=== PATIENT | female | born 1970 | race Two or more races ===

== ENCOUNTER 2017-03-05 05:48 | Emergency (ER) | payer MEDICAID, OTHER ==
[~2017-03-05] VITALS: Ht 167.6 cm; Wt 99.8 kg
[~2017-03-05 05:48] MED LIST: CITA-36 PO; FLUO-125 PO; HAL1T GT; LAM100T OR; PHE100C PO; PHEN32.49 PO
[2017-03-05] MEDS ORDERED: SODIUM CHLORIDE 0.9% 1,000 ML IV ONE (06:54)
[2017-03-05] MEDS ORDERED: MORPHINE SULFATE 4 MG/ML SYRG IV ONE (07:00)
[2017-03-05] MEDS ORDERED: ONDANSETRON HCL 4 MG/2 ML VIAL IV ONE (07:00)
[2017-03-05 07:38] LABS: Basophils # (auto) 0.2 uL; Basophils % (auto) 1.5 % (0.0-2.0); CONDITION Y; Eosinophils # (auto) 0.1 uL; Eosinophils % (auto) 0.7 % (0.0-7.0); Hematocrit 37.9 % (36.0-46.0); Hemoglobin 12.9 g/dL (12.2-16.2); Lymphocytes # (auto) 3.2 uL; Lymphocytes % (auto) 28.2 % (10.0-50.0); Mean Corpuscular Hemoglobin 29.1 pg (28.0-32.0); Mean Corpuscular Hgb Conc. 33.9 g/dL (32.0-36.0); Mean Corpuscular Volume 85.8 fL (80.0-100.0); Mean Platelet Volume 8.3 fL (7.4-10.4); Monocytes # (auto) 0.6 uL; Monocytes % (auto) 5.7 % (0.0-12.0); Neutrophils # (auto) 7.2 uL; Neutrophils % (auto) 63.9 % (37.0-80.0); Platelet Count (auto) 351 10^3/uL (140-450); Red Cell Distribution Width 14.1 % (11.6-16.0); White Blood Cell 11.3 10^3/uL (4.4-10.8)
[2017-03-05 07:53] LABS: Albumin 3.2 g/dL (3.4-5.0); BUN/Creatinine Ratio 19.4; Calcium 8.5 mg/dL (8.5-10.1); Potassium 4.8 mmol/L (3.5-5.1)
[2017-03-05 07:56] LABS: Bilirubin, Total 0.1 mg/dL (0.2-1.0); Total Protein 7.4 g/dL (6.4-8.2)
[2017-03-05] MEDS ORDERED: LEVOFLOXACIN 500MG 100 ML IV ONE (09:30)
[2017-03-05 10:09] VITALS: BP 90/56
== END 2017-03-05 11:04 | disposition home or self-care (01) ==
LOC: EDBD 05:48 → ER 05:52
DX: R10.9 Unspecified abdominal pain (principal); D72.829 Elevated white blood cell count, unspecified; E78.5 Hyperlipidemia, unspecified; F12.10 Cannabis abuse, uncomplicated; Z88.0 Allergy status to penicillin; Z93.3 Colostomy status; Z90.49 Acquired absence of other specified parts of digestive tract; Z98.51 Tubal ligation status; Z79.899 Other long term (current) drug therapy
CPT/HCPCS: 36415; 71010; 74176; 80053; 85025; 96361; 96365; 96375; 99285; J1956; J2270; J2405

== ENCOUNTER 2017-06-09 15:29 | Emergency (ER) | payer OTHER ==
[~2017-06-09] VITALS: Ht 170.2 cm; Wt 104.3 kg
[2017-06-09 16:20] LABS: Basophils # (auto) 0 uL; Basophils % (auto) 0.3 % (0.0-2.0); Eosinophils # (auto) 0.1 uL; Eosinophils % (auto) 0.9 % (0.0-7.0); Hematocrit 38.8 % (36.0-46.0); Lymphocytes # (auto) 2.6 uL; Lymphocytes % (auto) 21.1 % (10.0-50.0); Mean Corpuscular Hgb Conc. 33.5 g/dL (32.0-36.0); Mean Corpuscular Volume 86.6 fL (80.0-100.0); Monocytes # (auto) 0.6 uL; Monocytes % (auto) 4.7 % (0.0-12.0); Neutrophils # (auto) 8.9 uL; Platelet Count (auto) 355 10^3/uL (140-450); Red Cell Distribution Width 13.5 % (11.8-14.3); White Blood Cell 12.1 10^3/uL (4.4-10.8)
[2017-06-09 16:38] LABS: Albumin 2.9 g/dL (3.4-5.0); Alkaline Phosphatase 232 U/L (45-117); Anion Gap 8 (5-15); Aspartate Aminotransferase 16 U/L (15-37); BUN/Creatinine Ratio 7.9; Bilirubin, Total 0.2 mg/dL (0.2-1.0); Blood Urea Nitrogen 5 mg/dL (7-18); Calcium 8.3 mg/dL (8.5-10.1); Carbon Dioxide 23 mmol/L (21-32); Chloride 107 mmol/L (98-107); GFR African American 129 mL/min; GFR Non-African American 107 mL/min; Glucose 83 mg/dL (74-106); Potassium 3.8 mmol/L (3.5-5.1); Sodium 138 mmol/L (136-145); Total Protein 7.6 g/dL (6.4-8.2)
[2017-06-09 22:06] VITALS: BP 136/87
[2017-06-10 01:27] LABS: Acetaminophen < 2.0 ug/mL (10-30)
[2017-06-10 01:30] LABS: Salicylate 1.7 mg/dL (2.8-20.0)
== END 2017-06-10 10:06 | disposition left against medical advice (07) ==
LOC: EDUNIT# 15:29 → EDBD 15:29 → ER 15:32
DX: T42.3X1A Poisoning by barbiturates, accidental (unintentional), initial encounter (principal); F32.9 Major depressive disorder, single episode, unspecified; E78.5 Hyperlipidemia, unspecified; F20.9 Schizophrenia, unspecified; Z98.51 Tubal ligation status; Y92.89 Other specified places as the place of occurrence of the external cause
CPT/HCPCS: 36415; 80053; 80184; 80307; 80320; 80329; 85025; 93005; 94761

== ENCOUNTER 2024-05-03 19:16 | Inpatient (IN) | payer MEDICAID, OTHER ==
[~2024-05-03] VITALS: Ht 154.9 cm; Wt 114.8 kg
[~2024-05-03 19:16] MED LIST changes: -CITA-36 PO; +CITA40TA12 PO; -PHE100C PO; +PHEN1CAP38 PO; +PHEN32.44 PO; -PHEN32.49 PO
[2024-05-03 20:05] LABS: Basophils # (auto) 0.1 10 ^3/uL (0-0.2); Eosinophils # (auto) 0 10 ^3/uL (0-0.8); Eosinophils % (auto) 0.4 % (0.0-7.0); Hemoglobin 14.1 g/dL (12.2-16.2); Lymphocytes # (auto) 2.1 10 ^3/uL (0.4-5.4); Mean Corpuscular Hemoglobin 29.6 pg (28.0-32.0); Mean Corpuscular Hgb Conc. 34.5 g/dL (32.0-36.0); Monocytes # (auto) 0.6 10 ^3/uL (0-1.3); Monocytes % (auto) 5.8 % (0.0-12.0); Neutrophils # (auto) 7.3 10 ^3/uL (1.6-8.6); Neutrophils % (auto) 71.8 % (37.0-80.0); Nucleated Red Blood Cells % 0.1 %; Platelet Count (auto) 355 10^3/uL (140-450); Red Blood Cells 4.77 10^6/uL (4.0-5.20); Red Cell Distribution Width 13.8 % (11.8-14.3); White Blood Cell 10.2 10^3/uL (4.4-10.8)
[2024-05-03 20:24] LABS: Alanine Aminotransferase 24 U/L (7-40); Alkaline Phosphatase 194 U/L (46-116); Anion Gap 6 (5-15); Aspartate Aminotransferase 19 U/L (13-40); BUN/Creatinine Ratio 14.3 (10.0-20.0); Bilirubin, Total 0.2 mg/dL (0.2-1.0); Blood Urea Nitrogen 11 mg/dL (9-23); Calcium 9.4 mg/dL (8.7-10.4); Carbon Dioxide 26 mmol/L (20-30); Chloride 106 mmol/L (98-107); Glucose 102 mg/dL (74-106); Potassium 4.3 mmol/L (3.5-5.1); Sodium 138 mmol/L (136-145); Total Protein 7.2 g/dL (5.7-8.2)
[2024-05-03 20:39] LABS: Lipase 33 U/L (12-53)
[2024-05-03] MEDS: SODIUM CHLORIDE 0.9% 500 ML IVB ONE (23:04)
[2024-05-03 23:08] VITALS: PULSE 70; RESP 18; O2SAT 95
[2024-05-04] VITALS (7 sets, daily range): BP systolic 94–133; BP diastolic 45–63; PULSE 64–85; RESP 16–20; TEMP 97.7–98.7; O2SAT 93–99
[2024-05-04] MEDS ORDERED: ACETAMINOPHEN 325 MG TAB PO PRN (02:00)
[2024-05-04] MEDS ORDERED: DOCUSATE SOD 100 MG CAP PO PRN (02:00)
[2024-05-04] MEDS: ONDANSETRON HCL 4 MG/2 ML VIAL IV PRN (02:41)
[2024-05-04] MEDS: SODIUM CHLORIDE 0.9% 1,000 ML IV SCH (02:42)
[2024-05-04] MEDS: MORPHINE SULFATE INJ 2 MG/ml SYRG IV PRN (02:42)
[2024-05-04] MEDS ORDERED: NITROGLYCERIN 0.4 MG SL TAB SL PRN (05:30)
[2024-05-04] MEDS ORDERED: MORPHINE SULFATE INJ 2 MG/ml SYRG IV PRN (05:30)
[2024-05-04] MEDS ORDERED: PHENYTOIN SODIUM 100 MG CAP PO SCH (06:00)
[2024-05-04] MEDS: PHENYTOIN SODIUM 100 MG CAP PO SCH (06:45)
[2024-05-04 06:59] LABS: Basophils # (auto) 0.1 10 ^3/uL (0-0.2); Basophils % (auto) 0.6 % (0.0-2.0); Eosinophils # (auto) 0 10 ^3/uL (0-0.8); Eosinophils % (auto) 0.4 % (0.0-7.0); Hematocrit 38.9 % (36.0-46.0); Hemoglobin 13.4 g/dL (12.2-16.2); Lymphocytes # (auto) 2.7 10 ^3/uL (0.4-5.4); Lymphocytes % (auto) 22.7 % (10.0-50.0); Mean Corpuscular Hemoglobin 29.8 pg (28.0-32.0); Mean Corpuscular Hgb Conc. 34.5 g/dL (32.0-36.0); Mean Corpuscular Volume 86.2 fL (80.0-100.0); Monocytes # (auto) 0.6 10 ^3/uL (0-1.3); Monocytes % (auto) 5.4 % (0.0-12.0); Neutrophils # (auto) 8.4 10 ^3/uL (1.6-8.6); Neutrophils % (auto) 70.9 % (37.0-80.0); Nucleated Red Blood Cells % 0.1 %; Platelet Count (auto) 319 10^3/uL (140-450); Red Blood Cells 4.51 10^6/uL (4.0-5.20); Red Cell Distribution Width 13.8 % (11.8-14.3); White Blood Cell 11.8 10^3/uL (4.4-10.8)
[2024-05-04 07:14] LABS: Alanine Aminotransferase 23 U/L (7-40); Albumin 3.9 g/dL (3.2-4.8); Alkaline Phosphatase 189 U/L (46-116); Anion Gap 6 (5-15); Aspartate Aminotransferase 22 U/L (13-40); BUN/Creatinine Ratio 13.5 (10.0-20.0); Bilirubin, Total 0.2 mg/dL (0.2-1.0); Blood Urea Nitrogen 10 mg/dL (9-23); Calcium 9.1 mg/dL (8.7-10.4); Carbon Dioxide 27 mmol/L (20-30); Chloride 106 mmol/L (98-107); Glucose 88 mg/dL (74-106); Potassium 4.2 mmol/L (3.5-5.1); Sodium 139 mmol/L (136-145); Total Protein 6.8 g/dL (5.7-8.2)
[2024-05-04] MEDS: PANTOPRAZOLE 40 MG/10 ML VIAL INJ IV SCH (07:36)
[2024-05-04] MEDS: HYDROcodone-ACET 5/325MG TAB PO PRN (07:37)
[2024-05-04] MEDS: lamoTRIgine 100 MG TAB PO SCH (07:38)
[2024-05-04] MEDS: PHENobarbital 32.4 MG TAB PO SCH (10:09)
[2024-05-05 01:00] VITALS: BP 120/57; PULSE 73; RESP 20; TEMP 98.1; O2SAT 95
[2024-05-05] MEDS ORDERED: PNEUMOCOCCAL VACC POLYS 25 MCG/0.5 ML VIAL IM ONE (02:30)
[2024-05-05 05:00] VITALS: BP 94/40; PULSE 68; RESP 20; TEMP 97.8; O2SAT 95
[2024-05-05 06:32] LABS: Basophils # (auto) 0.1 10 ^3/uL (0-0.2); Basophils % (auto) 1.2 % (0.0-2.0); Eosinophils # (auto) 0.1 10 ^3/uL (0-0.8); Eosinophils % (auto) 0.6 % (0.0-7.0); Hematocrit 37.7 % (36.0-46.0); Lymphocytes # (auto) 2.2 10 ^3/uL (0.4-5.4); Mean Corpuscular Hemoglobin 30.1 pg (28.0-32.0); Mean Corpuscular Hgb Conc. 34.4 g/dL (32.0-36.0); Mean Corpuscular Volume 87.3 fL (80.0-100.0); Monocytes # (auto) 0.5 10 ^3/uL (0-1.3); Monocytes % (auto) 6.6 % (0.0-12.0); Neutrophils # (auto) 5.1 10 ^3/uL (1.6-8.6); Neutrophils % (auto) 63.6 % (37.0-80.0); Platelet Count (auto) 299 10^3/uL (140-450); Red Blood Cells 4.32 10^6/uL (4.0-5.20); Red Cell Distribution Width 13.6 % (11.8-14.3)
[2024-05-05 06:51] LABS: Alanine Aminotransferase 43 U/L (7-40); Alkaline Phosphatase 205 U/L (46-116); Anion Gap 9 (5-15); BUN/Creatinine Ratio 8.2 (10.0-20.0); Blood Urea Nitrogen 6 mg/dL (9-23); Calcium 8.6 mg/dL (8.7-10.4); Carbon Dioxide 22 mmol/L (20-30); Chloride 109 mmol/L (98-107); Glucose 77 mg/dL (74-106); Potassium 4.3 mmol/L (3.5-5.1); Sodium 140 mmol/L (136-145)
[2024-05-05 06:52] LABS: Albumin 3.5 g/dL (3.2-4.8); Aspartate Aminotransferase 43 U/L (13-40)
[2024-05-05 06:53] LABS: Bilirubin, Total 0.2 mg/dL (0.2-1.0); Total Protein 6.4 g/dL (5.7-8.2)
[2024-05-05 07:30] VITALS: PULSE 66
[2024-05-05 17:00] VITALS: BP 121/65; PULSE 66; RESP 19; TEMP 98.4; O2SAT 97
[2024-05-05 20:00] VITALS: PULSE 78; PULSE 85; RESP 17; O2SAT 96
[2024-05-05 21:00] VITALS: BP 107/54; PULSE 82; RESP 20; TEMP 97.8; O2SAT 95
[2024-05-05] MEDS: metroNIDAZOLE 500MG/100ML 100 ML IV SCH (22:18)
[2024-05-06 01:03] VITALS: BP 100/51; PULSE 73; RESP 19; TEMP 98.2; O2SAT 93
[2024-05-06 05:03] VITALS: BP 100/51; PULSE 66; RESP 19; TEMP 98.6; O2SAT 95
[2024-05-06 08:00] VITALS: BP 94/41; PULSE 71; RESP 16; RESP 18; TEMP 97.7; O2SAT 95; O2SAT 98
[2024-05-06 13:00] VITALS: BP 112/40; PULSE 68; RESP 17; TEMP 98.4; O2SAT 96
[2024-05-06] MEDS ORDERED: LAM100T PO (14:12)
[2024-05-06 16:00] VITALS: BP 117/62; PULSE 79; RESP 18; TEMP 98; O2SAT 92
== END 2024-05-06 17:18 | disposition home or self-care (01) | DRG 253 ==
LOC: EDBD 19:16 → EDUNIT# 19:16 → ER 19:16 → TELE 05-04 05:30 → TELE-CENTR 05-04 10:53
PROVIDERS: ADMIT Nurse Practitioner Family; ATTEND Internal Medicine
DX: K92.2 Gastrointestinal hemorrhage, unspecified (principal); E78.5 Hyperlipidemia, unspecified; F32.A Depression, unspecified; F20.9 Schizophrenia, unspecified; K43.9 Ventral hernia without obstruction or gangrene; Z93.3 Colostomy status; Z85.038 Personal history of other malignant neoplasm of large intestine; Z88.0 Allergy status to penicillin; Z90.49 Acquired absence of other specified parts of digestive tract; Z82.49 Family history of ischemic heart disease and other diseases of the circulatory system; Z83.3 Family history of diabetes mellitus
CPT/HCPCS: 36415; 74176; 80053; 80185; 82378; 83690; 85025; G0378; J2405; J2470; J3490

== ENCOUNTER 2024-05-15 10:36 | Emergency (ER) | payer MEDICAID ==
[~2024-05-15] VITALS: Ht 154.9 cm; Wt 104.5 kg
[~2024-05-15 10:36] MED LIST changes: -CITA40TA12 PO; -HAL1T GT; -LAM100T OR; +LAM100T PO
[2024-05-15 11:59] LABS: Basophils # (auto) 0.1 10 ^3/uL (0-0.2); Basophils % (auto) 0.6 % (0.0-2.0); Eosinophils # (auto) 0.1 10 ^3/uL (0-0.8); Eosinophils % (auto) 0.5 % (0.0-7.0); Hematocrit 42.3 % (36.0-46.0); Hemoglobin 14.3 g/dL (12.2-16.2); Lymphocytes # (auto) 3.6 10 ^3/uL (0.4-5.4); Lymphocytes % (auto) 27.1 % (10.0-50.0); Mean Corpuscular Hemoglobin 29.6 pg (28.0-32.0); Mean Corpuscular Hgb Conc. 33.7 g/dL (32.0-36.0); Mean Corpuscular Volume 87.8 fL (80.0-100.0); Monocytes # (auto) 0.8 10 ^3/uL (0-1.3); Monocytes % (auto) 6.1 % (0.0-12.0); Neutrophils # (auto) 8.7 10 ^3/uL (1.6-8.6); Neutrophils % (auto) 65.7 % (37.0-80.0); Nucleated Red Blood Cells % 0.1 %; Platelet Count (auto) 381 10^3/uL (140-450); Red Blood Cells 4.82 10^6/uL (4.0-5.20); Red Cell Distribution Width 14.1 % (11.8-14.3); White Blood Cell 13.2 10^3/uL (4.4-10.8)
[2024-05-15 12:28] LABS: Alanine Aminotransferase 21 U/L (7-40); Albumin 4.2 g/dL (3.2-4.8); Alkaline Phosphatase 216 U/L (46-116); Anion Gap 5 (5-15); Aspartate Aminotransferase 20 U/L (13-40); BUN/Creatinine Ratio 13.7 (10.0-20.0); Bilirubin, Total 0.2 mg/dL (0.2-1.0); Blood Urea Nitrogen 10 mg/dL (9-23); Calcium 9.2 mg/dL (8.7-10.4); Carbon Dioxide 24 mmol/L (20-30); Chloride 106 mmol/L (98-107); Glucose 106 mg/dL (74-106); Lipase 32 U/L (12-53); Magnesium 2.2 mg/dL (1.6-2.6); Sodium 135 mmol/L (136-145); Total Protein 7.5 g/dL (5.7-8.2)
[2024-05-15 12:54] VITALS: BP 142/84; PULSE 86; RESP 12; O2SAT 94
[2024-05-15 19:45] LABS: Urine Bacteria None Seen /hpf (None Seen)
[2024-05-15 20:06] LABS: Urine Blood Negative /uL (Negative); Urine Clarity Clear (Clear); Urine Color Yellow (Yellow); Urine Hyaline Cast FEW /lpf (0 - 2); Urine Mucus FEW (None Seen); Urine Protein, UAD TRACE (Negative); Urine Specific Gravity 1.028 (1.001-1.035); Urine Urobilinogen Normal (Negative); Urine WBC 2 /hpf (0 - 5)
== END 2024-05-16 00:59 | disposition left against medical advice (07) ==
LOC: ER 10:36 → EDBD 10:36 → ER 05-16 00:59
DX: K46.9 Unspecified abdominal hernia without obstruction or gangrene (principal); R53.1 Weakness; E78.5 Hyperlipidemia, unspecified; Z98.51 Tubal ligation status; Z88.0 Allergy status to penicillin; Z90.49 Acquired absence of other specified parts of digestive tract; Z87.891 Personal history of nicotine dependence
CPT/HCPCS: 36415; 71045; 74176; 80053; 81001; 83605; 83690; 83735; 84484; 85025; 93005

== ENCOUNTER 2024-06-04 07:15 | Emergency (ER) | payer MEDICAID ==
[~2024-06-04] VITALS: Ht 154.9 cm; Wt 104.5 kg
[2024-06-04] MEDS: LORazepam 2MG/ML-1ML VIAL IV ONE (08:45)
[2024-06-04] MEDS: SODIUM CHLORIDE 0.9% 500 ML IV ONE (09:17)
[2024-06-04] MEDS: SODIUM CHLORIDE 0.9% 1,000 ML IV ONE (09:17)
[2024-06-04] MEDS: MECLIZINE HCL 25 MG TAB PO ONE (09:21)
[2024-06-04 10:13] LABS: Alanine Aminotransferase 26 U/L (7-40); Alkaline Phosphatase 208 U/L (46-116); Anion Gap 5 (5-15); Calcium 8.9 mg/dL (8.7-10.4); Carbon Dioxide 26 mmol/L (20-31); Chloride 109 mmol/L (98-107); Glucose 91 mg/dL (74-106); Magnesium 2.1 mg/dL (1.6-2.6); Potassium 4.4 mmol/L (3.5-5.1); Sodium 140 mmol/L (136-145)
[2024-06-04 10:14] LABS: Albumin 3.7 g/dL (3.2-4.8); Aspartate Aminotransferase 18 U/L (13-40); BUN/Creatinine Ratio 9.6 (10.0-20.0); Bilirubin, Total 0.2 mg/dL (0.2-1.0); Blood Urea Nitrogen 7 mg/dL (9-23); Total Protein 6.9 g/dL (5.7-8.2)
[2024-06-04 10:15] VITALS: PULSE 60; RESP 16; O2SAT 95
[2024-06-04 11:00] LABS: Urine Bacteria FEW /hpf (None Seen); Urine Blood Negative /uL (Negative); Urine Clarity Clear (Clear); Urine Color Light-Yellow (Yellow); Urine Protein, UAD Negative (Negative); Urine Specific Gravity 1.017 (1.001-1.035); Urine Urobilinogen Normal (Negative); Urine WBC 13 /hpf (0 - 5)
[2024-06-04 13:08] LABS: Basophils # (auto) 0 10 ^3/uL (0-0.2); Basophils % (auto) 0.4 % (0.0-2.0); Eosinophils # (auto) 0.1 10 ^3/uL (0-0.8); Eosinophils % (auto) 0.7 % (0.0-7.0); Hematocrit 39.6 % (36.0-46.0); Hemoglobin 13.8 g/dL (12.2-16.2); Lymphocytes # (auto) 2.4 10 ^3/uL (0.4-5.4); Lymphocytes % (auto) 25.1 % (10.0-50.0); Mean Corpuscular Hemoglobin 30.4 pg (28.0-32.0); Mean Corpuscular Hgb Conc. 34.8 g/dL (32.0-36.0); Mean Corpuscular Volume 87.2 fL (80.0-100.0); Monocytes # (auto) 0.5 10 ^3/uL (0-1.3); Monocytes % (auto) 5.2 % (0.0-12.0); Neutrophils # (auto) 6.7 10 ^3/uL (1.6-8.6); Neutrophils % (auto) 68.6 % (37.0-80.0); Nucleated Red Blood Cells % 0.1 %; Platelet Count (auto) 300 10^3/uL (140-450); Red Blood Cells 4.53 10^6/uL (4.0-5.20); Red Cell Distribution Width 13.9 % (11.8-14.3); White Blood Cell 9.7 10^3/uL (4.4-10.8)
[2024-06-04] MEDS ORDERED: NAP500T PO (15:47)
[2024-06-04] MEDS ORDERED: MECL25CH85 PO (15:47)
[2024-06-04 16:40] VITALS: BP 116/56; PULSE 64; RESP 18; TEMP 97.4; O2SAT 97
== END 2024-06-04 17:10 | disposition home or self-care (01) ==
LOC: EDBD 07:15 → EDSEX 07:15 → EDUNIT# 07:15 → ER 07:15
DX: G43.909 Migraine, unspecified, not intractable, without status migrainosus (principal); N39.0 Urinary tract infection, site not specified; H81.13 Benign paroxysmal vertigo, bilateral; F20.9 Schizophrenia, unspecified; F32.A Depression, unspecified; E78.5 Hyperlipidemia, unspecified; Z85.038 Personal history of other malignant neoplasm of large intestine; Z86.69 Personal history of other diseases of the nervous system and sense organs; Z90.49 Acquired absence of other specified parts of digestive tract; Z87.891 Personal history of nicotine dependence; Z98.51 Tubal ligation status; Z93.3 Colostomy status
CPT/HCPCS: 36415; 70450; 71046; 80053; 81001; 83735; 85025; 93005; 96360; 96361; 99285; J7030; J7040; J8597

== ENCOUNTER 2024-06-12 22:10 | Emergency (ER) | payer MEDICAID ==
[2024-06-12] MEDS: IOHEXOL 300 MG/ML 100ML BOTTLE IJ ONE
[~2024-06-12 22:10] MED LIST changes: +MECL25CH85 PO; +NAP500T PO
[2024-06-12 23:02] LABS: Basophils # (auto) 0.1 10 ^3/uL (0-0.2); Basophils % (auto) 0.4 % (0.0-2.0); Eosinophils # (auto) 0 10 ^3/uL (0-0.8); Eosinophils % (auto) 0.2 % (0.0-7.0); Hematocrit 44.8 % (36.0-46.0); Hemoglobin 15.4 g/dL (12.2-16.2); Lymphocytes % (auto) 7.9 % (10.0-50.0); Mean Corpuscular Hgb Conc. 34.4 g/dL (32.0-36.0); Mean Corpuscular Volume 87.1 fL (80.0-100.0); Monocytes # (auto) 0.6 10 ^3/uL (0-1.3); Monocytes % (auto) 5.1 % (0.0-12.0); Neutrophils # (auto) 10.9 10 ^3/uL (1.6-8.6); Neutrophils % (auto) 86.4 % (37.0-80.0); Platelet Count (auto) 275 10^3/uL (140-450); Red Blood Cells 5.14 10^6/uL (4.0-5.20); Red Cell Distribution Width 14.4 % (11.8-14.3); White Blood Cell 12.6 10^3/uL (4.4-10.8)
[2024-06-12 23:16] LABS: Alanine Aminotransferase 45 U/L (7-40); Albumin 4.1 g/dL (3.2-4.8); Alkaline Phosphatase 240 U/L (46-116); Anion Gap 2 (5-15); Aspartate Aminotransferase 52 U/L (13-40); BUN/Creatinine Ratio 14.3 (10.0-20.0); Blood Urea Nitrogen 13 mg/dL (9-23); Carbon Dioxide 24 mmol/L (20-31); Chloride 108 mmol/L (98-107); Glucose 117 mg/dL (74-106); INR 1.01 (0.9-1.15); Lipase 29 U/L (12-53); Partial Thromboplastin Time 32.1 SEC (24.5-34.5); Prothrombin Time 10.7 sec (9.3-11.8); Sodium 134 mmol/L (136-145)
[2024-06-12 23:17] LABS: Bilirubin, Total 0.3 mg/dL (0.2-1.0); Total Protein 7.7 g/dL (5.7-8.2)
[2024-06-12] MEDS: SODIUM CHLORIDE 0.9% 1,000 ML IV ONE (23:50)
[2024-06-13] MEDS: OMNIPAQUE 12mg/ml 500ml ORAL SOLUTION PO ONE
[2024-06-13] MEDS: ONDANSETRON HCL 4 MG/2 ML VIAL IV ONE (00:09)
[2024-06-13] MEDS: HYDROmorphone HCL 2 MG/ML VL/or syr IV ONE (00:11)
[2024-06-13 03:45] VITALS: BP 103/57; PULSE 78; RESP 17; TEMP 98; O2SAT 97
== END 2024-06-13 03:45 | disposition home or self-care (01) ==
LOC: ER 22:10 → EDBD 22:10 → ER 06-13 03:45
DX: K43.9 Ventral hernia without obstruction or gangrene (principal); R16.0 Hepatomegaly, not elsewhere classified; R79.89 Other specified abnormal findings of blood chemistry; Z90.49 Acquired absence of other specified parts of digestive tract; Z88.0 Allergy status to penicillin; Z79.899 Other long term (current) drug therapy; Z98.890 Other specified postprocedural states
CPT/HCPCS: 36415; 71045; 74177; 80053; 83690; 83880; 84484; 85025; 85610; 85730; 93005; 96361; 96374; 96375; 99285; J1171; J2405; J7030; Q9967

== ENCOUNTER 2024-07-26 17:55 | Emergency (ER) | payer MEDICAID ==
[~2024-07-26] VITALS: Ht 162.6 cm; Wt 113.6 kg
[2024-07-26 21:35] VITALS: BP 129/55; TEMP 98
[2024-07-26 21:53] LABS: Basophils # (auto) 0.2 10 ^3/uL (0-0.2); Basophils % (auto) 1.3 % (0.0-2.0); Eosinophils # (auto) 0.1 10 ^3/uL (0-0.8); Eosinophils % (auto) 0.7 % (0.0-7.0); Hematocrit 41.5 % (36.0-46.0); Hemoglobin 14.2 g/dL (12.2-16.2); Lymphocytes % (auto) 22.2 % (10.0-50.0); Mean Corpuscular Hemoglobin 29.7 pg (28.0-32.0); Mean Corpuscular Hgb Conc. 34.2 g/dL (32.0-36.0); Mean Corpuscular Volume 86.8 fL (80.0-100.0); Monocytes # (auto) 0.7 10 ^3/uL (0-1.3); Monocytes % (auto) 5.3 % (0.0-12.0); Neutrophils # (auto) 9.4 10 ^3/uL (1.6-8.6); Neutrophils % (auto) 70.5 % (37.0-80.0); Nucleated Red Blood Cells % 0.1 %; Platelet Count (auto) 386 10^3/uL (140-450); Red Blood Cells 4.79 10^6/uL (4.0-5.20); Red Cell Distribution Width 13.2 % (11.8-14.3); White Blood Cell 13.3 10^3/uL (4.4-10.8)
[2024-07-26 22:09] LABS: Alanine Aminotransferase 26 U/L (7-40); Anion Gap 7 (5-15); Aspartate Aminotransferase 17 U/L (13-40); BUN/Creatinine Ratio 16.5 (10.0-20.0); Blood Urea Nitrogen 13 mg/dL (9-23); Calcium 9.2 mg/dL (8.7-10.4); Carbon Dioxide 27 mmol/L (20-31); Chloride 105 mmol/L (98-107); Potassium 4.2 mmol/L (3.5-5.1); Sodium 139 mmol/L (136-145)
[2024-07-26 22:10] LABS: Total Protein 7.5 g/dL (5.7-8.2)
--- NOTE | 2024-07-26 22:12 | ED.PDOC ---
GI ASSESSMENT HPI Comments 54-year-old female who came to ER due to rectal pain. Patient is status post colostomy bag insertion.. Past few hours, patient has been complaining of rectal pain, whenever she uses the bathroom to urinate, she feels rectal pain or an urge that something is gonna fall off. Patient also complaining of whitish rectal discharge has been happening for months that has become progressive the past few weeks. She denies any urinary symptoms. Chief Complaint: Rectal Pain Time Seen by MD: 22:10 Primary Care Provider: MARYANN Reviewed Notes: Nurses Notes Allergies: Coded Allergies: Penicillins (Verified Allergy, Intermediate, hives, 01/12/11) Home Meds Active Scripts Naproxen (NAPROSYN TABLET) 500 Mg Tb, 1 TAB PO BID for 10 Days, #20 TAB 1 Refill Prov:KANCHAN PATTERSON MD 06/04/24 Meclizine HCl (Antivert) 25 Mg Chw, 50 MG PO TID for 10 Days, #30 TAB.CHEW Prov:KANCHAN PATTERSON MD 06/04/24 Lamotrigine (LAMICTAL) 100 Mg Tab, 100 MG PO DAILY for 30 Days, #30 TAB 0 Refills Prov:EFRA YIP DO 05/06/24 Reported Medications Phenobarbital (PHENOBARBITAL) 32.4 Mg Tb, 64.8 MG PO BID 06/06/15 Fluoxetine Hcl (Fluoxetine Hcl) 20 Mg Cap, 20 MG PO DAILY, CAP 06/06/15 Phenytoin Sodium (DILANTIN CAPSULE) 100 Mg Cp, 100 MG PO QID for DAILY, CP 06/06/15 Information Source: Patient Mode of Arrival: EMS Timing: Hours Duration: Since onset Prehospital treatment: None Stool: Normal Severity: None Recent: None Recent Hx of: Abdominal Surgery Pain Location: Other (Rectal) Modifying Factors: Nothing Associated sign and symptoms: Nausea Review of Systems: REVIEW OF SYSTEMS: No fever, no chills, or fatigue HEENT: No sore throat, no earache, no congestion, no neck pain. Cardiac: No chest pain. No palpitations. Lungs: No shortness of breath, no cough. GI: No nausea, no vomiting, no diarrhea, no constipation, no abdominal pain, (+) rectal pain : No dysuria, frequency, or urgency. No hematuria. Musculoskeletal: No joint pain , no joint swelling, no extremity edema. Skin: No rash, no itching. Neuro: No headache, no dizziness, no weakness Vital Signs Vital Signs Date Time Temp Pulse Resp B/P (MAP) Pulse Ox O2 Delivery O2 Flow Rate FiO2 07/26/24 22:22 82 15 98 Room Air* 0 21 07/26/24 21:35 98.0 129/55 (79) 98.0 Physical Exam General: Awake, alert and oriented. No acute distress. Skin: Skin in warm, dry and intact. Appropriate color for ethnicity. Nailbeds pink with no cyanosis. HEENT: The head is normocephalic and atraumatic. Conjunctivae are clear without exudates or hemorrhage. Sclera is non-icteric. EOM are intact. No signs of nystagmus. Eyelids are normal in appearance without swelling or lesions. Oral mucosa is pink and moist Neck: The neck is supple with normal range of motion. No JVD. Cardiac: Heart rate and rhythm are normal. No murmurs, gallops, or rubs are auscultated. Respiratory: No signs of respiratory distress. Lung sounds are clear in all lobes bilaterally without rales, ronchi, or wheezes. Abdominal: Abdomen is soft, generally tender without distention. Bowel sounds are present and normoactive in all four quadrants. : Deferred Extremities: Upper and lower extremities are atraumatic in appearance without deformity or edema. Neurological: The patient is awake, alert and oriented to person, place, and time with normal speech. Speech is clear. There is no facial asymmetry. Psychiatric: Appropriate mood and affect. Good judgement and insight. No visual or auditory hallucinations. Past Medical History PAST MEDICAL HISTORY: Cancer, Depression, High Lipids, Schizophrenia, Seizures Surgical History: BTL, Cholecystectomy Surgical History (Other): Colostomy bag SCHOOL GUARD History: No Pertinent SCHOOL GUARD History Family History Family History: Family hx of DM, Family hx of Cancer, Family hx of heart deb, Family hx of HTN Social History Smoker: Non-Smoker, Quit Greater Than 1 Year Alcohol: Denies ETOH Use Drugs: Denies Drug Use Lives In: Home Was a procedure done? Was a procedure done?: No GI differential Dx Differential Diagnosis: Bowel Obstruction, Diverticular disease, Gastritis/PUD, Gastroenteritis, GI hemorrhage, Inflammatory BD, Ischemic Bowel, Pancreatitis, Mass, Anemia, Other (Rectal prolapse) X-Ray, Labs, Meds, VS Vital Signs Date Time Temp Pulse Resp B/P (MAP) Pulse Ox O2 Delivery O2 Flow Rate FiO2 07/26/24 22:22 82 15 98 Room Air* 0 21 07/26/24 21:35 98.0 82 15 129/55 (79) 98 98.0 07/26/24 17:55 98.4 97 14 111/67 (82) 97 Lab Test 07/26/24 21:35 Range/Units White Blood Count 13.3 H 4.4-10.8 10^3/uL Red Blood Count 4.79 4.0-5.20 10^6/uL Hemoglobin 14.2 12.2-16.2 g/dL Hematocrit 41.5 36.0-46.0 % Mean Corpuscular Volume 86.8 80.0-100.0 fL Mean Corpuscular Hemoglobin 29.7 28.0-32.0 pg Mean Corpuscular Hemoglobin Concent 34.2 32.0-36.0 g/dL Red Cell Distribution Width 13.2 11.8-14.3 % Platelet Count 386 140-450 10^3/uL Mean Platelet Volume 7.2 6.9-10.8 fL Neutrophils (%) (Auto) 70.5 37.0-80.0 % Lymphocytes (%) (Auto) 22.2 10.0-50.0 % Monocytes (%) (Auto) 5.3 0.0-12.0 % Eosinophils (%) (Auto) 0.7 0.0-7.0 % Basophils (%) (Auto) 1.3 0.0-2.0 % Neutrophils # (Auto) 9.4 H 1.6-8.6 10 ^3/uL Lymphocytes # (Auto) 3.0 0.4-5.4 10 ^3/uL Monocytes # (Auto) 0.7 0-1.3 10 ^3/uL Eosinophils # (Auto) 0.1 0-0.8 10 ^3/uL Basophils # (Auto) 0.2 0-0.2 10 ^3/uL Nucleated Red Blood Cells 0.1 % Sodium Level 139 136-145 mmol/L Potassium Level 4.2 3.5-5.1 mmol/L Chloride Level 105 98-107 mmol/L Carbon Dioxide Level 27 20-31 mmol/L Anion Gap 7 5-15 Blood Urea Nitrogen 13 9-23 mg/dL Creatinine 0.79 0.550-1.02 mg/dL Glomerular Filtration Rate Calc 88 >90 mL/min BUN/Creatinine Ratio 16.5 10.0-20.0 Serum Glucose 112 H 74-106 mg/dL Lactic Acid Level 1.1 0.4-2.0 mmol/L Calcium Level 9.2 8.7-10.4 mg/dL Total Bilirubin < 0.2 L 0.2-1.0 mg/dL Aspartate Amino Transferase (AST) 17 13-40 U/L Alanine Aminotransferase (ALT) 26 7-40 U/L Alkaline Phosphatase 214 H 46-116 U/L Total Protein 7.5 5.7-8.2 g/dL Albumin 4.0 3.2-4.8 g/dL PROCEDURE(s): ABPLIV - CT AB PEL WITH IV CON ONLY FINDINGS: Lower Thorax: Trace pericardial fluid. Heart size is normal. Linear bibasilar scarring or atelectasis. 9 mm nodular opacity in the visualized right breast on series 2, image 5. Liver and Biliary system: Mild hepatomegaly measuring 19 cm craniocaudal. Major portal veins are patent. No discrete hepatic lesion. Prior cholecystectomy without biliary ductal dilatation. Spleen: Unremarkable. Adrenal Glands and Kidneys: Unremarkable. Pancreas and Retroperitoneum: Unremarkable pancreas. No retroperitoneal lymphadenopathy. Aorta and Major Vessels: Aortoiliac vessels are patent and normal caliber containing mild mixed atherosclerotic plaque. Bowel, Mesentery and Peritoneal space: Prior subtotal colectomy with a Matt's pouch and a right lower quadrant colostomy. The remaining small and large bowel loops are normal in caliber. Multiple small-bowel loops course into a ventral abdominal wall hernia and are nonobstructed. No extraluminal contrast is seen. There is no free air or fluid collection. Small fat containing right lower quadrant parastomal hernia. Pelvis: The uterus is present. Surgical clips within the left adnexa. There is no pelvic lymphadenopathy. Urinary bladder is mildly distended. Abdominal wall and Osseous Structures: Multilevel lower thoracic and lumbar spondylosis. Multiple chronic appearing compression fractures at T11, T12, L1, L2, and L4. . There is a midline subincisional ventral abdominal hernia with the neck of the hernia measuring 9.3 cm on series 2, image 51 with multiple nonobstructed small bowel loops in the hernia sac. IMPRESSION: 1. Prior subtotal colectomy with a right lower quadrant colostomy and a Matt's pouch. No bowel obstruction. 2. Large midline subincisional ventral abdominal wall hernia containing multiple nonobstructed small bowel loops. 3. Mild hepatomegaly. 4. There is a 9 mm nodular opacity in the right breast, not optimally evaluated by CT. Correlate with dedicated breast imaging if not already recently performed. Time of 1ST Reevaluation: 22:05 Reevaluation 1ST: Unchanged Patient Education/Counseling: Diagnosis, Treatment Family Education/Counseling: No Family Present Additional Information (Due to unavailability of open ER rooms/beds, the patient was initially seen and examined in the ER hallway in order to expedite care. The patient was offered the option to wait for a private ER room/bed to become available but opted to proceed with the hallway examination. ) Departure 1 Departure Time of Disposition: 00:50 Impression: Primary Impression: Rectal pain Additional Impressions: Abdominal pain Left against medical advice Disposition: 07 LEFT AGAINST MEDICAL ADVICE Condition: Stable Additional Instructions: ED DISCHARGE INSTRUCTIONS Instructions: Please read all instructions provided in this packet carefully. Although you have been discharged from the Emergency Department, this does not mean that you have a "clean bill of health". No definitive diagnosis for your symptoms has been made today. It is possible that you are in the process of developing a serious illness. This is why you must return to the ED without fail if any new or worsening symptoms (especially if your symptoms include chest pain, trouble breathing, abdominal pain, fever, headache, confusion, trouble seeing, or trouble walking) It is also very important that you see a primary care doctor within the next 3-5 days to follow up. If you are unable to get an appointment, return to the ED for re-evaluation. Comments Patient left the emergency department against the medical advice of nursing staff prior to receiving full examination, urinalysis testing.. I was unable to speak to patient and have discussion regarding risks, benefits of leaving, test results, benefits of performing full examination. Extensive evaluation was performed to identify or rule out: (See differential diagnosis section) The following tests were ordered, and results were reviewed by me: (See diagnostic results section) The following test were independently interpreted by me: N/A I reviewed the following notes from the pt's past medical encounters: Previous ER checkups as far as 2015 regarding colostomy bag Additional information was gathered from interviewing the following independent historians: N/A Discussion of management or test interpretation with external physician/other qualified health livestock caretaker: N/A Critical Care Note Critical Care Time?: No Stability Stability form required: No Heart Score Heart Score: Heart Score Response (Comments) Value History N/A 0 EKG N/A 0 Age N/A 0 Risk Factors N/A 0 Troponin N/A 0 Total 0 I personally scribed for JOHN SCHROEDER MD ([email or web address]) on 07/26/24 at 22:12. Electronically submitted by Kailash Thayer ([employer]). I personally scribed for JOHN SCHROEDER MD ([email or web address]) on 07/27/24 at 00:06. Electronically submitted by Kailash Thayer ([email or web address]). JOHN SCHROEDER MD Jul 26, 2024 22:12
[2024-07-26] MEDS: IOHEXOL 300 MG/ML 100ML BOTTLE IJ ONE (22:18)
[2024-07-26 22:20] LABS: Alkaline Phosphatase 214 U/L (46-116); Bilirubin, Total < 0.2 mg/dL (0.2-1.0); Glucose 112 mg/dL (74-106)
[2024-07-26 22:22] VITALS: PULSE 82; RESP 15; O2SAT 98
--- NOTE | 2024-07-26 23:29 | DVH ---
CLINICAL HISTORY: Rectal pain, rectal discharge, difficulty urinating TECHNIQUE: CT of the abdomen and pelvis was performed with intravenous contrast. 100 mL Omnipaque 300 injected T his exam was performed according to our departmental dose optimization program. Up-to-date CT equipme nt and radiation dose reduction techniques are utilized as appropriate. Oral and IV contrast administ ered, 100 cc Omnipaque 300 IV 1000 cc Omnipaque oral. CTDIVol: [CTDIvol] mGy DLP: 1514.94 mGy-cm WID: COMPARISON: CT CT ABD PELVIS W CON-ORAL IV on DOS: 06/13/24, FINDINGS: Lower Thorax: Trace pericardial fluid. Heart size is normal. Linear bibasilar scarring or atelectasis . 9 mm nodular opacity in the visualized right breast on series 2, image 5. Liver and Biliary system: Mild hepatomegaly measuring 19 cm craniocaudal. Major portal veins are rodriguez nt. No discrete hepatic lesion. Prior cholecystectomy without biliary ductal dilatation. Spleen: Unremarkable. Adrenal Glands and Kidneys: Unremarkable. Pancreas and Retroperitoneum: Unremarkable pancreas. No retroperitoneal lymphadenopathy. Aorta and Major Vessels: Aortoiliac vessels are patent and normal caliber containing mild mixed ather osclerotic plaque. Bowel, Mesentery and Peritoneal space: Prior subtotal colectomy with a Matt's pouch and a right l ower quadrant colostomy. The remaining small and large bowel loops are normal in caliber. Multiple s mall-bowel loops course into a ventral abdominal wall hernia and are nonobstructed. No extraluminal c ontrast is seen. There is no free air or fluid collection. Small fat containing right lower quadrant parastomal hernia. Pelvis: The uterus is present. Surgical clips within the left adnexa. There is no pelvic lymphadenopa thy. Urinary bladder is mildly distended. Abdominal wall and Osseous Structures: Multilevel lower thoracic and lumbar spondylosis. Multiple ch ronic appearing compression fractures at T11, T12, L1, L2, and L4. . There is a midline subincisional ventral abdominal hernia with the neck of the hernia measuring 9.3 cm on series 2, image 51 with mul tiple nonobstructed small bowel loops in the hernia sac. IMPRESSION: 1. Prior subtotal colectomy with a right lower quadrant colostomy and a Matt's pouch. No bowel ob struction. 2. Large midline subincisional ventral abdominal wall hernia containing multiple nonobstructed small bowel loops. 3. Mild hepatomegaly. 4. There is a 9 mm nodular opacity in the right breast, not optimally evaluated by CT. Correlate with dedicated breast imaging if not already recently performed.
== END 2024-07-27 04:20 | disposition left against medical advice (07) ==
LOC: EDBD 17:55 → ER 17:55
DX: K62.89 Other specified diseases of anus and rectum (principal); R10.9 Unspecified abdominal pain; F32.A Depression, unspecified; F20.9 Schizophrenia, unspecified; E78.5 Hyperlipidemia, unspecified; Z53.29 Procedure and treatment not carried out because of patient's decision for other reasons; Z90.49 Acquired absence of other specified parts of digestive tract; Z93.3 Colostomy status; Z87.891 Personal history of nicotine dependence; Z88.0 Allergy status to penicillin; Z79.899 Other long term (current) drug therapy
CPT/HCPCS: 36415; 74177; 80053; 83605; 85025; 99285; Q9967

== ENCOUNTER 2024-09-10 08:05 | Inpatient (IN) | payer MEDICAID ==
[~2024-09-10] VITALS: Ht 154.9 cm; Wt 95.0 kg
--- NOTE | 2024-09-10 08:09 | ECG ---
[facility] Test Date: 2024-09-10 Test Time: 08:04:46 Pat Name: PEDRO ROWELL Department: ED Room: 0285 Gender: F [employer] Operator: : [id number] Requested By: KANCHAN PATTERSON Order Number: [id number] Reading MD: Joseph Katz Measurements Intervals [place] Rate: 83 P: 37 WV: 124 QRS: 49 QRSD: 89 T: 34 QT: 380 QTc: 447 Interpretive Statements Sinus rhythm Low voltage, precordial leads Electronically Signed On 09-13-2024 16:30:17 PST by Joseph Katz Please click the below link to view image of tracing.
--- NOTE | 2024-09-10 10:16 | ED.PDOC ---
HPI Comments 54 y.o female with PMHx of colon cancer and seizures, presents to the ED via EMS for a chief complaint of substernal chest pain associated with nausea and SOB that started today around 0400. Patient describes pain as sharp, radiating to her left and back, rating a 9/10 on the pain scale and has no modifying factors. Patient reports no previous cardiac history or chest pain. She denies any fever, chills, nausea, vomiting, leg swelling. She denies substance, alcohol or tobacco use. Patient received 324mg ASA by EMS prior to ED arrival. Chief Complaint: Chest Pain Time Seen by MD: 10:24 Primary Care Provider: MARYANN Reviewed Notes: Nurses Notes, Medications, Allergies Allergies: Coded Allergies: Penicillins (Verified Allergy, Intermediate, hives, 01/12/11) Home Meds Active Scripts Naproxen (NAPROSYN TABLET) 500 Mg Tb, 1 TAB PO BID for 10 Days, #20 TAB 1 Refill Prov:KANCHAN PATTERSON MD 06/04/24 Meclizine HCl (Antivert) 25 Mg Chw, 50 MG PO TID for 10 Days, #30 TAB.CHEW Prov:KANCHAN PATTERSON MD 06/04/24 Lamotrigine (LAMICTAL) 100 Mg Tab, 100 MG PO DAILY for 30 Days, #30 TAB 0 Refills Prov:EFRA YIP DO 05/06/24 Reported Medications Phenobarbital (PHENOBARBITAL) 32.4 Mg Tb, 64.8 MG PO BID 06/06/15 Fluoxetine Hcl (Fluoxetine Hcl) 20 Mg Cap, 20 MG PO DAILY, CAP 06/06/15 Phenytoin Sodium (DILANTIN CAPSULE) 100 Mg Cp, 100 MG PO QID for DAILY, CP 06/06/15 Information Source: Patient Mode of Arrival: EMS Severity: Moderate Timing: Hours Duration: Since onset Location: Substernal Radiation: Back Quality: Sharp Onset: At Rest Modifying Factors: Nothing Associated Signs and Symptoms: Back Pain Past Medical History PAST MEDICAL HISTORY: Cancer, Depression, High Lipids, Schizophrenia, Seizures Surgical History: BTL, Cholecystectomy FRONT DESK LEAD History: No Pertinent FRONT DESK LEAD History Family History Family History: Family hx of DM, Family hx of Cancer, Family hx of heart deb, Family hx of HTN Social History Smoker: Non-Smoker, Quit Greater Than 1 Year Alcohol: Denies ETOH Use Drugs: Denies Drug Use Lives In: Home Constitutional: denies: chills, diaphoresis, fatigue, fever, malaise, sweats, weakness, others EENTM: denies: blurred vision, double vision, ear bleeding, ear discharge, ear drainage, ear pain, ear ringing, eye pain, eye redness, hearing loss, mouth pain, mouth swelling, nasal discharge, nose bleeding, nose congestion, nose pain, photophobia, tearing, throat pain, throat swelling, voice changes, others Respiratory: reports: SOB at rest, shortness of breath, SOB with excertion; denies: cough, hemoptysis, orthopnea, stridor, wheezing, others Cardiovascular: reports: chest pain; denies: dizzy spells, diaphoresis, Dyspnea on exertion, edema, irregular heart beat, left arm pain, lightheadedness, palpitations, PND, syncope, others Gastrointestinal: reports: nausea; denies: abdomen distended, abdominal pain, blood streaked bowels, constipated, diarrhea, dysphagia, difficulty swallowing, hematemesis, melena, poor appetite, poor fluid intake, rectal bleeding, rectal pain, vomiting, others Genitourinary: denies: abnormal vagina bleeding, burning, dyspareunia, dysuria, flank pain, frequency, hematuria, incontinence, pain, , vagina discharge, urgency, others Neurological: denies: dizziness, fainting, headache, left sided numbness, left sided weakness, numbness, paresthesia, pre-existing deficit, right sided numbness, right sided weakness, seizure, speech problems, tingling, tremors, weakness, others Musculoskeletal: reports: back pain; denies: gout, joint pain, joint swelling, muscle pain, muscle stiffness, neck pain, others Integumetry: denies: bruises, change in color, change in hair/nails, dryness, laceration, lesions, lumps, rash, wounds, others Allergic/Immunocompromised: denies: Difficulty Healing, Frequent Infections, Hives, Itching, others Hematologic/Lymphatic: denies: anemia, blood clots, easy bleeding, easy bruising, swollen glands, others Endocrine: denies: excessive hunger, excessive sweating, excessive thirst, excessive urination, flushing, intolerance to cold, intolerance to heat, unexplained weight gain, unexplained weight loss, others Psychiatric: denies: anxiety, bipolar disorder, depression, hopeless, panic disorder, schizophrenia, sleepless, suicidal, others All Other Systems: Reviewed and Negative Physical Exam General Appearance: Moderate Distress HEENT: Normal ENT Inspection, Pharynx Normal, TMs Normal Neck: Full Range of Motion, Non-Tender, Normal, Normal Inspection Respiratory: Chest Non-Tender, Lungs Clear, No Accessory Muscle Use, No Respiratory Distress, Normal Breath Sounds Cardiovascular: No Edema, No JVD, No Murmur, No Gallop, Normal Peripheral Pulses, Regular Rate/Rhythm Breast Exam: Deferred Gastrointestinal: No Organomegaly, Non Tender, No Pulsatile Mass, Normal Bowel Sounds, Soft Genitalia: Deferred Pelvic: Deferred Rectal: Deferred Extremities: No calf tenderness, Normal capillary refill, Normal inspection, Normal range of motion, Non-tender, No pedal edema Musculoskeletal : Apperance: Normal Neurologic: Alert, loss prevention supervisor II-XII nml as Tested, No Motor Deficits, Normal Affect, Normal Mood, No Sensory Deficits Cerebellar Function: Normal Reflexes: Normal Skin: Dry, Normal Color, Warm Lymphatic: No Adenopathy EKG EKG : Pulse Rate (adult): 85 Cardiac Rhythm: NSR Hypertrophy: LVH Was a procedure done? Was a procedure done?: No CP Differential Dx Differential Diagnosis: N/A Differential Diagnosis: Angina, Cholelithiasis, Costochondritis, Myocardial Infarction, Pericarditis X-Ray, Labs, Meds, VS Vital Signs Date Time Temp Pulse Resp B/P (MAP) Pulse Ox O2 Delivery O2 Flow Rate FiO2 09/10/24 12:00 75 16 168/77 (107) 96 09/10/24 11:09 75 15 99 Room Air* 0 21 09/10/24 11:00 85 09/10/24 10:00 72 14 111/57 (75) 95 09/10/24 08:26 98.1 93 18 107/55 (72) 98 09/10/24 08:05 83 Lab Test 09/10/24 11:25 09/10/24 08:20 09/10/24 04:21 Range/Units Troponin I High Sensitivity < 3 L < 3 L < 3 L </=34 ng/L White Blood Count 11.1 H 4.4-10.8 10^3/uL Red Blood Count 4.63 4.0-5.20 10^6/uL Hemoglobin 13.4 12.2-16.2 g/dL Hematocrit 40.2 36.0-46.0 % Mean Corpuscular Volume 86.7 80.0-100.0 fL Mean Corpuscular Hemoglobin 28.9 28.0-32.0 pg Mean Corpuscular Hemoglobin Concent 33.3 32.0-36.0 g/dL Red Cell Distribution Width 13.4 11.8-14.3 % Platelet Count 347 140-450 10^3/uL Mean Platelet Volume 10.0 6.9-10.8 fL Neutrophils (%) (Auto) 65.8 37.0-80.0 % Lymphocytes (%) (Auto) 27.4 10.0-50.0 % Monocytes (%) (Auto) 5.3 0.0-12.0 % Eosinophils (%) (Auto) 0.6 0.0-7.0 % Basophils (%) (Auto) 0.9 0.0-2.0 % Neutrophils # (Auto) 7.3 1.6-8.6 10 ^3/uL Lymphocytes # (Auto) 3.0 0.4-5.4 10 ^3/uL Monocytes # (Auto) 0.6 0-1.3 10 ^3/uL Eosinophils # (Auto) 0.1 0-0.8 10 ^3/uL Basophils # (Auto) 0.1 0-0.2 10 ^3/uL Nucleated Red Blood Cells 0.1 % Sodium Level 141 136-145 mmol/L Potassium Level 4.3 3.5-5.1 mmol/L Chloride Level 109 H 98-107 mmol/L Carbon Dioxide Level 22 20-31 mmol/L Anion Gap 10 5-15 Blood Urea Nitrogen 15 9-23 mg/dL Creatinine 0.77 0.550-1.02 mg/dL Glomerular Filtration Rate Calc 90 >90 mL/min BUN/Creatinine Ratio 19.5 10.0-20.0 Serum Glucose 126 H 74-106 mg/dL Calcium Level 9.3 8.7-10.4 mg/dL Current Medications Medications (Trade) Dose Ordered Sig/Catalina Route Start Time Stop Time Status Last Admin Aspirin 162 mg ONCE ONCE PO 09/10/24 10:45 09/10/24 10:47 DC 09/10/24 11:09 The patient was given aspirin 162 mg by mouth The patient's CBC shows an elevated white blood cell count 11.1 The chemistry panel is within normal limits The patient's troponin level x3 is negative The patient was still complaining of some chest pain The patient was being admitted with a diagnosis of acute myocardial ischemia A cardiology consult will be obtained Images Reviewed?: Images reviewed and evaluated by me Time of 1ST Reevaluation: 11:30 Reevaluation 1ST: Unchanged Patient Education/Counseling: Diagnosis, Treatment, Prognosis Family Education/Counseling: No Family Present Departure 1 Departure Time of Disposition: 13:33 Impression: Primary Impression: Acute myocardial ischemia Disposition: 09 ADMITTED INPATIENT Admit to: Tele Condition: Fair Critical Care Note Critical Care Time?: No Stability Stability form required: Yes Unstable for transfer: Telemetry monitoring (Telemetry monitoring required), ED Physician Assesment (Clinical assesment) Heart Score Heart Score: Heart Score Response (Comments) Value History Moderate Suspicious 1 EKG Repolarization Disturb 1 Age 45-64 1 Risk Factors 1 or 2 risk factors 1 Troponin Normal limit 0 Total 4 I personally scribed for KING EASLEY MD ([email or web address]) on 09/10/24 at 10:16. Electronically submitted by Kimberlyn Hardy ([email or web address]). I personally scribed for KING EASLEY MD ([email or web address]) on 09/10/24 at 10:46. Electronically submitted by Kimberlyn Hardy ([email or web address]). I personally scribed for KING EASLEY MD ([email or web address]) on 09/10/24 at 11:00. Electronically submitted by Kimberlyn Hardy ([email or web address]). KING EASLEY MD Sep 10, 2024 10:16
--- NOTE | 2024-09-10 11:02 | DVH ---
CHEST RADIOGRAPH Indication: cough Technique: Frontal and lateral view of the chest was obtained Comparison: XY CHEST TWO VIEWS ROUTINE on DOS: 06/04/24 FINDINGS: Lines and Tubes: None Lungs: Mild congestion Pleura: No effusion. No pneumothorax. Cardiomediastinal contours: Unremarkable Bones: Unremarkable IMPRESSION: Mild congestion
[2024-09-10 11:09] VITALS: PULSE 75; RESP 15; O2SAT 99
[2024-09-10] MEDS: ASPirin 81 mg TAB PO ONE (11:09)
[2024-09-10 12:25] LABS: Basophils # (auto) 0.1 10 ^3/uL (0-0.2); Basophils % (auto) 0.9 % (0.0-2.0); Eosinophils # (auto) 0.1 10 ^3/uL (0-0.8); Eosinophils % (auto) 0.6 % (0.0-7.0); Hematocrit 40.2 % (36.0-46.0); Hemoglobin 13.4 g/dL (12.2-16.2); Lymphocytes % (auto) 27.4 % (10.0-50.0); Mean Corpuscular Hemoglobin 28.9 pg (28.0-32.0); Mean Corpuscular Hgb Conc. 33.3 g/dL (32.0-36.0); Mean Corpuscular Volume 86.7 fL (80.0-100.0); Monocytes # (auto) 0.6 10 ^3/uL (0-1.3); Monocytes % (auto) 5.3 % (0.0-12.0); Neutrophils # (auto) 7.3 10 ^3/uL (1.6-8.6); Neutrophils % (auto) 65.8 % (37.0-80.0); Nucleated Red Blood Cells % 0.1 %; Platelet Count (auto) 347 10^3/uL (140-450); Red Blood Cells 4.63 10^6/uL (4.0-5.20); Red Cell Distribution Width 13.4 % (11.8-14.3); White Blood Cell 11.1 10^3/uL (4.4-10.8)
[2024-09-10 13:13] LABS: Potassium 4.3 mmol/L (3.5-5.1); Sodium 141 mmol/L (136-145)
[2024-09-10 13:14] LABS: Anion Gap 10 (5-15); Calcium 9.3 mg/dL (8.7-10.4); Carbon Dioxide 22 mmol/L (20-31)
[2024-09-10 13:18] LABS: Chloride 109 mmol/L (98-107)
[2024-09-10 13:19] LABS: BUN/Creatinine Ratio 19.5 (10.0-20.0); Blood Urea Nitrogen 15 mg/dL (9-23)
[2024-09-10 13:20] LABS: Glucose 126 mg/dL (74-106)
[2024-09-10] MEDS ORDERED: ONDANSETRON HCL 4 MG/2 ML VIAL IV PRN (18:45)
--- NOTE | 2024-09-10 20:45 | DVHHP2 ---
History of Present Illness Reason for Visit: Chest pain History of Present Illness 54-year-old female presents for evaluation of chest pain. Patient endorses a one day history of substernal sharp chest pain that radiates to her back. She states having shortness for breath. Currently rates the pain at 5/10 and constant. Denies nausea or vomiting. No cough or fever. No other acute complaints reported. Past Medical History Dyslipidemia, schizophrenia, seizures, depression and cancer Past Surgical History Cholecystectomy and BTL Family History Diabetes mellitus and heart disease Smoke: No ALCOHOL: none Drugs: None Lives: with Family Review of Systems Review of Systems Review of systems are currently negative otherwise addressed in HPI. Allergies: Coded Allergies: Penicillins (Verified Allergy, Intermediate, hives, 01/12/11) Medications Current Medications Medications Dose Ordered Sig/Catalina Route Start Time Stop Time Status Last Admin Dose Admin Aspirin 81 mg DAILY PO 09/11/24 10:00 Atorvastatin Calcium 10 mg HS PO 09/10/24 22:00 Lamotrigine 100 mg DAILY PO 09/11/24 10:00 Phenobarbital 64.8 mg Q12HR PO 09/10/24 22:00 Fluoxetine HCl 20 mg DAILY PO 09/11/24 10:00 Levothyroxine Sodium 25 mcg QAM@0600 PO 09/11/24 06:00 Ondansetron HCl 4 mg Q4HP PRN IV 09/10/24 18:45 Acetaminophen 650 mg Q6HP PRN PO 09/10/24 18:45 Exam Vital Signs Vital Signs Date Time Temp Pulse Resp B/P (MAP) Pulse Ox O2 Delivery O2 Flow Rate FiO2 09/10/24 17:00 82 16 130/82 (98) 95 09/10/24 11:09 Room Air* 0 21 09/10/24 08:26 98.1 Exam Gen: 54-year-old female in mild distress Skin: Warm, dry, normal color and texture, no rash. HEENT: Normocephalic atraumatic, mucous membranes moist and pink. Neck: Cervical and supraclavicular nodes normal without enlargement, trachea is midline, thyroid gland is normal without masses. Pulmonary: Clear to auscultation and percussion bilaterally. Cardiac: Regular rate and rhythm. No murmur Abdomen: Soft, nontender, nondistended, bowel sounds present all 4 quadrants, no guarding, no rigidity, no organomegaly. Extremities: No cyanosis, clubbing, no edema Neuro: Cranial nerves II through XII grossly intact, normal affect and speech, no focal motor deficits. Labs/Xrays ORDERING PHYSICIAN: KING EASLEY MD PROCEDURE(s): CXR2 - CHEST TWO VIEWS ROUTINE REASON: cough ORDER NUMBER(s): [id number], ACCESSION NUMBER(s): [id number] CHEST RADIOGRAPH Indication: cough Technique: Frontal and lateral view of the chest was obtained Comparison: XY CHEST TWO VIEWS ROUTINE on DOS: 06/04/24 FINDINGS: Lines and Tubes: None Lungs: Mild congestion Pleura: No effusion. No pneumothorax. Cardiomediastinal contours: Unremarkable Bones: Unremarkable IMPRESSION: Mild congestion Labs Test 09/10/24 11:25 09/10/24 04:21 Range/Units Troponin I High Sensitivity < 3 L </=34 ng/L White Blood Count 11.1 H 4.4-10.8 10^3/uL Red Blood Count 4.63 4.0-5.20 10^6/uL Hemoglobin 13.4 12.2-16.2 g/dL Hematocrit 40.2 36.0-46.0 % Mean Corpuscular Volume 86.7 80.0-100.0 fL Mean Corpuscular Hemoglobin 28.9 28.0-32.0 pg Mean Corpuscular Hemoglobin Concent 33.3 32.0-36.0 g/dL Red Cell Distribution Width 13.4 11.8-14.3 % Platelet Count 347 140-450 10^3/uL Mean Platelet Volume 10.0 6.9-10.8 fL Neutrophils (%) (Auto) 65.8 37.0-80.0 % Lymphocytes (%) (Auto) 27.4 10.0-50.0 % Monocytes (%) (Auto) 5.3 0.0-12.0 % Eosinophils (%) (Auto) 0.6 0.0-7.0 % Basophils (%) (Auto) 0.9 0.0-2.0 % Neutrophils # (Auto) 7.3 1.6-8.6 10 ^3/uL Lymphocytes # (Auto) 3.0 0.4-5.4 10 ^3/uL Monocytes # (Auto) 0.6 0-1.3 10 ^3/uL Eosinophils # (Auto) 0.1 0-0.8 10 ^3/uL Basophils # (Auto) 0.1 0-0.2 10 ^3/uL Nucleated Red Blood Cells 0.1 % Sodium Level 141 136-145 mmol/L Potassium Level 4.3 3.5-5.1 mmol/L Chloride Level 109 H 98-107 mmol/L Carbon Dioxide Level 22 20-31 mmol/L Anion Gap 10 5-15 Blood Urea Nitrogen 15 9-23 mg/dL Creatinine 0.77 0.550-1.02 mg/dL Glomerular Filtration Rate Calc 90 >90 mL/min BUN/Creatinine Ratio 19.5 10.0-20.0 Serum Glucose 126 H 74-106 mg/dL Calcium Level 9.3 8.7-10.4 mg/dL B-Type Natriuretic Peptide 30.65 0-100 pg/mL Assessment/Plan Assessment/Plan Assessment Chest pain rule out ACS History of seizures Schizophrenia Plan Admit the patient to [facility] to the hospitalist Resume home medications Echocardiogram pending Continue treatment per orders Plan discussed with: Patient My Orders Orders - BRIDGET TORREZ Procedure Category Date Status Time Aspirin Tablet PHA 09/11/24 In Process 10:00 Atorvastatin (Lipitor) PHA 09/10/24 In Process 22:00 Lamotrigine Tablet PHA 09/11/24 In Process (Lamictal Tablet) 10:00 Phenobarbital Tablet PHA 09/10/24 In Process 22:00 Fluoxetine Capsule PHA 09/11/24 In Process (Prozac Capsule) 10:00 Levothyroxine Tablet PHA 09/11/24 In Process (Synthroid Tablet) 06:00 Basic Metabolic Panel LAB 09/11/24 Verified 04:00 Admit ADMIT 09/10/24 Transmitted 18:37 Ondansetron Hcl PHA 09/10/24 In Process (Zofran) 18:45 Cardiac DIET 09/11/24 Transmitted Diet-2gna,Lofat,Lochol Breakfast Echo 2d Mode Cardiac US 09/10/24 Logged DOP 18:37 Condition: Stable WHIT 09/10/24 In Process 18:37 Acetaminophen Tablet PHA 09/10/24 In Process (Tylenol Tablet) 18:45 Bedrest With Bathroom WHIT 09/10/24 In Process Privileg 18:37 Date of Service: Sep 10, 2024 Billing Provider: BRIDGET TORREZ Common Visit Codes: [id number] INP/OBS CARE (HIGH) BRIDGET TORREZ Sep 10, 2024 20:45
[2024-09-10 23:37] VITALS: BP 120/46; PULSE 72; RESP 20; TEMP 98; O2SAT 100
[2024-09-10 23:48] VITALS: RESP 18
[2024-09-11] VITALS (8 sets, daily range): BP systolic 107–132; BP diastolic 45–78; PULSE 70–87; RESP 17–19; TEMP 97.5–98.2; O2SAT 93–98
[2024-09-11] MEDS: PHENobarbital 32.4 MG TAB PO SCH (01:26)
[2024-09-11] MEDS: ATORVASTATIN 20 MG TAB PO SCH (01:26)
[2024-09-11] MEDS: ACETAMINOPHEN 325 MG TAB PO PRN (01:43)
[2024-09-11] MEDS: LEVOTHYROXINE SODIUM 25 MCG TAB PO SCH (05:33)
[2024-09-11 06:11] LABS: Potassium 4.5 mmol/L (3.5-5.1); Sodium 138 mmol/L (136-145)
[2024-09-11 06:12] LABS: Calcium 9.3 mg/dL (8.7-10.4); Carbon Dioxide 24 mmol/L (20-31)
[2024-09-11 06:17] LABS: BUN/Creatinine Ratio 16.7 (10.0-20.0); Blood Urea Nitrogen 12 mg/dL (9-23); Glucose 86 mg/dL (74-106)
[2024-09-11 06:18] LABS: Anion Gap 6 (5-15); Chloride 108 mmol/L (98-107)
[2024-09-11] MEDS: ASPirin 81 mg TAB PO SCH (10:01)
[2024-09-11] MEDS: FLUoxetine HCL 20 MG CAP PO SCH (10:01)
[2024-09-11] MEDS: lamoTRIgine 100 MG TAB PO SCH (10:02)
--- NOTE | 2024-09-11 10:40 | DVHPN2 ---
Subjective Admitted for CP Changes from previous H/P or p: Changes Objective Vitals Vital Signs Date Time Temp Pulse Resp B/P (MAP) Pulse Ox O2 Delivery O2 Flow Rate FiO2 09/11/24 09:00 97.8 77 18 124/50 (74) 95 97.8 09/11/24 08:00 Room Air* 0 21 Intake/Output Intake and Output 09/11/24 07:00 Intake Total 0 ml Balance 0 ml Intake Oral 0 ml # Voids 1 General Appearance: Alert, Oriented X3, Cooperative, No acute distress Lungs: Clear to auscultation, Normal air movement Cardiovascular: Regular rate, Normal S1, Normal S2, No murmurs Abdomen: Normal bowel sounds, Soft, No tenderness Extremities: No edema Medications Current Medications Medications Dose Ordered Sig/Catalina Route Start Time Stop Time Status Last Admin Dose Admin Aspirin 81 mg DAILY PO 09/11/24 10:00 09/11/24 10:01 81 MG Atorvastatin Calcium 10 mg HS PO 09/10/24 22:00 09/11/24 01:26 10 MG Lamotrigine 100 mg DAILY PO 09/11/24 10:00 Phenobarbital 64.8 mg Q12HR PO 09/10/24 22:00 09/11/24 10:02 64.8 MG Fluoxetine HCl 20 mg DAILY PO 09/11/24 10:00 09/11/24 10:01 20 MG Levothyroxine Sodium 25 mcg QAM@0600 PO 09/11/24 06:00 09/11/24 05:33 25 MCG Ondansetron HCl 4 mg Q4HP PRN IV 09/10/24 18:45 Acetaminophen 650 mg Q6HP PRN PO 09/10/24 18:45 09/11/24 01:43 650 MG Laboratory Results Laboratory Tests 09/10/24 04:21 09/11/24 05:01 Chemistry Test 09/11/24 05:01 Calcium Level 9.3 mg/dL (8.7-10.4) Coagulation Test 09/10/24 21:23 D-Dimer, Quantitative 0.33 mg/L FEU (0.0-0.49) Assessment/Plan Assessment/Plan Chest pain most likely musculoskeletal Rule out cardiac disease Seizure disorder h/o colon CA Morbid obesity Mixed hyperlipidemia PLAN: Echo Cardiology consult Resume home meds Dilantin and phenobarbital Check Dilantin level ASA Lipitor Check TSH Check lipid panel Plan discussed with: Patient Date of Service: Sep 11, 2024 Billing Provider: KALIA ANGULO MD Common Visit Codes: [id number] INP/OBS CARE(HIGH) Secondary Visit Codes: [id number] CARE PLAN 30 MINUTES KALIA ANGULO MD Sep 11, 2024 10:40
[2024-09-11] MEDS: PHENYTOIN SODIUM 100 MG CAP PO ONE (13:16)
--- NOTE | 2024-09-11 13:22 | DVHINCON2 ---
Date Seen: Sep 11, 2024 Referring Physician MD Holly Reason for Consultation Chest pain History of Present Illness This is a 54-year-old female who presented to the emergency room via EMS with a chief complaint of chest pain since 1600 the day prior to arrival. Describes her chest pain as unprovoked, retrosternal, soreness like, and reproducible with palpation, auscultation, movement, and inspiration. She was medicated with ASA 324 mg EN route to the hospital. A 12 lead electrocardiogram revealed a normal sinus rhythm. Serial troponin levels are negative. Denies any trauma to the area. Significant medical history includes history of colon cancer status post colectomy, dyslipidemia, thyroid disease, schizophrenia, epilepsy, depression, abdominal hernia, cannabinoids, and morbid obesity. Past Medical History Past medical history reviewed. No other significant than mentioned above. Past Surgical History Colectomy with intact colostomy Cholecystectomy BTL Family History: Cancer Diabetes mellitus G8 MOTHER FH: coronary artery disease FH: diabetes mellitus FH: stroke FHx: alcohol abuse G8 FATHER Family history: Hypertension Hypertension G8 MOTHER Pancreatitis G8 MOTHER Family History Family history reviewed. Social History Denies the use of alcohol or tobacco use. Admits to cannabinoid use. Allergies: Coded Allergies: Penicillins (Verified Allergy, Intermediate, hives, 01/12/11) Home Meds Reported Medications Phenobarbital (PHENOBARBITAL) 32.4 Mg Tb, 64.8 MG PO BID 06/06/15 Fluoxetine Hcl (Fluoxetine Hcl) 20 Mg Cap, 20 MG PO DAILY, CAP 06/06/15 Phenytoin Sodium (DILANTIN CAPSULE) 100 Mg Cp, 2 CAP PO BID for DAILY, CP 06/06/15 Home Meds Home medications reviewed. Current Medications Current Medications Medications (Trade) Dose Ordered Sig/Catalina Route PRN Reason Start Time Stop Time Status Last Admin Aspirin 81 mg DAILY PO 09/11/24 10:09/11/24 10:01 Atorvastatin Calcium (Lipitor) 10 mg HS PO 09/10/24 22:00 09/11/24 01:26 Lamotrigine (LaMICtal TABLET) 100 mg DAILY PO 09/11/24 10:00 09/11/24 10:36 DC Phenobarbital 64.8 mg Q12HR PO 09/10/24 22:00 09/11/24 10:02 Fluoxetine HCl (PROzac CAPSULE) 20 mg DAILY PO 09/11/24 10:00 09/11/24 10:01 Levothyroxine Sodium (Synthroid Tablet) 25 mcg QAM@0600 PO 09/11/24 06:00 09/11/24 05:33 Ondansetron HCl (Zofran) 4 mg Q4HP PRN IV NAUSEA / VOMITING 09/10/24 18:45 Acetaminophen (Tylenol Tablet) 650 mg Q6HP PRN PO PAIN SCALE 1-3 OR TEMP>100.4 09/10/24 18:45 09/11/24 01:43 Phenytoin Sodium (Dilantin Capsule) 200 mg BID PO 09/11/24 22:00 Review of Systems Constitutional: No symptom reported Ears, Nose, & Throat: No symptom reported Eyes: No symptom reported Neurological: No symptoms reported Pulmonary/Respiratory: No symptom reported Cardiovascular: No symptom reported Gastrointestinal: No symptom reported Genitourinary: No symptom reported Musculoskeletal: Chest wall pain Skin: No symptom reported Psychiatric: No symptom reported Endocrine: No symptom reported Hemotologic/Lymphatic: No symptom reported Vital Signs Vital Signs Date Time Temp Pulse Resp B/P (MAP) Pulse Ox O2 Delivery O2 Flow Rate FiO2 09/11/24 09:00 97.8 77 18 124/50 (74) 95 97.8 09/11/24 08:00 Room Air* 0 21 Physical Exam General Appearance: Cooperative. Well developed. Morbidly obese. In no acute distress Head Exam: Normal inspection Neck Exam: Normal inspection. Non-tender. Normal alignment Pulmonary/Respiratory: Chest non-tender. Clear bilateral breath sounds Cardiovascular/Chest: Regular rate and rhythm. S1, S2. NSR. No murmurs. No JVD. Peripheral Pulses: 2+ Radial (R). 2+ Radial (L). 2+ Pedal (R). 2+ Pedal (L) Abdominal Exam: Normal bowel sounds. Soft. Nontender. No hepatospenomegaly. No masses Ankle Exam: Negative ankle edema Lower extremities: Negative lower extremity edema Neuro/Mental Status: A&O x4. Coherent Thoughts/Psych: Normal thought pattern. Appropriate mood and affect. Good judgement and insight Appearance: In no acute distress Skin Exam: Normal inspection. Normal color. Warm. Dry Labs/Diagnostic Data Labs Test 09/11/24 05:01 09/10/24 21:23 09/10/24 11:25 09/10/24 04:21 Range/Units Sodium Level 138 136-145 mmol/L Potassium Level 4.5 3.5-5.1 mmol/L Chloride Level 108 H 98-107 mmol/L Carbon Dioxide Level 24 20-31 mmol/L Anion Gap 6 5-15 Blood Urea Nitrogen 12 9-23 mg/dL Creatinine 0.72 0.550-1.02 mg/dL Glomerular Filtration Rate Calc 98 >90 mL/min BUN/Creatinine Ratio 16.7 10.0-20.0 Serum Glucose 86 74-106 mg/dL Calcium Level 9.3 8.7-10.4 mg/dL Phenytoin (Dilantin) Level 7.6 L 10-20 ug/mL D-Dimer, Quantitative 0.33 0.0-0.49 mg/L FEU Troponin I High Sensitivity < 3 L </=34 ng/L White Blood Count 11.1 H 4.4-10.8 10^3/uL Red Blood Count 4.63 4.0-5.20 10^6/uL Hemoglobin 13.4 12.2-16.2 g/dL Hematocrit 40.2 36.0-46.0 % Mean Corpuscular Volume 86.7 80.0-100.0 fL Mean Corpuscular Hemoglobin 28.9 28.0-32.0 pg Mean Corpuscular Hemoglobin Concent 33.3 32.0-36.0 g/dL Red Cell Distribution Width 13.4 11.8-14.3 % Platelet Count 347 140-450 10^3/uL Mean Platelet Volume 10.0 6.9-10.8 fL Neutrophils (%) (Auto) 65.8 37.0-80.0 % Lymphocytes (%) (Auto) 27.4 10.0-50.0 % Monocytes (%) (Auto) 5.3 0.0-12.0 % Eosinophils (%) (Auto) 0.6 0.0-7.0 % Basophils (%) (Auto) 0.9 0.0-2.0 % Neutrophils # (Auto) 7.3 1.6-8.6 10 ^3/uL Lymphocytes # (Auto) 3.0 0.4-5.4 10 ^3/uL Monocytes # (Auto) 0.6 0-1.3 10 ^3/uL Eosinophils # (Auto) 0.1 0-0.8 10 ^3/uL Basophils # (Auto) 0.1 0-0.2 10 ^3/uL Nucleated Red Blood Cells 0.1 % B-Type Natriuretic Peptide 30.65 0-100 pg/mL Assessment Noncardiac chest pain, likely musculoskeletal Dyslipidemia Thyroid disease Hx colon CA s/p colectomy Depression/schizophrenia Cannabinoid use Morbid obesity Plan/Recommendation (Dr. Katz) The patient presents with noncardiac chest pain more likely musculoskeletal in nature. Scheduled for a transthoracic echocardiogram to rule out structural heart disease. Consider NSAIDs as medical management. Lipid panel, HgbA1C, TSH, Mg levels pending at this time. Primary care team to follow. In the setting of an unremarkable echocardiogram, there is no further cardiac workup indicated at this time. Kindly call if in need to re-consult. Thank you for allowing us to participate in this patient's care. This medical document was created using an electronic medical record system with voice recognition software and computerized dictation system. Although this document has been carefully reviewed, there might still be some phonetic and typographical errors. Occasional wrong-word or ``sound-alike substitutions may have occurred due to the inherent limitations of voice recognition software. These areas are purely typographical due to imperfections of the software programs and do not reflect any compromise in the patient's medical care. Please read the chart carefully and recognize, using context, where these substitutions have occurred. Plan discussed with: Patient, Other NYHA Physical activity limitations: NA Date of Service: Sep 11, 2024 Billing Provider: AGAPITO MOORE Cardiology Common Codes: [id number] INP/OBS CARE (High) AGAPITO MOORE Sep 11, 2024 13:22
[2024-09-11 13:31] LABS: Magnesium 2.2 mg/dL (1.6-2.6)
[2024-09-11] MEDS: KETOROLAC TROMETH 30 MG/ML 1ML VIAL IV ONE (14:28)
[2024-09-11] MEDS: PHENYTOIN SODIUM 100 MG CAP PO SCH (21:37)
[2024-09-12 01:00] VITALS: BP 107/57; PULSE 77; RESP 18; TEMP 97.9; O2SAT 94
[2024-09-12] MEDS: KETOROLAC TROMETH 30 MG/ML 1ML VIAL IV PRN (02:45)
[2024-09-12 05:00] VITALS: BP 106/48; PULSE 69; RESP 17; TEMP 98.1; O2SAT 94
[2024-09-12 08:00] VITALS: RESP 18; O2SAT 98
[2024-09-12 09:00] VITALS: BP 111/45; PULSE 66; RESP 17; TEMP 98; O2SAT 94
[2024-09-12] MEDS ORDERED: PANT40TA2 PO (11:22)
[2024-09-12] MEDS ORDERED: IBUP1TAB5 PO (11:22)
--- NOTE | 2024-09-12 11:24 | DVHDS2 ---
Discharge Summary Date of Admission Sep 10, 2024 at 18:37 Date of Discharge: Sep 12, 2024 Labs/Diagnostic Data: Laboratory Results Test 09/11/24 05:01 09/10/24 21:23 09/10/24 11:25 09/10/24 04:21 Sodium Level 138 mmol/L (136-145) Potassium Level 4.5 mmol/L (3.5-5.1) Chloride Level 108 mmol/L (98-107) Carbon Dioxide Level 24 mmol/L (20-31) Anion Gap 6 (5-15) Blood Urea Nitrogen 12 mg/dL (9-23) Creatinine 0.72 mg/dL (0.550-1.02) Glomerular Filtration Rate Calc 98 mL/min (>90) BUN/Creatinine Ratio 16.7 (10.0-20.0) Serum Glucose 86 mg/dL (74-106) Hemoglobin A1c 5.8 % A1C (<5.7) Calcium Level 9.3 mg/dL (8.7-10.4) Magnesium Level 2.2 mg/dL (1.6-2.6) Triglycerides Level 135 mg/dL (< 150) Cholesterol Level 168 mg/dL (< 200) LDL Cholesterol 83 mg/dL (< 100) HDL Cholesterol 55 mg/dL (40-59) Thyroid Stimulating Hormone (TSH) 1.41 uIU/mL (0.55-4.78) Phenytoin (Dilantin) Level 7.6 ug/mL (10-20) D-Dimer, Quantitative 0.33 mg/L FEU (0.0-0.49) Troponin I High Sensitivity < 3 ng/L (</=34) White Blood Count 11.1 10^3/uL (4.4-10.8) Red Blood Count 4.63 10^6/uL (4.0-5.20) Hemoglobin 13.4 g/dL (12.2-16.2) Hematocrit 40.2 % (36.0-46.0) Mean Corpuscular Volume 86.7 fL (80.0-100.0) Mean Corpuscular Hemoglobin 28.9 pg (28.0-32.0) Mean Corpuscular Hemoglobin Concent 33.3 g/dL (32.0-36.0) Red Cell Distribution Width 13.4 % (11.8-14.3) Platelet Count 347 10^3/uL (140-450) Mean Platelet Volume 10.0 fL (6.9-10.8) Neutrophils (%) (Auto) 65.8 % (37.0-80.0) Lymphocytes (%) (Auto) 27.4 % (10.0-50.0) Monocytes (%) (Auto) 5.3 % (0.0-12.0) Eosinophils (%) (Auto) 0.6 % (0.0-7.0) Basophils (%) (Auto) 0.9 % (0.0-2.0) Neutrophils # (Auto) 7.3 10 ^3/uL (1.6-8.6) Lymphocytes # (Auto) 3.0 10 ^3/uL (0.4-5.4) Monocytes # (Auto) 0.6 10 ^3/uL (0-1.3) Eosinophils # (Auto) 0.1 10 ^3/uL (0-0.8) Basophils # (Auto) 0.1 10 ^3/uL (0-0.2) Nucleated Red Blood Cells 0.1 % B-Type Natriuretic Peptide 30.65 pg/mL (0-100) Other Laboratory Tests 09/11/24 05:01 09/10/24 04:21 Brief Hx & Hospital Course: Final diagnoses: Chest pain most likely musculoskeletal Seizure disorder h/o colon CA Morbid obesity Status post colostomy Mixed hyperlipidemia 54-year-old female who was admitted for chest pain Troponins are negative Her pain is musculoskeletal with tenderness with palpation Cardiology saw the patient and cleared her Echocardiogram was done The patient is still symptomatic with some pain however it is with tenderness to palpation She can be discharged with a ibuprofen and Protonix and the rest of her medication Condition at Discharge: Stable Final Diagnosis/Problems List Chest pain most likely musculoskeletal Seizure disorder h/o colon CA Morbid obesity Mixed hyperlipidemia Discharge Disposition: Home SNF Discharge Will this Physician continue t: No Discharge Statement: "Patient was advised to return to the ER or call 911 if any headaches, dizziness, shortness of breath, chest pain, abdominal pain, bleeding, fevers, or worsening of medical condition. Patient was counseled about treatment plan, medications, possible side effects, patientverbalized understanding. All questions were answered to the best of my ability. This discharge took greater then 30 minutes in planning, reviewing documentation, counseling the patient, and discussing with other team members." ASSESSMENT ASSESSMENT Assessment Date of Service: Sep 12, 2024 Billing Provider: KALIA ANGULO MD Common Visit Codes: [id number]/[id number] DISCH DAY >30min KALIA ANGULO MD Sep 12, 2024 11:24
[2024-09-12 12:22] VITALS: BP 116/58; PULSE 76; RESP 18; TEMP 36.7; O2SAT 95
[2024-09-12] MEDS: PANTOPRAZOLE 40 MG TAB PO ONE (12:45)
[2024-09-12 13:00] VITALS: BP 116/58; PULSE 76; RESP 18; TEMP 98; O2SAT 95
--- NOTE | 2024-09-14 16:16 | DVHSR ---
APPROVED REPORT EXAM: LIMITED Two-dimensional and M-mode echocardiogram with Doppler and color Doppler. Blood Pressure: 132/45 mmHg INDICATION Chest Pain RISK FACTORS Obesity: Height: 5'1, Weight: 209 DIMENSIONS LVDd3.9 (3.8-5.7cm)LA (2D)3.2 (1.9-4.0cm)Aortic Root3.0 (2.0-3.7cm) LVDs2.5 (2.5-4.0cm)LA (MM) (1.9-4.0cm)Aortic Cusp Exc1.5 (1.5-2.0cm) EF (%) 60.0 (55-70%)Rt. Atrium (1.9-4.0cm)Asc. Aorta2.6 cm IVSd0.9 (0.7-1.1cm)RV (D) (1.8-2.4cm) PWd0.9 (0.7-1.1cm) Mitral Valve MitralMitral Stenosis E wave0.79m/sMV Mean GR.mmHg A wave0.64m/sMV Peak GR.mmHg E/A ratio1.22D MVAcm2 DECEL [id number] 1/2 Timems Aortic Valve Aortic ValveAortic Stenosis V11.01m/Trang Mean GR.3mmHg V21.18m/Trang Peak GR.6mmHg LVOT Diameter1.9 (1.8-2.4cm)Doppler AVA2.43cm2 Pulmonic Valve V21.05m/s Other Information Quality : LimitedRhythm : Technically limited study due to pt c/o pain, unable to lay down Conclusion Sinus rhythm. Normal chamber sizes. Normal valves. EF normal at 60% with normal RV function. Unremarkable Doppler. No pericardial effusion masses or vegetations.
== END 2024-09-12 13:43 | disposition home or self-care (01) | DRG 203 ==
LOC: ER 08:05 → EDBD 08:05 → OVERFLOW 18:37 → WEST WING 23:37
PROVIDERS: ADMIT Internal Medicine Geriatric Medicine; ATTEND Internal Medicine Geriatric Medicine
DX: R07.89 Other chest pain (principal); E07.9 Disorder of thyroid, unspecified; F32.A Depression, unspecified; E78.2 Mixed hyperlipidemia; G40.909 Epilepsy, unspecified, not intractable, without status epilepticus; E66.01 Morbid (severe) obesity due to excess calories; F20.9 Schizophrenia, unspecified; Z90.49 Acquired absence of other specified parts of digestive tract; Z85.038 Personal history of other malignant neoplasm of large intestine; Z88.0 Allergy status to penicillin; Z83.3 Family history of diabetes mellitus; Z82.49 Family history of ischemic heart disease and other diseases of the circulatory system; Z93.3 Colostomy status; Z82.3 Family history of stroke; Z68.39 Body mass index [BMI] 39.0-39.9, adult; Z79.899 Other long term (current) drug therapy
CPT/HCPCS: 36415; 71046; 80048; 80061; 80185; 83036; 83735; 83880; 84443; 84484; 85025; 85379; 93005; 93306; G0378; J1885

== ENCOUNTER 2024-10-23 11:31 | Inpatient (IN) | payer MEDICAID ==
[~2024-10-23] VITALS: Ht 154.9 cm; Wt 117.8 kg
[~2024-10-23 11:31] MED LIST changes: +IBUP1TAB5 PO; -LAM100T PO; -MECL25CH85 PO; -NAP500T PO; +PANT40TA2 PO
--- NOTE | 2024-10-23 11:44 | ED.PDOC ---
GI ASSESSMENT HPI Comments This is a 54-year-old female who comes in with chief complaint of lower abdominal pain. The patient states that the pain is an 8/10. The pain seemed to start yesterday and then worsened with some nausea. There has been no fever or chills. The patient denies any history of this type of pain in the past. She states that the pain seems to be more on her left side. She does have a history of colostomy bag secondary to colon cancer. EN route, the patient received Zofran 4 mg by mouth which seemed to help some. The patient also denies any recent illness. Chief Complaint: Abdominal Pain Time Seen by MD: 11:35 Primary Care Provider: MARYANN Ramires Notes: Nurses Notes, Stave Bolt Equalizer Notes, Medications, Allergies (Allergies to penicillin) Allergies: Coded Allergies: Penicillins (Verified Allergy, Intermediate, hives, 01/12/11) Home Meds Active Scripts Ibuprofen Micronized (Ibuprofen) 600 Mg Tab, 600 MG PO Q8HP PRN, #30 TAB Prov:KALIA ANGULO MD 09/12/24 Pantoprazole Sodium Sesquihydr (Protonix) 40 Mg Tab, 40 MG PO DAILY, #30 TAB Prov:KALIA ANGULO MD 09/12/24 Reported Medications Phenobarbital (PHENOBARBITAL) 32.4 Mg Tb, 64.8 MG PO BID 06/06/15 Fluoxetine Hcl (Fluoxetine Hcl) 20 Mg Cap, 20 MG PO DAILY, CAP 06/06/15 Phenytoin Sodium (DILANTIN CAPSULE) 100 Mg Cp, 2 CAP PO BID for DAILY, CP 06/06/15 Information Source: Patient, Emergency Med Personnel Mode of Arrival: EMS Timing: Hours Duration: Since onset Prehospital treatment: None Quality: Aching, Cramping Vomitus: None Stool: Normal Severity: Moderate Recent: None Recent Hx of: Other (Previous history of colon cancer) Pain Location: RLQ, LLQ Modifying Factors: Nothing Associated sign and symptoms: Nausea, Abdominal Pain Past Medical History PAST MEDICAL HISTORY: Cancer (History of colon cancer), Depression, High Lipids, Schizophrenia, Seizures Surgical History: BTL, Cholecystectomy Surgical History (Other): Colostomy bag ELEMENTARY ASSISTANT TEACHER History: No Pertinent ELEMENTARY ASSISTANT TEACHER History Family History Family History: Family hx of DM, Family hx of Cancer, Family hx of heart deb, Family hx of HTN Social History Smoker: Non-Smoker, Quit Greater Than 1 Year Alcohol: Denies ETOH Use Drugs: Marijuana Lives In: Home Constitutional: denies: chills, diaphoresis, fatigue, fever, malaise, sweats, weakness, others EENTM: denies: blurred vision, double vision, ear bleeding, ear discharge, ear drainage, ear pain, ear ringing, eye pain, eye redness, hearing loss, mouth pain, mouth swelling, nasal discharge, nose bleeding, nose congestion, nose pain, photophobia, tearing, throat pain, throat swelling, voice changes, others Respiratory: denies: cough, hemoptysis, orthopnea, SOB at rest, shortness of breath, SOB with excertion, stridor, wheezing, others Cardiovascular: denies: chest pain, dizzy spells, diaphoresis, Dyspnea on exertion, edema, irregular heart beat, left arm pain, lightheadedness, palpitations, PND, syncope, others Gastrointestinal: reports: abdominal pain, nausea, vomiting; denies: abdomen distended, blood streaked bowels, constipated, diarrhea, dysphagia, difficulty swallowing, hematemesis, melena, poor appetite, poor fluid intake, rectal ble eding, rectal pain, others Genitourinary: denies: abnormal vagina bleeding, burning, dyspareunia, dysuria, flank pain, frequency, hematuria, incontinence, pain, , vagina discharge, urgency, others Neurological: denies: dizziness, fainting, headache, left sided numbness, left sided weakness, numbness, paresthesia, pre-existing deficit, right sided numbness, right sided weakness, seizure, speech problems, tingling, tremors, weakness, others Musculoskeletal: denies: back pain, gout, joint pain, joint swelling, muscle pain, muscle stiffness, neck pain, others Integumetry: denies: bruises, change in color, change in hair/nails, dryness, laceration, lesions, lumps, rash, wounds, others Allergic/Immunocompromised: denies: Difficulty Healing, Frequent Infections, Hives, Itching, others Hematologic/Lymphatic: denies: anemia, blood clots, easy bleeding, easy bruising, swollen glands, others Endocrine: denies: excessive hunger, excessive sweating, excessive thirst, excessive urination, flushing, intolerance to cold, intolerance to heat, unexplained weight gain, unexplained weight loss, others Psychiatric: denies: anxiety, bipolar disorder, depression, hopeless, panic disorder, schizophrenia, sleepless, suicidal, others Physical Exam General Appearance: Moderate Distress HEENT: Normal ENT Inspection, Pharynx Normal, TMs Normal Neck: Full Range of Motion, Non-Tender, Normal, Normal Inspection Respiratory: Chest Non-Tender, Lungs Clear, No Accessory Muscle Use, No Respiratory Distress, Normal Breath Sounds Cardiovascular: No Edema, No JVD, No Murmur, No Gallop, Normal Peripheral Pulses, Regular Rate/Rhythm Breast Exam: Deferred Gastrointestinal: Diffuse, No Organomegaly, No Pulsatile Mass, Normal Bowel Sounds, Soft, Tenderness, Other (Colostomy bag in place) Genitalia: Deferred Pelvic: Deferred Rectal: Deferred Extremities: No calf tenderness, Normal capillary refill, Normal inspection, Normal range of motion, Non-tender, No pedal edema Musculoskeletal : Apperance: Normal Neurologic: Alert, drafter plumbing II-XII nml as Tested, No Motor Deficits, Normal Affect, Normal Mood, No Sensory Deficits Cerebellar Function: Normal Reflexes: Normal Skin: Dry, Normal Color, Warm Lymphatic: No Adenopathy Was a procedure done? Was a procedure done?: No GI differential Dx Differential Diagnosis: Appendicitis, Bowel Obstruction, Gastritis/PUD, Gastroenteritis, Electrolyte Imbalance, Food Poisoning X-Ray, Labs, Meds, VS Vital Signs Date Time Temp Pulse Resp B/P (MAP) Pulse Ox O2 Delivery O2 Flow Rate FiO2 10/23/24 11:37 98.3 82 16 137/84 (101) 95 Lab Test 10/23/24 11:58 Range/Units White Blood Count 11.7 H 4.4-10.8 10^3/uL Red Blood Count 4.84 4.0-5.20 10^6/uL Hemoglobin 14.1 12.2-16.2 g/dL Hematocrit 42.7 36.0-46.0 % Mean Corpuscular Volume 88.2 80.0-100.0 fL Mean Corpuscular Hemoglobin 29.1 28.0-32.0 pg Mean Corpuscular Hemoglobin Concent 33.0 32.0-36.0 g/dL Red Cell Distribution Width 13.9 11.8-14.3 % Platelet Count 355 140-450 10^3/uL Mean Platelet Volume 7.5 6.9-10.8 fL Neutrophils (%) (Auto) 75.1 37.0-80.0 % Lymphocytes (%) (Auto) 18.4 10.0-50.0 % Monocytes (%) (Auto) 5.7 0.0-12.0 % Eosinophils (%) (Auto) 0.4 0.0-7.0 % Basophils (%) (Auto) 0.4 0.0-2.0 % Neutrophils # (Auto) 8.8 H 1.6-8.6 10 ^3/uL Lymphocytes # (Auto) 2.1 0.4-5.4 10 ^3/uL Monocytes # (Auto) 0.7 0-1.3 10 ^3/uL Eosinophils # (Auto) 0 0-0.8 10 ^3/uL Basophils # (Auto) 0 0-0.2 10 ^3/uL Nucleated Red Blood Cells 0.2 % Sodium Level 138 136-145 mmol/L Potassium Level 4.4 3.5-5.1 mmol/L Chloride Level 105 98-107 mmol/L Carbon Dioxide Level 25 20-31 mmol/L Anion Gap 8 5-15 Blood Urea Nitrogen 10 9-23 mg/dL Creatinine 0.76 0.550-1.02 mg/dL Glomerular Filtration Rate Calc 92 >90 mL/min BUN/Creatinine Ratio 13.2 10.0-20.0 Serum Glucose 102 74-106 mg/dL Calcium Level 9.5 8.7-10.4 mg/dL Total Bilirubin 0.2 0.2-1.0 mg/dL Aspartate Amino Transferase (AST) 17 13-40 U/L Alanine Aminotransferase (ALT) 14 7-40 U/L Alkaline Phosphatase 223 H 46-116 U/L Total Protein 7.5 5.7-8.2 g/dL Albumin 4.1 3.2-4.8 g/dL Lipase 32 12-53 U/L Phenytoin (Dilantin) Level 17.0 10-20 ug/mL The CBC shows an elevated white blood cell count of 11.7 The rest of the CBC is within normal limits The chemistry panel is within normal limits The CT scan of the abdomen and pelvis shows: IMPRESSION: 1. Redemonstrated are postsurgical changes with subtotal colectomy with a Matt's pouch and right lower quadrant ostomy. 2. There is again a ventral hernia containing intra-abdominal fat and multiple small bowel loops. There is a transition point within the hernia with dilated small bowel loops proximally with fecalized appearing contents. Dilated loop measures 3.7 cm in diameter. A surgical consult will be obtained. At this time, the patient was being admitted to the hospitalist. Images Reviewed?: Images reviewed and evaluated by me Time of 1ST Reevaluation: 11:44 Reevaluation 1ST: Unchanged Patient Education/Counseling: Diagnosis, Treatment, Prognosis Family Education/Counseling: No Family Present Departure 1 Departure Time of Disposition: :44 Impression: Primary Impression: Intractable abdominal pain Additional Impression: Small bowel obstruction Disposition: 09 ADMITTED INPATIENT Admit to: Med Surg Condition: Fair Critical Care Note Critical Care Time?: No Stability Stability form required: Yes Unstable for transfer: ED Physician Assesment (Clinical assesment) Heart Score Heart Score: Heart Score Response (Comments) Value History N/A 0 EKG N/A 0 Age N/A 0 Risk Factors N/A 0 Troponin N/A 0 Total 0 KING EASLEY MD Oct 23, 2024 11:44
[2024-10-23 12:31] LABS: Basophils # (auto) 0 10 ^3/uL (0-0.2); Basophils % (auto) 0.4 % (0.0-2.0); Eosinophils # (auto) 0 10 ^3/uL (0-0.8); Eosinophils % (auto) 0.4 % (0.0-7.0); Hematocrit 42.7 % (36.0-46.0); Hemoglobin 14.1 g/dL (12.2-16.2); Lymphocytes # (auto) 2.1 10 ^3/uL (0.4-5.4); Lymphocytes % (auto) 18.4 % (10.0-50.0); Mean Corpuscular Hemoglobin 29.1 pg (28.0-32.0); Mean Corpuscular Volume 88.2 fL (80.0-100.0); Monocytes # (auto) 0.7 10 ^3/uL (0-1.3); Monocytes % (auto) 5.7 % (0.0-12.0); Neutrophils # (auto) 8.8 10 ^3/uL (1.6-8.6); Neutrophils % (auto) 75.1 % (37.0-80.0); Nucleated Red Blood Cells % 0.2 %; Platelet Count (auto) 355 10^3/uL (140-450); Red Blood Cells 4.84 10^6/uL (4.0-5.20); Red Cell Distribution Width 13.9 % (11.8-14.3); White Blood Cell 11.7 10^3/uL (4.4-10.8)
--- NOTE | 2024-10-23 12:42 | DVH ---
CT ABDOMEN AND PELVIS WITHOUT CONTRAST CLINICAL HISTORY: pain TECHNIQUE: Multiple contiguous axial images of the abdomen and pelvis without intravenous contrast. T he images were reformatted degenerate coronal and sagittal reconstructions. All CT scans at this medical facility are performed using dose modulation techniques as appropriate t o a performed exam including the following:Automated exposure control was utilized; adjustment of the MA and/or KV according to patient size; and use of iterative reconstruction technique. Radiation Dose Information: CT Dose: CTDI volume is 27 mGy. Dose-length product is 1647 mGy*cm Comparison: CT CT AB PEL WO CON-NO ORAL OR IV on DOS: 05/15/24, CT CT AB PEL WO CON-NO ORAL OR IV on D OS: 05/03/24 FINDINGS: Evaluation of the abdomen and pelvis is limited without intravenous contrast. Redemonstrated are postsurgical changes with subtotal colectomy with a Matt's pouch and a right l ower quadrant ostomy. There is stable herniation of intra-abdominal fat into the stoma. Again seen is a ventral hernia which contains intra-abdominal fat and multiple small bowel loops. The re is now a transition point within the hernia with dilated small bowel loop proximally with fecalize d appearing contents. Dilated loop measures 3.7 cm in diameter. Additional nondilated small bowel loo ps are seen in the abdomen. The gallbladder is surgically absent. The liver, pancreas, kidneys, adrenal glands, and spleen fina ear within normal limits. There is no gross evidence of abdominal lymphadenopathy. There is no free fluid or free air. The stomach grossly appears unremarkable. The abdominal aorta and IVC appear within normal limits. The bladder appears unremarkable for the degree of distention. Pelvic organ appears within normal ortiz its. There is no gross evidence of a pelvic mass. There is no free fluid collection. Lung bases are clear. There is no acute osseous abnormality. Again seen are multiple chronic appearing compression deformit ies involving the T11 through L2 vertebral bodies. IMPRESSION: 1. Redemonstrated are postsurgical changes with subtotal colectomy with a Matt's pouch and right lower quadrant ostomy. 2. There is again a ventral hernia containing intra-abdominal fat and multiple small bowel loops. The re is a transition point within the hernia with dilated small bowel loops proximally with fecalized a ppearing contents. Dilated loop measures 3.7 cm in diameter. Critical findings discussed with dr. Zamorano by Dr. Brett Melendez via phone on 10/23/2024 12:40 PM. HS:Y
[2024-10-23 12:44] LABS: Alanine Aminotransferase 14 U/L (7-40); Albumin 4.1 g/dL (3.2-4.8); Anion Gap 8 (5-15); Aspartate Aminotransferase 17 U/L (13-40); BUN/Creatinine Ratio 13.2 (10.0-20.0); Blood Urea Nitrogen 10 mg/dL (9-23); Calcium 9.5 mg/dL (8.7-10.4); Carbon Dioxide 25 mmol/L (20-31); Chloride 105 mmol/L (98-107); Glucose 102 mg/dL (74-106); Lipase 32 U/L (12-53); Potassium 4.4 mmol/L (3.5-5.1); Sodium 138 mmol/L (136-145); Total Protein 7.5 g/dL (5.7-8.2)
[2024-10-23 12:46] LABS: Alkaline Phosphatase 223 U/L (46-116); Bilirubin, Total 0.2 mg/dL (0.2-1.0)
[2024-10-23] MEDS: SODIUM CHLORIDE 0.9% 1,000 ML IVB ONE (13:05)
[2024-10-23] MEDS: ONDANSETRON HCL 4 MG/2 ML VIAL IV ONE (13:11)
[2024-10-23] MEDS: MORPHINE SULFATE 4 MG/ML SYR/VIAL IV ONE (13:11)
--- NOTE | 2024-10-23 15:39 | DVHHP2 ---
History of Present Illness History of Present Illness The patient is a 54-year-old female with multiple past medical history including colon cancer, seizures, hyperlipidemia, and schizophrenia who presented to [facility] ED with complaint of abdominal pain x 2 days. Patient reports history of bowel resection with colostomy years ago. for past 2 days shes having 8/10 epigastric pain that radiates to left flank intermittently. so continues to have bilious orange output in colostomy bag. She continues to pass gas. she has poor po intake due to poor appetite and also has nausea. she denies vomit, fever, hematemesis, hematochezia more melena. No aggravating or alleviating factors. Review of Systems Review of Systems as HPI Allergies: Coded Allergies: Penicillins (Verified Allergy, Intermediate, hives, 01/12/11) Medications Current Medications Medications Dose Ordered Sig/Catalina Route Start Time Stop Time Status Last Admin Dose Admin Acetaminophen 325 mg Q4HP PRN PO 10/23/24 15:00 UNV Acetaminophen/ Hydrocodone Bitart 1 tab Q4HP PRN PO 10/23/24 15:00 UNV Ondansetron HCl 4 mg Q4HP PRN IV 10/23/24 15:00 UNV Enoxaparin Sodium 40 mg DAILY SC 10/24/24 10:00 UNV Morphine Sulfate 2 mg Q4HPRN PRN IV 10/23/24 15:00 UNV Fluoxetine HCl 20 mg DAILY PO 10/24/24 10:00 UNV Pantoprazole Sodium 40 mg DAILY PO 10/24/24 10:00 UNV Phenytoin Sodium 200 mg BID PO 10/23/24 22:00 UNV Patient Own Medication 64.8 mg BID PO 10/23/24 22:00 UNV Exam Vital Signs Vital Signs Date Time Temp Pulse Resp B/P (MAP) Pulse Ox O2 Delivery O2 Flow Rate FiO2 10/23/24 13:41 74 18 120/76 10/23/24 13:07 98.4 94 98.4 10/23/24 13:07 Room Air Exam GEN: Obese patient, sitting in wheelchair, no acute distress HEENT: NC/AT; MMM. CV: RRR, no m/r/g. LUNGS: CTAB, no w/r/c. ABD: Tender to palpation on left of umbilicus, hypoactive bowel sounds, no rebound, no rigidity, no acute abdomen signs. Right lower quadrant with colostomy bag with bilious output, no hematochezia EXT: skin Warm, well perfused. no rashes. No clubbing, cyanosis, or edema. NEURO: Ambulating with no limitations. No focal deficits. Labs/Xrays Labs Test 10/23/24 11:58 Range/Units White Blood Count 11.7 H 4.4-10.8 10^3/uL Red Blood Count 4.84 4.0-5.20 10^6/uL Hemoglobin 14.1 12.2-16.2 g/dL Hematocrit 42.7 36.0-46.0 % Mean Corpuscular Volume 88.2 80.0-100.0 fL Mean Corpuscular Hemoglobin 29.1 28.0-32.0 pg Mean Corpuscular Hemoglobin Concent 33.0 32.0-36.0 g/dL Red Cell Distribution Width 13.9 11.8-14.3 % Platelet Count 355 140-450 10^3/uL Mean Platelet Volume 7.5 6.9-10.8 fL Neutrophils (%) (Auto) 75.1 37.0-80.0 % Lymphocytes (%) (Auto) 18.4 10.0-50.0 % Monocytes (%) (Auto) 5.7 0.0-12.0 % Eosinophils (%) (Auto) 0.4 0.0-7.0 % Basophils (%) (Auto) 0.4 0.0-2.0 % Neutrophils # (Auto) 8.8 H 1.6-8.6 10 ^3/uL Lymphocytes # (Auto) 2.1 0.4-5.4 10 ^3/uL Monocytes # (Auto) 0.7 0-1.3 10 ^3/uL Eosinophils # (Auto) 0 0-0.8 10 ^3/uL Basophils # (Auto) 0 0-0.2 10 ^3/uL Nucleated Red Blood Cells 0.2 % Sodium Level 138 136-145 mmol/L Potassium Level 4.4 3.5-5.1 mmol/L Chloride Level 105 98-107 mmol/L Carbon Dioxide Level 25 20-31 mmol/L Anion Gap 8 5-15 Blood Urea Nitrogen 10 9-23 mg/dL Creatinine 0.76 0.550-1.02 mg/dL Glomerular Filtration Rate Calc 92 >90 mL/min BUN/Creatinine Ratio 13.2 10.0-20.0 Serum Glucose 102 74-106 mg/dL Calcium Level 9.5 8.7-10.4 mg/dL Total Bilirubin 0.2 0.2-1.0 mg/dL Aspartate Amino Transferase (AST) 17 13-40 U/L Alanine Aminotransferase (ALT) 14 7-40 U/L Alkaline Phosphatase 223 H 46-116 U/L Total Protein 7.5 5.7-8.2 g/dL Albumin 4.1 3.2-4.8 g/dL Lipase 32 12-53 U/L Phenytoin (Dilantin) Level 17.0 10-20 ug/mL Assessment/Plan Assessment/Plan intractable abdominal pain Intractable nausea Decreased p.o. intake Intra-abdominal hernia with transition point, rule out SBO Leukocytosis Neutrophilia History of colon cancer status post colectomy and colostomy tube History of seizures History of hyperlipidemia Schizophrenia - 2 days worsening abdominal pain on pmhx of colon CA sp colectomy/colostomy bag. decreased po with nausea - CT AB noncon showing postsurgical changes with subtotal colectomy with a Matt's pouch and right lower quadrant ostomy. Ventral hernia containing intra-abdominal fat and multiple small bowel loops. There is a transition point within the hernia with dilated small bowel loops proximally with fecalized appearing contents. Dilated loop measures 3.7 cm in diameter. - pain control p.r.n. - IV fluids - surgical consult - continue home meds - clear liquid diet Plan discussed with: Patient My Orders Orders - CLOVER MOFFETT MD Procedure Category Date Status Time Admit ADMIT 10/23/24 Transmitted 15:00 Allergies WHIT 10/23/24 In Process 15:00 Code Status CODE 10/23/24 Transmitted 15:00 Acetaminophen Tablet PHA 10/23/24 Logged (Tylenol Tablet) 15:00 Hydrocodone-Acet PHA 10/23/24 Logged 5/325mg Tab ([place] 15:00 Ondansetron Hcl PHA 10/23/24 Logged (Zofran) 15:00 Enoxaparin Sodium PHA 10/24/24 Logged (Lovenox) 10:00 Complete Blood Count LAB 10/24/24 Verified 04:00 Comprehensive LAB 10/24/24 Verified Metabolic Panel 04:00 Clear Liq Diet DIET 10/23/24 Transmitted Dinner Bedrest With Bathroom WHIT 10/23/24 In Process Privileg 15:00 Bedside Commode WHIT 10/23/24 In Process 15:00 Morphine Sulfate PHA 10/23/24 Logged Injection 15:00 Fluoxetine Capsule PHA 10/24/24 Logged (Prozac Capsule) 10:00 Pantoprazole Tablet PHA 10/24/24 Logged (Protonix Tablet) 10:00 Phenytoin Capsule PHA 10/23/24 Logged (Dilantin Capsule) 22:00 (Nf) Phenobarbital PHA 10/23/24 Logged 22:00 D5w/Sod Chl 0.45% 1/2 PHA 10/23/24 Verified NS 19:15 * Surgical Consult CONS 10/23/24 Verified Date of Service: Oct 23, 2024 Billing Provider: CLOVER MOFFETT MD Common Visit Codes: [id number] INP/OBS CARE (HIGH) CLOVER MOFFETT MD Oct 23, 2024 15:39
[2024-10-23] MEDS: MORPHINE SULFATE INJ 2 MG/ml SYRG IV PRN (18:33)
[2024-10-23] MEDS: ONDANSETRON HCL 4 MG/2 ML VIAL IV PRN (18:33)
--- NOTE | 2024-10-23 19:49 | DVHINCON2 ---
Consultation - Surgical Date Seen: Oct 23, 2024 Referring Physician Referring Physician er Reason for Consultation ventral hernia History of Present Illness History of Present Illness This is a 54-year-old female who comes in with chief complaint of lower abdominal pain. The patient states that the pain is an 8/10. The pain seemed to start yesterday and then worsened with some nausea. There has been no fever or chills. The patient denies any history of this type of pain in the past. She states that the pain seems to be more on her left side. She does have a history of colostomy bag secondary to colon cancer. EN route, the patient rece ived Zofran 4 mg by mouth which seemed to help some. The patient also denies any recent illness. Past Medical/Surgical History Past Medical/Surgical History Colon CA, colostomy Family and Social History Family and Social History Nonsmoker and nondrinker Allergies and medications Allergies: Coded Allergies: Penicillins (Verified Allergy, Intermediate, hives, 01/12/11) Home Meds Active Scripts Ibuprofen Micronized (Ibuprofen) 600 Mg Tab, 600 MG PO Q8HP PRN, #30 TAB Prov:KALIA ANGULO MD 09/12/24 Pantoprazole Sodium Sesquihydr (Protonix) 40 Mg Tab, 40 MG PO DAILY, #30 TAB Prov:KALIA ANGULO MD 09/12/24 Reported Medications Phenobarbital (PHENOBARBITAL) 32.4 Mg Tb, 64.8 MG PO BID 06/06/15 Fluoxetine Hcl (Fluoxetine Hcl) 20 Mg Cap, 20 MG PO DAILY, CAP 06/06/15 Phenytoin Sodium (DILANTIN CAPSULE) 100 Mg Cp, 2 CAP PO BID for DAILY, CP 06/06/15 Review of systems Review of Systems: HEENT:Normal, CVS:Normal, RESPIRATORY:Normal, GI:Abnormal (Mild abdominal pain), MSK:Normal, NEURO:Normal Examination Vital signs Vital Signs Date Time Temp Pulse Resp B/P (MAP) Pulse Ox O2 Delivery O2 Flow Rate FiO2 10/23/24 18:33 64 16 124/67 10/23/24 13:07 98.4 94 98.4 10/23/24 13:07 Room Air Medications Current Medications Medications (Trade) Dose Ordered Sig/Catalina Route PRN Reason Start Time Stop Time Status Last Admin Acetaminophen (Tylenol Tablet) 325 mg Q4HP PRN PO MILD PAIN (1-3 PAIN SCALE) 10/23/24 15:00 Acetaminophen/ Hydrocodone Bitart ([place] 5/325MG Tab) 1 tab Q4HP PRN PO MODERATE PAIN (4-6 PAIN SCALE) 10/23/24 15:00 Ondansetron HCl (Zofran) 4 mg Q4HP PRN IV NAUSEA / VOMITING 10/23/24 15:00 10/23/24 18:33 Enoxaparin Sodium (Lovenox) 40 mg DAILY SC 10/24/24 10:00 Morphine Sulfate 2 mg Q4HPRN PRN IV SEVERE PAIN (7-10 PAIN SCALE) 10/23/24 15:00 10/23/24 18:33 Fluoxetine HCl (PROzac CAPSULE) 20 mg DAILY PO 10/24/24 10:00 Pantoprazole Sodium (Protonix Tablet) 40 mg DAILY PO 10/24/24 10:00 Phenytoin Sodium (Dilantin Capsule) 200 mg BID PO 10/23/24 22:00 Phenobarbital 64.8 mg BID PO 10/23/24 22:00 Laboratory Labs Test 10/23/24 11:58 Range/Units White Blood Count 11.7 H 4.4-10.8 10^3/uL Red Blood Count 4.84 4.0-5.20 10^6/uL Hemoglobin 14.1 12.2-16.2 g/dL Hematocrit 42.7 36.0-46.0 % Mean Corpuscular Volume 88.2 80.0-100.0 fL Mean Corpuscular Hemoglobin 29.1 28.0-32.0 pg Mean Corpuscular Hemoglobin Concent 33.0 32.0-36.0 g/dL Red Cell Distribution Width 13.9 11.8-14.3 % Platelet Count 355 140-450 10^3/uL Mean Platelet Volume 7.5 6.9-10.8 fL Neutrophils (%) (Auto) 75.1 37.0-80.0 % Lymphocytes (%) (Auto) 18.4 10.0-50.0 % Monocytes (%) (Auto) 5.7 0.0-12.0 % Eosinophils (%) (Auto) 0.4 0.0-7.0 % Basophils (%) (Auto) 0.4 0.0-2.0 % Neutrophils # (Auto) 8.8 H 1.6-8.6 10 ^3/uL Lymphocytes # (Auto) 2.1 0.4-5.4 10 ^3/uL Monocytes # (Auto) 0.7 0-1.3 10 ^3/uL Eosinophils # (Auto) 0 0-0.8 10 ^3/uL Basophils # (Auto) 0 0-0.2 10 ^3/uL Nucleated Red Blood Cells 0.2 % Sodium Level 138 136-145 mmol/L Potassium Level 4.4 3.5-5.1 mmol/L Chloride Level 105 98-107 mmol/L Carbon Dioxide Level 25 20-31 mmol/L Anion Gap 8 5-15 Blood Urea Nitrogen 10 9-23 mg/dL Creatinine 0.76 0.550-1.02 mg/dL Glomerular Filtration Rate Calc 92 >90 mL/min BUN/Creatinine Ratio 13.2 10.0-20.0 Serum Glucose 102 74-106 mg/dL Calcium Level 9.5 8.7-10.4 mg/dL Total Bilirubin 0.2 0.2-1.0 mg/dL Aspartate Amino Transferase (AST) 17 13-40 U/L Alanine Aminotransferase (ALT) 14 7-40 U/L Alkaline Phosphatase 223 H 46-116 U/L Total Protein 7.5 5.7-8.2 g/dL Albumin 4.1 3.2-4.8 g/dL Lipase 32 12-53 U/L Phenytoin (Dilantin) Level 17.0 10-20 ug/mL Examination: GENERAL:Normal (Patient was eating dinner when I saw her), HEENT:Normal, NECK:Normal, LUNGS:Normal, CVS:Normal, ABDOMEN:Abnormal (Patient with mild abdominal pain patient does have a ventral hernia. Patient does have a colostomy with air and stool in the bag. ), MSK:Normal, SKIN:Normal, NEURO: Normal, :Normal Problem List/Assessment/Plan Problems: (1) Ventral hernia Assessment and Plan 54-year-old female with a history of colon cancer with colostomy. Patient is eating dinner currently. We will follow up the patient overnight. IV hydration symptomatic pain relief. Plan discussed with Plan discussed with: Patient Visit Coding Surgery Date of Service if different f: Oct 23, 2024 Billing Provider: ELIZABETH CRESPO Jr., MD Surgery Visit Codes: 80187 - INP CONSULT <80 MIN ELIZABETH CRESPO Jr., MD Oct 23, 2024 19:49
[2024-10-23 20:02] VITALS: PULSE 64; RESP 12; O2SAT 94
[2024-10-23] MEDS: D5W/SOD CHL 0.45% 1,000 ML IV ONE (20:19)
[2024-10-23] MEDS: PHENobarbital 32.4 MG TAB PO SCH (23:11)
[2024-10-23] MEDS: PHENYTOIN SODIUM 100 MG CAP PO SCH (23:12)
[2024-10-24 07:11] LABS: Basophils # (auto) 0 10 ^3/uL (0-0.2); Basophils % (auto) 0.1 % (0.0-2.0); Eosinophils # (auto) 0 10 ^3/uL (0-0.8); Eosinophils % (auto) 0.3 % (0.0-7.0); Hematocrit 41.1 % (36.0-46.0); Lymphocytes # (auto) 1.4 10 ^3/uL (0.4-5.4); Lymphocytes % (auto) 11.7 % (10.0-50.0); Mean Corpuscular Hemoglobin 29.8 pg (28.0-32.0); Mean Corpuscular Hgb Conc. 34.1 g/dL (32.0-36.0); Mean Corpuscular Volume 87.2 fL (80.0-100.0); Monocytes # (auto) 0.5 10 ^3/uL (0-1.3); Monocytes % (auto) 4.3 % (0.0-12.0); Neutrophils # (auto) 10.2 10 ^3/uL (1.6-8.6); Neutrophils % (auto) 83.6 % (37.0-80.0); Nucleated Red Blood Cells % 0.1 %; Platelet Count (auto) 364 10^3/uL (140-450); Red Blood Cells 4.72 10^6/uL (4.0-5.20); Red Cell Distribution Width 13.7 % (11.8-14.3); White Blood Cell 12.2 10^3/uL (4.4-10.8)
[2024-10-24 07:21] LABS: Albumin 4.4 g/dL (3.2-4.8); Anion Gap 10 (5-15); BUN/Creatinine Ratio 9.6 (10.0-20.0); Calcium 9.8 mg/dL (8.7-10.4); Carbon Dioxide 26 mmol/L (20-31); Chloride 101 mmol/L (98-107); Potassium 4.5 mmol/L (3.5-5.1); Sodium 137 mmol/L (136-145); Total Protein 7.9 g/dL (5.7-8.2)
[2024-10-24 07:22] LABS: Alanine Aminotransferase 62 U/L (7-40); Alkaline Phosphatase 276 U/L (46-116); Aspartate Aminotransferase 78 U/L (13-40); Bilirubin, Total 0.3 mg/dL (0.2-1.0); Blood Urea Nitrogen 8 mg/dL (9-23); Glucose 122 mg/dL (74-106)
[2024-10-24] MEDS: PANTOPRAZOLE 40 MG TAB PO SCH (10:41)
[2024-10-24] MEDS: ENOXAPARIN SOD 40 MG/0.4 ML SYRINGE SC SCH (10:43)
[2024-10-24] MEDS: FLUoxetine HCL 20 MG CAP PO SCH (10:43)
[2024-10-24] MEDS: HYDROcodone-ACET 5/325MG TAB PO PRN (10:55)
--- NOTE | 2024-10-24 12:43 | DVHPN2 ---
Progress Note - Surgical Date Seen: Oct 24, 2024 Post op day Post op day: 0 Subjective Review of Systems: HEENT:Normal, CVS:Normal, RESPIRATORY:Normal, GI:Abnormal (abdominal pain), MSK:Normal, NEURO:Normal Objective Vital signs Vital Sign Date Time Temp Pulse Resp B/P (MAP) Pulse Ox O2 Delivery O2 Flow Rate FiO2 10/24/24 10:50 98.1 68 16 120/65 (83) 96 98.1 10/23/24 20:02 Room Air* 0 21 Total Intake and Output 10/23/24 10/23/24 10/24/24 14:59 22:59 06:59 Intake Total 1000 ml Balance 1000 ml Medications Current Medications Medications Dose Ordered Sig/Catalina Route Start Time Stop Time Status Last Admin Dose Admin Acetaminophen 325 mg Q4HP PRN PO 10/23/24 15:00 Acetaminophen/ Hydrocodone Bitart 1 tab Q4HP PRN PO 10/23/24 15:00 10/24/24 10:55 1 TAB Ondansetron HCl 4 mg Q4HP PRN IV 10/23/24 15:00 10/24/24 08:05 4 MG Enoxaparin Sodium 40 mg DAILY SC 10/24/24 10:00 10/24/24 10:43 40 MG Morphine Sulfate 2 mg Q4HPRN PRN IV 10/23/24 15:00 10/24/24 08:06 2 MG Fluoxetine HCl 20 mg DAILY PO 10/24/24 10:00 10/24/24 10:43 20 MG Pantoprazole Sodium 40 mg DAILY PO 10/24/24 10:00 10/24/24 10:41 40 MG Phenytoin Sodium 200 mg BID PO 10/23/24 22:00 10/24/24 10:00 200 MG Phenobarbital 64.8 mg BID PO 10/23/24 22:00 10/24/24 10:41 64.8 MG Laboratory Laboratory Tests 10/24/24 06:09 Test 10/24/24 06:09 Range/Units Serum Glucose 122 H 74-106 mg/dL Examination: GENERAL:Normal, HEENT:Normal, NECK:Normal, LUNGS:Normal, CVS:Normal, ABDOMEN:Abnormal (colostomy), MSK:Normal, SKIN:Normal Labs and/or images reviewed: Labs reviewed by me, Image(s) reviewed by me Problem List/Assessment/Plan Problems: (1) Abdominal hernia (2) Colostomy in place (3) Intractable abdominal pain (4) Ventral hernia Assessment and Plan 54 year old female with past medical history of color cancer, seizures, hyperlipidemia, and schizophrenia, who presented to the ER at [facility] with complaint of abdominal pain for the past two days. Patient had previous bowel resection with colostomy. She reports pain of 8/10 associated with nausea and vomiting. The abdominal pain and nausea continue today and is not improving. There is fecal contents in stoma. Abdomen is tender over the ventral incision. Plan: NPO NG to LCS Gastrografin small bowel series Discussed with DR. Coleman and agrees with plan , he will follow up with patient later today My Orders My Orders Orders - TAL SR DNP Procedure Category Date Status Time Place Ng ORDERS 10/24/24 Transmitted 12:29 Ng To Lcs WHIT 10/24/24 In Process 12:29 Npo (Nothing By DIET 10/24/24 Transmitted Mouth) Diet Lunch Small Bowel Series-W XY 10/24/24 Logged Gastrogra 12:29 Plan discussed with Plan discussed with: Patient, Other (Dr. Coleman) Visit Coding Surgery Date of Service if different f: Oct 24, 2024 Billing Provider: ELIZABETH COLEMAN Jr., MD Surgery Visit Codes: [id number] INP/OBS CARE(HIGH) TAL SR DNP Oct 24, 2024 12:43
--- NOTE | 2024-10-24 14:08 | DVHPN2 ---
Subjective Update 10/24 10/24 surgery evaluating today, patient continues to feel nausea and vomiting decreased p.o. tolerance, abdominal pain in the epigastrium area continues. Abdominal pain it is not expanding, abdomen remains nonacute. Surgery planning for a small bowel series with Gastrografin today. We will continue to follow. Reviewed: H&P Changes from previous H/P or p: No Changes General: Per HPI Objective Vitals Vital Signs Date Time Temp Pulse Resp B/P (MAP) Pulse Ox O2 Delivery O2 Flow Rate FiO2 10/24/24 10:50 98.1 68 16 120/65 (83) 96 98.1 10/23/24 20:02 Room Air* 0 21 Intake/Output Intake and Output 10/24/24 07:00 Intake Total 1000 ml Balance 1000 ml Intake IV Total 1000 ml Exam GEN: Healthy appearing, well-developed, NAD. HEENT: NC/AT; MMM. CV: RRR, no m/r/g. LUNGS: CTAB, no w/r/c. ABD: Epigastric scar, tender to palpation in epigastrium around scar area. We will be symptomatic EXT: skin Warm, well perfused. no rashes. No clubbing, cyanosis, or edema. NEURO: Ambulating with no limitations. No focal deficits. Medications Current Medications Medications Dose Ordered Sig/Catalina Route Start Time Stop Time Status Last Admin Dose Admin Acetaminophen 325 mg Q4HP PRN PO 10/23/24 15:00 Acetaminophen/ Hydrocodone Bitart 1 tab Q4HP PRN PO 10/23/24 15:00 10/24/24 10:55 1 TAB Ondansetron HCl 4 mg Q4HP PRN IV 10/23/24 15:00 10/24/24 08:05 4 MG Enoxaparin Sodium 40 mg DAILY SC 10/24/24 10:00 10/24/24 10:43 40 MG Morphine Sulfate 2 mg Q4HPRN PRN IV 10/23/24 15:10/24/24 08:06 2 MG Fluoxetine HCl 20 mg DAILY PO 10/24/24 10:00 10/24/24 10:43 20 MG Pantoprazole Sodium 40 mg DAILY PO 10/24/24 10:00 10/24/24 10:41 40 MG Phenytoin Sodium 200 mg BID PO 10/23/24 22:00 10/24/24 10:00 200 MG Phenobarbital 64.8 mg BID PO 10/23/24 22:00 10/24/24 10:41 64.8 MG Laboratory Results Laboratory Tests 10/24/24 06:09 Chemistry Test 10/24/24 06:09 Albumin 4.4 g/dL (3.2-4.8) Calcium Level 9.8 mg/dL (8.7-10.4) Total Protein 7.9 g/dL (5.7-8.2) LFT Test 10/24/24 06:09 Alanine Aminotransferase (ALT) 62 U/L (7-40) H Alkaline Phosphatase 276 U/L (46-116) H Aspartate Amino Transferase (AST) 78 U/L (13-40) H Total Bilirubin 0.3 mg/dL (0.2-1.0) Labs and/or images reviewed: Labs reviewed by me, Image(s) reviewed by me Assessment/Plan Assessment/Plan 10/24 surgery evaluating today, patient continues to feel nausea and vomiting decreased p.o. tolerance, abdominal pain in the epigastrium area continues. Abdominal pain it is not expanding, abdomen remains nonacute. Surgery planning for a small bowel series with Gastrografin today. We will continue to follow. intractable abdominal pain, partial SBO possible Intractable nausea Decreased p.o. intake Intra-abdominal hernia with transition point, rule out SBO and/or partial SBO Leukocytosis Neutrophilia History of colon cancer status post colectomy and colostomy tube History of seizures History of hyperlipidemia Schizophrenia - 2 days worsening abdominal pain on pmhx of colon CA sp colectomy/colostomy bag. decreased po with nausea - CT AB noncon showing postsurgical changes with subtotal colectomy with a Matt's pouch and right lower quadrant ostomy. Ventral hernia containing intra-abdominal fat and multiple small bowel loops. There is a transition point within the hernia with dilated small bowel loops proximally with fecalized appearing contents. Dilated loop measures 3.7 cm in diameter. - pain control p.r.n. - IV fluids - surgical consult - SB series GGF recommended and pending - continue home meds - clear liquid diet Plan discussed with: Patient My Orders Orders - CLOVER MOFFETT MD Procedure Category Date Status Time Admit ADMIT 10/23/24 Transmitted 15:00 Allergies WHIT 10/23/24 In Process 15:00 Code Status CODE 10/23/24 Transmitted 15:00 Acetaminophen Tablet PHA 10/23/24 In Process (Tylenol Tablet) 15:00 Hydrocodone-Acet PHA 10/23/24 In Process 5/325mg Tab (Ruby 15:00 Ondansetron Hcl PHA 10/23/24 In Process (Zofran) 15:00 Enoxaparin Sodium PHA 10/24/24 In Process (Lovenox) 10:00 Bedrest With Bathroom WHIT 10/23/24 In Process Privileg 15:00 Bedside Commode WHIT 10/23/24 In Process 15:00 Morphine Sulfate PHA 10/23/24 In Process Injection 15:00 Fluoxetine Capsule PHA 10/24/24 In Process (Prozac Capsule) 10:00 Pantoprazole Tablet PHA 10/24/24 In Process (Protonix Tablet) 10:00 Phenytoin Capsule PHA 10/23/24 In Process (Dilantin Capsule) 22:00 Phenobarbital Tablet PHA 10/23/24 In Process 22:00 * Surgical Consult CONS 10/23/24 Transmitted D5w/Sod Chl 0.45% PHA 10/24/24 In Process (D5w 1/2ns) 11:30 Date of Service: Oct 24, 2024 Billing Provider: CLOVER MOFFETT MD Common Visit Codes: [id number] DISCH DAY >30min CLOVER MOFFETT MD Oct 24, 2024 14:08
[2024-10-24] MEDS: GASTROGRAFIN 120 ML SOL ONE (14:26)
[2024-10-24] MEDS ORDERED: CICL8SOL21 TOP (18:10)
--- NOTE | 2024-10-24 19:21 | DVH ---
Procedure: XY SMALL BOWEL SERIES-W GASTROGRA Reason for study/Clinical History: r/o obstruction Comparison Study: None available at time of dictation. Technique: Single contrast small bowel series performed. FINDINGS/IMPRESSION: Initial pension agent view of the abdomen and pelvis appears demonstrates no acute process. There is immediate filling of the stomach and the duodenum. At 30 minutes into the study the column o f contrast is in the distal jejunum but does not progress further in the distal jejunum. There is no further movement after 1 hour.. The jejunum is dilated to over 5 cm in which is abnormal . IMPRESSION: 1. Probable obstruction in the left lower quadrant evolving the distal jejunum.
[2024-10-24 20:00] VITALS: O2SAT 95
[2024-10-24 21:00] VITALS: BP 132/72; PULSE 103; RESP 18; TEMP 98.3; O2SAT 91
[2024-10-24] MEDS: D5W/SOD CHL 0.45% 1,000 ML IV ONE (21:47)
[2024-10-25] VITALS (8 sets, daily range): BP systolic 94–128; BP diastolic 50–80; PULSE 78–94; RESP 17–19; TEMP 97.8–99.3; O2SAT 92–99
[2024-10-25 07:16] LABS: Basophils # (auto) 0.1 10 ^3/uL (0-0.2); Basophils % (auto) 0.5 % (0.0-2.0); Eosinophils # (auto) 0.2 10 ^3/uL (0-0.8); Eosinophils % (auto) 1.4 % (0.0-7.0); Hematocrit 40.4 % (36.0-46.0); Hemoglobin 13.7 g/dL (12.2-16.2); Lymphocytes # (auto) 1.6 10 ^3/uL (0.4-5.4); Mean Corpuscular Hemoglobin 29.7 pg (28.0-32.0); Mean Corpuscular Hgb Conc. 33.9 g/dL (32.0-36.0); Mean Corpuscular Volume 87.6 fL (80.0-100.0); Monocytes # (auto) 0.7 10 ^3/uL (0-1.3); Monocytes % (auto) 6.4 % (0.0-12.0); Neutrophils # (auto) 8.8 10 ^3/uL (1.6-8.6); Neutrophils % (auto) 77.7 % (37.0-80.0); Nucleated Red Blood Cells % 0.2 %; Platelet Count (auto) 327 10^3/uL (140-450); Red Blood Cells 4.61 10^6/uL (4.0-5.20); Red Cell Distribution Width 13.9 % (11.8-14.3); White Blood Cell 11.3 10^3/uL (4.4-10.8)
--- NOTE | 2024-10-25 07:16 | DVHPN2 ---
Progress Note - Surgical Date Seen: Oct 25, 2024 Post op day Post op day: 0 Subjective Patient reports: Other (Continuous have abdominal pain no nausea or vomiting overnight. Patient's did not receive NG tube. Discussed the importance of placing NG tube agitation this morning.) Review of Systems: HEENT:Normal, CVS:Normal, RESPIRATORY:Normal, GI:Abnormal (Abdomen mildly distended colostomy has air and liquid stool. Minimal tenderness disorder ventral hernia SI.) Objective Vital signs Vital Sign Date Time Temp Pulse Resp B/P (MAP) Pulse Ox O2 Delivery O2 Flow Rate FiO2 10/25/24 05:39 75 18 106/53 10/25/24 05:00 97.9 99 97.9 10/24/24 20:00 Nasal Cannula* 2 28 Total Intake and Output 10/24/24 10/24/24 10/25/24 15:00 23:00 07:00 Intake Total 0 ml Balance 0 ml Medications Current Medications Medications Dose Ordered Sig/Catalina Route Start Time Stop Time Status Last Admin Dose Admin Acetaminophen 325 mg Q4HP PRN PO 10/23/24 15:00 Acetaminophen/ Hydrocodone Bitart 1 tab Q4HP PRN PO 10/23/24 15:00 10/24/24 10:55 Ondansetron HCl 4 mg Q4HP PRN IV 10/23/24 15:00 10/25/24 05:08 Enoxaparin Sodium 40 mg DAILY SC 10/24/24 10:00 10/24/24 10:43 Morphine Sulfate 2 mg Q4HPRN PRN IV 10/23/24 15:00 10/25/24 05:09 Fluoxetine HCl 20 mg DAILY PO 10/24/24 10:00 10/24/24 10:43 Pantoprazole Sodium 40 mg DAILY PO 10/24/24 10:00 10/24/24 10:41 Phenytoin Sodium 200 mg BID PO 10/23/24 22:00 10/24/24 21:37 Phenobarbital 64.8 mg BID PO 10/23/24 22:00 10/24/24 21:37 Laboratory Test 10/25/24 06:26 Range/Units Serum Glucose Pending Examination: GENERAL:Normal, HEENT:Normal, NECK:Normal, CVS:Normal, AB DOMEN:Abnormal (Abdomen mildly distended colostomy has air and liquid stool. Minimal tenderness disorder ventral hernia SI.) Problem List/Assessment/Plan Assessment and Plan Patient with the colon cancer treated with just surgical resection and diversion. Never received any further follow up Patient with partial small bowel obstruction. Patient's has not received NG tube which needs to be placed now. NPO continue with conservative management for bowel obstruction if does not resolve may require surgical exploration. My Orders My Orders Orders - ELIZABETH CRESPO Jr., MD Procedure Category Date Status Time Ng To Lcs [facility] 10/25/24 In Process 07:07 Plan discussed with Plan discussed with: Patient Visit Coding Surgery Date of Service if different f: Oct 25, 2024 Billing Provider: ELIZABETH CRESPO Jr., MD Surgery Visit Codes: [id number] INP/OBS CARE(HIGH) ELIZABETH CRESPO Jr., MD Oct 25, 2024 07:16
[2024-10-25 07:44] LABS: Albumin 4.1 g/dL (3.2-4.8); Anion Gap 9 (5-15); BUN/Creatinine Ratio 11.4 (10.0-20.0); Blood Urea Nitrogen 9 mg/dL (9-23); Calcium 9.3 mg/dL (8.7-10.4); Carbon Dioxide 27 mmol/L (20-31); Chloride 103 mmol/L (98-107); Potassium 3.9 mmol/L (3.5-5.1); Sodium 139 mmol/L (136-145); Total Protein 7.3 g/dL (5.7-8.2)
[2024-10-25 07:45] LABS: Bilirubin, Total 0.4 mg/dL (0.2-1.0)
[2024-10-25 07:57] LABS: Alanine Aminotransferase 52 U/L (7-40); Alkaline Phosphatase 237 U/L (46-116); Aspartate Aminotransferase 50 U/L (13-40); Glucose 123 mg/dL (74-106)
--- NOTE | 2024-10-25 09:00 | DVH ---
XY CHEST XRAY 1 VIEW, HISTORY: NG TUBE PLACEMENT CONFIRMATION COMPARISON: XY CHEST PORTABLE on DOS: 06/12/24, XY CHEST PORTABLE on DOS: 05/15/24 XY CHEST PORTABLE on DOS: 06/12/24, XY CHEST PORTABLE on DOS: 05/15/24 TECHNICAL DATA: 1 view of the chest was obtained. FINDINGS: Lines and tubes: NG in the stomach. Cardiomediastinal silhouette: normal Pulmonary vasculature: normal Lung expansion: normal Lung airspace: normal Lung interstitium: normal Pleura: normal Pneumothorax: no Bones: Unremarkable Other: no IMPRESSION: NG in the stomach.
[2024-10-25] MEDS: PHENYTOIN 100 MG/4 ML SUSP GT SCH (11:59)
[2024-10-25] MEDS: D5W/SOD CHL 0.45% 1,000 ML IV ONE ×2 (12:00→20:00)
[2024-10-25] MEDS: PANTOPRAZOLE 40 MG/10 ML VIAL INJ IV SCH (12:07)
--- NOTE | 2024-10-25 13:04 | DVHPN2 ---
Progress Note - Surgical Date Seen: Oct 25, 2024 Post op day Post op day: 0 Subjective Patient reports: No new complaints Review of Systems: HEENT:Normal, CVS:Normal, RESPIRATORY:Normal, GI:Abnormal (abdominal pain), MSK:Normal, NEURO:Normal Objective Vital signs Vital Sign Date Time Temp Pulse Resp B/P (MAP) Pulse Ox O2 Delivery O2 Flow Rate FiO2 10/25/24 09:11 97.8 80 17 126/62 (83) 94 97.8 10/24/24 20:00 Nasal Cannula* 2 28 Total Intake and Output 10/24/24 10/24/24 10/25/24 15:00 23:00 07:00 Intake Total 0 ml Balance 0 ml Medications Current Medications Medications Dose Ordered Sig/Catalina Route Start Time Stop Time Status Last Admin Dose Admin Acetaminophen 325 mg Q4HP PRN PO 10/23/24 15:00 Acetaminophen/ Hydrocodone Bitart 1 tab Q4HP PRN PO 10/23/24 15:00 10/24/24 10:55 1 TAB Ondansetron HCl 4 mg Q4HP PRN IV 10/23/24 15:00 10/25/24 05:08 4 MG Enoxaparin Sodium 40 mg DAILY SC 10/24/24 10:00 10/25/24 12:00 40 MG Morphine Sulfate 2 mg Q4HPRN PRN IV 10/23/24 15:00 10/25/24 05:09 2 MG Fluoxetine HCl 20 mg DAILY PO 10/24/24 10:00 10/25/24 11:59 20 MG Phenytoin Sodium 200 mg BID GT 10/25/24 10:15 10/25/24 11:59 200 MG Pantoprazole Sodium 40 mg DAILY IV 10/25/24 10:15 10/25/24 12:07 40 MG Laboratory Laboratory Tests 10/25/24 06:26 Test 10/25/24 06:26 Range/Units Serum Glucose 123 H 74-106 mg/dL Examination: GENERAL:Normal, HEENT:Normal, NECK:Normal, LUNGS:Normal, CVS:Normal, ABDOMEN:Abnormal (colostomy ), MSK:Normal, SKIN:Normal Problem List/Assessment/Plan Assessment and Plan 54 year old female with past medical history of color cancer, seizures, hyperlipidemia, and schizophrenia, who presented to the ER at [facility] with complaint of abdominal pain for the past two days. Patient had previous bowel resection with colostomy. She reports pain of 8/10 associated with nausea and vomiting. The abdominal pain and nausea continue today and is not improving. There is fecal contents in stoma. Abdomen is tender over the ventral incision. Plan: NPO NG to LCS Gastrografin small bowel series Discussed with DR. Coleman and agrees with plan , he will follow up with patient later today 10/25/24 patient medical history of colon cancer , complains of abdominal pain and nausea after NGT placement , patient states nausea went away feeling better patient still has abdominal pain, abdomen tender, no output in stoma bag Plan: NGT to LCS NPO Dr. Coleman was notified Plan discussed with Plan discussed with: Patient, Other Visit Coding Surgery Date of Service if different f: Oct 25, 2024 Billing Provider: ELIZABETH COLEMAN Jr., MD Surgery Visit Codes: [id number] INP/OBS CARE(HIGH) TAL SR [facility] Oct 25, 2024 13:04
--- NOTE | 2024-10-25 14:49 | DVHPN2 ---
Subjective Update 10/25 10/24 surgery evaluating today, patient continues to feel nausea and vomiting decreased p.o. tolerance, abdominal pain in the epigastrium area continues. Abdominal pain it is not expanding, abdomen remains nonacute. Surgery planning for a small bowel series with Gastrografin today. We will continue to follow. 10/25 patient NG tube inserted today, minimal white clear output. Continues to have some periumbilical pain, more right-sided of umbilicus,. Continuing IV fluids, NPO, surgery following. Continuing to empty colostomy to monitor output. Most recent output was brown orange. Reviewed: H&P Changes from previous H/P or p: No Changes General: Per HPI Objective Vitals Vital Signs Date Time Temp Pulse Resp B/P (MAP) Pulse Ox O2 Delivery O2 Flow Rate FiO2 10/25/24 13:35 83 14 110/53 10/25/24 12:57 97.9 94 97.9 10/24/24 20:00 Nasal Cannula* 2 28 Intake/Output Intake and Output 10/25/24 07:00 Intake Total 0 ml Balance 0 ml Intake Oral 0 ml # Voids 3 Exam GEN: Healthy appearing, well-developed, NAD. HEENT: NC/AT; MMM. CV: RRR, no m/r/g. LUNGS: CTAB, no w/r/c. ABD: Epigastric scar, tender to palpation in epigastrium around scar area. We will be symptomatic EXT: skin Warm, well perfused. no rashes. No clubbing, cyanosis, or edema. NEURO: Ambulating with no limitations. No focal deficits. Medications Current Medications Medications Dose Ordered Sig/Catalina Route Start Time Stop Time Status Last Admin Dose Admin Acetaminophen 325 mg Q4HP PRN PO 10/23/24 15:00 Acetaminophen/ Hydrocodone Bitart 1 tab Q4HP PRN PO 10/23/24 15:00 10/24/24 10:55 1 TAB Ondansetron HCl 4 mg Q4HP PRN IV 10/23/24 15:10/25/24 05:08 4 MG Enoxaparin Sodium 40 mg DAILY SC 10/24/24 10:00 10/25/24 12:00 40 MG Morphine Sulfate 2 mg Q4HPRN PRN IV 10/23/24 15:00 10/25/24 13:35 2 MG Fluoxetine HCl 20 mg DAILY PO 10/24/24 10:00 10/25/24 11:59 20 MG Phenytoin Sodium 200 mg BID GT 10/25/24 10:15 10/25/24 11:59 200 MG Pantoprazole Sodium 40 mg DAILY IV 10/25/24 10:15 10/25/24 12:07 40 MG Laboratory Results Laboratory Tests 10/25/24 06:26 Chemistry Test 10/25/24 06:26 Albumin 4.1 g/dL (3.2-4.8) Calcium Level 9.3 mg/dL (8.7-10.4) Total Protein 7.3 g/dL (5.7-8.2) LFT Test 10/25/24 06:26 Alanine Aminotransferase (ALT) 52 U/L (7-40) H Alkaline Phosphatase 237 U/L (46-116) H Aspartate Amino Transferase (AST) 50 U/L (13-40) H Total Bilirubin 0.4 mg/dL (0.2-1.0) Labs and/or images reviewed: Labs reviewed by me, Image(s) reviewed by me Assessment/Plan Assessment/Plan 10/25 patient NG tube inserted today, minimal white clear output. Continues to have some periumbilical pain, more right-sided of umbilicus,. Continuing IV fluids, NPO, surgery following. Continuing to empty colostomy to monitor output. Most recent output was brown orange. intractable abdominal pain, partial SBO possible Intractable nausea Decreased p.o. intake Intra-abdominal hernia with transition point, rule out SBO and/or partial SBO Leukocytosis Neutrophilia History of colon cancer status post colectomy and colostomy tube History of seizures History of hyperlipidemia Schizophrenia - 2 days worsening abdominal pain on pmhx of colon CA sp colectomy/colostomy bag. decreased po with nausea - CT AB noncon showing postsurgical changes with subtotal colectomy with a Matt's pouch and right lower quadrant ostomy. Ventral hernia containing intra-abdominal fat and multiple small bowel loops. There is a transition point within the hernia with dilated small bowel loops proximally with fecalized appearing contents. Dilated loop measures 3.7 cm in diameter. - small-bowel Gastrografin series shows probable obstruction in left lower quadrant involving in distal jejunum. - pain control p.r.n. - NG tube inserted 10/25 per surgery continuous suction low pressure - IV fluids - continue home meds - clear liquid diet Plan discussed with: Patient My Orders Orders - CLOVER MOFFETT MD Procedure Category Date Status Time D5w/Sod Chl 0.45% PHA 10/25/24 In Process (D5w 1/2ns) 09:00 Phenytoin Suspension PHA 10/25/24 In Process (Dilantin Suspensio 10:15 Pantoprazole PHA 10/25/24 In Process (Protonix) 10:15 Communication Order ORDERS 10/25/24 Transmitted 10:08 Chest Portable XY 10/25/24 Taken 14:23 Date of Service: Oct 25, 2024 Billing Provider: CLOVER MOFFETT MD Common Visit Codes: [id number] INP/OBS CARE(HIGH) CLOVER MOFFETT MD Oct 25, 2024 14:49
--- NOTE | 2024-10-25 14:49 | DVH ---
CHEST RADIOGRAPH Indication: NG tube placement Technique: Single frontal view of the chest was obtained Comparison: XY CHEST XRAY 1 VIEW on DOS: 10/25/24, XY CHEST PORTABLE on DOS: 06/12/24, XY CHEST PORTABL E on DOS: 05/15/24 FINDINGS: Lines and Tubes: Enteric tube is in satisfactory position. Lungs: Bronchovascular crowding due to low lung volumes. Diffuse interstitial prominence. Obscuration of the left hemidiaphragm. No pneumothorax. Cardiomediastinal contours: Mild cardiomegaly. Bones: No acute osseous abnormality. IMPRESSION: Bronchovascular crowding due to low lung volumes. Obscuration of the left hemidiaphragm which may be from overlying cardiac silhouette. Underlying ple ural effusion /atelectasis can not be excluded. Enteric tube is in satisfactory position.
[2024-10-26] VITALS (8 sets, daily range): BP systolic 108–128; BP diastolic 59–72; PULSE 79–90; RESP 17–88; TEMP 98–98.5; O2SAT 86–95
[2024-10-26 09:11] LABS: Basophils # (auto) 0 10 ^3/uL (0-0.2); Basophils % (auto) 0.2 % (0.0-2.0); Eosinophils # (auto) 0.1 10 ^3/uL (0-0.8); Eosinophils % (auto) 0.5 % (0.0-7.0); Hematocrit 38.9 % (36.0-46.0); Lymphocytes # (auto) 1.7 10 ^3/uL (0.4-5.4); Lymphocytes % (auto) 13.8 % (10.0-50.0); Mean Corpuscular Hemoglobin 29.3 pg (28.0-32.0); Mean Corpuscular Hgb Conc. 33.5 g/dL (32.0-36.0); Mean Corpuscular Volume 87.7 fL (80.0-100.0); Monocytes % (auto) 8.1 % (0.0-12.0); Neutrophils # (auto) 9.3 10 ^3/uL (1.6-8.6); Neutrophils % (auto) 77.4 % (37.0-80.0); Platelet Count (auto) 305 10^3/uL (140-450); Red Blood Cells 4.44 10^6/uL (4.0-5.20); Red Cell Distribution Width 13.7 % (11.8-14.3)
--- NOTE | 2024-10-26 10:00 | DVHPN2 ---
Progress Note Date Seen: Oct 26, 2024 Has the PT tested + for MRSA If YES, has PT been informed?: No Medical Necessity Reason Pt with a Central, PICC or Fol: No Subjective Patient reports: Other (Crease nausea less abdominal pain) Changes from previous H/P or p: No Changes Objective vital signs Vital Sign Date Time Temp Pulse Resp B/P (MAP) Pulse Ox O2 Delivery O2 Flow Rate FiO2 10/26/24 09:00 98.2 81 20 118/59 (78) 92 98.2 10/25/24 20:00 Nasal Cannula* 2 28 Total Intake and Output 10/25/24 10/25/24 10/26/24 15:00 23:00 07:00 Intake Total 500 ml 0 ml Balance 500 ml 0 ml medications Current Medications Medications Dose Ordered Sig/Catalina Route Start Time Stop Time Status Last Admin Dose Admin Acetaminophen 325 mg Q4HP PRN PO 10/23/24 15:00 Acetaminophen/ Hydrocodone Bitart 1 tab Q4HP PRN PO 10/23/24 15:00 10/24/24 10:55 1 TAB Ondansetron HCl 4 mg Q4HP PRN IV 10/23/24 15:00 10/26/24 05:05 4 MG Enoxaparin Sodium 40 mg DAILY SC 10/24/24 10:00 10/25/24 12:00 40 MG Morphine Sulfate 2 mg Q4HPRN PRN IV 10/23/24 15:00 10/26/24 05:12 2 MG Fluoxetine HCl 20 mg DAILY PO 10/24/24 10:00 10/25/24 11:59 20 MG Phenytoin Sodium 200 mg BID GT 10/25/24 10:15 10/25/24 22:26 200 MG Pantoprazole Sodium 40 mg DAILY IV 10/25/24 10:15 10/25/24 12:07 40 MG Phenobarbital 64.8 mg BID GT 10/26/24 10:00 UNV Examination: GENERAL:Normal, HEENT:Normal, NECK:Normal, LUNGS:Normal, CVS:Normal, ABDOMEN:Abnormal (NG tube in place with bilious drainage. Abdomen minimal tenderness midline. Ostomy bag minimal air and liquid stool) laboratory and microbiology Laboratory Tests 10/26/24 08:52 Test 10/26/24 08:52 Range/Units Serum Glucose Pending Problem List/Assessment/Plan Problem List/Assessment/Plan Patient with history of colon cancer and partial small bowel obstruction we will continue with NG tube conservative management. Recommend lab to follow up on electrolytes. We will continue to follow. Plan discussed with: Patient Dietary Evaluation Review Comments: 1) Consider TPN/PN if NPO >7 days 2) Advance diet as medically feasible 3) Continue current plan of care Expected Outcomes/Goals: Pt will meet 75% estimated needs Fu 2-3 days ELIZABETH CRESPO Jr., MD Oct 26, 2024 10:00
[2024-10-26 10:04] LABS: Anion Gap 5 (5-15); BUN/Creatinine Ratio 9.2 (10.0-20.0); Calcium 9.1 mg/dL (8.7-10.4); Carbon Dioxide 27 mmol/L (20-31); Chloride 104 mmol/L (98-107); Potassium 3.8 mmol/L (3.5-5.1); Sodium 136 mmol/L (136-145); Total Protein 7.2 g/dL (5.7-8.2)
[2024-10-26 10:05] LABS: Alanine Aminotransferase 53 U/L (7-40); Alkaline Phosphatase 243 U/L (46-116); Blood Urea Nitrogen 7 mg/dL (9-23); Glucose 111 mg/dL (74-106)
[2024-10-26 10:06] LABS: Bilirubin, Total 0.5 mg/dL (0.2-1.0)
[2024-10-26 10:09] LABS: Aspartate Aminotransferase 44 U/L (13-40)
[2024-10-26] MEDS: PHENobarbital 32.4 MG TAB GT SCH (10:39)
[2024-10-26] MEDS ORDERED: PPN PER PHARMACY 0 ML IV SCH (14:45)
[2024-10-26 16:05] LABS: Magnesium 1.9 mg/dL (1.6-2.6)
[2024-10-26 16:07] LABS: Phosphorus 3.2 mg/dL (2.4-5.1)
--- NOTE | 2024-10-26 17:20 | DVHPN2 ---
Subjective Update 10/26 10/24 surgery evaluating today, patient continues to feel nausea and vomiting decreased p.o. tolerance, abdominal pain in the epigastrium area continues. Abdominal pain it is not expanding, abdomen remains nonacute. Surgery planning for a small bowel series with Gastrografin today. We will continue to follow. 10/25 patient NG tube inserted today, minimal white clear output. Continues to have some periumbilical pain, more right-sided of umbilicus,. Continuing IV fluids, NPO, surgery following. Continuing to empty colostomy to monitor output. Most recent output was brown orange. 10/26 patient has not improved today. Continues to have periumbilical pain radiating to left flank. Continues to have good urine output. Has been NPO for 3 days now. We will start Clinimix PPN. Surgery following. NG tube inserted has more output dark brown/bilious, colostomy has minimal output minimal gas. Surgery plan to give patient more times for bowel rest and will follow up. If patient continues to be NPO on Tuesday, we will likely need PICC line and TPN started. Reviewed: H&P Changes from previous H/P or p: No Changes General: Per HPI Objective Vitals Vital Signs Date Time Temp Pulse Resp B/P (MAP) Pulse Ox O2 Delivery O2 Flow Rate FiO2 10/26/24 15:55 90 20 125/69 10/26/24 13:00 98.4 90 98.4 10/26/24 08:10 Nasal Cannula* 2 28 Intake/Output Intake and Output 10/26/24 07:00 Intake Total 500 ml Balance 500 ml Intake Oral 0 ml IV Total 500 ml # Voids 1 # Bowel Movements 1 Exam GEN: Healthy appearing, well-developed, NAD. HEENT: NC/AT; MMM. CV: RRR, no m/r/g. LUNGS: CTAB, no w/r/c. ABD: Epigastric scar, tender to palpation in epigastrium around scar area. We will be symptomatic EXT: skin Warm, well perfused. no rashes. No clubbing, cyanosis, or edema. NEURO: Ambulating with no limitations. No focal deficits. Medications Current Medications Medications Dose Ordered Sig/Catalina Route Start Time Stop Time Status Last Admin Dose Admin Acetaminophen 325 mg Q4HP PRN PO 10/23/24 15:00 Acetaminophen/ Hydrocodone Bitart 1 tab Q4HP PRN PO 10/23/24 15:00 10/24/24 10:55 1 TAB Ondansetron HCl 4 mg Q4HP PRN IV 10/23/24 15:00 10/26/24 15:54 4 MG Enoxaparin Sodium 40 mg DAILY SC 10/24/24 10:00 10/26/24 10:38 40 MG Morphine Sulfate 2 mg Q4HPRN PRN IV 10/23/24 15:00 10/26/24 15:55 2 MG Fluoxetine HCl 20 mg DAILY PO 10/24/24 10:00 10/26/24 10:39 20 MG Phenytoin Sodium 200 mg BID GT 10/25/24 10:15 10/26/24 10:48 200 MG Pantoprazole Sodium 40 mg DAILY IV 10/25/24 10:15 10/26/24 10:48 40 MG Phenobarbital 64.8 mg BID GT 10/26/24 10:00 10/26/24 10:39 64.8 MG Amino Acids 0 ml @ 0 mls/hr PER PHARMACY IV 10/26/24 14:45 Amino Acids 1,000 ml @ 41 mls/hr DAILY@2200 IV 10/26/24 22:00 10/27/24 21:59 Diagnostic Test (Pha) 1 strip Q6HR 10/27/24 00:00 Insulin Human Regular FOLLOW SLIDING SCALE Q6HR SC 10/27/24 00:00 Dextrose 50 ml UD IV 10/27/24 00:00 Laboratory Results Laboratory Tests 10/26/24 08:52 Chemistry Test 10/26/24 08:52 Albumin 4.0 g/dL (3.2-4.8) Calcium Level 9.1 mg/dL (8.7-10.4) Magnesium Level 1.9 mg/dL (1.6-2.6) Phosphorus Level 3.2 mg/dL (2.4-5.1) Total Protein 7.2 g/dL (5.7-8.2) LFT Test 10/26/24 08:52 Alanine Aminotransferase (ALT) 53 U/L (7-40) H Alkaline Phosphatase 243 U/L (46-116) H Aspartate Amino Transferase (AST) 44 U/L (13-40) H Total Bilirubin 0.5 mg/dL (0.2-1.0) Labs and/or images reviewed: Labs reviewed by me, Image(s) reviewed by me Assessment/Plan Assessment/Plan 10/26 patient has not improved today. Continues to have periumbilical pain radiating to left flank. Continues to have good urine output. Has been NPO for 3 days now. We will start Clinimix PPN. Surgery following. NG tube inserted has more output dark brown/bilious, colostomy has minimal output minimal gas. Surgery plan to give patient more times for bowel rest and will follow up. If patient continues to be NPO on Tuesday, we will likely need PICC line and TPN started. intractable abdominal pain, partial SBO possible Intractable nausea Decreased p.o. intake Intra-abdominal hernia with transition point, rule out SBO and/or partial SBO Leukocytosis Neutrophilia History of colon cancer status post colectomy and colostomy tube History of seizures History of hyperlipidemia Schizophrenia - 2 days worsening abdominal pain on pmhx of colon CA sp colectomy/colostomy bag. decreased po with nausea - CT AB noncon showing postsurgical changes with subtotal colectomy with a Matt's pouch and right lower quadrant ostomy. Ventral hernia containing intra-abdominal fat and multiple small bowel loops. There is a transition point within the hernia with dilated small bowel loops proximally with fecalized appearing contents. Dilated loop measures 3.7 cm in diameter. - small-bowel Gastrografin series shows probable obstruction in left lower quadrant involving in distal jejunum. - pain control p.r.n. - NG tube inserted 10/25 per surgery intermittent suction on low pressure - IV fluids and PPN clinimix - continue home meds - clear liquid diet Plan discussed with: Patient My Orders Orders - CLOVER MOFFETT MD Procedure Category Date Status Time Phenobarbital Tablet PHA 10/26/24 In Process 10:00 Ppn Per Pharmacy PHA 10/26/24 In Process 14:45 Ppn Per Pharmacy WHIT 10/26/24 In Process 14:36 PPN ORDERS 10/26/24 Transmitted 14:36 Comprehensive LAB 10/27/24 Verified Metabolic Panel 04:00 Magnesium LAB 10/27/24 Verified 04:00 Phosphorus LAB 10/27/24 Verified 04:00 Triglycerides LAB 10/27/24 Verified 04:00 * Dietary Consult CONS 10/26/24 Transmitted 15:29 Ppn Per Pharmacy WHIT 10/26/24 In Process 22:00 Amino Acid Infusion PHA 10/26/24 In Process In D5w (Clinimix 4.2 22:00 Glucose Blood PHA 10/27/24 In Process (Accu-Chek Comfort 00:00 Insulin R (Human) PHA 10/27/24 In Process (Insulin R) 00:00 Dextrose 50% Syringe PHA 10/27/24 In Process 00:00 Date of Service: Oct 26, 2024 Billing Provider: CLOVER MOFFETT MD Common Visit Codes: [id number] INP/OBS CARE(HIGH) CLOVER MOFFETT MD Oct 26, 2024 17:20
[2024-10-26 18:49] LABS: Urine Bacteria MOD /hpf (None Seen); Urine Blood Negative /uL (Negative); Urine Clarity Clear (Clear); Urine Color Yellow (Yellow); Urine Mucus FEW (None Seen); Urine Protein, UAD 1+ (Negative); Urine Specific Gravity 1.033 (1.001-1.035); Urine Squamous Epithelial Cell None Seen /hpf (<5); Urine Urobilinogen 8 mg/dL (Negative); Urine WBC < 1 /HPF (0-5); Urine pH 5.5 (5.0-9.0)
[2024-10-26] MEDS: AMINO ACID INFUSION IN D5W 1,000 ML IV SCH (22:20)
[2024-10-27] VITALS (8 sets, daily range): BP systolic 99–170; BP diastolic 47–93; PULSE 75–99; RESP 18–20; TEMP 98–99.1; O2SAT 95–96
[2024-10-27] MEDS ORDERED: DEXTROSE (50%) 50ML SYRG IV SCH
[2024-10-27] MEDS: InsuLIN REG 1unit/0.01ml Soln (100units/ml) SC SCH
[2024-10-27] MEDS: ACCU-CHEK COMFORT CURVE STRIP VI SCH (00:29)
[2024-10-27 07:21] LABS: Anion Gap 6 (5-15); Aspartate Aminotransferase 33 U/L (13-40); BUN/Creatinine Ratio 12.2 (10.0-20.0); Bilirubin, Total 0.5 mg/dL (0.2-1.0); Blood Urea Nitrogen 9 mg/dL (9-23); Carbon Dioxide 29 mmol/L (20-31); Chloride 102 mmol/L (98-107); Magnesium 1.9 mg/dL (1.6-2.6); Phosphorus 3.1 mg/dL (2.4-5.1); Potassium 3.6 mmol/L (3.5-5.1); Sodium 137 mmol/L (136-145); Total Protein 7.2 g/dL (5.7-8.2)
[2024-10-27 07:31] LABS: Alanine Aminotransferase 43 U/L (7-40); Alkaline Phosphatase 235 U/L (46-116); Glucose 109 mg/dL (74-106); Triglycerides 285 mg/dL (< 150)
--- NOTE | 2024-10-27 12:29 | DVHPN2 ---
Progress Note Date Seen: Oct 27, 2024 Has the PT tested + for MRSA If YES, has PT been informed?: No Medical Necessity Reason Pt with a Central, PICC or Fol: No Subjective Patient reports: Other (UNCHANGED) Objective vital signs Vital Sign Date Time Temp Pulse Resp B/P (MAP) Pulse Ox O2 Delivery O2 Flow Rate FiO2 10/27/24 05:00 98.0 75 18 113/71 (85) 96 98.0 10/26/24 20:00 Nasal Cannula* 2 28 Total Intake and Output 10/26/24 10/26/24 10/27/24 15:00 23:00 07:00 Intake Total 307 ml Output Total 190 ml 0 ml 475 ml Balance -190 ml 0 ml -168 ml medications Current Medications Medications Dose Ordered Sig/Catalina Route Start Time Stop Time Status Last Admin Dose Admin Acetaminophen 325 mg Q4HP PRN PO 10/23/24 15:00 Acetaminophen/ Hydrocodone Bitart 1 tab Q4HP PRN PO 10/23/24 15:00 10/24/24 10:55 1 TAB Ondansetron HCl 4 mg Q4HP PRN IV 10/23/24 15:00 10/27/24 03:41 4 MG Enoxaparin Sodium 40 mg DAILY SC 10/24/24 10:00 10/27/24 09:48 40 MG Morphine Sulfate 2 mg Q4HPRN PRN IV 10/23/24 15:00 10/27/24 03:42 2 MG Fluoxetine HCl 20 mg DAILY PO 10/24/24 10:00 10/27/24 09:47 20 MG Phenytoin Sodium 200 mg BID GT 10/25/24 10:15 10/27/24 09:47 200 MG Pantoprazole Sodium 40 mg DAILY IV 10/25/24 10:15 10/26/24 10:48 40 MG Phenobarbital 64.8 mg BID GT 10/26/24 10:00 10/27/24 09:47 64.8 MG Amino Acids 0 ml @ 0 mls/hr PER PHARMACY IV 10/26/24 14:45 Amino Acids 1,000 ml @ 41 mls/hr DAILY@2200 IV 10/26/24 22:00 10/27/24 21:59 10/26/24 22:20 41 MLS/HR Diagnostic Test (Pha) 1 strip Q6HR 10/27/24 00:00 10/27/24 12:12 1 STRIP Insulin Human Regular FOLLOW SLIDING SCALE Q6HR SC 10/27/24 00:00 Dextrose 50 ml UD IV 10/27/24 00:00 Fat Emulsion Intravenous 50 ml/ Sodium Chloride 40 meq/Potassium Chloride 60 meq/ Calcium Gluconate 2.3 meq/Magnesium Sulfate 12 meq/ Multivitamins 10 ml/Chromium/ Copper/Manganese/ Zinc 1 ml/Amino Acids/Dextrose/ Purified Water 1,608.9462 ml @ 67 mls/hr Q24H1M IV 10/27/24 22:00 10/28/24 21:59 Examination: GENERAL:Normal, HEENT:Normal, NECK:Normal, CVS:Normal, ABDOMEN:Abnormal (ngt in place. incresed air in the ostomy bag today. pain generalized tenderness to left abdomen) laboratory and microbiology Laboratory Tests 10/27/24 06:34 10/26/24 08:52 Test 10/27/24 06:34 Range/Units Serum Glucose 109 H 74-106 mg/dL Problem List/Assessment/Plan Problem List/Assessment/Plan Patient with history of colon cancer and partial small bowel obstruction we will continue with NG tube conservative management. Recommend lab to follow up on electrolytes. consider iv nutrition check abd xray in am We will continue to follow. Plan discussed with: Patient Dietary Evaluation Review Comments: 1) Consider TPN/PN if NPO >7 days 2) Advance diet as medically feasible 3) Continue current plan of care Expected Outcomes/Goals: Pt will meet 75% estimated needs Fu 2-3 days ELIZABETH CRESPO Jr., MD Oct 27, 2024 12:29
--- NOTE | 2024-10-27 13:05 | DVHPN2 ---
Subjective The patient is seen and examined at bedsider Reviewed: Care Plan, H&P, Labs, Medications, Previous Orders, Radiology Changes from previous H/P or p: No Changes General: Per HPI Objective Vitals Vital Signs Date Time Temp Pulse Resp B/P (MAP) Pulse Ox O2 Delivery O2 Flow Rate FiO2 10/27/24 12:44 81 18 119/68 10/27/24 05:00 98.0 96 98.0 10/26/24 20:00 Nasal Cannula* 2 28 Intake/Output Intake and Output 10/27/24 07:00 Intake Total 307 ml Output Total 665 ml Balance -358 ml Intake Oral 0 ml IV Total 307 ml Output Urine Total 0 ml Stool Total 40 ml Gastric Drainage Total 625 ml General Appearance: Alert, Oriented X3, Cooperative, No acute distress HEENT: Atraumatic, PERRLA, EOMI, Mucous membr. moist/pink Neck: Supple Lungs: Clear to auscultation, Normal air movement Cardiovascular: Regular rate, Normal S1, Normal S2, No murmurs, Gallops, Rubs Abdomen: Normal bowel sounds, Soft, No tenderness, No hepatospenomegaly, No masses Neuro: Cranial nerves 3-12 NL Psych/Mental Status: Mental status NL Medications Current Medications Medications Dose Ordered Sig/Catalina Route Start Time Stop Time Status Last Admin Dose Admin Acetaminophen 325 mg Q4HP PRN PO 10/23/24 15:00 Acetaminophen/ Hydrocodone Bitart 1 tab Q4HP PRN PO 10/23/24 15:00 10/24/24 10:55 1 TAB Ondansetron HCl 4 mg Q4HP PRN IV 10/23/24 15:00 10/27/24 12:41 4 MG Enoxaparin Sodium 40 mg DAILY SC 10/24/24 10:00 10/27/24 09:48 40 MG Morphine Sulfate 2 mg Q4HPRN PRN IV 10/23/24 15:00 10/27/24 12:44 2 MG Fluoxetine HCl 20 mg DAILY PO 10/24/24 10:00 10/27/24 09:47 20 MG Phenytoin Sodium 200 mg BID GT 10/25/24 10:15 10/27/24 09:47 200 MG Pantoprazole Sodium 40 mg DAILY IV 10/25/24 10:15 10/27/24 12:41 40 MG Phenobarbital 64.8 mg BID GT 10/26/24 10:00 10/27/24 09:47 64.8 MG Amino Acids 0 ml @ 0 mls/hr PER PHARMACY IV 10/26/24 14:45 Amino Acids 1,000 ml @ 41 mls/hr DAILY@2200 IV 10/26/24 22:00 10/27/24 21:59 10/26/24 22:20 41 MLS/HR Diagnostic Test (Pha) 1 strip Q6HR 10/27/24 00:00 10/27/24 12:12 1 STRIP Insulin Human Regular FOLLOW SLIDING SCALE Q6HR SC 10/27/24 00:00 Dextrose 50 ml UD IV 10/27/24 00:00 Fat Emulsion Intravenous 50 ml/ Sodium Chloride 40 meq/Potassium Chloride 60 meq/ Calcium Gluconate 2.3 meq/Magnesium Sulfate 12 meq/ Multivitamins 10 ml/Chromium/ Copper/Manganese/ Zinc 1 ml/Amino Acids/Dextrose/ Purified Water 1,608.9462 ml @ 67 mls/hr Q24H1M IV 10/27/24 22:00 10/28/24 21:59 Laboratory Results Laboratory Tests 10/26/24 08:52 10/27/24 06:34 Chemistry Test 10/27/24 06:34 Albumin 4.0 g/dL (3.2-4.8) Calcium Level 9.0 mg/dL (8.7-10.4) Magnesium Level 1.9 mg/dL (1.6-2.6) Phosphorus Level 3.1 mg/dL (2.4-5.1) Total Protein 7.2 g/dL (5.7-8.2) Lipid panel Test 10/27/24 06:34 Triglycerides Level 285 mg/dL (< 150) H LFT Test 10/27/24 06:34 Alanine Aminotransferase (ALT) 43 U/L (7-40) H Alkaline Phosphatase 235 U/L (46-116) H Aspartate Amino Transferase (AST) 33 U/L (13-40) Total Bilirubin 0.5 mg/dL (0.2-1.0) Urinalysis Test 10/26/24 18:17 Urine Color Yellow (Yellow) Urine Clarity Clear (Clear) Urine pH 5.5 (5.0-9.0) Urine Specific [place] 1.033 (1.001-1.035) Urine Protein 1+ (Negative) H Urine Ketones Negative (Negative) Urine Blood Negative /uL (Negative) Urine Nitrite Negative (Negative) Urine Bilirubin 1+ (Negative) H Urine Urobilinogen 8 mg/dL (Negative) H Urine Leukocyte Esterase Negative /uL (Negative) Urine RBC None seen /hpf (0 - 4) Urine Microscopic WBC < 1 /HPF (0-5) Urine Squamous Epithelial Cells None seen /hpf (<5) Urine Bacteria Mod /hpf (None Seen) H Urine Mucus Few (None Seen) Urine Glucose Normal mg/dL (Normal) Labs and/or images reviewed: Labs reviewed by me Assessment/Plan Assessment/Plan Intractable abdominal pain, partial SBO possible Intractable nausea Decreased p.o. intake Intra-abdominal hernia with transition point, rule out SBO and/or partial SBO Leukocytosis Neutrophilia History of colon cancer status post colectomy and colostomy tube History of seizures History of hyperlipidemia Schizophrenia - 2 days worsening abdominal pain on pmhx of colon CA sp colectomy/colostomy bag. decreased po with nausea - CT AB noncon showing postsurgical changes with subtotal colectomy with a Matt's pouch and right lower quadrant ostomy. Ventral hernia containing intra-abdominal fat and multiple small bowel loops. There is a transition point within the hernia with dilated small bowel loops proximally with fecalized appearing contents. Dilated loop measures 3.7 cm in diameter. - small-bowel Gastrografin series shows probable obstruction in left lower quadrant involving in distal jejunum. - pain control p.r.n. - NG tube inserted 3/6 per surgery intermittent suction on low pressure - IV fluids and PPN clinimix - continue home meds - clear liquid diet Continuing current management. Continuing with Clinimix for now. Patient is still have a lot of fluid from the NG tube. Waiting for surgery input. Continuing with pain medication. This medical document was created using an electronic medical record system with [employer] direct computerized dictation system. Although this document has been carefully reviewed, there may still be some phonetic and typographical errors. These areas are purely typographical due to imperfections of the software programs, and do not reflect any compromise in the patient's medical care. Plan discussed with: Patient Date of Service: Oct 27, 2024 Billing Provider: JAMAAL RICH MD Common Visit Codes: [id number] INP/OBS CARE(HIGH) JAMAAL RICH MD Oct 27, 2024 13:05
[2024-10-27] MEDS: PPN PER PHARMACY IV NR (21:32)
[2024-10-28] VITALS (7 sets, daily range): BP systolic 101–127; BP diastolic 48–69; PULSE 73–85; RESP 16–20; TEMP 78–98.1; O2SAT 90–96
[2024-10-28 06:42] LABS: Alanine Aminotransferase 33 U/L (7-40); Anion Gap 8 (5-15); Aspartate Aminotransferase 26 U/L (13-40); Bilirubin, Total 0.5 mg/dL (0.2-1.0); Blood Urea Nitrogen 12 mg/dL (9-23); Calcium 9.2 mg/dL (8.7-10.4); Carbon Dioxide 30 mmol/L (20-31); Chloride 99 mmol/L (98-107); Phosphorus 2.9 mg/dL (2.4-5.1); Sodium 137 mmol/L (136-145); Total Protein 6.9 g/dL (5.7-8.2)
[2024-10-28 06:46] LABS: Albumin 3.9 g/dL (3.2-4.8); Alkaline Phosphatase 203 U/L (46-116); Glucose 118 mg/dL (74-106); Potassium 3.4 mmol/L (3.5-5.1)
--- NOTE | 2024-10-28 12:50 | DVHPN2 ---
Subjective The patient is seen examined at bedside the patient is still complain of abdominal pain. Reviewed: Care Plan, H&P, Labs, Medications, Previous Orders, Radiology Changes from previous H/P or p: No Changes General: Per HPI Objective Vitals Vital Signs Date Time Temp Pulse Resp B/P (MAP) Pulse Ox O2 Delivery O2 Flow Rate FiO2 10/28/24 07:55 80 20 113/71 10/28/24 07:55 95 Nasal Cannula* 2 28 10/28/24 05:00 98.1 98.1 Intake/Output Intake and Output 10/28/24 07:00 Intake Total 1369.5 ml Output Total 1274 ml Balance 95.5 ml Intake Oral 800 ml IV Total 569.5 ml Output Urine Total 600 ml Gastric Drainage Total 174 ml Drainage Total 500 ml General Appearance: Alert, Oriented X3, Cooperative, No acute distress HEENT: Atraumatic, PERRLA, EOMI, Mucous membr. moist/pink Neck: Supple Lungs: Clear to auscultation, Normal air movement Cardiovascular: Regular rate, Normal S1, Normal S2, No murmurs, Gallops, Rubs Abdomen: Normal bowel sounds, Soft, Other (Tender on palpation in all four quadrants) Neuro: Cranial nerves 3-12 NL Psych/Mental Status: Mental status NL Medications Current Medications Medications Dose Ordered Sig/Catalina Route Start Time Stop Time Status Last Admin Dose Admin Acetaminophen 325 mg Q4HP PRN PO 10/23/24 15:00 Acetaminophen/ Hydrocodone Bitart 1 tab Q4HP PRN PO 10/23/24 15:00 10/24/24 10:55 1 TAB Ondansetron HCl 4 mg Q4HP PRN IV 10/23/24 15:00 10/28/24 07:59 4 MG Enoxaparin Sodium 40 mg DAILY SC 10/24/24 10:00 10/28/24 10:15 40 MG Morphine Sulfate 2 mg Q4HPRN PRN IV 10/23/24 15:00 10/28/24 07:55 2 MG Fluoxetine HCl 20 mg DAILY PO 10/24/24 10:00 10/28/24 10:15 20 MG Phenytoin Sodium 200 mg BID GT 10/25/24 10:15 10/28/24 10:15 200 MG Pantoprazole Sodium 40 mg DAILY IV 10/25/24 10:15 10/27/24 12:41 40 MG Phenobarbital 64.8 mg BID GT 10/26/24 10:00 10/28/24 10:16 64.8 MG Amino Acids 0 ml @ 0 mls/hr PER PHARMACY IV 10/26/24 14:45 Diagnostic Test (Pha) 1 strip Q6HR 10/27/24 00:00 10/28/24 12:19 1 STRIP Insulin Human Regular FOLLOW SLIDING SCALE Q6HR SC 10/27/24 00:00 Dextrose 50 ml UD IV 10/27/24 00:00 Fat Emulsion Intravenous 50 ml/ Sodium Chloride 40 meq/Potassium Chloride 60 meq/ Calcium Gluconate 2.3 meq/Magnesium Sulfate 12 meq/ Multivitamins 10 ml/Chromium/ Copper/Manganese/ Zinc 1 ml/Amino Acids/Dextrose/ Purified Water 1,608.9462 ml @ 67 mls/hr Q24H1M IV 10/27/24 22:00 10/28/24 21:59 10/27/24 21:32 67 MLS/HR Laboratory Results Laboratory Tests 10/26/24 08:52 10/28/24 06:09 Chemistry Test 10/28/24 06:09 Albumin 3.9 g/dL (3.2-4.8) Calcium Level 9.2 mg/dL (8.7-10.4) Magnesium Level 2.0 mg/dL (1.6-2.6) Phosphorus Level 2.9 mg/dL (2.4-5.1) Total Protein 6.9 g/dL (5.7-8.2) LFT Test 10/28/24 06:09 Alanine Aminotransferase (ALT) 33 U/L (7-40) Alkaline Phosphatase 203 U/L (46-116) H Aspartate Amino Transferase (AST) 26 U/L (13-40) Total Bilirubin 0.5 mg/dL (0.2-1.0) Urinalysis Test 10/26/24 18:17 Urine Color Yellow (Yellow) Urine Clarity Clear (Clear) Urine pH 5.5 (5.0-9.0) Urine Specific [place] 1.033 (1.001-1.035) Urine Protein 1+ (Negative) H Urine Ketones Negative (Negative) Urine Blood Negative /uL (Negative) Urine Nitrite Negative (Negative) Urine Bilirubin 1+ (Negative) H Urine Urobilinogen 8 mg/dL (Negative) H Urine Leukocyte Esterase Negative /uL (Negative) Urine RBC None seen /hpf (0 - 4) Urine Microscopic WBC < 1 /HPF (0-5) Urine Squamous Epithelial Cells None seen /hpf (<5) Urine Bacteria Mod /hpf (None Seen) H Urine Mucus Few (None Seen) Urine Glucose Normal mg/dL (Normal) Labs and/or images reviewed: Labs reviewed by me Assessment/Plan Assessment/Plan Intractable abdominal pain, partial SBO possible Intractable nausea Decreased p.o. intake Intra-abdominal hernia with transition point, rule out SBO and/or partial SBO Leukocytosis Neutrophilia History of colon cancer status post colectomy and colostomy tube History of seizures History of hyperlipidemia Schizophrenia - 2 days worsening abdominal pain on pmhx of colon CA sp colectomy/colostomy bag. decreased po with nausea - CT AB noncon showing postsurgical changes with subtotal colectomy with a Matt's pouch and right lower quadrant ostomy. Ventral hernia containing intra-abdominal fat and multiple small bowel loops. There is a transition point within the hernia with dilated small bowel loops proximally with fecalized appearing contents. Dilated loop measures 3.7 cm in diameter. - small-bowel Gastrografin series shows probable obstruction in left lower quadrant involving in distal jejunum. - pain control p.r.n. - NG tube inserted 3/6 per surgery intermittent suction on low pressure - IV fluids and PPN clinimix - continue home meds - clear liquid diet Continuing current management. Continuing with Clinimix for new. Patient is still have a lot of fluid from the NG tube. Waiting for surgery input. Continuing with pain medication. This medical document was created using an electronic medical record system with [employer] computerized dictation system. Although this document has been carefully reviewed, there may still be some phonetic and typographical errors. These areas are purely typographical due to imperfections of the software programs, and do not reflect any compromise in the patient's medical care. Plan discussed with: Patient My Orders Orders - JAMAAL RCIH MD Procedure Category Date Status Time Insert Nixon Catheter WHIT 10/27/24 In Process 13:04 Complete Blood Count LAB 10/28/24 Transmitted 12:48 Basic Metabolic Panel LAB 10/28/24 Transmitted 12:48 Complete Blood Count LAB 10/29/24 Verified 05:00 Basic Metabolic Panel LAB 3/10/25 Verified 05:00 Date of Service: Oct 28, 2024 Billing Provider: JAMAAL RICH MD Common Visit Codes: [id number] INP/OBS CARE(HIGH) JAMAAL RICH MD Oct 28, 2024 12:50
[2024-10-28 13:04] LABS: Basophils # (auto) 0 10 ^3/uL (0-0.2); Basophils % (auto) 0.4 % (0.0-2.0); Eosinophils # (auto) 0.1 10 ^3/uL (0-0.8); Eosinophils % (auto) 0.7 % (0.0-7.0); Hematocrit 36.6 % (36.0-46.0); Hemoglobin 12.4 g/dL (12.2-16.2); Lymphocytes % (auto) 17.7 % (10.0-50.0); Mean Corpuscular Hemoglobin 29.7 pg (28.0-32.0); Mean Corpuscular Hgb Conc. 33.8 g/dL (32.0-36.0); Mean Corpuscular Volume 87.7 fL (80.0-100.0); Monocytes # (auto) 0.8 10 ^3/uL (0-1.3); Monocytes % (auto) 7.3 % (0.0-12.0); Neutrophils # (auto) 8.1 10 ^3/uL (1.6-8.6); Neutrophils % (auto) 73.9 % (37.0-80.0); Nucleated Red Blood Cells % 0.1 %; Platelet Count (auto) 302 10^3/uL (140-450); Red Blood Cells 4.18 10^6/uL (4.0-5.20); Red Cell Distribution Width 13.6 % (11.8-14.3)
--- NOTE | 2024-10-28 13:12 | DVHPN2 ---
Progress Note Date Seen: Oct 28, 2024 Has the PT tested + for MRSA If YES, has PT been informed?: No Medical Necessity Reason Pt with a Central, PICC or Fol: No Subjective Patient reports: Other (no change left sided pain. states she has burning sensation around stoma) Objective vital signs Vital Sign Date Time Temp Pulse Resp B/P (MAP) Pulse Ox O2 Delivery O2 Flow Rate FiO2 10/28/24 07:55 80 20 113/71 10/28/24 07:55 95 Nasal Cannula* 2 28 10/28/24 05:00 98.1 98.1 Total Intake and Output 10/27/24 10/27/24 10/28/24 15:00 23:00 07:00 Intake Total 1369.5 ml Output Total 900 ml 374 ml Balance -900 ml 995.5 ml medications Current Medications Medications Dose Ordered Sig/Catalina Route Start Time Stop Time Status Last Admin Dose Admin Acetaminophen 325 mg Q4HP PRN PO 10/23/24 15:00 Acetaminophen/ Hydrocodone Bitart 1 tab Q4HP PRN PO 10/23/24 15:00 10/24/24 10:55 1 TAB Ondansetron HCl 4 mg Q4HP PRN IV 10/23/24 15:00 10/28/24 07:59 4 MG Enoxaparin Sodium 40 mg DAILY SC 10/24/24 10:00 10/28/24 10:15 40 MG Morphine Sulfate 2 mg Q4HPRN PRN IV 10/23/24 15:00 10/28/24 07:55 2 MG Fluoxetine HCl 20 mg DAILY PO 10/24/24 10:00 10/28/24 10:15 20 MG Phenytoin Sodium 200 mg BID GT 10/25/24 10:15 10/28/24 10:15 200 MG Pantoprazole Sodium 40 mg DAILY IV 10/25/24 10:15 10/27/24 12:41 40 MG Phenobarbital 64.8 mg BID GT 10/26/24 10:00 10/28/24 10:16 64.8 MG Amino Acids 0 ml @ 0 mls/hr PER PHARMACY IV 10/26/24 14:45 Diagnostic Test (Pha) 1 strip Q6HR 10/27/24 00:00 10/28/24 12:19 1 STRIP Insulin Human Regular FOLLOW SLIDING SCALE Q6HR SC 10/27/24 00:00 Dextrose 50 ml UD IV 10/27/24 00:00 Fat Emulsion Intravenous 50 ml/ Sodium Chloride 40 meq/Potassium Chloride 60 meq/ Calcium Gluconate 2.3 meq/Magnesium Sulfate 12 meq/ Multivitamins 10 ml/Chromium/ Copper/Manganese/ Zinc 1 ml/Amino Acids/Dextrose/ Purified Water 1,608.9462 ml @ 67 mls/hr Q24H1M IV 10/27/24 22:00 10/28/24 21:59 10/27/24 21:32 67 MLS/HR Examination: GENERAL:Normal, HEENT:Normal, NECK:Normal, LUNGS:Normal, CVS:Normal, ABDOMEN:Abnormal (unchanged. distended. ngt 500 ml over last 24 hours. air in colostomy bag. min paste stool at ostomy orifice and clear fluid in the bag), MSK:Normal, SKIN:Normal, NEURO:Normal, :Normal laboratory and microbiology Laboratory Tests 10/28/24 06:09 Test 10/28/24 06:09 Range/Units Serum Glucose 118 H 74-106 mg/dL Problem List/Assessment/Plan Problem List/Assessment/Plan Patient with history of colon cancer and partial small bowel obstruction we will continue with NG tube conservative management. Recommend lab to follow up on electrolytes. consider iv nutrition check abd xray Pending We will continue to follow. Plan discussed with: Patient Dietary Evaluation Review Comments: 1) Consider TPN/PN if NPO >7 days 2) Advance diet as medically feasible 3) Continue current plan of care Expected Outcomes/Goals: Pt will meet 75% estimated needs Fu 2-3 days ELIZABETH CRESPO Jr., MD Oct 28, 2024 13:12
[2024-10-28] MEDS: PPN PER PHARMACY IV NR (22:16)
[2024-10-29] VITALS (8 sets, daily range): BP systolic 100–143; BP diastolic 53–87; PULSE 69–84; RESP 16–19; TEMP 97.8–98.5; O2SAT 92–98
[2024-10-29 07:14] LABS: Basophils # (auto) 0 10 ^3/uL (0-0.2); Basophils % (auto) 0.4 % (0.0-2.0); Eosinophils # (auto) 0.1 10 ^3/uL (0-0.8); Hematocrit 36.4 % (36.0-46.0); Hemoglobin 12.8 g/dL (12.2-16.2); Lymphocytes # (auto) 2.2 10 ^3/uL (0.4-5.4); Lymphocytes % (auto) 20.7 % (10.0-50.0); Mean Corpuscular Hemoglobin 30.2 pg (28.0-32.0); Mean Corpuscular Volume 86.2 fL (80.0-100.0); Monocytes # (auto) 0.8 10 ^3/uL (0-1.3); Monocytes % (auto) 7.8 % (0.0-12.0); Neutrophils # (auto) 7.5 10 ^3/uL (1.6-8.6); Neutrophils % (auto) 70.1 % (37.0-80.0); Platelet Count (auto) 304 10^3/uL (140-450); Red Blood Cells 4.23 10^6/uL (4.0-5.20); Red Cell Distribution Width 13.2 % (11.8-14.3); White Blood Cell 10.7 10^3/uL (4.4-10.8)
[2024-10-29 07:31] LABS: Alanine Aminotransferase 36 U/L (7-40); Albumin 3.9 g/dL (3.2-4.8); Anion Gap 6 (5-15); Aspartate Aminotransferase 34 U/L (13-40); BUN/Creatinine Ratio 19.7 (10.0-20.0); Blood Urea Nitrogen 13 mg/dL (9-23); Calcium 9.2 mg/dL (8.7-10.4); Carbon Dioxide 30 mmol/L (20-31); Chloride 101 mmol/L (98-107); Magnesium 2.1 mg/dL (1.6-2.6); Potassium 3.6 mmol/L (3.5-5.1); Sodium 137 mmol/L (136-145); Total Protein 6.9 g/dL (5.7-8.2)
[2024-10-29 07:32] LABS: Bilirubin, Total 0.3 mg/dL (0.2-1.0); Phosphorus 3.1 mg/dL (2.4-5.1)
[2024-10-29 07:38] LABS: Alkaline Phosphatase 224 U/L (46-116); Glucose 118 mg/dL (74-106); Triglycerides 259 mg/dL (< 150)
[2024-10-29 13:06] LABS: Urine Bacteria FEW /hpf (None Seen); Urine Blood 1+ /uL (Negative); Urine Clarity Clear (Clear); Urine Color Yellow (Yellow); Urine Mucus FEW (None Seen); Urine Protein, UAD 1+ (Negative); Urine Specific Gravity 1.036 (1.001-1.035); Urine Squamous Epithelial Cell FEW /hpf (<5); Urine Urobilinogen 8 mg/dL (Negative); Urine WBC 22 /HPF (0-5)
--- NOTE | 2024-10-29 15:18 | DVH ---
EXAM: XR Abdomen, 1 View CLINICAL INDICATION: eval sbo progression TECHNIQUE: Frontal supine view of the abdomen/pelvis. COMPARISON: None FINDINGS: GASTROINTESTINAL TRACT: Bowel obstruction can not be appreciated on this current exam. BONES/JOINTS: Unremarkable. No acute fracture. TUBES, LINES AND DEVICES: Enteric tube is in the stomach. OTHER FINDINGS: . Suboptimal exam secondary to underpenetration. IMPRESSION: Bowel obstruction can not be appreciated on this current exam.
--- NOTE | 2024-10-29 16:21 | DVHPN2 ---
Subjective Update 10/29 10/24 surgery evaluating today, patient continues to feel nausea and vomiting decreased p.o. tolerance, abdominal pain in the epigastrium area continues. Abdominal pain it is not expanding, abdomen remains nonacute. Surgery planning for a small bowel series with Gastrografin today. We will continue to follow. 10/25 patient NG tube inserted today, minimal white clear output. Continues to have some periumbilical pain, more right-sided of umbilicus,. Continuing IV fluids, NPO, surgery following. Continuing to empty colostomy to monitor output. Most recent output was brown orange. 10/26 patient has not improved today. Continues to have periumbilical pain radiating to left flank. Continues to have good urine output. Has been NPO for 3 days now. We will start Clinimix PPN. Surgery following. NG tube inserted has more output dark brown/bilious, colostomy has minimal output minimal gas. Surgery plan to give patient more times for bowel rest and will follow up. If patient continues to be NPO on Tuesday, we will likely need PICC line and TPN started. 10/27 - 10/28 weekend coverage. no significant events 10/29 - surgery following. patient still pain with nausea. NG tube with clear- green output. colostomy empty, no output. abd is tender still, same areas. but bowel sounds are improved, maybe a bit hyperactive but also patient has been npo. continuing PPN. will wait to surgery decision. abd xray today, assess any contrast left over from prior gastrografin study. warner inserted - likely inserted in anticipation of surgery. will remove natalie. if no surgery - plan for warner removal and OOB thereafter (or PT eval even) Reviewed: Care Plan, H&P, Labs, Medications, Previous Orders, Radiology Changes from previous H/P or p: No Changes General: Per HPI Objective Vitals Vital Signs Date Time Temp Pulse Resp B/P (MAP) Pulse Ox O2 Delivery O2 Flow Rate FiO2 10/29/24 13:00 98.3 77 19 100/53 (69) 97 98.3 10/29/24 08:00 Nasal Cannula* 2 28 Intake/Output Intake and Output 10/29/24 07:00 Intake Total 620 ml Output Total 750 ml Balance -130 ml Intake Oral 0 ml IV Total 620 ml Output Urine Total 600 ml Gastric Drainage Total 150 ml Exam GEN: Healthy appearing, well-developed, NAD. HEENT: NC/AT; MMM. CV: RRR, no m/r/g. LUNGS: CTAB, no w/r/c. ABD: Epigastric scar, tender to palpation in epigastrium around scar area. We will be symptomatic EXT: skin Warm, well perfused. no rashes. No clubbing, cyanosis, or edema. NEURO: Ambulating with no limitations. No focal deficits. Medications Current Medications Medications Dose Ordered Sig/Catalina Route Start Time Stop Time Status Last Admin Dose Admin Acetaminophen 325 mg Q4HP PRN PO 10/23/24 15:00 Acetaminophen/ Hydrocodone Bitart 1 tab Q4HP PRN PO 10/23/24 15:00 10/24/24 10:55 1 TAB Ondansetron HCl 4 mg Q4HP PRN IV 10/23/24 15:00 10/29/24 08:37 4 MG Enoxaparin Sodium 40 mg DAILY SC 10/24/24 10:00 10/29/24 09:05 40 MG Morphine Sulfate 2 mg Q4HPRN PRN IV 10/23/24 15:00 10/29/24 08:37 2 MG Fluoxetine HCl 20 mg DAILY PO 10/24/24 10:00 10/29/24 09:05 20 MG Phenytoin Sodium 200 mg BID GT 10/25/24 10:15 10/29/24 09:04 200 MG Pantoprazole Sodium 40 mg DAILY IV 10/25/24 10:15 10/29/24 09:05 40 MG Phenobarbital 64.8 mg BID GT 10/26/24 10:00 10/29/24 09:05 64.8 MG Amino Acids 0 ml @ 0 mls/hr PER PHARMACY IV 10/26/24 14:45 Diagnostic Test (Pha) 1 strip Q6HR 10/27/24 00:00 10/29/24 12:00 1 STRIP Insulin Human Regular FOLLOW SLIDING SCALE Q6HR SC 10/27/24 00:00 Dextrose 50 ml UD IV 10/27/24 00:00 Fat Emulsion Intravenous 50 ml/ Sodium Chloride 40 meq/Potassium Chloride 80 meq/ Calcium Gluconate 2.3 meq/Magnesium Sulfate 14 meq/ Multivitamins 10 ml/Chromium/ Copper/Manganese/ Zinc 1 ml/Amino Acids/Dextrose/ Purified Water 1,919.4462 ml @ 80 mls/hr Q24H IV 10/28/24 22:00 10/29/24 21:59 10/28/24 22:16 80 MLS/HR Fat Emulsion Intravenous 50 ml/ Sodium Chloride 40 meq/Potassium Chloride 60 meq/ Calcium Gluconate 2.3 meq/Magnesium Sulfate 12 meq/ Multivitamins 10 ml/Chromium/ Copper/Manganese/ Zinc 1 ml/Amino Acids/Dextrose/ Purified Water 2,108.9462 ml @ 88 mls/hr [id number] IV 10/29/24 22:00 10/30/24 21:59 Prochlorperazine Edisylate 10 mg Q6HP PRN IV 10/29/24 14:45 Laboratory Results Laboratory Tests 10/29/24 06:32 Chemistry Test 10/29/24 06:32 Albumin 3.9 g/dL (3.2-4.8) Calcium Level 9.2 mg/dL (8.7-10.4) Magnesium Level 2.1 mg/dL (1.6-2.6) Phosphorus Level 3.1 mg/dL (2.4-5.1) Total Protein 6.9 g/dL (5.7-8.2) Lipid panel Test 10/29/24 06:32 Triglycerides Level 259 mg/dL (< 150) H LFT Test 10/29/24 06:32 Alanine Aminotransferase (ALT) 36 U/L (7-40) Alkaline Phosphatase 224 U/L (46-116) H Aspartate Amino Transferase (AST) 34 U/L (13-40) Total Bilirubin 0.3 mg/dL (0.2-1.0) Urinalysis Test 10/29/24 12:08 Urine Color Yellow (Yellow) Urine Clarity Clear (Clear) Urine pH 6.0 (5.0-9.0) Urine Specific [place] 1.036 (1.001-1.035) Urine Protein 1+ (Negative) H Urine Ketones Negative (Negative) Urine Blood 1+ /uL (Negative) H Urine Nitrite Negative (Negative) Urine Bilirubin 1+ (Negative) H Urine Urobilinogen 8 mg/dL (Negative) H Urine Leukocyte Esterase 2+ /uL (Negative) Urine RBC 15 /hpf (0 - 4) Urine Microscopic WBC 22 /HPF (0-5) H Urine Squamous Epithelial Cells Few /hpf (<5) Urine Bacteria Few /hpf (None Seen) H Urine Mucus Few (None Seen) Urine Glucose Normal mg/dL (Normal) Labs and/or images reviewed: Labs reviewed by me, Image(s) reviewed by me Assessment/Plan Assessment/Plan 10/29 - surgery following. patient still pain with nausea. NG tube with clear- green output. colostomy empty, no output. abd is tender still, same areas. but bowel sounds are improved, maybe a bit hyperactive but also patient has been npo. continuing PPN. will wait to surgery decision. abd xray today, assess any contrast left over from prior gastrografin study. warner inserted - likely inserted in anticipation of surgery. will remove natalie. if no surgery - plan for warner removal and OOB thereafter (or PT eval even) intractable abdominal pain, partial SBO possible Intractable nausea Decreased p.o. intake Intra-abdominal hernia with transition point, rule out SBO and/or partial SBO Leukocytosis Neutrophilia History of colon cancer status post colectomy and colostomy tube History of seizures History of hyperlipidemia Schizophrenia - 2 days worsening abdominal pain on pmhx of colon CA sp colectomy/colostomy bag. decreased po with nausea - CT AB noncon showing postsurgical changes with subtotal colectomy with a Matt's pouch and right lower quadrant ostomy. Ventral hernia containing intra-abdominal fat and multiple small bowel loops. There is a transition point within the hernia with dilated small bowel loops proximally with fecalized appearing contents. Dilated loop measures 3.7 cm in diameter. - small-bowel Gastrografin series shows probable obstruction in left lower quadrant involving in distal jejunum. - pain control p.r.n. - NG tube inserted 10/25 per surgery intermittent suction on low pressure - IV fluids and PPN clinimix - continue home meds - warner inserted - likely inserted in anticipation of surgery. will remove natalie - if no surgery - plan for warner removal and OOB thereafter (or PT eval even) - npo Plan discussed with: Patient My Orders Orders - CLOVER MOFFETT MD Procedure Category Date Status Time Abdomen 2 View XY 10/29/24 Resulted 11:16 Amino Acid PHA 10/29/24 In Process Infusion... W/Fat 22:00 Comprehensive LAB 10/30/24 Verified Metabolic Panel 04:00 Magnesium LAB 10/30/24 Verified 04:00 Phosphorus LAB 10/30/24 Verified 04:00 Tpn Per Pharmacy [facility] 10/29/24 In Process 22:00 Date of Service: Oct 29, 2024 Billing Provider: CLOVER MOFFETT MD Common Visit Codes: [id number] INP/OBS CARE(HIGH) CLOVER MOFFETT MD Oct 29, 2024 16:21
[2024-10-29] MEDS: PROCHLORPERAZINE EDISYLATE 5 MG/ML 2ML VIAL IV PRN (16:50)
[2024-10-29] MEDS: PPN PER PHARMACY IV NR (22:25)
[2024-10-30] VITALS (8 sets, daily range): BP systolic 102–163; BP diastolic 65–96; PULSE 74–105; RESP 16–18; TEMP 97.5–100; O2SAT 94–98
--- NOTE | 2024-10-30 06:37 | DVHPN2 ---
Progress Note Date Seen: Oct 30, 2024 Has the PT tested + for MRSA If YES, has PT been informed?: No Medical Necessity Reason Pt with a Central, PICC or Fol: No Subjective Patient reports: Feels better (NO more nausea, + air and stool in colostomy negra) Review of Systems: HEENT:Normal, CVS:Normal, RESPIRATORY:Normal, GI:Normal, :Normal, MSK:Normal, NEURO:Normal Objective vital signs Vital Sign Date Time Temp Pulse Resp B/P (MAP) Pulse Ox O2 Delivery O2 Flow Rate FiO2 10/30/24 05:00 98.5 74 18 106/66 (79) 96 98.5 10/29/24 20:00 Room Air* 0 21 Total Intake and Output 10/29/24 10/29/24 10/30/24 15:00 23:00 07:00 Intake Total 880 ml Output Total 300 ml 300 ml Balance 580 ml -300 ml medications Current Medications Medications Dose Ordered Sig/Catalina Route Start Time Stop Time Status Last Admin Dose Admin Acetaminophen 325 mg Q4HP PRN PO 10/23/24 15:00 Acetaminophen/ Hydrocodone Bitart 1 tab Q4HP PRN PO 10/23/24 15:00 10/24/24 10:55 1 TAB Ondansetron HCl 4 mg Q4HP PRN IV 10/23/24 15:00 10/29/24 23:04 4 MG Enoxaparin Sodium 40 mg DAILY SC 10/24/24 10:00 10/29/24 09:05 40 MG Morphine Sulfate 2 mg Q4HPRN PRN IV 10/23/24 15:00 10/29/24 23:05 2 MG Fluoxetine HCl 20 mg DAILY PO 10/24/24 10:00 10/29/24 09:05 20 MG Phenytoin Sodium 200 mg BID GT 10/25/24 10:15 10/29/24 22:22 200 MG Pantoprazole Sodium 40 mg DAILY IV 10/25/24 10:15 10/29/24 09:05 40 MG Phenobarbital 64.8 mg BID GT 10/26/24 10:00 10/29/24 22:22 64.8 MG Amino Acids 0 ml @ 0 mls/hr PER PHARMACY IV 10/26/24 14:45 Diagnostic Test (Pha) 1 strip Q6HR 10/27/24 00:00 10/30/24 00:27 1 STRIP Insulin Human Regular FOLLOW SLIDING SCALE Q6HR SC 10/27/24 00:00 Dextrose 50 ml UD IV 10/27/24 00:00 Fat Emulsion Intravenous 50 ml/ Sodium Chloride 40 meq/Potassium Chloride 60 meq/ Calcium Gluconate 2.3 meq/Magnesium Sulfate 12 meq/ Multivitamins 10 ml/Chromium/ Copper/Manganese/ Zinc 1 ml/Amino Acids/Dextrose/ Purified Water 2,108.9462 ml @ 88 mls/hr [id number] IV 10/29/24 22:00 10/30/24 21:59 10/29/24 22:25 88 MLS/HR Prochlorperazine Edisylate 10 mg Q6HP PRN IV 10/29/24 14:45 10/29/24 16:50 10 MG Examination: GENERAL:Normal, HEENT:Normal, NECK:Normal, LUNGS:Normal, CVS:Normal, ABDOMEN:Normal (non tender ngt minimal. ngt is off currently. + stool and air in bag), MSK:Normal, SKIN:Normal, NEURO:Normal, :Normal laboratory and microbiology Laboratory Tests 10/29/24 06:32 Test 10/29/24 06:32 Range/Units Serum Glucose 118 H 74-106 mg/dL Labs and/or images reviewed: Labs reviewed by me, Image(s) reviewed by me Problem List/Assessment/Plan Problem List/Assessment/Plan Patient with history of colon cancer and partial small bowel obstruction resolving ngt clamped and can be removed at noon if asymptomatic advance to clear diet after ngt removed at noon. Recommend lab to follow up on electrolytes. consider iv nutrition We will continue to follow. Plan discussed with: Patient My Orders My Orders Orders - ELIZABETH CRESPO Jr., MD Procedure Category Date Status Time Prochlorperazine Inj PHA 10/29/24 In Process (Compazine Inj) 14:45 * Picc Line Consult CONS 10/29/24 Transmitted 15:33 Picc Order RENEW 10/29/24 Transmitted 15:33 Dietary Evaluation Review Comments: 1) Consider TPN/PN if NPO >7 days 2) Advance diet as medically feasible 3) Continue current plan of care Expected Outcomes/Goals: Pt will meet 75% estimated needs Fu 2-3 days ELIZABETH CRESPO Jr., MD Oct 30, 2024 06:37
[2024-10-30 07:21] LABS: INR 0.97 (0.9-1.15); Partial Thromboplastin Time 29.8 SEC (24.5-34.5); Prothrombin Time 10.3 sec (9.3-11.8)
[2024-10-30 07:25] LABS: Albumin 4.2 g/dL (3.2-4.8); Anion Gap 8 (5-15); BUN/Creatinine Ratio 21.9 (10.0-20.0); Blood Urea Nitrogen 14 mg/dL (9-23); Calcium 9.5 mg/dL (8.7-10.4); Carbon Dioxide 28 mmol/L (20-31); Chloride 100 mmol/L (98-107); Magnesium 2.1 mg/dL (1.6-2.6); Potassium 3.9 mmol/L (3.5-5.1); Total Protein 7.6 g/dL (5.7-8.2)
[2024-10-30 07:26] LABS: Alanine Aminotransferase 41 U/L (7-40); Alkaline Phosphatase 233 U/L (46-116); Aspartate Aminotransferase 44 U/L (13-40); Glucose 123 mg/dL (74-106); Sodium 136 mmol/L (136-145)
[2024-10-30 07:31] LABS: Bilirubin, Total 0.3 mg/dL (0.2-1.0)
[2024-10-30] MEDS: KETOROLAC TROMETH 30 MG/ML 1ML VIAL IV ONE (09:45)
--- NOTE | 2024-10-30 16:54 | DVHPN2 ---
Subjective Update 10/30 10/24 surgery evaluating today, patient continues to feel nausea and vomiting decreased p.o. tolerance, abdominal pain in the epigastrium area continues. Abdominal pain it is not expanding, abdomen remains nonacute. Surgery planning for a small bowel series with Gastrografin today. We will continue to follow. 10/25 patient NG tube inserted today, minimal white clear output. Continues to have some periumbilical pain, more right-sided of umbilicus,. Continuing IV fluids, NPO, surgery following. Continuing to empty colostomy to monitor output. Most recent output was brown orange. 10/26 patient has not improved today. Continues to have periumbilical pain radiating to left flank. Continues to have good urine output. Has been NPO for 3 days now. We will start Clinimix PPN. Surgery following. NG tube inserted has more output dark brown/bilious, colostomy has minimal output minimal gas. Surgery plan to give patient more times for bowel rest and will follow up. If patient continues to be NPO on Tuesday, we will likely need PICC line and TPN started. 10/27 - 10/28 weekend coverage. no significant events 10/29 - surgery following. patient still pain with nausea. NG tube with clear- green output. colostomy empty, no output. abd is tender still, same areas. but bowel sounds are improved, maybe a bit hyperactive but also patient has been npo. continuing PPN. will wait to surgery decision. abd xray today, assess any contrast left over from prior gastrografin study. warner inserted - likely inserted in anticipation of surgery. will remove natalie. if no surgery - plan for warner removal and OOB thereafter (or PT eval even) 10/30 left arm swelling after iv infiltrates. patient declines reinsertion iv and wants picc line. will try CLD if tolerates, will not need picc and cant continue CLD and advance to FLD. defer ng tube removal to surgery for left arm will do compression wrap and warm compress, likely infiltration of iv and less liikely dvt. will reassess in am. Reviewed: Care Plan, H&P, Labs, Medications, Previous Orders, Radiology Changes from previous H/P or p: No Changes General: Per HPI Objective Vitals Vital Signs Date Time Temp Pulse Resp B/P (MAP) Pulse Ox O2 Delivery O2 Flow Rate FiO2 10/30/24 12:26 98.5 92 17 152/74 (100) 97 98.5 10/30/24 08:15 Nasal Cannula* 2 28 Intake/Output Intake and Output 10/30/24 07:00 Intake Total 880 ml Output Total 600 ml Balance 280 ml Intake Oral 0 ml IV Total 880 ml Output Urine Total 550 ml Gastric Drainage Total 50 ml Exam GEN: Healthy appearing, well-developed, NAD. HEENT: NC/AT; MMM. CV: RRR, no m/r/g. LUNGS: CTAB, no w/r/c. ABD: Epigastric scar, tender to palpation in epigastrium around scar area. We will be symptomatic EXT: skin Warm, well perfused. no rashes. No clubbing, cyanosis, or edema. NEURO: Ambulating with no limitations. No focal deficits. General Appearance: Alert, Oriented X3, Cooperative, No acute distress HEENT: Atraumatic, PERRLA, EOMI, Mucous membr. moist/pink Neck: Supple Lungs: Clear to auscultation, Normal air movement Cardiovascular: Regular rate, Normal S1, Normal S2, No murmurs, Gallops, Rubs Abdomen: Normal bowel sounds, Soft, Other (Tender on palpation in all four quadrants) Neuro: Cranial nerves 3-12 NL Psych/Mental Status: Mental status NL Medications Current Medications Medications Dose Ordered Sig/[place] Route Start Time Stop Time Status Last Admin Dose Admin Acetaminophen 325 mg Q4HP PRN PO 10/23/24 15:00 Acetaminophen/ Hydrocodone Bitart 1 tab Q4HP PRN PO 10/23/24 15:00 10/24/24 10:55 1 TAB Ondansetron HCl 4 mg Q4HP PRN IV 10/23/24 15:00 10/29/24 23:04 4 MG Enoxaparin Sodium 40 mg DAILY SC 10/24/24 10:00 10/30/24 10:53 40 MG Morphine Sulfate 2 mg Q4HPRN PRN IV 10/23/24 15:00 10/29/24 23:05 2 MG Fluoxetine HCl 20 mg DAILY PO 10/24/24 10:00 10/30/24 10:52 20 MG Phenytoin Sodium 200 mg BID GT 10/25/24 10:15 10/30/24 10:52 200 MG Pantoprazole Sodium 40 mg DAILY IV 10/25/24 10:15 10/29/24 09:05 40 MG Phenobarbital 64.8 mg BID GT 10/26/24 10:00 10/30/24 10:53 64.8 MG Amino Acids 0 ml @ 0 mls/hr PER PHARMACY IV 10/26/24 14:45 Diagnostic Test (Pha) 1 strip Q6HR 10/27/24 00:00 10/30/24 12:00 1 STRIP Insulin Human Regular FOLLOW SLIDING SCALE Q6HR SC 10/27/24 00:00 Dextrose 50 ml UD IV 10/27/24 00:00 Fat Emulsion Intravenous 50 ml/ Sodium Chloride 40 meq/Potassium Chloride 60 meq/ Calcium Gluconate 2.3 meq/Magnesium Sulfate 12 meq/ Multivitamins 10 ml/Chromium/ Copper/Manganese/ Zinc 1 ml/Amino Acids/Dextrose/ Purified Water 2,108.9462 ml @ 88 mls/hr [id number] IV 10/29/24 22:00 10/30/24 21:59 10/29/24 22:25 88 MLS/HR Prochlorperazine Edisylate 10 mg Q6HP PRN IV 10/29/24 14:45 10/29/24 16:50 10 MG Laboratory Results Laboratory Tests 10/29/24 06:32 10/30/24 06:34 Chemistry Test 10/30/24 06:34 Albumin 4.2 g/dL (3.2-4.8) Calcium Level 9.5 mg/dL (8.7-10.4) Magnesium Level 2.1 mg/dL (1.6-2.6) Phosphorus Level 3.0 mg/dL (2.4-5.1) Total Protein 7.6 g/dL (5.7-8.2) Coagulation Test 10/30/24 06:34 Prothrombin Time 10.3 sec (9.3-11.8) Prothrombin Time INR 0.97 (0.9-1.15) Activated Partial Thromboplast Time 29.8 SEC (24.5-34.5) LFT Test 10/30/24 06:34 Alanine Aminotransferase (ALT) 41 U/L (7-40) H Alkaline Phosphatase 233 U/L (46-116) H Aspartate Amino Transferase (AST) 44 U/L (13-40) H Total Bilirubin 0.3 mg/dL (0.2-1.0) Urinalysis Test 10/29/24 12:08 Urine Color Yellow (Yellow) Urine Clarity Clear (Clear) Urine pH 6.0 (5.0-9.0) Urine Specific [place] 1.036 (1.001-1.035) Urine Protein 1+ (Negative) H Urine Ketones Negative (Negative) Urine Blood 1+ /uL (Negative) H Urine Nitrite Negative (Negative) Urine Bilirubin 1+ (Negative) H Urine Urobilinogen 8 mg/dL (Negative) H Urine Leukocyte Esterase 2+ /uL (Negative) Urine RBC 15 /hpf (0 - 4) Urine Microscopic WBC 22 /HPF (0-5) H Urine Squamous Epithelial Cells Few /hpf (<5) Urine Bacteria Few /hpf (None Seen) H Urine Mucus Few (None Seen) Urine Glucose Normal mg/dL (Normal) Microbiology Microbiology Date/Time Source Procedure Growth Status 10/29/24 12:08 Urine - Catheterized Urine Culture - Preliminary Resulted Labs and/or images reviewed: Labs reviewed by me, Image(s) reviewed by me Assessment/Plan Assessment/Plan 10/30 left arm swelling after iv infiltrates. patient declines reinsertion iv and wants picc line. will try CLD if tolerates, will not need picc and cant continue CLD and advance to FLD. defer ng tube removal to surgery for left arm will do compression wrap and warm compress, likely infiltration of iv and less liikely dvt. will reassess in am. intractable abdominal pain, partial SBO possible Intractable nausea Decreased p.o. intake Intra-abdominal hernia with transition point, rule out SBO and/or partial SBO Leukocytosis Neutrophilia History of colon cancer status post colectomy and colostomy tube History of seizures History of hyperlipidemia Schizophrenia - 2 days worsening abdominal pain on pmhx of colon CA sp colectomy/colostomy bag. decreased po with nausea - CT AB noncon showing postsurgical changes with subtotal colectomy with a Matt's pouch and right lower quadrant ostomy. Ventral hernia containing intra-abdominal fat and multiple small bowel loops. There is a transition point within the hernia with dilated small bowel loops proximally with fecalized appearing contents. Dilated loop measures 3.7 cm in diameter. - small-bowel Gastrografin series shows probable obstruction in left lower quadrant involving in distal jejunum. - pain control p.r.n. - NG tube to clamp. NG tube inserted 3/6 per surgery was initially on intermittent suction on low pressure - IV fluids and PPN clinimix - continue home meds - warner inserted - likely inserted in anticipation of surgery. will remove natalie - if no surgery - plan for warner removal and OOB thereafter (or PT eval even) - CLD Plan discussed with: Patient Date of Service: Oct 30, 2024 Billing Provider: CLOVER MOFFETT MD Common Visit Codes: [id number] INP/OBS CARE(HIGH) CLOVER MOFFETT MD Oct 30, 2024 16:53
[2024-10-30] MEDS: PHENYTOIN 100 MG/4 ML SUSP PO SCH (21:20)
[2024-10-30] MEDS: PHENobarbital 32.4 MG TAB PO SCH (21:23)
[2024-10-31] VITALS (7 sets, daily range): BP systolic 118–136; BP diastolic 72–80; PULSE 85–107; RESP 17–19; TEMP 97.6–98.7; O2SAT 93–96
--- NOTE | 2024-10-31 16:24 | DVHPN2 ---
Subjective Update 10/31 10/24 surgery evaluating today, patient continues to feel nausea and vomiting decreased p.o. tolerance, abdominal pain in the epigastrium area continues. Abdominal pain it is not expanding, abdomen remains nonacute. Surgery planning for a small bowel series with Gastrografin today. We will continue to follow. 10/25 patient NG tube inserted today, minimal white clear output. Continues to have some periumbilical pain, more right-sided of umbilicus,. Continuing IV fluids, NPO, surgery following. Continuing to empty colostomy to monitor output. Most recent output was brown orange. 10/26 patient has not improved today. Continues to have periumbilical pain radiating to left flank. Continues to have good urine output. Has been NPO for 3 days now. We will start Clinimix PPN. Surgery following. NG tube inserted has more output dark brown/bilious, colostomy has minimal output minimal gas. Surgery plan to give patient more times for bowel rest and will follow up. If patient continues to be NPO on Tuesday, we will likely need PICC line and TPN started. 10/27 - 10/28 weekend coverage. no significant events 10/29 - surgery following. patient still pain with nausea. NG tube with clear- green output. colostomy empty, no output. abd is tender still, same areas. but bowel sounds are improved, maybe a bit hyperactive but also patient has been npo. continuing PPN. will wait to surgery decision. abd xray today, assess any contrast left over from prior gastrografin study. warner inserted - likely inserted in anticipation of surgery. will remove natalie. if no surgery - plan for warner removal and OOB thereafter (or PT eval even) 10/30 left arm swelling after iv infiltrates. patient declines reinsertion iv and wants picc line. will try CLD if tolerates, will not need picc and cant continue CLD and advance to FLD. defer ng tube removal to surgery for left arm will do compression wrap and warm compress, likely infiltration of iv and less liikely dvt. will reassess in am. 10/31 - doing well in am with some low levels nausea. declined iv access and wants picc only. plan to dc but in later pm patient vomit after lunch CLD. will continue admission, surgery aware, get iv access and continue PPN (TPN if picc able insert). hold off GGF series for now, defer to surgery. cont prn antiemetics, npo, ppn and ivf. keep warner. Reviewed: Care Plan, H&P, Labs, Medications, Previous Orders, Radiology Changes from previous H/P or p: No Changes General: Per HPI Objective Vitals Vital Signs Date Time Temp Pulse Resp B/P (MAP) Pulse Ox O2 Delivery O2 Flow Rate FiO2 10/31/24 12:40 97.6 96 18 118/73 (88) 94 97.6 10/31/24 08:10 Nasal Cannula* 2 28 Intake/Output Intake and Output 10/31/24 07:00 Intake Total 629 ml Output Total 1200 ml Balance -571 ml Intake Oral 629 ml Output Urine Total 500 ml Stool Total 400 ml Gastric Drainage Total 300 ml # Bowel Movements 2 Exam GEN: Healthy appearing, well-developed, NAD. HEENT: NC/AT; MMM. CV: RRR, no m/r/g. LUNGS: CTAB, no w/r/c. ABD: Epigastric scar, tender to palpation in epigastrium around scar area. We will be symptomatic EXT: skin Warm, well perfused. no rashes. No clubbing, cyanosis, or edema. NEURO: Ambulating with no limitations. No focal deficits. General Appearance: Alert, Oriented X3, Cooperative, No acute distress HEENT: Atraumatic, PERRLA, EOMI, Mucous membr. moist/pink Neck: Supple Lungs: Clear to auscultation, Normal air movement Cardiovascular: Regular rate, Normal S1, Normal S2, No murmurs, Gallops, Rubs Abdomen: Normal bowel sounds, Soft, Other (Tender on palpation in all four quadrants) Neuro: Cranial nerves 3-12 NL Psych/Mental Status: Mental status NL Medications Current Medications Medications Dose Ordered Sig/[place] Route Start Time Stop Time Status Last Admin Dose Admin Acetaminophen 325 mg Q4HP PRN PO 10/23/24 15:00 Acetaminophen/ Hydrocodone Bitart 1 tab Q4HP PRN PO 10/23/24 15:00 10/24/24 10:55 1 TAB Ondansetron HCl 4 mg Q4HP PRN IV 10/23/24 15:00 10/29/24 23:04 4 MG Enoxaparin Sodium 40 mg DAILY SC 10/24/24 10:00 10/31/24 10:54 40 MG Morphine Sulfate 2 mg Q4HPRN PRN IV 10/23/24 15:00 10/29/24 23:05 2 MG Fluoxetine HCl 20 mg DAILY PO 10/24/24 10:00 10/31/24 10:50 20 MG Pantoprazole Sodium 40 mg DAILY IV 10/25/24 10:15 10/29/24 09:05 40 MG Amino Acids 0 ml @ 0 mls/hr PER PHARMACY IV 10/26/24 14:45 Diagnostic Test (Pha) 1 strip Q6HR 10/27/24 00:00 10/31/24 12:00 1 STRIP Insulin Human Regular FOLLOW SLIDING SCALE Q6HR SC 10/27/24 00:00 Dextrose 50 ml UD IV 10/27/24 00:00 Prochlorperazine Edisylate 10 mg Q6HP PRN IV 10/29/24 14:45 10/29/24 16:50 10 MG Phenytoin Sodium 200 mg BID PO 10/30/24 22:00 10/31/24 10:50 200 MG Phenobarbital 64.8 mg BID PO 10/30/24 22:00 10/31/24 10:52 64.8 MG Laboratory Results Laboratory Tests 10/29/24 06:32 10/30/24 06:34 Urinalysis Test 10/29/24 12:08 Urine Color Yellow (Yellow) Urine Clarity Clear (Clear) Urine pH 6.0 (5.0-9.0) Urine Specific [place] 1.036 (1.001-1.035) Urine Protein 1+ (Negative) H Urine Ketones Negative (Negative) Urine Blood 1+ /uL (Negative) H Urine Nitrite Negative (Negative) Urine Bilirubin 1+ (Negative) H Urine Urobilinogen 8 mg/dL (Negative) H Urine Leukocyte Esterase 2+ /uL (Negative) Urine RBC 15 /hpf (0 - 4) Urine Microscopic WBC 22 /HPF (0-5) H Urine Squamous Epithelial Cells Few /hpf (<5) Urine Bacteria Few /hpf (None Seen) H Urine Mucus Few (None Seen) Urine Glucose Normal mg/dL (Normal) Microbiology Microbiology Date/Time Source Procedure Growth Status 10/29/24 12:08 Urine - Catheterized Urine Culture - Preliminary Resulted Labs and/or images reviewed: Labs reviewed by me, Image(s) reviewed by me Assessment/Plan Assessment/Plan 10/31 - doing well in am with some low levels nausea. declined iv access and wants picc only. plan to dc but in later pm patient vomit after lunch CLD. will continue admission, surgery aware, get iv access and continue PPN (TPN if picc able insert). hold off GGF series for now, defer to surgery. cont prn antiemetics, npo, ppn and ivf. keep warner. intractable abdominal pain, partial SBO possible Intractable nausea Decreased p.o. intake Intra-abdominal hernia with transition point, rule out SBO and/or partial SBO Leukocytosis Neutrophilia History of colon cancer status post colectomy and colostomy tube History of seizures History of hyperlipidemia Schizophrenia - 2 days worsening abdominal pain on pmhx of colon CA sp colectomy/colostomy bag. decreased po with nausea - CT AB noncon showing postsurgical changes with subtotal colectomy with a Matt's pouch and right lower quadrant ostomy. Ventral hernia containing intra-abdominal fat and multiple small bowel loops. There is a transition point within the hernia with dilated small bowel loops proximally with fecalized appearing contents. Dilated loop measures 3.7 cm in diameter. - small-bowel Gastrografin series shows probable obstruction in left lower quadrant involving in distal jejunum. - pain control p.r.n. - NG tuberemoved 10/30. NG tube inserted 10/25 per surgery was initially on intermittent suction on low pressure - IV fluids and PPN clinimix - continue home meds - warner inserted - likely inserted in anticipation of surgery. will remove natalie - if no surgery - plan for warner removal and OOB thereafter (or PT eval even) - npo - get iv access and continue PPN (TPN if picc able insert). hold off GGF series for now, defer to surgery. cont prn antiemetics, npo, ppn and ivf. keep warner. Plan discussed with: Patient My Orders Orders - CLOVER MOFFETT MD Procedure Category Date Status Time Phenytoin Suspension PHA 10/30/24 In Process (Dilantin Suspensio 22:00 Phenobarbital Tablet PHA 10/30/24 In Process 22:00 Discontinue Warner WHIT 10/31/24 In Process Catheter 13:59 Date of Service: Oct 31, 2024 Billing Provider: CLOVER MOFFETT MD Common Visit Codes: [id number] INP/OBS CARE(HIGH) CLOVER MOFFETT MD Oct 31, 2024 16:24
[2024-10-31] MEDS: SODIUM CHLORIDE 0.9% 1,000 ML IV ONE (19:41)
[2024-10-31] MEDS: SODIUM CHLOR 0.9% PF (SALINE LOCK) 10ML VIAL/SYR IV SCH (21:42)
[2024-10-31] MEDS: AMINO ACID INFUSION IN D10W 2,000 ML IV SCH (22:39)
[2024-11-01] VITALS (7 sets, daily range): BP systolic 109–132; BP diastolic 58–77; PULSE 72–89; RESP 16–18; TEMP 97.8–98.7; O2SAT 92–97
[2024-11-01 10:17] LABS: Basophils # (auto) 0.1 10 ^3/uL (0-0.2); Basophils % (auto) 0.7 % (0.0-2.0); Eosinophils # (auto) 0.2 10 ^3/uL (0-0.8); Eosinophils % (auto) 1.4 % (0.0-7.0); Hematocrit 35.8 % (36.0-46.0); Hemoglobin 12.3 g/dL (12.2-16.2); Lymphocytes # (auto) 1.6 10 ^3/uL (0.4-5.4); Lymphocytes % (auto) 13.8 % (10.0-50.0); Mean Corpuscular Hemoglobin 29.7 pg (28.0-32.0); Mean Corpuscular Hgb Conc. 34.3 g/dL (32.0-36.0); Mean Corpuscular Volume 86.6 fL (80.0-100.0); Monocytes % (auto) 8.1 % (0.0-12.0); Neutrophils # (auto) 8.9 10 ^3/uL (1.6-8.6); Platelet Count (auto) 279 10^3/uL (140-450); Red Blood Cells 4.13 10^6/uL (4.0-5.20); Red Cell Distribution Width 13.7 % (11.8-14.3); White Blood Cell 11.7 10^3/uL (4.4-10.8)
[2024-11-01 10:30] LABS: Albumin 3.8 g/dL (3.2-4.8); Anion Gap 7 (5-15); BUN/Creatinine Ratio 21.9 (10.0-20.0); Blood Urea Nitrogen 14 mg/dL (9-23); Calcium 9.1 mg/dL (8.7-10.4); Carbon Dioxide 29 mmol/L (20-31); Chloride 101 mmol/L (98-107); Sodium 137 mmol/L (136-145)
[2024-11-01 10:31] LABS: Bilirubin, Total 0.4 mg/dL (0.2-1.0); Phosphorus 3.1 mg/dL (2.4-5.1)
[2024-11-01 10:43] LABS: Alanine Aminotransferase 69 U/L (7-40); Alkaline Phosphatase 210 U/L (46-116); Aspartate Aminotransferase 63 U/L (13-40); Glucose 134 mg/dL (74-106); Potassium 3.5 mmol/L (3.5-5.1)
[2024-11-01] MEDS: POTASSIUM CHL 20MEQ/100ML 100 ML IV ONE (14:15)
[2024-11-01] MEDS ORDERED: TPN PER PHARMACY 0 ML IV SCH (14:15)
--- NOTE | 2024-11-01 14:33 | DVHPN2 ---
Subjective Update 10/31 10/24 surgery evaluating today, patient continues to feel nausea and vomiting decreased p.o. tolerance, abdominal pain in the epigastrium area continues. Abdominal pain it is not expanding, abdomen remains nonacute. Surgery planning for a small bowel series with Gastrografin today. We will continue to follow. 10/25 patient NG tube inserted today, minimal white clear output. Continues to have some periumbilical pain, more right-sided of umbilicus,. Continuing IV fluids, NPO, surgery following. Continuing to empty colostomy to monitor output. Most recent output was brown orange. 10/26 patient has not improved today. Continues to have periumbilical pain radiating to left flank. Continues to have good urine output. Has been NPO for 3 days now. We will start Clinimix PPN. Surgery following. NG tube inserted has more output dark brown/bilious, colostomy has minimal output minimal gas. Surgery plan to give patient more times for bowel rest and will follow up. If patient continues to be NPO on Tuesday, we will likely need PICC line and TPN started. 10/27 - 10/28 weekend coverage. no significant events 10/29 - surgery following. patient still pain with nausea. NG tube with clear- green output. colostomy empty, no output. abd is tender still, same areas. but bowel sounds are improved, maybe a bit hyperactive but also patient has been npo. continuing PPN. will wait to surgery decision. abd xray today, assess any contrast left over from prior gastrografin study. warner inserted - likely inserted in anticipation of surgery. will remove natalie. if no surgery - plan for warner removal and OOB thereafter (or PT eval even) 10/30 left arm swelling after iv infiltrates. patient declines reinsertion iv and wants picc line. will try CLD if tolerates, will not need picc and cant continue CLD and advance to FLD. defer ng tube removal to surgery for left arm will do compression wrap and warm compress, likely infiltration of iv and less liikely dvt. will reassess in am. 10/31 - doing well in am with some low levels nausea. declined iv access and wants picc only. plan to dc but in later pm patient vomit after lunch CLD. will continue admission, surgery aware, get iv access and continue PPN (TPN if picc able insert). hold off GGF series for now, defer to surgery. cont prn antiemetics, npo, ppn and ivf. Keep Warner. 11/01--discharge was canceled yesterday due to patient having nausea/vomit again status post lunch CLD. PICC line inserted on 10/31, yesterday, TPN is started. Surgery aware and plans to follow up today. NG tube to be reinserted but patient declines. We will continue TPN and NPO status until surgery evaluates again. Warner was removed. We will re-evaluate for bladder function with p.r.n. bladder scans, bedside commode if needed. Reviewed: Care Plan, H&P, Labs, Medications, Previous Orders, Radiology Changes from previous H/P or p: No Changes General: Per HPI Objective Vitals Vital Signs Date Time Temp Pulse Resp B/P (MAP) Pulse Ox O2 Delivery O2 Flow Rate FiO2 11/01/24 09:00 97.9 72 16 132/71 (91) 96 97.9 11/01/24 08:05 Nasal Cannula* 2 28 Intake/Output Intake and Output 11/01/24 07:00 Intake Total 1098.5 ml Output Total 800 ml Balance 298.5 ml Intake Oral 750 ml IV Total 348.5 ml Output Urine Total 800 ml Exam GEN: Healthy appearing, well-developed, NAD. HEENT: NC/AT; MMM. CV: RRR, no m/r/g. LUNGS: CTAB, no w/r/c. ABD: Epigastric scar, tender to palpation in epigastrium around scar area. We will be symptomatic EXT: skin Warm, well perfused. no rashes. No clubbing, cyanosis, or edema. NEURO: Ambulating with no limitations. No focal deficits. General Appearance: Alert, Oriented X3, Cooperative, No acute distress HEENT: Atraumatic, PERRLA, EOMI, Mucous membr. moist/pink Neck: Supple Lungs: Clear to auscultation, Normal air movement Cardiovascular: Regular rate, Normal S1, Normal S2, No murmurs, Gallops, Rubs Abdomen: Normal bowel sounds, Soft, Other (Tender on palpation in all four quadrants) Neuro: Cranial nerves 3-12 NL Psych/Mental Status: Mental status NL Medications Current Medications Medications Dose Ordered Sig/[place] Route Start Time Stop Time Status Last Admin Dose Admin Acetaminophen 325 mg Q4HP PRN PO 10/23/24 15:00 Acetaminophen/ Hydrocodone Bitart 1 tab Q4HP PRN PO 10/23/24 15:00 10/24/24 10:55 1 TAB Ondansetron HCl 4 mg Q4HP PRN IV 10/23/24 15:00 10/29/24 23:04 4 MG Enoxaparin Sodium 40 mg DAILY SC 10/24/24 10:00 10/31/24 10:54 40 MG Morphine Sulfate 2 mg Q4HPRN PRN IV 10/23/24 15:00 10/31/24 22:12 2 MG Fluoxetine HCl 20 mg DAILY PO 10/24/24 10:00 11/01/24 09:23 20 MG Pantoprazole Sodium 40 mg DAILY IV 10/25/24 10:15 11/01/24 09:25 40 MG Diagnostic Test (Pha) 1 strip Q6HR 10/27/24 00:00 11/01/24 12:07 1 STRIP Insulin Human Regular FOLLOW SLIDING SCALE Q6HR SC 10/27/24 00:00 Dextrose 50 ml UD IV 10/27/24 00:00 Prochlorperazine Edisylate 10 mg Q6HP PRN IV 10/29/24 14:45 11/01/24 09:34 10 MG Phenytoin Sodium 200 mg BID PO 10/30/24 22:00 11/01/24 09:23 200 MG Phenobarbital 64.8 mg BID PO 10/30/24 22:00 11/01/24 09:24 64.8 MG Sodium Chloride 10 ml QSHIFT@10,22 IV 10/31/24 22:00 11/01/24 09:28 10 ML Amino Acids/ Electrolytes/ Dextrose 2,000 ml @ 41 mls/hr DAILY@2200 IV 10/31/24 22:00 11/01/24 21:59 10/31/24 22:39 41 MLS/HR Fat Emulsion Intravenous 50 ml/ Potassium Chloride 60 meq/ Calcium Gluconate 2.3 meq/Magnesium Sulfate 10 meq/ Multivitamins 10 ml/Chromium/ Copper/Manganese/ Zinc 1 ml/Amino Acids/Dextrose 1,098.4462 ml @ 46 mls/hr [id number] IV 11/01/24 22:00 11/02/24 21:59 Amino Acids 0 ml @ 0 mls/hr PER PHARMACY IV 11/01/24 14:15 Laboratory Results Laboratory Tests 11/01/24 09:50 Chemistry Test 11/01/24 09:50 Albumin 3.8 g/dL (3.2-4.8) Calcium Level 9.1 mg/dL (8.7-10.4) Magnesium Level 2.0 mg/dL (1.6-2.6) Phosphorus Level 3.1 mg/dL (2.4-5.1) Total Protein 7.0 g/dL (5.7-8.2) LFT Test 11/01/24 09:50 Alanine Aminotransferase (ALT) 69 U/L (7-40) H Alkaline Phosphatase 210 U/L (46-116) H Aspartate Amino Transferase (AST) 63 U/L (13-40) H Total Bilirubin 0.4 mg/dL (0.2-1.0) Urinalysis Test 10/29/24 12:08 Urine Color Yellow (Yellow) Urine Clarity Clear (Clear) Urine pH 6.0 (5.0-9.0) Urine Specific [place] 1.036 (1.001-1.035) Urine Protein 1+ (Negative) H Urine Ketones Negative (Negative) Urine Blood 1+ /uL (Negative) H Urine Nitrite Negative (Negative) Urine Bilirubin 1+ (Negative) H Urine Urobilinogen 8 mg/dL (Negative) H Urine Leukocyte Esterase 2+ /uL (Negative) Urine RBC 15 /hpf (0 - 4) Urine Microscopic WBC 22 /HPF (0-5) H Urine Squamous Epithelial Cells Few /hpf (<5) Urine Bacteria Few /hpf (None Seen) H Urine Mucus Few (None Seen) Urine Glucose Normal mg/dL (Normal) Microbiology Microbiology Date/Time Source Procedure Growth Status 10/29/24 12:08 Urine - Catheterized Urine Culture - Final Staphylococcus epidermidis Complete Labs and/or images reviewed: Labs reviewed by me, Image(s) reviewed by me Assessment/Plan Assessment/Plan 11/01--discharge was canceled yesterday due to patient having nausea/vomit again status post lunch CLD. PICC line inserted on 10/31, yesterday, TPN is started. Surgery aware and plans to follow up today. NG tube to be reinserted but patient declines. We will continue TPN and NPO status until surgery evaluates again. Warner was removed. We will re-evaluate for bladder function with p.r.n. bladder scans, bedside commode if needed. intractable abdominal pain, partial SBO possible Intractable nausea/vomit Decreased p.o. intake Intra-abdominal hernia with transition point, rule out SBO and/or partial SBO Leukocytosis Neutrophilia History of colon cancer status post colectomy and colostomy tube History of seizures History of hyperlipidemia Schizophrenia - 2 days worsening abdominal pain on pmhx of colon CA sp colectomy/colostomy bag. decreased po with nausea - CT AB noncon showing postsurgical changes with subtotal colectomy with a Matt's pouch and right lower quadrant ostomy. Ventral hernia containing intra-abdominal fat and multiple small bowel loops. There is a transition point within the hernia with dilated small bowel loops proximally with fecalized appearing contents. Dilated loop measures 3.7 cm in diameter. - small-bowel Gastrografin series shows probable obstruction in left lower quadrant involving in distal jejunum. - pain control p.r.n. - NG tuberemoved 10/30. NG tube inserted 10/25 per surgery was initially on intermittent suction on low pressure - IV fluids . picc lne 10/31 now on tpn - continue home meds - warner removed. prn bladder scan as needed. offer BSC. - npo - NG tube re-insert plan on 11/01, patient declining. surgery to eval. NPO DVT prophylaxis-Lovenox subQ daily GI prophylaxis Protonix IV daily Med surge Full code Plan discussed with: Patient My Orders Orders - CLOVER MOFFETT MD Procedure Category Date Status Time Tpn Per Pharmacy WHIT 10/31/24 In Process 16:29 Us Guided Vascular US 10/31/24 Taken Access 18:37 Nursing Protocol Picc WHIT 10/31/24 In Process 18:37 Change Dressing Prn WHIT 10/31/24 In Process 18:37 Sodium Chloride Lock PHA 10/31/24 In Process (Saline Lock Ns) 22:00 Do Not Use Picc For WHIT 10/31/24 In Process Blood Cult 18:37 May Draw Blood From WHIT 10/31/24 In Process Picc 18:37 Ok To Use Picc WHIT 10/31/24 In Process 18:37 Change Picc Dressing WHIT 10/31/24 In Process Q7 Days 18:37 Amino Acid Infusion PHA 10/31/24 In Process In D10w (Clinimix 4. 22:00 Ppn Per Pharmacy WHIT 10/31/24 In Process 22:00 Npo Except For WHIT 11/01/24 In Process Medications 08:50 Amino Acid PHA 11/01/24 In Process Infusion... W/Fat 22:00 Phosphorus LAB 11/02/24 Verified 05:00 Magnesium LAB 11/02/24 Verified 05:00 Comprehensive LAB 11/02/24 Verified Metabolic Panel 05:00 Tpn Per Pharmacy WHIT 11/01/24 In Process 22:00 Potassium Chl PHA 11/01/24 In Process 20meq/100ml 14:15 Tpn Per Pharmacy PHA 11/01/24 In Process 14:15 Date of Service: Nov 01, 2024 Billing Provider: CLOVER MOFFETT MD Common Visit Codes: [id number] INP/OBS CARE(HIGH) CLOVER MOFFETT MD Nov 01, 2024 14:33
--- NOTE | 2024-11-01 15:29 | DVHINCON2 ---
Date of service: Nov 01, 2024 History of Present Illness 54-year-old morbidly obese female with a history of expiratory laparotomy with partial colectomy with ascending colon colostomy and Matt's pouch [place] [address] Gudino for colon cancer now admitted secondary to abdominal pain with diagnosis of small-bowel obstruction initially evaluated by Dr. Coleman on 10/23/2024.. She had an NG tube placed with a small-bowel follow-through performed on October 24 which showed contrast in the jejunum and not in the colon suggesting jejunal obstruction. She was treated with NG tube decompression and IV fluid with parenteral nutrition. Her abdominal x-ray on October 29 did not show a definitive small-bowel obstruction therefore she was started on liquid diet. However she was unable to tolerate the p.o. and developed abdominal pain associated with nausea and vomiting and therefore surgery was reconsulted. Past Medical History Morbid obesity and history of colon cancer status post surgery Past Surgical History Partial colectomy with the ascending colostomy and Matt's pouch Family History: Cancer Diabetes mellitus G8 MOTHER FH: coronary artery disease FH: diabetes mellitus FH: stroke FHx: alcohol abuse G8 FATHER Family history: Hypertension Hypertension G8 MOTHER Pancreatitis G8 MOTHER Family History Noncontributory Social History Denies alcohol, tobacco, IV drug use Allergies: Coded Allergies: Penicillins (Verified Allergy, Intermediate, hives, 01/12/11) Home Meds Active Scripts Ibuprofen Micronized (Ibuprofen) 600 Mg Tab, 600 MG PO Q8HP PRN, #30 TAB Prov:KALIA ANGULO MD 09/12/24 Pantoprazole Sodium Sesquihydr (Protonix) 40 Mg Tab, 40 MG PO DAILY, #30 TAB Prov:KALIA ANGULO MD 09/12/24 Reported Medications Ciclopirox (Ciclopirox Nail Lacquer) 8 % Chanel, 1 APPLIC TOP DAILY, #6.6 ML 1 Refill 10/24/24 Phenobarbital (PHENOBARBITAL) 32.4 Mg Tb, 64.8 MG PO BID 06/06/15 Fluoxetine Hcl (Fluoxetine Hcl) 20 Mg Cap, 20 MG PO DAILY, CAP 06/06/15 Phenytoin Sodium (DILANTIN CAPSULE) 100 Mg Cp, 2 CAP PO BID for DAILY, CP 06/06/15 Current Medications Current Medications Medications (Trade) Dose Ordered Sig/[place] Route PRN Reason Start Time Stop Time Status Last Admin Sodium Chloride (Saline Lock Ns) 10 ml QSHIFT@10,22 IV 10/31/24 22:00 11/01/24 09:28 Amino Acids/ Electrolytes/ Dextrose 2,000 ml @ 41 mls/hr DAILY@2200 IV 10/31/24 22:00 11/01/24 21:59 10/31/24 22:39 Fat Emulsion Intravenous 50 ml/ Potassium Chloride 60 meq/ Calcium Gluconate 2.3 meq/Magnesium Sulfate 10 meq/ Multivitamins 10 ml/Chromium/ Copper/Manganese/ Zinc 1 ml/Amino Acids/Dextrose 1,098.4462 ml @ 46 mls/hr [id number] IV 11/01/24 22:00 11/02/24 21:59 Amino Acids 0 ml @ 0 mls/hr PER PHARMACY IV 11/01/24 14:15 Vital Signs Vital Signs Date Time Temp Pulse Resp B/P (MAP) Pulse Ox O2 Delivery O2 Flow Rate FiO2 11/01/24 09:00 97.9 72 16 132/71 (91) 96 97.9 11/01/24 08:05 Nasal Cannula* 2 28 Labs/Diagnostic Data Labs Test 11/01/24 11:43 11/01/24 09:50 10/30/24 06:34 10/29/24 12:08 Range/Units POC Glucose 98 70-106 mg/dl White Blood Count 11.7 H 4.4-10.8 10^3/uL Red Blood Count 4.13 4.0-5.20 10^6/uL Hemoglobin 12.3 12.2-16.2 g/dL Hematocrit 35.8 L 36.0-46.0 % Mean Corpuscular Volume 86.6 80.0-100.0 fL Mean Corpuscular Hemoglobin 29.7 28.0-32.0 pg Mean Corpuscular Hemoglobin Concent 34.3 32.0-36.0 g/dL Red Cell Distribution Width 13.7 11.8-14.3 % Platelet Count 279 140-450 10^3/uL Mean Platelet Volume 7.8 6.9-10.8 fL Neutrophils (%) (Auto) 76.0 37.0-80.0 % Lymphocytes (%) (Auto) 13.8 10.0-50.0 % Monocytes (%) (Auto) 8.1 0.0-12.0 % Eosinophils (%) (Auto) 1.4 0.0-7.0 % Basophils (%) (Auto) 0.7 0.0-2.0 % Neutrophils # (Auto) 8.9 H 1.6-8.6 10 ^3/uL Lymphocytes # (Auto) 1.6 0.4-5.4 10 ^3/uL Monocytes # (Auto) 1.0 0-1.3 10 ^3/uL Eosinophils # (Auto) 0.2 0-0.8 10 ^3/uL Basophils # (Auto) 0.1 0-0.2 10 ^3/uL Nucleated Red Blood Cells 0.0 % Sodium Level 137 136-145 mmol/L Potassium Level 3.5 3.5-5.1 mmol/L Chloride Level 101 98-107 mmol/L Carbon Dioxide Level 29 20-31 mmol/L Anion Gap 7 5-15 Blood Urea Nitrogen 14 9-23 mg/dL Creatinine 0.64 0.550-1.02 mg/dL Glomerular Filtration Rate Calc 104 >90 mL/min BUN/Creatinine Ratio 21.9 H 10.0-20.0 Serum Glucose 134 H 74-106 mg/dL Calcium Level 9.1 8.7-10.4 mg/dL Phosphorus Level 3.1 2.4-5.1 mg/dL Magnesium Level 2.0 1.6-2.6 mg/dL Total Bilirubin 0.4 0.2-1.0 mg/dL Aspartate Amino Transferase (AST) 63 H 13-40 U/L Alanine Aminotransferase (ALT) 69 H 7-40 U/L Alkaline Phosphatase 210 H 46-116 U/L Total Protein 7.0 5.7-8.2 g/dL Albumin 3.8 3.2-4.8 g/dL Prothrombin Time 10.3 9.3-11.8 sec Prothrombin Time INR 0.97 0.9-1.15 Activated Partial Thromboplast Time 29.8 24.5-34.5 SEC Phenytoin (Dilantin) Level 9.7 L 10-20 ug/mL Urine Color Yellow Yellow Urine Clarity Clear Clear Urine pH 6.0 5.0-9.0 Urine Specific [place] 1.036 H 1.001-1.035 Urine Protein 1+ H Negative Urine Ketones Negative Negative Urine Blood 1+ H Negative /uL Urine Nitrite Negative Negative Urine Bilirubin 1+ H Negative Urine Urobilinogen 8 H Negative mg/dL Urine Leukocyte Esterase 2+ Negative /uL Urine RBC 15 0 - 4 /hpf Urine Microscopic WBC 22 H 0-5 /HPF Urine Squamous Epithelial Cells Few <5 /hpf Urine Bacteria Few H None Seen /hpf Urine Mucus Few None Seen Urine Glucose Normal Normal mg/dL Test 10/29/24 06:32 10/23/24 11:58 Range/Units Triglycerides Level 259 H < 150 mg/dL Lipase 32 12-53 U/L Microbiology Date/Time Source Procedure Growth Status 10/29/24 12:08 Urine - Catheterized Urine Culture - Final Staphylococcus epidermidis Complete Assessment 1. Possible small bowel obstruction Plan/Recommendation 1. We will get a CT of the abdomen and pelvis. Plan discussed with: Patient MICHELLE SIMMONS MD Nov 01, 2024 15:29
[2024-11-01] MEDS: POTASSIUM CHL 20MEQ/50ML 50 ML IV ONE (17:49)
[2024-11-01] MEDS: TPN PER PHARMACY IV NR (22:25)
[2024-11-02] VITALS (8 sets, daily range): BP systolic 122–148; BP diastolic 60–80; PULSE 74–89; RESP 16–20; TEMP 97.6–98.4; O2SAT 93–98
[2024-11-02] MEDS: HYDROcodone-ACET 5/325MG TAB PO PRN (01:06)
[2024-11-02] MEDS: GASTROGRAFIN 30 ML SOL ONE (06:09)
[2024-11-02] MEDS: diphenhdrAMINE HCL 50 MG/1 ML VL IV PRN (06:57)
[2024-11-02] MEDS: KETOROLAC TROMETH 30 MG/ML 1ML VIAL IM ONE (07:39)
[2024-11-02] MEDS: LIDOCAINE 1% (LOCAL ANESTH.) PF 5ml SDV ID ONE (08:37)
[2024-11-02 09:33] LABS: Albumin 4.1 g/dL (3.2-4.8); Anion Gap 10 (5-15); BUN/Creatinine Ratio 17.3 (10.0-20.0); Blood Urea Nitrogen 14 mg/dL (9-23); Calcium 9.3 mg/dL (8.7-10.4); Carbon Dioxide 27 mmol/L (20-31); Chloride 99 mmol/L (98-107); Glucose 98 mg/dL (74-106); Magnesium 1.9 mg/dL (1.6-2.6); Potassium 3.5 mmol/L (3.5-5.1); Total Protein 7.5 g/dL (5.7-8.2)
[2024-11-02 09:34] LABS: Phosphorus 3.4 mg/dL (2.4-5.1)
[2024-11-02 09:48] LABS: Alanine Aminotransferase 71 U/L (7-40); Alkaline Phosphatase 227 U/L (46-116); Aspartate Aminotransferase 56 U/L (13-40); Bilirubin, Total 0.3 mg/dL (0.2-1.0); Sodium 136 mmol/L (136-145)
[2024-11-02] MEDS ORDERED: CLINIMIX PER PHARMACY 0 ML IV SCH (10:00)
--- NOTE | 2024-11-02 10:23 | DVH ---
Exam: US US GUIDED VASCULAR ACCESS Clinical History: PICC placement Comparison: None Findings: Targeted sonographic evaluation of the upper arm vein was obtained utilizing grayscale and color Dopp ler imaging. IMPRESSION: Sonographic assistance for central line placement. Please refer to procedural report for detailed fin dings.
--- NOTE | 2024-11-02 10:58 | DVH ---
Exam: CT CT AB PEL WITH ORAL CON ONLY History: poss SBO Comparison Study: CT CT AB PEL WO CON-NO ORAL OR IV on DOS: 10/23/24, CT CT AB PEL WITH IV CON ONLY on DOS: 07/26/24, CT CT AB PEL WO CON-NO ORAL OR IV on DOS: 05/15/24, CT CT AB PEL WO CON-NO ORAL OR IV o n DOS: 05/03/24 Technique: Multidetector spiral CT of the abdomen was performed from lung bases to pubic symphysis. I maging was performed without IV contrast. Axial, coronal and sagittal multiplanar reformats were obta ined from the axial data set by the technologist. Radiation Dose : 1. Abdomen/Pelvis: CTDIvol 27.33 mGy, DLP 1448.19 mGy*cm. Findings: Evaluation of solid organs is limited due to lack of intravenous contrast use. Lung Bases: Dependent atelectasis. Liver: Hepatomegaly. Gallbladder and Biliary Tree: Unremarkable Spleen: Unremarkable Pancreas: The pancreas is grossly normal in appearance. Adrenal Glands: Unremarkable Kidneys: Kidneys are grossly normal without calculi or hydronephrosis. Bladder: Grossly unremarkable for degree of distention. Bowel: The stomach is grossly normal in appearance. Enteric contrast is present in the stomach and sm all bowel. Enteric contrast is not visualized in the colon. Subtotal colectomy with william's pouch and right lower quadrant ostomy. The appendix is not visualized; however, no secondary findings of ac eleuterio appendicitis identified. Ascites: Absent Lymphadenopathy: No mesenteric, retroperitoneal or periportal lymphadenopathy. Abdominal Wall and Mesentery: Redemonstration of ventral hernia containing intra-abdominal fat and mu ltiple small bowel loops. There is a transition point in the hernia with dilated small bowel loops p roximally measuring up to 4.6 cm. Vasculature: The visualized abdominal aorta is normal in size and caliber. Evaluation of abdominal a nd pelvic vessels is limited due to lack of intravenous contrast. Pelvic Organs: Unremarkable Musculoskeletal: No aggressive focal bony lesions, acute fractures or dislocation. Degenerative wilson es of the spine. IMPRESSION: Findings are suspicious for persistent small bowel obstruction with transition point within large kimberly tral hernia defect. Findings appear slightly worsened since CT dated 10/23/2024. Clinical correlation advised. Surgical consultation advised. Radiation optimization: All CT scans at this facility use at least one of these dose optimization len hniques: automated exposure control mA and/or kV adjustment per patient size (includes targeted exam s where dose is matched to clinical indication) or iterative reconstruction.
--- NOTE | 2024-11-02 14:08 | DVHPN2 ---
Progress Note - Dictate Date Seen: Nov 02, 2024 Has the PT tested + for MRSA If YES, has PT been informed?: No Medical Necessity Reason Pt with a Central, PICC or Fol: No Subjective E: no major events o/n. no complaints. vital signs Vital Sign Date Time Temp Pulse Resp B/P (MAP) Pulse Ox O2 Delivery O2 Flow Rate FiO2 11/02/24 09:00 97.9 74 16 130/60 (83) 94 97.9 11/02/24 08:05 Nasal Cannula* 2 28 Total Intake and Output 11/01/24 11/01/24 11/02/24 15:00 23:00 07:00 Intake Total 200 ml Output Total 550 ml 500 ml Balance -350 ml -500 ml medications Current Medications Medications Dose Ordered Sig/Catalina Route Start Time Stop Time Status Last Admin Dose Admin Acetaminophen 325 mg Q4HP PRN PO 10/23/24 15:00 Ondansetron HCl 4 mg Q4HP PRN IV 10/23/24 15:00 11/02/24 01:05 4 MG Enoxaparin Sodium 40 mg DAILY SC 10/24/24 10:00 11/02/24 10:25 40 MG Fluoxetine HCl 20 mg DAILY PO 10/24/24 10:00 11/02/24 10:21 20 MG Pantoprazole Sodium 40 mg DAILY IV 10/25/24 10:15 11/02/24 10:21 40 MG Diagnostic Test (Pha) 1 strip Q6HR 10/27/24 00:00 11/02/24 06:00 1 STRIP Insulin Human Regular FOLLOW SLIDING SCALE Q6HR SC 10/27/24 00:00 11/02/24 00:31 2 UNITS Dextrose 50 ml UD IV 10/27/24 00:00 Prochlorperazine Edisylate 10 mg Q6HP PRN IV 10/29/24 14:45 11/01/24 22:47 10 MG Phenytoin Sodium 200 mg BID PO 10/30/24 22:00 11/02/24 10:24 200 MG Phenobarbital 64.8 mg BID PO 10/30/24 22:00 11/02/24 10:23 64.8 MG Sodium Chloride 10 ml QSHIFT@10,22 IV 10/31/24 22:00 11/02/24 10:25 10 ML Acetaminophen/ Hydrocodone Bitart 1 tab Q6HPRN PRN PO 11/02/24 01:00 11/02/24 01:06 1 TAB Diphenhydramine HCl 25 mg Q4HP PRN IV 11/02/24 06:00 11/02/24 12:13 25 MG Amino Acids 0 ml @ 0 mls/hr PER PHARMACY IV 11/02/24 10:00 Amino Acids/ Electrolytes/ Dextrose 2,000 ml @ 41 mls/hr DAILY@2200 IV 11/02/24 22:00 objective GEN: NAD ABD: min diffuse TTP. unchanged. hernia unchanged. CT of the abdomen and pelvis: Findings suspicious for persistent small bowel obstruction with transition point within large ventral hernia defect. laboratory and microbiology Laboratory Tests 11/02/24 09:00 11/01/24 09:50 Test 11/02/24 09:00 Range/Units Serum Glucose 98 74-106 mg/dL Assessment/Plan A: 1. SBO 2. incarcerated incisional hernia. P: 1. KUB in AM. if no improvement by tomorrow, surgery tomorrow. Dietary Evaluation Review Comments: 1) Consider TPN/PN if NPO >7 days 2) Advance diet as medically feasible 3) Continue current plan of care Expected Outcomes/Goals: Pt will meet 75% estimated needs Fu 2-3 days Plan discussed with: Patient MICHELLE SIMMONS MD Nov 02, 2024 14:08
--- NOTE | 2024-11-02 17:34 | DVHPN2 ---
Subjective Update 11/02 10/24 surgery evaluating today, patient continues to feel nausea and vomiting decreased p.o. tolerance, abdominal pain in the epigastrium area continues. Abdominal pain it is not expanding, abdomen remains nonacute. Surgery planning for a small bowel series with Gastrografin today. We will continue to follow. 10/25 patient NG tube inserted today, minimal white clear output. Continues to have some periumbilical pain, more right-sided of umbilicus,. Continuing IV fluids, NPO, surgery following. Continuing to empty colostomy to monitor output. Most recent output was brown orange. 10/26 patient has not improved today. Continues to have periumbilical pain radiating to left flank. Continues to have good urine output. Has been NPO for 3 days now. We will start Clinimix PPN. Surgery following. NG tube inserted has more output dark brown/bilious, colostomy has minimal output minimal gas. Surgery plan to give patient more times for bowel rest and will follow up. If patient continues to be NPO on Tuesday, we will likely need PICC line and TPN started. 10/27 - 10/28 weekend coverage. no significant events 10/29 - surgery following. patient still pain with nausea. NG tube with clear- green output. colostomy empty, no output. abd is tender still, same areas. but bowel sounds are improved, maybe a bit hyperactive but also patient has been npo. continuing PPN. will wait to surgery decision. abd xray today, assess any contrast left over from prior gastrografin study. warner inserted - likely inserted in anticipation of surgery. will remove natalie. if no surgery - plan for warner removal and OOB thereafter (or PT eval even) 10/30 left arm swelling after iv infiltrates. patient declines reinsertion iv and wants picc line. will try CLD if tolerates, will not need picc and cant continue CLD and advance to FLD. defer ng tube removal to surgery for left arm will do compression wrap and warm compress, likely infiltration of iv and less liikely dvt. will reassess in am. 10/31 - doing well in am with some low levels nausea. declined iv access and wants picc only. plan to dc but in later pm patient vomit after lunch CLD. will continue admission, surgery aware, get iv access and continue PPN (TPN if picc able insert). hold off GGF series for now, defer to surgery. cont prn antiemetics, npo, ppn and ivf. Keep Warner. 11/01--discharge was canceled yesterday due to patient having nausea/vomit again status post lunch CLD. PICC line inserted on 10/31, yesterday, TPN is started. Surgery aware and plans to follow up today. NG tube to be reinserted but patient declines. We will continue TPN and NPO status until surgery evaluates again. Warner was removed. We will re-evaluate for bladder function with p.r.n. bladder scans, bedside commode if needed. 11/02 - patient is looking improved again today. She remains pain-free, abdominal tenderness is improved. Colostomy output is minimal with liquid consistency brown color. Patient had reaction to TPN via PICC line, we will now return back to Clinimix we will have PICC line. Trial of clear liquid diets. Surgery following. CT abdomen this a.m. concerning again for obstruction. Surgery plans for KUB in a.m. and if still no improvement possibly surgery next day. Reviewed: Care Plan, H&P, Labs, Medications, Previous Orders, Radiology Changes from previous H/P or p: No Changes General: Per HPI Objective Vitals Vital Signs Date Time Temp Pulse Resp B/P (MAP) Pulse Ox O2 Delivery O2 Flow Rate FiO2 11/02/24 13:00 98.3 86 16 125/66 (85) 93 98.3 11/02/24 08:05 Nasal Cannula* 2 28 Intake/Output Intake and Output 11/02/24 07:00 Intake Total 200 ml Output Total 1050 ml Balance -850 ml Intake Oral 200 ml Output Urine Total 550 ml Stool Total 500 ml Exam GEN: Healthy appearing, well-developed, NAD. HEENT: NC/AT; MMM. CV: RRR, no m/r/g. LUNGS: CTAB, no w/r/c. ABD: Epigastric scar, tender to palpation in epigastrium around scar area. We will be symptomatic EXT: skin Warm, well perfused. no rashes. No clubbing, cyanosis, or edema. NEURO: Ambulating with no limitations. No focal deficits. General Appearance: Alert, Oriented X3, Cooperative, No acute distress HEENT: Atraumatic, PERRLA, EOMI, Mucous membr. moist/pink Neck: Supple Lungs: Clear to auscultation, Normal air movement Cardiovascular: Regular rate, Normal S1, Normal S2, No murmurs, Gallops, Rubs Abdomen: Normal bowel sounds, Soft, Other (Tender on palpation in all four quadrants) Neuro: Cranial nerves 3-12 NL Psych/Mental Status: Mental status NL Medications Current Medications Medications Dose Ordered Sig/Catalina Route Start Time Stop Time Status Last Admin Dose Admin Acetaminophen 325 mg Q4HP PRN PO 10/23/24 15:00 Ondansetron HCl 4 mg Q4HP PRN IV 10/23/24 15:00 11/02/24 01:05 4 MG Fluoxetine HCl 20 mg DAILY PO 10/24/24 10:00 11/02/24 10:21 20 MG Pantoprazole Sodium 40 mg DAILY IV 10/25/24 10:15 11/02/24 10:21 40 MG Diagnostic Test (Pha) 1 strip Q6HR 10/27/24 00:00 11/02/24 17:20 1 STRIP Insulin Human Regular FOLLOW SLIDING SCALE Q6HR SC 10/27/24 00:00 11/02/24 00:31 2 UNITS Dextrose 50 ml UD IV 10/27/24 00:00 Prochlorperazine Edisylate 10 mg Q6HP PRN IV 10/29/24 14:45 11/01/24 22:47 10 MG Phenytoin Sodium 200 mg BID PO 10/30/24 22:00 11/02/24 10:24 200 MG Phenobarbital 64.8 mg BID PO 10/30/24 22:00 11/02/24 10:23 64.8 MG Sodium Chloride 10 ml QSHIFT@10,22 IV 10/31/24 22:00 11/02/24 10:25 10 ML Acetaminophen/ Hydrocodone Bitart 1 tab Q6HPRN PRN PO 11/02/24 01:00 11/02/24 01:06 1 TAB Diphenhydramine HCl 25 mg Q4HP PRN IV 11/02/24 06:00 11/02/24 16:46 25 MG Amino Acids 0 ml @ 0 mls/hr PER PHARMACY IV 11/02/24 10:00 Amino Acids/ Electrolytes/ Dextrose 2,000 ml @ 41 mls/hr DAILY@2200 IV 11/02/24 22:00 Laboratory Results Laboratory Tests 11/01/24 09:50 11/02/24 09:00 Chemistry Test 11/02/24 09:00 Albumin 4.1 g/dL (3.2-4.8) Calcium Level 9.3 mg/dL (8.7-10.4) Magnesium Level 1.9 mg/dL (1.6-2.6) Phosphorus Level 3.4 mg/dL (2.4-5.1) Total Protein 7.5 g/dL (5.7-8.2) LFT Test 11/02/24 09:00 Alanine Aminotransferase (ALT) 71 U/L (7-40) H Alkaline Phosphatase 227 U/L (46-116) H Aspartate Amino Transferase (AST) 56 U/L (13-40) H Total Bilirubin 0.3 mg/dL (0.2-1.0) Urinalysis Test 10/29/24 12:08 Urine Color Yellow (Yellow) Urine Clarity Clear (Clear) Urine pH 6.0 (5.0-9.0) Urine Specific [place] 1.036 (1.001-1.035) Urine Protein 1+ (Negative) H Urine Ketones Negative (Negative) Urine Blood 1+ /uL (Negative) H Urine Nitrite Negative (Negative) Urine Bilirubin 1+ (Negative) H Urine Urobilinogen 8 mg/dL (Negative) H Urine Leukocyte Esterase 2+ /uL (Negative) Urine RBC 15 /hpf (0 - 4) Urine Microscopic WBC 22 /HPF (0-5) H Urine Squamous Epithelial Cells Few /hpf (<5) Urine Bacteria Few /hpf (None Seen) H Urine Mucus Few (None Seen) Urine Glucose Normal mg/dL (Normal) Microbiology Microbiology Date/Time Source Procedure Growth Status 10/29/24 12:08 Urine - Catheterized Urine Culture - Final Staphylococcus epidermidis Complete Labs and/or images reviewed: Labs reviewed by me, Image(s) reviewed by me Assessment/Plan Assessment/Plan 11/02 - patient is looking improved again today. She remains pain-free, abdominal tenderness is improved. Colostomy output is minimal with liquid consistency brown color. Patient had reaction to TPN via PICC line, we will now return back to Clinimix we will have PICC line. Trial of clear liquid diets. Surgery following. CT abdomen this a.m. concerning again for obstruction. Surgery plans for KUB in a.m. and if still no improvement possibly surgery next day. intractable abdominal pain, partial SBO possible Intractable nausea/vomit hives allergic reaction to TPN Decreased p.o. intake Intra-abdominal hernia with transition point, rule out SBO and/or partial SBO Leukocytosis Neutrophilia History of colon cancer status post colectomy and colostomy tube History of seizures History of hyperlipidemia Schizophrenia - 2 days worsening abdominal pain on pmhx of colon CA sp colectomy/colostomy bag. decreased po with nausea - CT AB noncon showing postsurgical changes with subtotal colectomy with a Matt's pouch and right lower quadrant ostomy. Ventral hernia containing intra-abdominal fat and multiple small bowel loops. There is a transition point within the hernia with dilated small bowel loops proximally with fecalized appearing contents. Dilated loop measures 3.7 cm in diameter. - small-bowel Gastrografin series shows probable obstruction in left lower quadrant involving in distal jejunum. - CT abdomen repeat 11/02 concerning again for SBO. - pain control p.r.n. - NG tuberemoved 10/30. NG tube inserted 10/25 per surgery was initially on intermittent suction on low pressure - IV fluids . picc lne 10/31 now , allergic reaction to TPN on 11/02 which is stopped and now converted to Clinimix - continue home meds - warner removed. prn bladder scan as needed. offer BSC. - npo - NG tube re-insert plan on 11/01, patient declining. surgery to eval. - KUB repeat on 11/03 a.m. NPO DVT prophylaxis-Lovenox subQ daily GI prophylaxis Protonix IV daily Med surge Full code Plan discussed with: Patient My Orders Orders - CLOVER MOFFETT MD Procedure Category Date Status Time Clear Liq Diet DIET 11/02/24 Transmitted Lunch Clinimix Per Pharmacy PHA 11/02/24 In Process 10:00 Amino Acid Infusion PHA 11/02/24 In Process In D10w (Cl[facility]imix 4. 22:00 Comprehensive LAB 11/03/24 Verified Metabolic Panel 04:00 Magnesium LAB 11/03/24 Verified 04:00 Phosphorus LAB 11/03/24 Verified 04:00 Clinimix Per Pharmacy WHIT 11/02/24 In Process 22:00 Npo (Nothing By DIET 11/02/24 Transmitted Mouth) Diet Lunch Date of Service: Nov 02, 2024 Billing Provider: CLOVER MOFFETT MD Common Visit Codes: [id number] INP/OBS CARE(HIGH) CLOVER MOFFETT MD Nov 02, 2024 17:34
[2024-11-02] MEDS: MORPHINE SULFATE INJ 2 MG/ml SYRG IV PRN (18:49)
[2024-11-02] MEDS: AMINO ACID INFUSION IN D10W 2,000 ML IV SCH (21:50)
--- NOTE | 2024-11-02 23:41 | DVH ---
Procedure: XY KUB ABDOMEN SINGLE VIEW Exam Date: 11/02/2024 11:11 PM History: sbo Comparison Study: None Technique: AP of the chest AP upright of the abdomen AP supine of the abdomen findings/ IMPRESSION: Distended loops of small bowel measuring up to 6 cm concerning for small bowel obstruction. Surgical clips in the left hemiabdomen. No acute osseous abnormalities
[2024-11-03] VITALS (7 sets, daily range): BP systolic 119–137; BP diastolic 71–78; PULSE 74–112; RESP 16–20; TEMP 97.8–98.1; O2SAT 92–98
[2024-11-03] MEDS: ceFAZolin 1GM VL ONE (07:48)
[2024-11-03] MEDS ORDERED: ROCURONIUM 10MG/ML 10ML VIAL IV ONE ×2 (08:07→10:14)
[2024-11-03] MEDS ORDERED: fentaNYL CITRATE 100 MCG/2 ML VL ONE ×2 (08:07→09:48)
[2024-11-03] MEDS ORDERED: KETAMINE 50mg/ML 1ml syringe ONE (08:07)
[2024-11-03] MEDS ORDERED: ONDANSETRON HCL 4 MG/2 ML VIAL ONE (08:07)
[2024-11-03] MEDS ORDERED: ETOMIDATE (2MG/ML) 20ML VIAL IV ONE (08:07)
[2024-11-03] MEDS ORDERED: ePHEDrine SULFATE 50 MG/ML AMP ONE (08:07)
[2024-11-03] MEDS ORDERED: LIDOCAINE 2% (LOCAL ANESTH.) PF 5ml SDV ONE (08:07)
[2024-11-03] MEDS ORDERED: GLYCOPYRROLATE 0.2 MG/ML 1ML VIAL ONE (08:07)
[2024-11-03] MEDS ORDERED: MIDAZOLAM HCL 2MG/2ML 2ml VIAL (1mg/ml) ONE (08:07)
[2024-11-03] MEDS ORDERED: DexAMETHasone SOD PHOS 10MG/1ML VIAL INJ ONE (08:07)
[2024-11-03 08:11] LABS: Albumin 4.1 g/dL (3.2-4.8); Anion Gap 11 (5-15); BUN/Creatinine Ratio 17.1 (10.0-20.0); Bilirubin, Total 0.4 mg/dL (0.2-1.0); Blood Urea Nitrogen 13 mg/dL (9-23); Calcium 9.4 mg/dL (8.7-10.4); Carbon Dioxide 24 mmol/L (20-31); Chloride 99 mmol/L (98-107); Magnesium 1.9 mg/dL (1.6-2.6); Phosphorus 3.9 mg/dL (2.4-5.1); Total Protein 7.5 g/dL (5.7-8.2)
[2024-11-03 08:12] LABS: Alanine Aminotransferase 64 U/L (7-40); Alkaline Phosphatase 228 U/L (46-116); Aspartate Aminotransferase 46 U/L (13-40); Glucose 111 mg/dL (74-106); Potassium 3.2 mmol/L (3.5-5.1); Sodium 134 mmol/L (136-145)
[2024-11-03] MEDS ORDERED: HYDROmorphone HCL 2 MG/ML VL/or syr ONE (09:20)
[2024-11-03] MEDS ORDERED: ceFAZolin 1GM VL ONE (09:30)
[2024-11-03] MEDS: POTASSIUM CHL 20MEQ/50ML 50 ML IV SCH (10:00)
[2024-11-03] MEDS ORDERED: SUGAMMADEX 200mg/2ml Vial (100MG/ML) IV ONE (11:33)
[2024-11-03] MEDS ORDERED: MEPERIDINE HCL (25 MG/ML) 1ML VIAL ONE (11:45)
[2024-11-03] MEDS: LIDOCAINE W/ EPINEPHRINE 1% 20ML VIAL ONE (12:27)
[2024-11-03] MEDS: SODIUM CHLORIDE 0.9% 1,000 ML IV SCH (12:45)
--- NOTE | 2024-11-03 12:58 | DVHOP2 ---
Operative Report - 2 Report Details Date: 11/03/24 Preop Diagnosis: 1. High-grade small-bowel obstruction secondary to incarcerated hernia Postop Diagnosis: Same Surgeon: Kev Reynolds MD Color Artist: None Anesthesiologist: Dr. Charles Anesthesia: General, Local Drains: 15 Tongan Nilson drain Implant: 15 cm Symbotex mesh (this was the mucus mesh we had) Consent: The patient was informed of the risks and benefits of the procedure. These include but are not limited to complications of anesthesia, postoperative infection, incomplete relief of symptoms, recurrence of symptoms, damage to blood vessels, nerves and tendons, deep venous thrombosis, pulmonary embolism and possible need for repeat surgery in the future. Complications: None Estimated Blood Loss: 100 mL Fluids: 2500 mL Findings: Large hernia defect measuring roughly 10 cm in size with small bowel incarceration causing a high-grade obstruction secondary to adhesions within the hernia sac Name of Procedure Performed Incarcerated hernia repair with mesh with extensive lysis of adhesions Procedure Details Procedure Details: After induction of general anesthesia, a Nixon catheter was placed by the OR nursing staff. Patient's abdomen was then prepped and draped in standard surgical fashion. A midline incision was made over the previous incisional scar with a hernia was located. Incision extended through the abdominal soft tissue down to the sac which was very attenuated. This was opened revealing omentum mixed with small intestine that was adhering with the extensive adhesions throughout the bowel. Most of the surgery was spent performing meticulous lysis of the adhesion freeing up the small intestine from the underside of the fascial edges and also from each other. The very dilated proximal portion of the small intestine was easily identified and this was followed down to the area of transition which was located much more inferiorly in the abdomen. Due to the lack of exposure down to the area through the hernia defect, the inferior portion of the fascia was opened to extend this area for better visualization. Once this was done the area of transition causing the obstruction was identified and freed up from the surrounding structures. There was no obvious bowel injuries noted or serosal tears noted. Once adequate amount of small intestine contained within the hernia sac centered around the transition point was freed up, this was placed back into the abdominal cavity. A 15 cm Symbotex mesh 1st soaked in Ancef irrigation was used for the repair. The previously divided inferior edge of the fascial defect was then closed using interrupted 1. Ethibond sutures to minimize the hernia defect. The mesh was then incorporated the site of the fascia using 1. Ethibond sutures circumferentially and reinforc ed with a 2nd layer of 0 Vicryl sutures. The omentum was fully covering the small intestine and there was no obvious exposure of the mesh to the small intestine. The surgical site was then irrigated with Ancef irrigation and a 15 Tongan Nilson drain was placed into the surgical site and brought out through the separate stab incision in the left lower quadrant and secured to the skin using 3-0 nylon sutures. Overlying soft tissue was reapproximated using interrupted 0 Vicryl sutures. Surgical site was irrigated and skin incision was then closed using phuc. Surgical site was cleaned and dried and dressing was applied. Sponge, needle, instrument count at the end of the case were reported to be correct by the nursing staff. The patient tolerated procedure well and at the time of dictation, she is being awakened from general anesthesia. Specimen: None Condition Stable Disposition Still a Patient KEV REYNOLDS MD Nov 03, 2024 12:58
[2024-11-03] MEDS: HYDROmorphone HCL 2 MG/ML VL/or syr IV PRN (13:12)
--- NOTE | 2024-11-03 14:01 | DVH ---
CHEST RADIOGRAPH Indication: NG tube placement verification Technique: Single frontal view of the chest was obtained COMPARISON: XY CHEST PORTABLE on DOS: 10/25/24, XY CHEST XRAY 1 VIEW on DOS: 10/25/24, XY CHEST PORTABLE on DOS: 06/12/24, XY CHEST PORTABLE on DOS: 05/15/24 FINDINGS: Lines and Tubes: NG tube is in the fundus of the stomach. Right-sided PICC line is in the right atriu m. Lungs: Clear Pleura: No effusion. No pneumothorax. Cardiomediastinal contours: Unremarkable Bones: Unremarkable IMPRESSION: 1. Stable tubes and lines No consolidation No CHF pattern. NG tube is coiled in the ends in the fundus of the stomach medially.
[2024-11-03] MEDS: ceFAZolin 2 GM/D5W50ml 50 ML IV SCH (15:12)
--- NOTE | 2024-11-03 18:33 | DVHPN2 ---
Subjective Patient complaining of abdominal pain Reviewed: Care Plan, H&P, Labs, Medications, Previous Orders, Radiology Changes from previous H/P or p: No Changes General: Per HPI Objective Vitals Vital Signs Date Time Temp Pulse Resp B/P (MAP) Pulse Ox O2 Delivery O2 Flow Rate FiO2 11/03/24 17:00 97.8 112 20 131/72 (91) 96 97.8 11/03/24 14:06 Nasal Cannula 3.0 95 Intake/Output Intake and Output 11/03/24 07:00 Intake Total 105 ml Output Total 300 ml Balance -195 ml Intake Oral 105 ml Output Urine Total 300 ml # Voids 2 General Appearance: Alert, Oriented X3, Cooperative, No acute distress HEENT: Atraumatic, PERRLA, EOMI, Mucous membr. moist/pink Neck: Supple Lungs: Clear to auscultation, Normal air movement Cardiovascular: Regular rate, Normal S1, Normal S2, No murmurs, Gallops, Rubs Abdomen: Soft, Other (No active no bowel sounds. Midline incision dry and intact. HITESH drainage of serosanguineous fluid) Neuro: Cranial nerves 3-12 NL Psych/Mental Status: Mental status NL Medications Current Medications Medications Dose Ordered Sig/[place] Route Start Time Stop Time Status Last Admin Dose Admin Acetaminophen 325 mg Q4HP PRN PO 10/23/24 15:00 Ondansetron HCl 4 mg Q4HP PRN IV 10/23/24 15:00 11/03/24 15:20 4 MG Fluoxetine HCl 20 mg DAILY PO 10/24/24 10:00 11/03/24 16:23 20 MG Pantoprazole Sodium 40 mg DAILY IV 10/25/24 10:15 11/03/24 15:13 40 MG Diagnostic Test (Pha) 1 strip Q6HR 10/27/24 00:00 11/03/24 16:43 1 STRIP Insulin Human Regular FOLLOW SLIDING SCALE Q6HR SC 10/27/24 00:00 11/03/24 16:43 2 UNITS Dextrose 50 ml UD IV 10/27/24 00:00 Prochlorperazine Edisylate 10 mg Q6HP PRN IV 10/29/24 14:45 11/02/24 21:49 10 MG Phenytoin Sodium 200 mg BID PO 10/30/24 22:00 11/03/24 15:13 200 MG Phenobarbital 64.8 mg BID PO 10/30/24 22:00 11/03/24 10:00 64.8 MG Sodium Chloride 10 ml QSHIFT@10,22 IV 10/31/24 22:00 11/03/24 10:00 10 ML Acetaminophen/ Hydrocodone Bitart 1 tab Q6HPRN PRN PO 11/02/24 01:00 11/02/24 01:06 1 TAB Diphenhydramine HCl 25 mg Q4HP PRN IV 11/02/24 06:00 11/03/24 06:41 25 MG Amino Acids 0 ml @ 0 mls/hr PER PHARMACY IV 11/02/24 10:00 Amino Acids/ Electrolytes/ Dextrose 2,000 ml @ 41 mls/hr DAILY@2200 IV 11/02/24 22:00 11/03/24 21:59 11/02/24 21:50 41 MLS/HR Morphine Sulfate 2 mg Q6HPRN PRN IV 11/02/24 18:00 11/03/24 15:12 2 MG Sodium Chloride 1,000 ml @ 100 mls/hr Q10H IV 11/03/24 12:45 11/03/24 12:45 100 MLS/HR Cefazolin Sodium/ Dextrose 50 ml @ 50 mls/hr Q8HR IV 11/03/24 14:00 11/03/24 15:12 50 MLS/HR Amino Acids/ Electrolytes/ Dextrose 2,000 ml @ 41 mls/hr DAILY@2200 IV 11/04/24 22:00 Amino Acids/ Electrolytes/ Dextrose 1,000 ml @ 41 mls/hr ONCE IV 11/03/24 22:00 11/04/24 21:59 Cancel Amino Acids 1,000 ml @ 41 mls/hr DAILY@2200 IV 11/03/24 22:00 11/04/24 21:59 Laboratory Results Laboratory Tests 11/01/24 09:50 11/03/24 07:04 Chemistry Test 11/03/24 07:04 Albumin 4.1 g/dL (3.2-4.8) Calcium Level 9.4 mg/dL (8.7-10.4) Magnesium Level 1.9 mg/dL (1.6-2.6) Phosphorus Level 3.9 mg/dL (2.4-5.1) Total Protein 7.5 g/dL (5.7-8.2) LFT Test 11/03/24 07:04 Alanine Aminotransferase (ALT) 64 U/L (7-40) H Alkaline Phosphatase 228 U/L (46-116) H Aspartate Amino Transferase (AST) 46 U/L (13-40) H Total Bilirubin 0.4 mg/dL (0.2-1.0) Urinalysis Test 10/29/24 12:08 Urine Color Yellow (Yellow) Urine Clarity Clear (Clear) Urine pH 6.0 (5.0-9.0) Urine Specific [place] 1.036 (1.001-1.035) Urine Protein 1+ (Negative) H Urine Ketones Negative (Negative) Urine Blood 1+ /uL (Negative) H Urine Nitrite Negative (Negative) Urine Bilirubin 1+ (Negative) H Urine Urobilinogen 8 mg/dL (Negative) H Urine Leukocyte Esterase 2+ /uL (Negative) Urine RBC 15 /hpf (0 - 4) Urine Microscopic WBC 22 /HPF (0-5) H Urine Squamous Epithelial Cells Few /hpf (<5) Urine Bacteria Few /hpf (None Seen) H Urine Mucus Few (None Seen) Urine Glucose Normal mg/dL (Normal) Microbiology Microbiology Date/Time Source Procedure Growth Status 10/29/24 12:08 Urine - Catheterized Urine Culture - Final Staphylococcus epidermidis Complete Labs and/or images reviewed: Labs reviewed by me, Image(s) reviewed by me Assessment/Plan Assessment/Plan Impression: -small-bowel obstruction secondary to incarcerated hernia -history of colostomy -obesity -hypokalemia -seizure disorder -schizophrenia -dyslipidemia Plan: -surgical consultation was placed. Patient underwent exploratory laparotomy with repair of ventral hernia, lysis of adhesions -continue TPN -PUD, DVT prophylaxis -NPO status -potassium replacement -IV hydration -repeat labs in a.m. Total time spent with patient discussing and formulating plan of care: 35 minutes. This medical document was created using an electronic medical record system with [email or web address] dictation system. Although this document has been carefully reviewed, there may still be some phonetic and typographical errors. These areas are purely typographical due to imperfections of the software programs, and do not reflect any compromise in the patient's medical care. Plan discussed with: Patient, Other (RN) Date of Service: Nov 04, 2024 Billing Provider: STEVE LUTZ NP Common Visit Codes: [id number] INP/OBS CARE(HIGH) STEVE LUTZ NP Nov 03, 2024 18:33
[2024-11-03] MEDS: MORPHINE SULFATE 4 MG/ML SYR/VIAL IV PRN (20:37)
[2024-11-03] MEDS ORDERED: AMINO ACID INFUSION IN D10W 1,000 ML IV NR (22:00)
[2024-11-03] MEDS: AMINO ACID INFUSION IN D5W 1,000 ML IV SCH (23:03)
[2024-11-04] VITALS (9 sets, daily range): BP systolic 102–141; BP diastolic 53–67; PULSE 70–107; RESP 17–20; TEMP 97.5–100.2; O2SAT 93–98
[2024-11-04] MEDS: ACETAMINOPHEN 325 MG TAB PO PRN (03:59)
[2024-11-04 07:28] LABS: Basophils # (auto) 0 10 ^3/uL (0-0.2); Basophils % (auto) 0.2 % (0.0-2.0); Eosinophils # (auto) 0.1 10 ^3/uL (0-0.8); Eosinophils % (auto) 0.7 % (0.0-7.0); Hematocrit 36.5 % (36.0-46.0); Hemoglobin 12.6 g/dL (12.2-16.2); Lymphocytes # (auto) 1.8 10 ^3/uL (0.4-5.4); Lymphocytes % (auto) 9.8 % (10.0-50.0); Mean Corpuscular Hemoglobin 30.1 pg (28.0-32.0); Mean Corpuscular Hgb Conc. 34.7 g/dL (32.0-36.0); Mean Corpuscular Volume 86.7 fL (80.0-100.0); Monocytes # (auto) 1.5 10 ^3/uL (0-1.3); Neutrophils # (auto) 15.1 10 ^3/uL (1.6-8.6); Neutrophils % (auto) 81.3 % (37.0-80.0); Platelet Count (auto) 244 10^3/uL (140-450); Red Blood Cells 4.21 10^6/uL (4.0-5.20); Red Cell Distribution Width 13.6 % (11.8-14.3); White Blood Cell 18.6 10^3/uL (4.4-10.8)
[2024-11-04 07:49] LABS: Alanine Aminotransferase 40 U/L (7-40); Anion Gap 10 (5-15); Calcium 8.7 mg/dL (8.7-10.4); Carbon Dioxide 23 mmol/L (20-31); Chloride 101 mmol/L (98-107); Potassium 4.2 mmol/L (3.5-5.1)
[2024-11-04 07:50] LABS: Alkaline Phosphatase 194 U/L (46-116); Blood Urea Nitrogen 9 mg/dL (9-23); Glucose 127 mg/dL (74-106); Magnesium 1.7 mg/dL (1.6-2.6); Sodium 134 mmol/L (136-145); Total Protein 6.7 g/dL (5.7-8.2)
[2024-11-04 07:51] LABS: Albumin 3.7 g/dL (3.2-4.8); Aspartate Aminotransferase 31 U/L (13-40); Bilirubin, Total 0.4 mg/dL (0.2-1.0); Phosphorus 2.6 mg/dL (2.4-5.1)
[2024-11-04] MEDS: ONDANSETRON HCL 4 MG/2 ML VIAL IV ONE (08:07)
--- NOTE | 2024-11-04 10:45 | DVHPN2 ---
Progress Note - Dictate Date Seen: Nov 04, 2024 Has the PT tested + for MRSA If YES, has PT been informed?: No Medical Necessity Reason Pt with a Central, PICC or Fol: No Subjective E: no major events o/n. no complaints. vital signs Vital Sign Date Time Temp Pulse Resp B/P (MAP) Pulse Ox O2 Delivery O2 Flow Rate FiO2 11/04/24 09:00 98.2 97 20 130/58 (82) 96 98.2 11/03/24 20:00 Nasal Cannula* 3 32 Total Intake and Output 11/03/24 11/03/24 11/04/24 15:00 23:00 07:00 Intake Total 480 ml 50 ml Output Total 120 ml 1050 ml 325 ml Balance -120 ml -570 ml -275 ml medications Current Medications Medications Dose Ordered Sig/[place] Route Start Time Stop Time Status Last Admin Dose Admin Acetaminophen 325 mg Q4HP PRN PO 10/23/24 15:00 11/04/24 03:59 325 MG Ondansetron HCl 4 mg Q4HP PRN IV 10/23/24 15:00 11/04/24 01:08 4 MG Fluoxetine HCl 20 mg DAILY PO 10/24/24 10:00 11/04/24 10:16 20 MG Pantoprazole Sodium 40 mg DAILY IV 10/25/24 10:15 11/04/24 10:06 40 MG Diagnostic Test (Pha) 1 strip Q6HR 10/27/24 00:00 11/04/24 05:57 1 STRIP Insulin Human Regular FOLLOW SLIDING SCALE Q6HR SC 10/27/24 00:00 11/04/24 05:59 2 UNITS Dextrose 50 ml UD IV 10/27/24 00:00 Prochlorperazine Edisylate 10 mg Q6HP PRN IV 10/29/24 14:45 11/02/24 21:49 10 MG Phenytoin Sodium 200 mg BID PO 10/30/24 22:00 11/04/24 10:00 200 MG Phenobarbital 64.8 mg BID PO 10/30/24 22:00 11/04/24 10:08 64.8 MG Sodium Chloride 10 ml QSHIFT@10,22 IV 10/31/24 22:00 11/04/24 10:06 10 ML Acetaminophen/ Hydrocodone Bitart 1 tab Q6HPRN PRN PO 11/02/24 01:00 11/02/24 01:06 1 TAB Diphenhydramine HCl 25 mg Q4HP PRN IV 11/02/24 06:00 11/03/24 06:41 25 MG Amino Acids 0 ml @ 0 mls/hr PER PHARMACY IV 11/02/24 10:00 Sodium Chloride 1,000 ml @ 100 mls/hr Q10H IV 11/03/24 12:45 11/04/24 08:45 100 MLS/HR Amino Acids/ Electrolytes/ Dextrose 2,000 ml @ 41 mls/hr DAILY@2200 IV 11/04/24 22:00 Amino Acids/ Electrolytes/ Dextrose 1,000 ml @ 41 mls/hr ONCE IV 11/03/24 22:00 11/04/24 21:59 Cancel Amino Acids 1,000 ml @ 41 mls/hr DAILY@2200 IV 11/03/24 22:00 11/04/24 21:59 11/03/24 23:03 41 MLS/HR Morphine Sulfate 3 mg Q4HPRN PRN IV 11/03/24 19:00 11/04/24 08:08 3 MG Metronidazole 100 ml @ 100 mls/hr Q8HR IV 11/04/24 14:00 UNV Ceftriaxone Sodium 50 ml @ 100 mls/hr DAILY@09 IV 11/05/24 09:00 UNV Cefazolin Sodium/ Dextrose 50 ml @ 50 mls/hr Q8HR IV 11/04/24 14:00 UNV objective GEN: NAD ABD: surgical dressings intact. clean. HITESH 20 mL serosang. laboratory and microbiology Laboratory Tests 11/04/24 06:41 Test 11/04/24 06:41 Range/Units Serum Glucose 127 H 74-106 mg/dL Assessment/Plan A: 1. s/p incisional hernia repair with extensive SRI POD #1 P: 1. cont curr tx 2. up to chair/PT Dietary Evaluation Review Comments: 1) Consider TPN/PN if NPO >7 days 2) Advance diet as medically feasible 3) Continue current plan of care Expected Outcomes/Goals: Pt will meet 75% estimated needs Fu 2-3 days Plan discussed with: Patient MICHELLE SIMMONS MD Nov 04, 2024 10:45
--- NOTE | 2024-11-04 11:24 | DVHPN2 ---
Subjective Patient reports improvement with abdominal pain. Reviewed: Care Plan, H&P, Labs, Medications, Previous Orders, Radiology Changes from previous H/P or p: No Changes General: Per HPI Objective Vitals Vital Signs Date Time Temp Pulse Resp B/P (MAP) Pulse Ox O2 Delivery O2 Flow Rate FiO2 11/04/24 09:00 98.2 97 20 130/58 (82) 96 98.2 11/03/24 20:00 Nasal Cannula* 3 32 Intake/Output Intake and Output 11/04/24 07:00 Intake Total 530 ml Output Total 1495 ml Balance -965 ml Intake Oral 440 ml IV Total 50 ml Intraperitoneal 40 ml Output Urine Total 1125 ml Stool Total 350 ml Drainage Total 20 ml General Appearance: Alert, Oriented X3, Cooperative, No acute distress HEENT: Atraumatic, PERRLA, EOMI, Mucous membr. moist/pink Neck: Supple Lungs: Clear to auscultation, Normal air movement Cardiovascular: Regular rate, Normal S1, Normal S2, No murmurs, Gallops, Rubs Abdomen: Soft, Other (No active no bowel sounds. Midline incision dry and intact. HITESH drainage of serosanguineous fluid. Stooll noted to colostomy.) Neuro: Cranial nerves 3-12 NL Skin: Dry, Intact Psych/Mental Status: Mental status NL Medications Current Medications Medications Dose Ordered Sig/[place] Route Start Time Stop Time Status Last Admin Dose Admin Acetaminophen 325 mg Q4HP PRN PO 10/23/24 15:00 11/04/24 03:59 325 MG Ondansetron HCl 4 mg Q4HP PRN IV 10/23/24 15:00 11/04/24 01:08 4 MG Fluoxetine HCl 20 mg DAILY PO 10/24/24 10:00 11/04/24 10:16 20 MG Pantoprazole Sodium 40 mg DAILY IV 10/25/24 10:15 11/04/24 10:06 40 MG Diagnostic Test (Pha) 1 strip Q6HR 10/27/24 00:00 11/04/24 05:57 1 STRIP Insulin Human Regular FOLLOW SLIDING SCALE Q6HR SC 10/27/24 00:00 11/04/24 05:59 2 UNITS Dextrose 50 ml UD IV 10/27/24 00:00 Prochlorperazine Edisylate 10 mg Q6HP PRN IV 10/29/24 14:45 11/02/24 21:49 10 MG Phenytoin Sodium 200 mg BID PO 10/30/24 22:00 11/04/24 10:00 200 MG Phenobarbital 64.8 mg BID PO 10/30/24 22:00 11/04/24 10:08 64.8 MG Sodium Chloride 10 ml QSHIFT@10,22 IV 10/31/24 22:00 11/04/24 10:06 10 ML Acetaminophen/ Hydrocodone Bitart 1 tab Q6HPRN PRN PO 11/02/24 01:00 11/02/24 01:06 1 TAB Diphenhydramine HCl 25 mg Q4HP PRN IV 11/02/24 06:00 11/03/24 06:41 25 MG Amino Acids 0 ml @ 0 mls/hr PER PHARMACY IV 11/02/24 10:00 Sodium Chloride 1,000 ml @ 100 mls/hr Q10H IV 11/03/24 12:45 11/04/24 08:45 100 MLS/HR Amino Acids/ Electrolytes/ Dextrose 2,000 ml @ 41 mls/hr DAILY@2200 IV 11/04/24 22:00 Amino Acids/ Electrolytes/ Dextrose 1,000 ml @ 41 mls/hr ONCE IV 11/03/24 22:00 11/04/24 21:59 Cancel Amino Acids 1,000 ml @ 41 mls/hr DAILY@2200 IV 11/03/24 22:00 11/04/24 21:59 11/03/24 23:03 41 MLS/HR Morphine Sulfate 3 mg Q4HPRN PRN IV 11/03/24 19:00 11/04/24 08:08 3 MG Metronidazole 100 ml @ 100 mls/hr Q8HR IV 11/04/24 14:00 UNV Ceftriaxone Sodium 50 ml @ 100 mls/hr DAILY@09 IV 11/05/24 09:00 UNV Cefazolin Sodium/ Dextrose 50 ml @ 50 mls/hr Q8HR IV 11/04/24 14:00 UNV Laboratory Results Laboratory Tests 11/04/24 06:41 Chemistry Test 11/04/24 06:41 Albumin 3.7 g/dL (3.2-4.8) Calcium Level 8.7 mg/dL (8.7-10.4) Magnesium Level 1.7 mg/dL (1.6-2.6) Phosphorus Level 2.6 mg/dL (2.4-5.1) Total Protein 6.7 g/dL (5.7-8.2) LFT Test 11/04/24 06:41 Alanine Aminotransferase (ALT) 40 U/L (7-40) Alkaline Phosphatase 194 U/L (46-116) H Aspartate Amino Transferase (AST) 31 U/L (13-40) Total Bilirubin 0.4 mg/dL (0.2-1.0) Urinalysis Test 10/29/24 12:08 Urine Color Yellow (Yellow) Urine Clarity Clear (Clear) Urine pH 6.0 (5.0-9.0) Urine Specific [place] 1.036 (1.001-1.035) Urine Protein 1+ (Negative) H Urine Ketones Negative (Negative) Urine Blood 1+ /uL (Negative) H Urine Nitrite Negative (Negative) Urine Bilirubin 1+ (Negative) H Urine Urobilinogen 8 mg/dL (Negative) H Urine Leukocyte Esterase 2+ /uL (Negative) Urine RBC 15 /hpf (0 - 4) Urine Microscopic WBC 22 /HPF (0-5) H Urine Squamous Epithelial Cells Few /hpf (<5) Urine Bacteria Few /hpf (None Seen) H Urine Mucus Few (None Seen) Urine Glucose Normal mg/dL (Normal) Microbiology Microbiology Date/Time Source Procedure Growth Status 10/29/24 12:08 Urine - Catheterized Urine Culture - Final Staphylococcus epidermidis Complete Labs and/or images reviewed: Labs reviewed by me, Image(s) reviewed by me Assessment/Plan Assessment/Plan Impression: -small-bowel obstruction secondary to incarcerated hernia -history of colostomy -obesity -hypokalemia -seizure disorder -schizophrenia -dyslipidemia Plan: Events: Patient was low-grade fever overnight. WBC increasing. -antibiotic therapy Ancef increased to 2 g q.8 hours. Will add Flagyl 500 mg IV q.8 hours. -physical therapy -continue current pain management -out of bed as tolerated -continue TPN -PUD, DVT prophylaxis -NPO status -IV hydration: Continue normal saline -repeat labs in a.m. Total time spent with patient discussing and formulating plan of care: 35 minutes. This medical document was created using an electronic medical record system with [employer] dictation system. Although this document has been carefully reviewed, there may still be some phonetic and typographical errors. These areas are purely typographical due to imperfections of the software programs, and do not reflect any compromise in the patient's medical care. Plan discussed with: Patient, Other (RN) My Orders Orders - STEVE LUTZ NP Procedure Category Date Status Time Morphine Sulfate PHA 11/03/24 In Process Injection 19:00 Communication Order ORDERS 11/04/24 Transmitted 06:48 Oob To Chair WHIT 11/04/24 In Process 06:49 Incentive Spirometry ORDERS 11/04/24 Transmitted Q 1hr 06:49 Metronidazole PHA 11/04/24 Logged 500mg/100ml (Flagyl 14:00 Ceftriaxone 1gm/50ml PHA 11/05/24 Logged D5w (Rocephin) 09:00 Basic Metabolic Panel LAB 11/05/24 Verified 04:00 Complete Blood Count LAB 11/05/24 Verified 04:00 Date of Service: Nov 04, 2024 Billing Provider: STEVE LUTZ NP Common Visit Codes: [id number] INP/OBS CARE(HIGH) STEVE LUTZ NP Nov 04, 2024 11:24
[2024-11-04] MEDS: metroNIDAZOLE 500MG/100ML 100 ML IV SCH (14:27)
[2024-11-04] MEDS: ceFAZolin 2 GM/D5W50ml 50 ML IV SCH (16:55)
[2024-11-04] MEDS: MAGNESIUM SULFATE 1GM/100ML 100 ML IV ONE (18:32)
[2024-11-04] MEDS: SODIUM PHOSPHATES 20 MEQ in SODIUM CHL 0.9% 100 ML IV ONE (22:00)
[2024-11-05] VITALS (7 sets, daily range): BP systolic 126–139; BP diastolic 57–68; PULSE 85–102; RESP 18–20; TEMP 98–99.3; O2SAT 94–98
[2024-11-05] MEDS: AMINO ACID INFUSION IN D10W 1,000 ML IV SCH (00:37)
[2024-11-05 06:49] LABS: Basophils # (auto) 0.1 10 ^3/uL (0-0.2); Basophils % (auto) 0.5 % (0.0-2.0); Eosinophils # (auto) 0.2 10 ^3/uL (0-0.8); Eosinophils % (auto) 1.2 % (0.0-7.0); Hemoglobin 11.3 g/dL (12.2-16.2); Lymphocytes # (auto) 1.7 10 ^3/uL (0.4-5.4); Lymphocytes % (auto) 9.1 % (10.0-50.0); Mean Corpuscular Hgb Conc. 33.2 g/dL (32.0-36.0); Mean Corpuscular Volume 87.4 fL (80.0-100.0); Monocytes # (auto) 1.8 10 ^3/uL (0-1.3); Monocytes % (auto) 9.7 % (0.0-12.0); Neutrophils # (auto) 14.4 10 ^3/uL (1.6-8.6); Neutrophils % (auto) 79.5 % (37.0-80.0); Platelet Count (auto) 290 10^3/uL (140-450); Red Cell Distribution Width 13.8 % (11.8-14.3); White Blood Cell 18.1 10^3/uL (4.4-10.8)
[2024-11-05 06:53] LABS: Potassium 3.9 mmol/L (3.5-5.1)
[2024-11-05 06:59] LABS: BUN/Creatinine Ratio 13.1 (10.0-20.0)
[2024-11-05 07:00] LABS: Calcium 8.2 mg/dL (8.7-10.4)
[2024-11-05 07:01] LABS: Albumin 3.1 g/dL (3.2-4.8); Phosphorus 2.9 mg/dL (2.4-5.1)
[2024-11-05] MEDS ORDERED: cefTRIAXone 1GM/50ML D5W 50 ML IV SCH (09:00)
--- NOTE | 2024-11-05 11:17 | ECG ---
[facility] Test Date: 2024-11-03 Test Time: 08:23:38 Pat Name: PEDRO ROWELL Department: Respiratoy Room: 0248 A Gender: F Cotton Opener: LORI : 1970 Requested By: CLOVER HARVEY Order Number: [id number] Reading MD: Joseph Katz Measurements Intervals [place] Rate: 79 P: 44 [place]: 118 QRS: 77 QRSD: 89 T: 43 QT: 388 QTc: 445 Interpretive Statements Sinus rhythm Ventricular premature complex Aberrant conduction of SV complex(es) Borderline short [place] interval Low voltage, precordial leads Baseline wander in lead(s) V6 Electronically Signed On 11-05-2024 19:05:31 PDT by Joseph Katz Please click the below link to view image of tracing.
[2024-11-05] MEDS: PHENYTOIN SODIUM 50 MG/ML 2ML VIAL IV SCH (11:42)
[2024-11-05] MEDS: PHENobarbital SODIUM 65 MG/ML VL IV SCH ×2 (13:11→21:36)
--- NOTE | 2024-11-05 14:25 | DVHPN2 ---
Progress Note - Dictate Date Seen: Nov 05, 2024 Has the PT tested + for MRSA If YES, has PT been informed?: No Medical Necessity Reason Pt with a Central, PICC or Fol: No Subjective E: no major events o/n. no complaints. vital signs Vital Sign Date Time Temp Pulse Resp B/P (MAP) Pulse Ox O2 Delivery O2 Flow Rate FiO2 11/05/24 13:03 98.4 95 20 128/68 (88) 96 98.4 11/05/24 07:42 Nasal Cannula* 3 32 Total Intake and Output 11/04/24 11/04/24 11/05/24 15:00 23:00 07:00 Intake Total 0 ml 355 ml Output Total 425 ml 600 ml Balance -425 ml -245 ml medications Current Medications Medications Dose Ordered Sig/[place] Route Start Time Stop Time Status Last Admin Dose Admin Acetaminophen 325 mg Q4HP PRN PO 10/23/24 15:00 11/04/24 03:59 325 MG Ondansetron HCl 4 mg Q4HP PRN IV 10/23/24 15:00 11/05/24 11:59 4 MG Fluoxetine HCl 20 mg DAILY PO 10/24/24 10:00 11/05/24 11:42 20 MG Pantoprazole Sodium 40 mg DAILY IV 10/25/24 10:15 11/05/24 13:11 40 MG Diagnostic Test (Pha) 1 strip Q6HR 10/27/24 00:00 11/05/24 12:29 1 STRIP Insulin Human Regular FOLLOW SLIDING SCALE Q6HR SC 10/27/24 00:00 11/05/24 12:27 2 UNITS Dextrose 50 ml UD IV 10/27/24 00:00 Prochlorperazine Edisylate 10 mg Q6HP PRN IV 10/29/24 14:45 11/02/24 21:49 10 MG Sodium Chloride 10 ml QSHIFT@10,22 IV 10/31/24 22:00 11/05/24 10:00 10 ML Acetaminophen/ Hydrocodone Bitart 1 tab Q6HPRN PRN PO 11/02/24 01:00 11/02/24 01:06 1 TAB Diphenhydramine HCl 25 mg Q4HP PRN IV 11/02/24 06:00 11/03/24 06:41 25 MG Amino Acids 0 ml @ 0 mls/hr PER PHARMACY IV 11/02/24 10:00 Sodium Chloride 1,000 ml @ 100 mls/hr Q10H IV 11/03/24 12:45 11/04/24 18:45 100 MLS/HR Amino Acids/ Electrolytes/ Dextrose 1,000 ml @ 41 mls/hr DAILY@2200 IV 11/04/24 22:00 11/05/24 21:59 11/05/24 00:37 41 MLS/HR Amino Acids/ Electrolytes/ Dextrose 1,000 ml @ 41 mls/hr ONCE IV 11/03/24 22:00 11/04/24 21:59 Cancel Morphine Sulfate 3 mg Q4HPRN PRN IV 11/03/24 19:00 11/05/24 11:46 3 MG Metronidazole 100 ml @ 100 mls/hr Q8HR IV 11/04/24 14:00 11/05/24 05:12 100 MLS/HR Cefazolin Sodium/ Dextrose 50 ml @ 50 mls/hr Q8HR IV 11/04/24 14:00 11/05/24 06:20 50 MLS/HR Phenytoin Sodium 200 mg Q12HR IV 11/05/24 10:00 11/05/24 11:42 200 MG Phenobarbital 65 mg BID IV 11/05/24 10:00 11/05/24 13:11 65 MG Amino Acids/ Electrolytes/ Dextrose 2,000 ml @ 41 mls/hr DAILY@2200 IV 11/05/24 22:00 objective GEN: NAD ABD: surgical dressings intact. clean. HITESH 20 mL serosang. laboratory and microbiology Laboratory Tests 11/05/24 06:18 Test 11/05/24 06:18 Range/Units Serum Glucose 125 H 74-106 mg/dL Assessment/Plan A: 1. s/p incisional hernia repair with extensive SRI POD #2 with persistent WBC but clinically stable. P: 1. cont curr tx 2. up to chair/PT Dietary Evaluation Review Comments: 1) Consider TPN/PN if NPO >7 days 2) Advance diet as medically feasible 3) Continue current plan of care Expected Outcomes/Goals: Pt will meet 75% estimated needs Fu 2-3 days Plan discussed with: Patient MICHELLE SIMMONS MD Nov 05, 2024 14:25
--- NOTE | 2024-11-05 14:28 | DVHPN2 ---
Subjective Update 11/05 10/24 surgery evaluating today, patient continues to feel nausea and vomiting decreased p.o. tolerance, abdominal pain in the epigastrium area continues. Abdominal pain it is not expanding, abdomen remains nonacute. Surgery planning for a small bowel series with Gastrografin today. We will continue to follow. 10/25 patient NG tube inserted today, minimal white clear output. Continues to have some periumbilical pain, more right-sided of umbilicus,. Continuing IV fluids, NPO, surgery following. Continuing to empty colostomy to monitor output. Most recent output was brown orange. 10/26 patient has not improved today. Continues to have periumbilical pain radiating to left flank. Continues to have good urine output. Has been NPO for 3 days now. We will start Clinimix PPN. Surgery following. NG tube inserted has more output dark brown/bilious, colostomy has minimal output minimal gas. Surgery plan to give patient more times for bowel rest and will follow up. If patient continues to be NPO on Tuesday, we will likely need PICC line and TPN started. 10/27 - 10/28 weekend coverage. no significant events 10/29 - surgery following. patient still pain with nausea. NG tube with clear- green output. colostomy empty, no output. abd is tender still, same areas. but bowel sounds are improved, maybe a bit hyperactive but also patient has been npo. continuing PPN. will wait to surgery decision. abd xray today, assess any contrast left over from prior gastrografin study. warner inserted - likely inserted in anticipation of surgery. will remove natalie. if no surgery - plan for warner removal and OOB thereafter (or PT eval even) 10/30 left arm swelling after iv infiltrates. patient declines reinsertion iv and wants picc line. will try CLD if tolerates, will not need picc and cant continue CLD and advance to FLD. defer ng tube removal to surgery for left arm will do compression wrap and warm compress, likely infiltration of iv and less liikely dvt. will reassess in am. 10/31 - doing well in am with some low levels nausea. declined iv access and wants picc only. plan to dc but in later pm patient vomit after lunch CLD. will continue admission, surgery aware, get iv access and continue PPN (TPN if picc able insert). hold off GGF series for now, defer to surgery. cont prn antiemetics, npo, ppn and ivf. Keep Warner. 11/01--discharge was canceled yesterday due to patient having nausea/vomit again status post lunch CLD. PICC line inserted on 10/31, yesterday, TPN is started. Surgery aware and plans to follow up today. NG tube to be reinserted but patient declines. We will continue TPN and NPO status until surgery evaluates again. Warner was removed. We will re-evaluate for bladder function with p.r.n. bladder scans, bedside commode if needed. 11/02 - patient is looking improved again today. She remains pain-free, abdominal tenderness is improved. Colostomy output is minimal with liquid consistency brown color. Patient had reaction to TPN via PICC line, we will now return back to Clinimix we will have PICC line. Trial of clear liquid diets. Surgery following. CT abdomen this a.m. concerning again for obstruction. Surgery plans for KUB in a.m. and if still no improvement possibly surgery next day. 11/03-11/04-patient taken to OR for Incarcerated hernia repair with mesh with extensive lysis of adhesions. NG tube reinserted. 11/05 - patient NPO. Patient feels better, denies abdominal pain other than surgical region and denies nausea vomiting. Reviewed: Care Plan, H&P, Labs, Medications, Previous Orders, Radiology Changes from previous H/P or p: No Changes General: Per HPI Objective Vitals Vital Signs Date Time Temp Pulse Resp B/P (MAP) Pulse Ox O2 Delivery O2 Flow Rate FiO2 11/05/24 13:03 98.4 95 20 128/68 (88) 96 98.4 11/05/24 07:42 Nasal Cannula* 3 32 Intake/Output Intake and Output 11/05/24 07:00 Intake Total 355 ml Output Total 1025 ml Balance -670 ml Intake Oral 0 ml IV Total 355 ml Output Urine Total 1025 ml Exam GEN: Healthy appearing, well-developed, NAD. HEENT: NC/AT; MMM. CV: RRR, no m/r/g. LUNGS: CTAB, no w/r/c. ABD: Epigastric scar, tender to palpation in epigastrium around scar area. We will be symptomatic EXT: skin Warm, well perfused. no rashes. No clubbing, cyanosis, or edema. NEURO: Ambulating with no limitations. No focal deficits. General Appearance: Alert, Oriented X3, Cooperative, No acute distress HEENT: Atraumatic, PERRLA, EOMI, Mucous membr. moist/pink Neck: Supple Lungs: Clear to auscultation, Normal air movement Cardiovascular: Regular rate, Normal S1, Normal S2, No murmurs, Gallops, Rubs Abdomen: Normal bowel sounds, Soft, Other (Tender on palpation in all four quadrants) Neuro: Cranial nerves 3-12 NL Skin: Dry, Intact Psych/Mental Status: Mental status NL Medications Current Medications Medications Dose Ordered Sig/[place] Route Start Time Stop Time Status Last Admin Dose Admin Acetaminophen 325 mg Q4HP PRN PO 10/23/24 15:00 11/04/24 03:59 325 MG Ondansetron HCl 4 mg Q4HP PRN IV 10/23/24 15:00 11/05/24 11:59 4 MG Fluoxetine HCl 20 mg DAILY PO 10/24/24 10:00 11/05/24 11:42 20 MG Pantoprazole Sodium 40 mg DAILY IV 10/25/24 10:15 11/05/24 13:11 40 MG Diagnostic Test (Pha) 1 strip Q6HR 10/27/24 00:00 11/05/24 12:29 1 STRIP Insulin Human Regular FOLLOW SLIDING SCALE Q6HR SC 10/27/24 00:00 11/05/24 12:27 2 UNITS Dextrose 50 ml UD IV 10/27/24 00:00 Prochlorperazine Edisylate 10 mg Q6HP PRN IV 10/29/24 14:45 11/02/24 21:49 10 MG Sodium Chloride 10 ml QSHIFT@10,22 IV 10/31/24 22:00 11/05/24 10:00 10 ML Acetaminophen/ Hydrocodone Bitart 1 tab Q6HPRN PRN PO 11/02/24 01:00 11/02/24 01:06 1 TAB Diphenhydramine HCl 25 mg Q4HP PRN IV 11/02/24 06:00 11/03/24 06:41 25 MG Amino Acids 0 ml @ 0 mls/hr PER PHARMACY IV 11/02/24 10:00 Sodium Chloride 1,000 ml @ 100 mls/hr Q10H IV 11/03/24 12:45 11/04/24 18:45 100 MLS/HR Amino Acids/ Electrolytes/ Dextrose 1,000 ml @ 41 mls/hr DAILY@2200 IV 11/04/24 22:00 11/05/24 21:59 11/05/24 00:37 41 MLS/HR Amino Acids/ Electrolytes/ Dextrose 1,000 ml @ 41 mls/hr ONCE IV 11/03/24 22:00 11/04/24 21:59 Cancel Morphine Sulfate 3 mg Q4HPRN PRN IV 11/03/24 19:00 11/05/24 11:46 3 MG Metronidazole 100 ml @ 100 mls/hr Q8HR IV 11/04/24 14:00 11/05/24 05:12 100 MLS/HR Cefazolin Sodium/ Dextrose 50 ml @ 50 mls/hr Q8HR IV 11/04/24 14:00 11/05/24 06:20 50 MLS/HR Phenytoin Sodium 200 mg Q12HR IV 11/05/24 10:00 11/05/24 11:42 200 MG Phenobarbital 65 mg BID IV 11/05/24 10:00 11/05/24 13:11 65 MG Amino Acids/ Electrolytes/ Dextrose 2,000 ml @ 41 mls/hr DAILY@2200 IV 11/05/24 22:00 Laboratory Results Laboratory Tests 11/05/24 06:18 Chemistry Test 11/05/24 06:18 Albumin 3.1 g/dL (3.2-4.8) L Calcium Level 8.2 mg/dL (8.7-10.4) L Magnesium Level 2.0 mg/dL (1.6-2.6) Phosphorus Level 2.9 mg/dL (2.4-5.1) Urinalysis Test 10/29/24 12:08 Urine Color Yellow (Yellow) Urine Clarity Clear (Clear) Urine pH 6.0 (5.0-9.0) Urine Specific [place] 1.036 (1.001-1.035) Urine Protein 1+ (Negative) H Urine Ketones Negative (Negative) Urine Blood 1+ /uL (Negative) H Urine Nitrite Negative (Negative) Urine Bilirubin 1+ (Negative) H Urine Urobilinogen 8 mg/dL (Negative) H Urine Leukocyte Esterase 2+ /uL (Negative) Urine RBC 15 /hpf (0 - 4) Urine Microscopic WBC 22 /HPF (0-5) H Urine Squamous Epithelial Cells Few /hpf (<5) Urine Bacteria Few /hpf (None Seen) H Urine Mucus Few (None Seen) Urine Glucose Normal mg/dL (Normal) Microbiology Microbiology Date/Time Source Procedure Growth Status 10/29/24 12:08 Urine - Catheterized Urine Culture - Final Staphylococcus epidermidis Complete Labs and/or images reviewed: Labs reviewed by me, Image(s) reviewed by me Assessment/Plan Assessment/Plan 11/05 --patient taken to OR 11/03 for Incarcerated hernia repair with mesh with extensive lysis of adhesions. NG tube reinserted. patient NPO. Patient feels better, denies abdominal pain other than surgical region and denies nausea vomiting. Incarcerated hernia repair with mesh with extensive lysis of adhesions intractable abdominal pain, SBO due to above, resolving Intractable nausea/vomit, resolving hives allergic reaction to TPN Decreased p.o. intake, resolving Intra-abdominal hernia with transition point, rule out SBO and/or partial SBO Leukocytosis Neutrophilia History of colon cancer status post colectomy and colostomy tube History of seizures History of hyperlipidemia Schizophrenia - 2 days worsening abdominal pain on pmhx of colon CA sp colectomy/colostomy bag. decreased po with nausea - CT AB noncon showing postsurgical changes with subtotal colectomy with a Matt's pouch and right lower quadrant ostomy. Ventral hernia containing intra-abdominal fat and multiple small bowel loops. There is a transition point within the hernia with dilated small bowel loops proximally with fecalized appearing contents. Dilated loop measures 3.7 cm in diameter. - small-bowel Gastrografin series shows probable obstruction in left lower quadrant involving in distal jejunum. - CT abdomen repeat 11/02 concerning again for SBO. - OR 11/03 for Incarcerated hernia repair with mesh with extensive lysis of adhesions. NG tube reinserted. - pain control p.r.n. - IV antibiotics postop (Ancef and Flagyl) - NG tube reinserted 11/03 with surgery. NG tube removed 10/30. NG tube inserted 10/25 per surgery was initially on intermittent suction on low pressure - IV fluids . picc lne 10/31 now , allergic reaction to TPN on 03/14 which is stopped and now converted to Clinimix - continue home meds . While NPO any p.o. meds able to be maintained IV we will be changed to IV formulations. - warner reinserted. prn bladder scan as needed. offer BSC. - npo - NG tube declined 11/01, NPO DVT prophylaxis-Lovenox subQ daily GI prophylaxis Protonix IV daily Med surge Full code Plan discussed with: Patient My Orders Orders - CLOVER MOFFETT MD Procedure Category Date Status Time Clinimix Per Pharmacy WHIT 11/04/24 In Process 15:08 Phenytoin Iv Dilantin PHA 11/05/24 In Process 10:00 Phenobarbital Sodium PHA 11/05/24 In Process Inj (Phenobarbital) 10:00 Magnesium LAB 11/06/24 Verified 04:00 Phosphorus LAB 11/06/24 Verified 04:00 Triglycerides LAB 11/06/24 Verified 04:00 Clinimix Per Pharmacy WHIT 11/05/24 In Process 22:00 Amino Acid Infusion PHA 11/05/24 In Process In D10w (Clinimix 4. 22:00 Complete Blood Count LAB 11/06/24 Verified 04:00 Basic Metabolic Panel LAB 11/06/24 Verified 04:00 Date of Service: Nov 05, 2024 Billing Provider: CLOVER MOFFETT MD Common Visit Codes: [id number] INP/OBS CARE(HIGH) CLOVER MOFFETT MD Nov 05, 2024 14:28
[2024-11-05] MEDS: AMINO ACID INFUSION IN D10W 2,000 ML IV SCH (21:49)
[2024-11-06] VITALS (7 sets, daily range): BP systolic 108–143; BP diastolic 57–69; PULSE 68–87; RESP 16–20; TEMP 97.9–98.7; O2SAT 95–100
[2024-11-06 06:01] LABS: Basophils # (auto) 0.1 10 ^3/uL (0-0.2); Basophils % (auto) 0.4 % (0.0-2.0); Eosinophils # (auto) 0.3 10 ^3/uL (0-0.8); Eosinophils % (auto) 2.1 % (0.0-7.0); Hematocrit 29.4 % (36.0-46.0); Hemoglobin 10.2 g/dL (12.2-16.2); Lymphocytes # (auto) 1.9 10 ^3/uL (0.4-5.4); Lymphocytes % (auto) 13.5 % (10.0-50.0); Mean Corpuscular Hgb Conc. 34.6 g/dL (32.0-36.0); Mean Corpuscular Volume 86.7 fL (80.0-100.0); Monocytes % (auto) 7.2 % (0.0-12.0); Neutrophils % (auto) 76.8 % (37.0-80.0); Platelet Count (auto) 290 10^3/uL (140-450); Red Cell Distribution Width 13.5 % (11.8-14.3); White Blood Cell 14.3 10^3/uL (4.4-10.8)
[2024-11-06 06:17] LABS: Anion Gap 9 (5-15); Carbon Dioxide 26 mmol/L (20-31); Chloride 102 mmol/L (98-107); Sodium 137 mmol/L (136-145)
[2024-11-06 06:23] LABS: Glucose 101 mg/dL (74-106)
[2024-11-06 06:24] LABS: BUN/Creatinine Ratio 11.7 (10.0-20.0); Magnesium 1.8 mg/dL (1.6-2.6); Triglycerides 108 mg/dL (< 150)
[2024-11-06 06:26] LABS: Phosphorus 2.7 mg/dL (2.4-5.1)
[2024-11-06 06:32] LABS: Blood Urea Nitrogen 7 mg/dL (9-23); Calcium 8.6 mg/dL (8.7-10.4); Potassium 3.2 mmol/L (3.5-5.1)
--- NOTE | 2024-11-06 07:07 | DVHPN2 ---
Progress Note - Dictate Date Seen: Nov 06, 2024 Has the PT tested + for MRSA If YES, has PT been informed?: No Medical Necessity Reason Pt with a Central, PICC or Fol: No Subjective E: no major events o/n. no complaints. vital signs Vital Sign Date Time Temp Pulse Resp B/P (MAP) Pulse Ox O2 Delivery O2 Flow Rate FiO2 11/06/24 05:00 98.0 80 18 122/57 (78) 97 98.0 11/05/24 20:00 Nasal Cannula* 3 32 Total Intake and Output 11/05/24 11/05/24 11/06/24 15:00 23:00 07:00 Intake Total 950 ml 150 ml Balance 950 ml 150 ml medications Current Medications Medications Dose Ordered Sig/[place] Route Start Time Stop Time Status Last Admin Dose Admin Acetaminophen 325 mg Q4HP PRN PO 10/23/24 15:00 11/04/24 03:59 325 MG Ondansetron HCl 4 mg Q4HP PRN IV 10/23/24 15:00 11/06/24 02:44 4 MG Fluoxetine HCl 20 mg DAILY PO 10/24/24 10:00 11/05/24 11:42 20 MG Pantoprazole Sodium 40 mg DAILY IV 10/25/24 10:15 11/05/24 13:11 40 MG Diagnostic Test (Pha) 1 strip Q6HR 10/27/24 00:00 11/06/24 05:49 1 STRIP Insulin Human Regular FOLLOW SLIDING SCALE Q6HR SC 10/27/24 00:00 11/05/24 12:27 2 UNITS Dextrose 50 ml UD IV 10/27/24 00:00 Prochlorperazine Edisylate 10 mg Q6HP PRN IV 10/29/24 14:45 11/02/24 21:49 10 MG Sodium Chloride 10 ml QSHIFT@10,22 IV 10/31/24 22:00 11/05/24 21:51 10 ML Acetaminophen/ Hydrocodone Bitart 1 tab Q6HPRN PRN PO 11/02/24 01:00 11/02/24 01:06 1 TAB Diphenhydramine HCl 25 mg Q4HP PRN IV 11/02/24 06:00 11/06/24 04:24 25 MG Amino Acids 0 ml @ 0 mls/hr PER PHARMACY IV 11/02/24 10:00 Sodium Chloride 1,000 ml @ 100 mls/hr Q10H IV 11/03/24 12:45 11/05/24 16:25 100 MLS/HR Amino Acids/ Electrolytes/ Dextrose 1,000 ml @ 41 mls/hr ONCE IV 11/03/24 22:00 11/04/24 21:59 Cancel Morphine Sulfate 3 mg Q4HPRN PRN IV 11/03/24 19:00 11/06/24 02:44 3 MG Metronidazole 100 ml @ 100 mls/hr Q8HR IV 11/04/24 14:00 11/06/24 05:39 100 MLS/HR Cefazolin Sodium/ Dextrose 50 ml @ 50 mls/hr Q8HR IV 11/04/24 14:00 11/06/24 05:44 50 MLS/HR Phenytoin Sodium 200 mg Q12HR IV 11/05/24 10:00 11/05/24 21:38 200 MG Amino Acids/ Electrolytes/ Dextrose 2,000 ml @ 41 mls/hr DAILY@2200 IV 11/05/24 22:00 11/05/24 21:49 41 MLS/HR Phenobarbital 65 mg BID IV 11/05/24 22:00 11/05/24 21:36 65 MG objective GEN: NAD ABD: surgical incision clean and dry. not much output from colostomy. HITESH scant. laboratory and microbiology Laboratory Tests 11/06/24 04:15 Test 11/06/24 04:15 Range/Units Serum Glucose 101 74-106 mg/dL Assessment/Plan A: 1. s/p incisional hernia repair with extensive SRI POD #3 with improving WBC 2. postop ileus P: 1. ambulate. Dietary Evaluation Review Comments: 1) Consider TPN/PN if NPO >7 days 2) Advance diet as medically feasible 3) Continue current plan of care Expected Outcomes/Goals: Pt will meet 75% estimated needs Fu 2-3 days Plan discussed with: Patient MICHELLE SIMMONS MD Nov 06, 2024 07:07
--- NOTE | 2024-11-06 13:47 | DVHPN2 ---
Subjective Update 11/06 10/24 surgery evaluating today, patient continues to feel nausea and vomiting decreased p.o. tolerance, abdominal pain in the epigastrium area continues. Abdominal pain it is not expanding, abdomen remains nonacute. Surgery planning for a small bowel series with Gastrografin today. We will continue to follow. 10/25 patient NG tube inserted today, minimal white clear output. Continues to have some periumbilical pain, more right-sided of umbilicus,. Continuing IV fluids, NPO, surgery following. Continuing to empty colostomy to monitor output. Most recent output was brown orange. 10/26 patient has not improved today. Continues to have periumbilical pain radiating to left flank. Continues to have good urine output. Has been NPO for 3 days now. We will start Clinimix PPN. Surgery following. NG tube inserted has more output dark brown/bilious, colostomy has minimal output minimal gas. Surgery plan to give patient more times for bowel rest and will follow up. If patient continues to be NPO on Tuesday, we will likely need PICC line and TPN started. 10/27 - 10/28 weekend coverage. no significant events 10/29 - surgery following. patient still pain with nausea. NG tube with clear- green output. colostomy empty, no output. abd is tender still, same areas. but bowel sounds are improved, maybe a bit hyperactive but also patient has been npo. continuing PPN. will wait to surgery decision. abd xray today, assess any contrast left over from prior gastrografin study. warner inserted - likely inserted in anticipation of surgery. will remove natalie. if no surgery - plan for warner removal and OOB thereafter (or PT eval even) 10/30 left arm swelling after iv infiltrates. patient declines reinsertion iv and wants picc line. will try CLD if tolerates, will not need picc and cant continue CLD and advance to FLD. defer ng tube removal to surgery for left arm will do compression wrap and warm compress, likely infiltration of iv and less liikely dvt. will reassess in am. 10/31 - doing well in am with some low levels nausea. declined iv access and wants picc only. plan to dc but in later pm patient vomit after lunch CLD. will continue admission, surgery aware, get iv access and continue PPN (TPN if picc able insert). hold off GGF series for now, defer to surgery. cont prn antiemetics, npo, ppn and ivf. Keep Warner. 11/01--discharge was canceled yesterday due to patient having nausea/vomit again status post lunch CLD. PICC line inserted on 10/31, yesterday, TPN is started. Surgery aware and plans to follow up today. NG tube to be reinserted but patient declines. We will continue TPN and NPO status until surgery evaluates again. Warner was removed. We will re-evaluate for bladder function with p.r.n. bladder scans, bedside commode if needed. 11/02 - patient is looking improved again today. She remains pain-free, abdominal tenderness is improved. Colostomy output is minimal with liquid consistency brown color. Patient had reaction to TPN via PICC line, we will now return back to Clinimix we will have PICC line. Trial of clear liquid diets. Surgery following. CT abdomen this a.m. concerning again for obstruction. Surgery plans for KUB in a.m. and if still no improvement possibly surgery next day. 11/03-11/04-patient taken to OR for Incarcerated hernia repair with mesh with extensive lysis of adhesions. NG tube reinserted. 11/05 - patient NPO. Patient feels better, denies abdominal pain other than surgical region and denies nausea vomiting. 11/06 - HITESH drain min output. NG tube min output. colostomy min output,but has some gas. patient still npo. no n/v. feel well otherwise. wbc improving 18 to 14. VSS. surgery following. continue abx, clinimix in picc, ivf maintenance. Reviewed: Care Plan, H&P, Labs, Medications, Previous Orders, Radiology Changes from previous H/P or p: No Changes General: Per HPI Objective Vitals Vital Signs Date Time Temp Pulse Resp B/P (MAP) Pulse Ox O2 Delivery O2 Flow Rate FiO2 11/06/24 09:42 82 18 122/58 11/06/24 09:00 98.7 95 98.7 11/05/24 20:00 Nasal Cannula* 3 32 Intake/Output Intake and Output 11/06/24 07:00 Intake Total 1100 ml Balance 1100 ml Intake Oral 800 ml IV Total 300 ml # Voids 1 Exam GEN: Healthy appearing, well-developed, NAD. HEENT: NC/AT; MMM. CV: RRR, no m/r/g. LUNGS: CTAB, no w/r/c. ABD: Epigastric scar, tender to palpation in epigastrium around scar area, surgical phuc in place. HITESH drain in place w serosang output minimal. NG tube output minimal. colostomy in place with some gas but minimal output otherwise. Abdomen TTP in areas of surgery. bowel sounds very minimal/hypoactive. EXT: skin Warm, well perfused. no rashes. No clubbing, cyanosis, or edema. NEURO: Ambulating with no limitations. No focal deficits. General Appearance: Alert, Oriented X3, Cooperative, No acute distress HEENT: Atraumatic, PERRLA, EOMI, Mucous membr. moist/pink Neck: Supple Lungs: Clear to auscultation, Normal air movement Cardiovascular: Regular rate, Normal S1, Normal S2, No murmurs, Gallops, Rubs Abdomen: Normal bowel sounds, Soft, Other (Tender on palpation in all four quadrants) Neuro: Cranial nerves 3-12 NL Skin: Dry, Intact Psych/Mental Status: Mental status NL Medications Current Medications Medications Dose Ordered Sig/[place] Route Start Time Stop Time Status Last Admin Dose Admin Acetaminophen 325 mg Q4HP PRN PO 10/23/24 15:00 11/04/24 03:59 325 MG Ondansetron HCl 4 mg Q4HP PRN IV 10/23/24 15:00 11/06/24 09:19 4 MG Fluoxetine HCl 20 mg DAILY PO 10/24/24 10:00 11/05/24 11:42 20 MG Pantoprazole Sodium 40 mg DAILY IV 10/25/24 10:15 11/06/24 09:16 40 MG Diagnostic Test (Pha) 1 strip Q6HR 10/27/24 00:00 11/06/24 12:46 1 STRIP Insulin Human Regular FOLLOW SLIDING SCALE Q6HR SC 10/27/24 00:00 11/05/24 12:27 2 UNITS Dextrose 50 ml UD IV 10/27/24 00:00 Prochlorperazine Edisylate 10 mg Q6HP PRN IV 10/29/24 14:45 11/02/24 21:49 10 MG Sodium Chloride 10 ml QSHIFT@10,22 IV 10/31/24 22:00 11/06/24 12:36 10 ML Acetaminophen/ Hydrocodone Bitart 1 tab Q6HPRN PRN PO 11/02/24 01:00 11/02/24 01:06 1 TAB Diphenhydramine HCl 25 mg Q4HP PRN IV 11/02/24 06:00 11/06/24 09:19 25 MG Amino Acids 0 ml @ 0 mls/hr PER PHARMACY IV 11/02/24 10:00 Sodium Chloride 1,000 ml @ 100 mls/hr Q10H IV 11/03/24 12:45 11/06/24 10:45 100 MLS/HR Amino Acids/ Electrolytes/ Dextrose 1,000 ml @ 41 mls/hr ONCE IV 11/03/24 22:00 11/04/24 21:59 Cancel Morphine Sulfate 3 mg Q4HPRN PRN IV 11/03/24 19:00 11/06/24 09:42 3 MG Metronidazole 100 ml @ 100 mls/hr Q8HR IV 11/04/24 14:00 11/06/24 05:39 100 MLS/HR Cefazolin Sodium/ Dextrose 50 ml @ 50 mls/hr Q8HR IV 11/04/24 14:00 11/06/24 05:44 50 MLS/HR Phenytoin Sodium 200 mg Q12HR IV 11/05/24 10:00 11/06/24 09:20 200 MG Amino Acids/ Electrolytes/ Dextrose 2,000 ml @ 41 mls/hr DAILY@2200 IV 11/05/24 22:00 11/05/24 21:49 41 MLS/HR Phenobarbital 65 mg BID IV 11/05/24 22:00 11/06/24 09:00 65 MG Laboratory Results Laboratory Tests 11/06/24 04:15 Chemistry Test 11/06/24 04:15 Calcium Level 8.6 mg/dL (8.7-10.4) L Magnesium Level 1.8 mg/dL (1.6-2.6) Phosphorus Level 2.7 mg/dL (2.4-5.1) Lipid panel Test 11/06/24 04:15 Triglycerides Level 108 mg/dL (< 150) Urinalysis Test 10/29/24 12:08 Urine Color Yellow (Yellow) Urine Clarity Clear (Clear) Urine pH 6.0 (5.0-9.0) Urine Specific [place] 1.036 (1.001-1.035) Urine Protein 1+ (Negative) H Urine Ketones Negative (Negative) Urine Blood 1+ /uL (Negative) H Urine Nitrite Negative (Negative) Urine Bilirubin 1+ (Negative) H Urine Urobilinogen 8 mg/dL (Negative) H Urine Leukocyte Esterase 2+ /uL (Negative) Urine RBC 15 /hpf (0 - 4) Urine Microscopic WBC 22 /HPF (0-5) H Urine Squamous Epithelial Cells Few /hpf (<5) Urine Bacteria Few /hpf (None Seen) H Urine Mucus Few (None Seen) Urine Glucose Normal mg/dL (Normal) Microbiology Microbiology Date/Time Source Procedure Growth Status 10/29/24 12:08 Urine - Catheterized Urine Culture - Final Staphylococcus epidermidis Complete Labs and/or images reviewed: Labs reviewed by me, Image(s) reviewed by me Assessment/Plan Assessment/Plan 11/06 - HITESH drain min output. NG tube min output. colostomy min output,but has some gas. patient still npo. no n/v. feel well otherwise. wbc improving 18 to 14. VSS. surgery following. continue abx, clinimix in picc, ivf maintenance. Incarcerated hernia repair with mesh with extensive lysis of adhesions intractable abdominal pain, SBO due to above, resolving Intractable nausea/vomit, resolving hives allergic reaction to TPN Decreased p.o. intake, resolving Intra-abdominal hernia with transition point, rule out SBO and/or partial SBO Leukocytosis Neutrophilia History of colon cancer status post colectomy and colostomy tube History of seizures History of hyperlipidemia Schizophrenia - 2 days worsening abdominal pain on pmhx of colon CA sp colectomy/colostomy bag. decreased po with nausea - CT AB noncon showing postsurgical changes with subtotal colectomy with a Matt's pouch and right lower quadrant ostomy. Ventral hernia containing intra-abdominal fat and multiple small bowel loops. There is a transition point within the hernia with dilated small bowel loops proximally with fecalized appearing contents. Dilated loop measures 3.7 cm in diameter. - small-bowel Gastrografin series shows probable obstruction in left lower quadrant involving in distal jejunum. - CT abdomen repeat 11/02 concerning again for SBO. - OR 11/03 for Incarcerated hernia repair with mesh with extensive lysis of adhesions. NG tube reinserted. - pain control p.r.n. - IV antibiotics postop (Ancef and Flagyl) - NG tube reinserted 11/03 with surgery. NG tube removed 10/30. NG tube inserted 10/25 per surgery was initially on intermittent suction on low pressure - IV fluids . picc lne 10/31 now , allergic reaction to TPN on 11/02 which is stopped and now converted to Clinimix - continue home meds . While NPO any p.o. meds able to be maintained IV we will be changed to IV formulations. - npo NPO DVT prophylaxis-Lovenox subQ daily GI prophylaxis Protonix IV daily Med surge Full code Plan discussed with: Patient My Orders Orders - CLOVER MOFFETT MD Procedure Category Date Status Time Phenobarbital Sodium PHA 11/05/24 In Process Inj (Phenobarbital) 22:00 Date of Service: Nov 06, 2024 Billing Provider: CLOVER MOFFETT MD Common Visit Codes: [id number] INP/OBS CARE(HIGH) CLOVER MOFFETT MD Nov 06, 2024 13:46
[2024-11-06] MEDS: FLUoxetine HCL 20 MG CAP NG SCH (14:46)
--- NOTE | 2024-11-06 17:10 | ECG ---
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
[2024-11-06] MEDS: POTASSIUM CHL 20MEQ/100ML 100 ML IV ONE (21:51)
[2024-11-06] MEDS: AMINO ACID INFUSION IN D5W 1,000 ML IV SCH (22:03)
[2024-11-07] VITALS (8 sets, daily range): BP systolic 112–138; BP diastolic 42–68; PULSE 79–92; RESP 17–20; TEMP 97.7–99.2; O2SAT 90–96
[2024-11-07 06:27] LABS: Basophils # (auto) 0.1 10 ^3/uL (0-0.2); Basophils % (auto) 0.6 % (0.0-2.0); Eosinophils # (auto) 0.3 10 ^3/uL (0-0.8); Eosinophils % (auto) 2.5 % (0.0-7.0); Hematocrit 28.7 % (36.0-46.0); Hemoglobin 10.1 g/dL (12.2-16.2); Lymphocytes # (auto) 1.9 10 ^3/uL (0.4-5.4); Lymphocytes % (auto) 17.4 % (10.0-50.0); Mean Corpuscular Hemoglobin 30.5 pg (28.0-32.0); Mean Corpuscular Hgb Conc. 35.2 g/dL (32.0-36.0); Mean Corpuscular Volume 86.6 fL (80.0-100.0); Monocytes # (auto) 0.8 10 ^3/uL (0-1.3); Monocytes % (auto) 7.6 % (0.0-12.0); Neutrophils # (auto) 7.9 10 ^3/uL (1.6-8.6); Neutrophils % (auto) 71.9 % (37.0-80.0); Platelet Count (auto) 352 10^3/uL (140-450); Red Blood Cells 3.31 10^6/uL (4.0-5.20); Red Cell Distribution Width 13.6 % (11.8-14.3)
[2024-11-07 06:32] LABS: Anion Gap 7 (5-15); Carbon Dioxide 27 mmol/L (20-31); Chloride 104 mmol/L (98-107); Potassium 3.3 mmol/L (3.5-5.1); Sodium 138 mmol/L (136-145)
[2024-11-07 06:38] LABS: BUN/Creatinine Ratio 13.8 (10.0-20.0); Glucose 92 mg/dL (74-106)
[2024-11-07 06:39] LABS: Magnesium 1.7 mg/dL (1.6-2.6)
[2024-11-07 06:40] LABS: Phosphorus 3.1 mg/dL (2.4-5.1)
[2024-11-07 06:48] LABS: Blood Urea Nitrogen 8 mg/dL (9-23)
[2024-11-07 11:32] LABS: Albumin 3.3 g/dL (3.2-4.8); Bilirubin, Direct 0.1 mg/dL (<0.3); Total Protein 6.3 g/dL (5.7-8.2)
[2024-11-07 11:33] LABS: Bilirubin, Total 0.2 mg/dL (0.2-1.0)
--- NOTE | 2024-11-07 11:33 | DVHPN2 ---
Subjective Date Seen: Nov 07, 2024 Post op day Post op day: 4 Patient reports: Other (nausea) HNT: Normal Cardiovascular: Normal Respiratory: Normal Gastrointestinal: Nausea Genitourinary: Normal Musculoskeletal: Normal Neurological: Normal Objective Vitals Vital Sign Date Time Temp Pulse Resp B/P (MAP) Pulse Ox O2 Delivery O2 Flow Rate FiO2 11/07/24 10:21 82 17 138/63 11/07/24 09:27 98.5 93 98.5 11/06/24 20:00 Nasal Cannula* 3 32 Total Intake and Output 11/06/24 11/06/24 11/07/24 15:00 23:00 07:00 Intake Total 320 ml 270 ml 150 ml Output Total 1000 ml Balance 320 ml -730 ml 150 ml Medications Current Medications Medications Dose Ordered Sig/[place] Route Start Time Stop Time Status Last Admin Dose Admin Acetaminophen 325 mg Q4HP PRN PO 10/23/24 15:00 11/04/24 03:59 325 MG Ondansetron HCl 4 mg Q4HP PRN IV 10/23/24 15:00 11/07/24 10:19 4 MG Pantoprazole Sodium 40 mg DAILY IV 10/25/24 10:15 11/07/24 10:18 40 MG Diagnostic Test (Pha) 1 strip Q6HR 10/27/24 00:00 11/07/24 05:06 1 STRIP Insulin Human Regular FOLLOW SLIDING SCALE Q6HR SC 10/27/24 00:00 11/05/24 12:27 2 UNITS Dextrose 50 ml UD IV 10/27/24 00:00 Prochlorperazine Edisylate 10 mg Q6HP PRN IV 10/29/24 14:45 11/06/24 16:46 10 MG Sodium Chloride 10 ml QSHIFT@10,22 IV 10/31/24 22:00 11/07/24 10:19 10 ML Acetaminophen/ Hydrocodone Bitart 1 tab Q6HPRN PRN PO 11/02/24 01:00 11/02/24 01:06 1 TAB Diphenhydramine HCl 25 mg Q4HP PRN IV 11/02/24 06:00 11/07/24 10:27 25 MG Amino Acids 0 ml @ 0 mls/hr PER PHARMACY IV 11/02/24 10:00 Sodium Chloride 1,000 ml @ 100 mls/hr Q10H IV 11/03/24 12:45 11/06/24 10:45 100 MLS/HR Amino Acids/ Electrolytes/ Dextrose 1,000 ml @ 41 mls/hr ONCE IV 11/03/24 22:00 11/04/24 21:59 Cancel Morphine Sulfate 3 mg Q4HPRN PRN IV 11/03/24 19:00 11/07/24 10:21 3 MG Metronidazole 100 ml @ 100 mls/hr Q8HR IV 11/04/24 14:00 11/07/24 04:55 100 MLS/HR Phenytoin Sodium 200 mg Q12HR IV 11/05/24 10:00 11/07/24 10:18 200 MG Phenobarbital 65 mg BID IV 11/05/24 22:00 11/07/24 10:18 65 MG Fluoxetine HCl 20 mg DAILY NG 11/06/24 14:00 11/07/24 10:20 20 MG Amino Acids 1,000 ml @ 41 mls/hr DAILY@2200 IV 11/06/24 22:00 11/06/24 22:03 41 MLS/HR Cefazolin Sodium/ Dextrose 50 ml @ 50 mls/hr Q8H IV 11/07/24 16:00 General: Normal, Normal Appearance, Obese Head/Eyes: Normal ENT: Normal Neck: Normal Lungs: Normal, Normal inspection Cardiovascular: Normal, Regular rate and rhythm Skin: Normal Neurological: Normal Labs and Microbiology Laboratory Tests 11/07/24 05:52 Test 11/07/24 05:52 Range/Units Serum Glucose 92 74-106 mg/dL Ass/Plan Labs and/or images reviewed: Labs reviewed by me, Image(s) reviewed by me Problem List Patient with history of colon cancer and partial small bowel obstruction resolving ngt clamped and can be removed at noon if asymptomatic advance to clear diet after ngt removed at noon. Recommend lab to follow up on electrolytes. consider iv nutrition We will continue to follow. Problems(with codes): (1) Incisional hernia (2) History of colorectal cancer (3) Large bowel obstruction (4) Colostomy in place Assessment/Plan 54 year old female with past medical history of color cancer, seizures, hyperlipidemia, and schizophrenia, who presented to the ER at [facility] with complaint of abdominal pain for the past two days. Patient had previous bowel resection with colostomy. She reports pain of 8/10 associated with nausea and vomiting. The abdominal pain and nausea continue today and is not improving. There is fecal contents in stoma. Abdomen is tender over the ventral incision. Plan: NPO NG to LCS Gastrografin small bowel series Discussed with DR. Coleman and agrees with plan , he will follow up with patient later today 10/25/24 patient medical history of colon cancer , complains of abdominal pain and nausea after NGT placement , patient states nausea went away feeling better patient still has abdominal pain, abdomen tender, no output in stoma bag Plan: NGT to LCS NPO Dr. Coleman was notified 11/07/2024 patient status post incisional hernia repair , complaint of nausea gas and fecal matter in stoma bag Keep NG to LCS continue IV hydration continue IV antibiotics Prognosis: Good Plan discussed with patient Visit Coding Surgery Date of Service if different f: Nov 07, 2024 Billing Provider: MICHELLE SIMMONS MD Surgery Visit Codes: [id number] INP/OBS CARE(MOD) [facility] Nov 07, 2024 11:33
--- NOTE | 2024-11-07 12:04 | DVHPN2 ---
Subjective Update 11/07 10/24 surgery evaluating today, patient continues to feel nausea and vomiting decreased p.o. tolerance, abdominal pain in the epigastrium area continues. Abdominal pain it is not expanding, abdomen remains nonacute. Surgery planning for a small bowel series with Gastrografin today. We will continue to follow. 10/25 patient NG tube inserted today, minimal white clear output. Continues to have some periumbilical pain, more right-sided of umbilicus,. Continuing IV fluids, NPO, surgery following. Continuing to empty colostomy to monitor output. Most recent output was brown orange. 10/26 patient has not improved today. Continues to have periumbilical pain radiating to left flank. Continues to have good urine output. Has been NPO for 3 days now. We will start Clinimix PPN. Surgery following. NG tube inserted has more output dark brown/bilious, colostomy has minimal output minimal gas. Surgery plan to give patient more times for bowel rest and will follow up. If patient continues to be NPO on Tuesday, we will likely need PICC line and TPN started. 10/27 - 10/28 weekend coverage. no significant events 10/29 - surgery following. patient still pain with nausea. NG tube with clear- green output. colostomy empty, no output. abd is tender still, same areas. but bowel sounds are improved, maybe a bit hyperactive but also patient has been npo. continuing PPN. will wait to surgery decision. abd xray today, assess any contrast left over from prior gastrografin study. warner inserted - likely inserted in anticipation of surgery. will remove natalie. if no surgery - plan for warner removal and OOB thereafter (or PT eval even) 10/30 left arm swelling after iv infiltrates. patient declines reinsertion iv and wants picc line. will try CLD if tolerates, will not need picc and cant continue CLD and advance to FLD. defer ng tube removal to surgery for left arm will do compression wrap and warm compress, likely infiltration of iv and less liikely dvt. will reassess in am. 10/31 - doing well in am with some low levels nausea. declined iv access and wants picc only. plan to dc but in later pm patient vomit after lunch CLD. will continue admission, surgery aware, get iv access and continue PPN (TPN if picc able insert). hold off GGF series for now, defer to surgery. cont prn antiemetics, npo, ppn and ivf. Keep Warner. 11/01--discharge was canceled yesterday due to patient having nausea/vomit again status post lunch CLD. PICC line inserted on 10/31, yesterday, TPN is started. Surgery aware and plans to follow up today. NG tube to be reinserted but patient declines. We will continue TPN and NPO status until surgery evaluates again. Warner was removed. We will re-evaluate for bladder function with p.r.n. bladder scans, bedside commode if needed. 11/02 - patient is looking improved again today. She remains pain-free, abdominal tenderness is improved. Colostomy output is minimal with liquid consistency brown color. Patient had reaction to TPN via PICC line, we will now return back to Clinimix we will have PICC line. Trial of clear liquid diets. Surgery following. CT abdomen this a.m. concerning again for obstruction. Surgery plans for KUB in a.m. and if still no improvement possibly surgery next day. 11/03-11/04-patient taken to OR for Incarcerated hernia repair with mesh with extensive lysis of adhesions. NG tube reinserted. 11/05 - patient NPO. Patient feels better, denies abdominal pain other than surgical region and denies nausea vomiting. 11/06 - HITESH drain min output. NG tube min output. colostomy min output,but has some gas. patient still npo. no n/v. feel well otherwise. wbc improving 18 to 14. VSS. surgery following. continue abx, clinimix in picc, ivf maintenance. 11/07- patient is well. she wants the NG tube out. there is some "pinching" pain around sutures (there are staple sutures). HITESH drain with 3-5cc serosang fluid. abdominal surgerical wound w/o any purulence/drainage. bowel sounds hypoactive but great output in colostomy (brown fluid) with gas. NG tube is to suction intermittent and has green output. 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 plan to trial CLD and remove NG tube if tolerating. Reviewed: Care Plan, H&P, Labs, Medications, Previous Orders, Radiology Changes from previous H/P or p: No Changes General: Per HPI Objective Vitals Vital Signs Date Time Temp Pulse Resp B/P (MAP) Pulse Ox O2 Delivery O2 Flow Rate FiO2 11/07/24 10:21 82 17 138/63 11/07/24 09:27 98.5 93 98.5 11/07/24 07:30 Nasal Cannula* 3 32 Intake/Output Intake and Output 11/07/24 07:00 Intake Total 740 ml Output Total 1000 ml Balance -260 ml Intake Oral 0 ml IV Total 740 ml Output Urine Total 1000 ml # Voids 2 Exam GEN: Healthy appearing, well-developed, NAD. HEENT: NC/AT; MMM. CV: RRR, no m/r/g. LUNGS: CTAB, no w/r/c. ABD: Epigastric scar, tender to palpation in epigastrium around scar area, surgical phuc in place. HITESH drain in place w serosang output minimal. NG tube output minimal. colostomy in place with some gas but minimal output otherwise. Abdomen TTP in areas of surgery. bowel sounds very minimal/hypoactive. EXT: skin Warm, well perfused. no rashes. No clubbing, cyanosis, or edema. NEURO: Ambulating with no limitations. No focal deficits. General Appearance: Alert, Oriented X3, Cooperative, No acute distress HEENT: Atraumatic, PERRLA, EOMI, Mucous membr. moist/pink Neck: Supple Lungs: Clear to auscultation, Normal air movement Cardiovascular: Regular rate, Normal S1, Normal S2, No murmurs, Gallops, Rubs Abdomen: Normal bowel sounds, Soft, Other (Tender on palpation in all four quadrants) Neuro: Cranial nerves 3-12 NL Skin: Dry, Intact Psych/Mental Status: Mental status NL Medications Current Medications Medications Dose Ordered Sig/Catalina Route Start Time Stop Time Status Last Admin Dose Admin Acetaminophen 325 mg Q4HP PRN PO 10/23/24 15:00 11/04/24 03:59 325 MG Ondansetron HCl 4 mg Q4HP PRN IV 10/23/24 15:00 11/07/24 10:19 4 MG Pantoprazole Sodium 40 mg DAILY IV 10/25/24 10:15 11/07/24 10:18 40 MG Diagnostic Test (Pha) 1 strip Q6HR 10/27/24 00:00 11/07/24 05:06 1 STRIP Insulin Human Regular FOLLOW SLIDING SCALE Q6HR SC 10/27/24 00:00 11/05/24 12:27 2 UNITS Dextrose 50 ml UD IV 10/27/24 00:00 Prochlorperazine Edisylate 10 mg Q6HP PRN IV 10/29/24 14:45 11/06/24 16:46 10 MG Sodium Chloride 10 ml QSHIFT@10,22 IV 10/31/24 22:00 11/07/24 10:19 10 ML Acetaminophen/ Hydrocodone Bitart 1 tab Q6HPRN PRN PO 11/02/24 01:00 11/02/24 01:06 1 TAB Diphenhydramine HCl 25 mg Q4HP PRN IV 11/02/24 06:00 11/07/24 10:27 25 MG Amino Acids 0 ml @ 0 mls/hr PER PHARMACY IV 11/02/24 10:00 Sodium Chloride 1,000 ml @ 100 mls/hr Q10H IV 11/03/24 12:45 11/06/24 10:45 100 MLS/HR Amino Acids/ Electrolytes/ Dextrose 1,000 ml @ 41 mls/hr ONCE IV 11/03/24 22:00 11/04/24 21:59 Cancel Morphine Sulfate 3 mg Q4HPRN PRN IV 11/03/24 19:00 11/07/24 10:21 3 MG Metronidazole 100 ml @ 100 mls/hr Q8HR IV 11/04/24 14:00 11/07/24 04:55 100 MLS/HR Phenytoin Sodium 200 mg Q12HR IV 11/05/24 10:00 11/07/24 10:18 200 MG Phenobarbital 65 mg BID IV 11/05/24 22:00 11/07/24 10:18 65 MG Fluoxetine HCl 20 mg DAILY NG 11/06/24 14:00 11/07/24 10:20 20 MG Amino Acids 1,000 ml @ 41 mls/hr DAILY@2200 IV 11/06/24 22:00 11/06/24 22:03 41 MLS/HR Cefazolin Sodium/ Dextrose 50 ml @ 50 mls/hr Q8H IV 11/07/24 16:00 Laboratory Results Laboratory Tests 11/07/24 05:52 Chemistry Test 11/07/24 05:52 Albumin 3.3 g/dL (3.2-4.8) Calcium Level 9.0 mg/dL (8.7-10.4) Magnesium Level 1.7 mg/dL (1.6-2.6) Phosphorus Level 3.1 mg/dL (2.4-5.1) Total Protein 6.3 g/dL (5.7-8.2) LFT Test 11/07/24 05:52 Alanine Aminotransferase (ALT) 14 U/L (7-40) Alkaline Phosphatase 166 U/L (46-116) H Aspartate Amino Transferase (AST) 18 U/L (13-40) Direct Bilirubin 0.1 mg/dL (<0.3) Total Bilirubin 0.2 mg/dL (0.2-1.0) Urinalysis Test 10/29/24 12:08 Urine Color Yellow (Yellow) Urine Clarity Clear (Clear) Urine pH 6.0 (5.0-9.0) Urine Specific [place] 1.036 (1.001-1.035) Urine Protein 1+ (Negative) H Urine Ketones Negative (Negative) Urine Blood 1+ /uL (Negative) H Urine Nitrite Negative (Negative) Urine Bilirubin 1+ (Negative) H Urine Urobilinogen 8 mg/dL (Negative) H Urine Leukocyte Esterase 2+ /uL (Negative) Urine RBC 15 /hpf (0 - 4) Urine Microscopic WBC 22 /HPF (0-5) H Urine Squamous Epithelial Cells Few /hpf (<5) Urine Bacteria Few /hpf (None Seen) H Urine Mucus Few (None Seen) Urine Glucose Normal mg/dL (Normal) Microbiology Microbiology Date/Time Source Procedure Growth Status 10/29/24 12:08 Urine - Catheterized Urine Culture - Final Staphylococcus epidermidis Complete Labs and/or images reviewed: Labs reviewed by me, Image(s) reviewed by me Assessment/Plan Assessment/Plan 11/07- patient is well. she wants the NG tube out. there is some "pinching" pain around sutures (there are staple sutures). HITESH drain with 3-5cc serosang fluid. abdominal surgerical wound w/o any purulence/drainage. bowel sounds hypoactive but great output in colostomy (brown fluid) with gas. NG tube is to suction intermittent and has green output. 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 plan to trial CLD and remove NG tube if tolerating. Incarcerated hernia repair with mesh with extensive lysis of adhesions intractable abdominal pain, SBO due to above, resolving Intractable nausea/vomit, resolving hives allergic reaction to TPN Decreased p.o. intake, resolving Intra-abdominal hernia with transition point, rule out SBO and/or partial SBO Leukocytosis Neutrophilia History of colon cancer status post colectomy and colostomy tube History of seizures History of hyperlipidemia Schizophrenia - 2 days worsening abdominal pain on pmhx of colon CA sp colectomy/colostomy bag. decreased po with nausea - CT AB noncon showing postsurgical changes with subtotal colectomy with a Matt's pouch and right lower quadrant ostomy. Ventral hernia containing intra-abdominal fat and multiple small bowel loops. There is a transition point within the hernia with dilated small bowel loops proximally with fecalized appearing contents. Dilated loop measures 3.7 cm in diameter. - small-bowel Gastrografin series shows probable obstruction in left lower quadrant involving in distal jejunum. - CT abdomen repeat 11/02 concerning again for SBO. - OR 11/03 for Incarcerated hernia repair with mesh with extensive lysis of adhesions. NG tube reinserted. - pain control p.r.n. - IV antibiotics postop (Ancef and Flagyl) - NG tube reinserted 11/03 with surgery. NG tube removed 10/30. NG tube inserted 10/25 per surgery was initially on intermittent suction on low pressure - IV fluids . picc lne 10/31 now , allergic reaction to TPN on 11/02 which is stopped and now converted to Clinimix - continue home meds . While NPO any p.o. meds able to be maintained IV we will be changed to IV formulations. - npo - plan to trial CLD and remove NG tube if tolerating. CLD DVT prophylaxis-Lovenox subQ daily GI prophylaxis Protonix IV daily Med surge Full code Plan discussed with: Patient My Orders Orders - CLOVER MOFFETT MD Procedure Category Date Status Time Fluoxetine Capsule PHA 11/06/24 In Process (Prozac Capsule) 14:00 Clinimix Per Pharmacy WHIT 11/06/24 In Process 22:00 Amino Acid Infusion PHA 11/06/24 In Process In D5w (Clinimix 4.2 22:00 Potassium Chl PHA 11/07/24 In Process 20meq/50ml (Potassium 10:45 Comprehensive LAB 11/08/24 Verified Metabolic Panel 04:00 Magnesium LAB 11/08/24 Verified 04:00 Phosphorus LAB 11/08/24 Verified 04:00 Clinimix Per Pharmacy WHIT 11/07/24 In Process 22:00 Date of Service: Nov 07, 2024 Billing Provider: CLOVER MOFFETT MD Common Visit Codes: [id number] INP/OBS CARE(HIGH) CLOVER MOFFETT MD Nov 07, 2024 12:04
[2024-11-07] MEDS: POTASSIUM CHL 20MEQ/50ML 50 ML IV ONE (12:51)
[2024-11-07] MEDS: ceFAZolin 2 GM/D5W50ml 50 ML IV SCH (16:22)
[2024-11-08 01:00] VITALS: BP 114/60; PULSE 85; RESP 20; TEMP 98.5; O2SAT 95
[2024-11-08 05:00] VITALS: BP 129/62; PULSE 79; RESP 20; TEMP 98; O2SAT 96
[2024-11-08 06:44] LABS: Alanine Aminotransferase 10 U/L (7-40); Albumin 3.3 g/dL (3.2-4.8); Anion Gap 7 (5-15); Aspartate Aminotransferase 15 U/L (13-40); BUN/Creatinine Ratio 11.8 (10.0-20.0); Calcium 8.7 mg/dL (8.7-10.4); Carbon Dioxide 27 mmol/L (20-31); Chloride 103 mmol/L (98-107); Magnesium 1.7 mg/dL (1.6-2.6); Sodium 137 mmol/L (136-145); Total Protein 6.3 g/dL (5.7-8.2)
[2024-11-08 06:45] LABS: Phosphorus 3.1 mg/dL (2.4-5.1)
[2024-11-08 06:47] LABS: Alkaline Phosphatase 155 U/L (46-116); Bilirubin, Total 0.2 mg/dL (0.2-1.0); Blood Urea Nitrogen 8 mg/dL (9-23); Glucose 123 mg/dL (74-106); Potassium 3.3 mmol/L (3.5-5.1)
[2024-11-08 07:30] VITALS: PULSE 79; RESP 20; O2SAT 96
[2024-11-08 09:00] VITALS: BP 127/54; PULSE 74; RESP 19; TEMP 98; O2SAT 98
[2024-11-08] MEDS ORDERED: HYDROcodone-ACET 10/325MG TAB PO PRN (10:30)
[2024-11-08 13:00] VITALS: BP 115/53; PULSE 82; RESP 18; TEMP 97.9; O2SAT 96
[2024-11-08] MEDS: POTASSIUM CHL 20MEQ/50ML 50 ML IV SCH (13:05)
[2024-11-08] MEDS: FLUoxetine HCL 20 MG CAP PO SCH (13:18)
--- NOTE | 2024-11-08 14:31 | DVHPN2 ---
Progress Note - Dictate Date Seen: Nov 08, 2024 Has the PT tested + for MRSA If YES, has PT been informed?: No Medical Necessity Reason Pt with a Central, PICC or Fol: No Subjective E: no major events o/n. katelyn clear liquid but c/o some epigastric pain. no N/V vital signs Vital Sign Date Time Temp Pulse Resp B/P (MAP) Pulse Ox O2 Delivery O2 Flow Rate FiO2 11/08/24 13:00 97.9 82 18 115/53 (73) 96 97.9 11/08/24 07:30 Nasal Cannula* 3 32 Total Intake and Output 11/07/24 11/07/24 11/08/24 15:00 23:00 07:00 Intake Total 450 ml 240 ml Output Total 300 ml Balance 450 ml -60 ml medications Current Medications Medications Dose Ordered Sig/Catalina Route Start Time Stop Time Status Last Admin Dose Admin Acetaminophen 325 mg Q4HP PRN PO 10/23/24 15:00 11/04/24 03:59 325 MG Ondansetron HCl 4 mg Q4HP PRN IV 10/23/24 15:00 11/08/24 12:33 4 MG Pantoprazole Sodium 40 mg DAILY IV 10/25/24 10:15 11/08/24 09:43 40 MG Diagnostic Test (Pha) 1 strip Q6HR 10/27/24 00:00 11/08/24 05:49 1 STRIP Insulin Human Regular FOLLOW SLIDING SCALE Q6HR SC 10/27/24 00:00 11/05/24 12:27 2 UNITS Dextrose 50 ml UD IV 10/27/24 00:00 Prochlorperazine Edisylate 10 mg Q6HP PRN IV 10/29/24 14:45 11/06/24 16:46 10 MG Sodium Chloride 10 ml QSHIFT@10,22 IV 10/31/24 22:00 11/08/24 12:19 10 ML Diphenhydramine HCl 25 mg Q4HP PRN IV 11/02/24 06:00 11/08/24 12:33 25 MG Amino Acids 0 ml @ 0 mls/hr PER PHARMACY IV 11/02/24 10:00 Sodium Chloride 1,000 ml @ 100 mls/hr Q10H IV 11/03/24 12:45 11/08/24 02:58 100 MLS/HR Amino Acids/ Electrolytes/ Dextrose 1,000 ml @ 41 mls/hr ONCE IV 11/03/24 22:00 11/04/24 21:59 Cancel Morphine Sulfate 3 mg Q4HPRN PRN IV 11/03/24 19:00 11/08/24 12:33 3 MG Metronidazole 100 ml @ 100 mls/hr Q8HR IV 11/04/24 14:00 11/08/24 14:17 100 MLS/HR Phenytoin Sodium 200 mg Q12HR IV 11/05/24 10:00 11/08/24 09:43 200 MG Phenobarbital 65 mg BID IV 11/05/24 22:00 11/08/24 09:33 65 MG Amino Acids 1,000 ml @ 41 mls/hr DAILY@2200 IV 11/06/24 22:00 11/08/24 21:59 11/07/24 21:02 41 MLS/HR Cefazolin Sodium/ Dextrose 50 ml @ 50 mls/hr Q8H IV 11/07/24 16:00 11/08/24 08:24 50 MLS/HR Amino Acids/ Electrolytes/ Dextrose 2,000 ml @ 41 mls/hr DAILY@2200 IV 11/08/24 22:00 Potassium Chloride 50 ml @ 25 mls/hr Q2H IV 11/08/24 12:30 11/08/24 16:29 11/08/24 14:21 25 MLS/HR Fluoxetine HCl 20 mg DAILY PO 11/08/24 13:00 11/08/24 13:18 20 MG objective GEN: NAD ABD: surgical incision clean and dry. colostomy functioning. laboratory and microbiology Laboratory Tests 11/08/24 05:50 11/07/24 05:52 Test 11/08/24 05:50 Range/Units Serum Glucose 123 H 74-106 mg/dL Assessment/Plan A: 1. s/p incisional hernia repair with extensive SRI POD #5 improving. P: 1. ok for DC tomorrow. Dietary Evaluation Review Comments: 1) Consider TPN/PN if NPO >7 days 2) Advance diet as medically feasible 3) Continue current plan of care Expected Outcomes/Goals: Pt will meet 75% estimated needs Fu 2-3 days Plan discussed with: Patient MICHELLE SIMMONS MD Nov 08, 2024 14:31
--- NOTE | 2024-11-08 16:57 | DVHPN2 ---
Subjective Update 11/08 10/24 surgery evaluating today, patient continues to feel nausea and vomiting decreased p.o. tolerance, abdominal pain in the epigastrium area continues. Abdominal pain it is not expanding, abdomen remains nonacute. Surgery planning for a small bowel series with Gastrografin today. We will continue to follow. 10/25 patient NG tube inserted today, minimal white clear output. Continues to have some periumbilical pain, more right-sided of umbilicus,. Continuing IV fluids, NPO, surgery following. Continuing to empty colostomy to monitor output. Most recent output was brown orange. 10/26 patient has not improved today. Continues to have periumbilical pain radiating to left flank. Continues to have good urine output. Has been NPO for 3 days now. We will start Clinimix PPN. Surgery following. NG tube inserted has more output dark brown/bilious, colostomy has minimal output minimal gas. Surgery plan to give patient more times for bowel rest and will follow up. If patient continues to be NPO on Tuesday, we will likely need PICC line and TPN started. 10/27 - 10/28 weekend coverage. no significant events 10/29 - surgery following. patient still pain with nausea. NG tube with clear- green output. colostomy empty, no output. abd is tender still, same areas. but bowel sounds are improved, maybe a bit hyperactive but also patient has been npo. continuing PPN. will wait to surgery decision. abd xray today, assess any contrast left over from prior gastrografin study. warner inserted - likely inserted in anticipation of surgery. will remove natalie. if no surgery - plan for warner removal and OOB thereafter (or PT eval even) 10/30 left arm swelling after iv infiltrates. patient declines reinsertion iv and wants picc line. will try CLD if tolerates, will not need picc and cant continue CLD and advance to FLD. defer ng tube removal to surgery for left arm will do compression wrap and warm compress, likely infiltration of iv and less liikely dvt. will reassess in am. 10/31 - doing well in am with some low levels nausea. declined iv access and wants picc only. plan to dc but in later pm patient vomit after lunch CLD. will continue admission, surgery aware, get iv access and continue PPN (TPN if picc able insert). hold off GGF series for now, defer to surgery. cont prn antiemetics, npo, ppn and ivf. Keep Warner. 11/01--discharge was canceled yesterday due to patient having nausea/vomit again status post lunch CLD. PICC line inserted on 10/31, yesterday, TPN is started. Surgery aware and plans to follow up today. NG tube to be reinserted but patient declines. We will continue TPN and NPO status until surgery evaluates again. Warner was removed. We will re-evaluate for bladder function with p.r.n. bladder scans, bedside commode if needed. 11/02 - patient is looking improved again today. She remains pain-free, abdominal tenderness is improved. Colostomy output is minimal with liquid consistency brown color. Patient had reaction to TPN via PICC line, we will now return back to Clinimix we will have PICC line. Trial of clear liquid diets. Surgery following. CT abdomen this a.m. concerning again for obstruction. Surgery plans for KUB in a.m. and if still no improvement possibly surgery next day. 11/03-11/04-patient taken to OR for Incarcerated hernia repair with mesh with extensive lysis of adhesions. NG tube reinserted. 11/05 - patient NPO. Patient feels better, denies abdominal pain other than surgical region and denies nausea vomiting. 11/06 - HITESH drain min output. NG tube min output. colostomy min output,but has some gas. patient still npo. no n/v. feel well otherwise. wbc improving 18 to 14. VSS. surgery following. continue abx, clinimix in picc, ivf maintenance. 11/07- patient is well. she wants the NG tube out. there is some "pinching" pain around sutures (there are staple sutures). HITESH drain with 3-5cc serosang fluid. abdominal surgerical wound w/o any purulence/drainage. bowel sounds hypoactive but great output in colostomy (brown fluid) with gas. NG tube is to suction intermittent and has green output. surgery following gregorio [employer]. plan to trial CLD and remove NG tube if tolerating. 11/08 - patient minimal tolerance. unclear if pain or nausea. surgery evals, will allow +1 day to assure po tolerance Reviewed: Care Plan, H&P, Labs, Medications, Previous Orders, Radiology Changes from previous H/P or p: No Changes General: Per HPI Objective Vitals Vital Signs Date Time Temp Pulse Resp B/P (MAP) Pulse Ox O2 Delivery O2 Flow Rate FiO2 11/08/24 13:03 80 19 122/59 11/08/24 13:00 97.9 96 97.9 11/08/24 07:30 Nasal Cannula* 3 32 Intake/Output Intake and Output 11/08/24 07:00 Intake Total 690 ml Output Total 300 ml Balance 390 ml Intake Oral 240 ml IV Total 450 ml Output Urine Total 200 ml Stool Total 100 ml # Voids 3 Exam GEN: Healthy appearing, well-developed, NAD. HEENT: NC/AT; MMM. CV: RRR, no m/r/g. LUNGS: CTAB, no w/r/c. ABD: Epigastric scar, tender to palpation in epigastrium around scar area, surgical phuc in place. HITESH drain LLQ in place w serosang output minimal. NG tube removed 11/07. colostomy in place with some gas and good output brown liquidy. no Abdomen TTP. bowel sounds very minimal/hypoactive. EXT: skin Warm, well perfused. no rashes. No clubbing, cyanosis, or edema. NEURO: Ambulating with no limitations. No focal deficits. General Appearance: Alert, Oriented X3, Cooperative, No acute distress HEENT: Atraumatic, PERRLA, EOMI, Mucous membr. moist/pink Neck: Supple Lungs: Clear to auscultation, Normal air movement Cardiovascular: Regular rate, Normal S1, Normal S2, No murmurs, Gallops, Rubs Abdomen: Normal bowel sounds, Soft, Other (Tender on palpation in all four quadrants) Neuro: Cranial nerves 3-12 NL Skin: Dry, Intact Psych/Mental Status: Mental status NL Medications Current Medications Medications Dose Ordered Sig/[place] Route Start Time Stop Time Status Last Admin Dose Admin Acetaminophen 325 mg Q4HP PRN PO 10/23/24 15:00 11/04/24 03:59 325 MG Ondansetron HCl 4 mg Q4HP PRN IV 10/23/24 15:00 11/08/24 12:33 4 MG Pantoprazole Sodium 40 mg DAILY IV 10/25/24 10:15 11/08/24 09:43 40 MG Diagnostic Test (Pha) 1 strip Q6HR 10/27/24 00:00 11/08/24 05:49 1 STRIP Insulin Human Regular FOLLOW SLIDING SCALE Q6HR SC 10/27/24 00:00 11/05/24 12:27 2 UNITS Dextrose 50 ml UD IV 10/27/24 00:00 Prochlorperazine Edisylate 10 mg Q6HP PRN IV 10/29/24 14:45 11/06/24 16:46 10 MG Sodium Chloride 10 ml QSHIFT@10,22 IV 10/31/24 22:00 11/08/24 12:19 10 ML Diphenhydramine HCl 25 mg Q4HP PRN IV 11/02/24 06:00 11/08/24 12:33 25 MG Amino Acids 0 ml @ 0 mls/hr PER PHARMACY IV 11/02/24 10:00 Sodium Chloride 1,000 ml @ 100 mls/hr Q10H IV 11/03/24 12:45 11/08/24 02:58 100 MLS/HR Amino Acids/ Electrolytes/ Dextrose 1,000 ml @ 41 mls/hr ONCE IV 11/03/24 22:00 11/04/24 21:59 Cancel Morphine Sulfate 3 mg Q4HPRN PRN IV 11/03/24 19:00 11/08/24 12:33 3 MG Metronidazole 100 ml @ 100 mls/hr Q8HR IV 11/04/24 14:00 11/08/24 14:17 100 MLS/HR Phenytoin Sodium 200 mg Q12HR IV 11/05/24 10:00 11/08/24 09:43 200 MG Phenobarbital 65 mg BID IV 11/05/24 22:00 11/08/24 09:33 65 MG Amino Acids 1,000 ml @ 41 mls/hr DAILY@2200 IV 11/06/24 22:00 11/08/24 21:59 11/07/24 21:02 41 MLS/HR Cefazolin Sodium/ Dextrose 50 ml @ 50 mls/hr Q8H IV 11/07/24 16:00 11/08/24 15:31 50 MLS/HR Amino Acids/ Electrolytes/ Dextrose 2,000 ml @ 41 mls/hr DAILY@2200 IV 11/08/24 22:00 Fluoxetine HCl 20 mg DAILY PO 11/08/24 13:00 11/08/24 13:18 20 MG Laboratory Results Laboratory Tests 11/07/24 05:52 11/08/24 05:50 Chemistry Test 11/08/24 05:50 Albumin 3.3 g/dL (3.2-4.8) Calcium Level 8.7 mg/dL (8.7-10.4) Magnesium Level 1.7 mg/dL (1.6-2.6) Phosphorus Level 3.1 mg/dL (2.4-5.1) Total Protein 6.3 g/dL (5.7-8.2) LFT Test 11/08/24 05:50 Alanine Aminotransferase (ALT) 10 U/L (7-40) Alkaline Phosphatase 155 U/L (46-116) H Aspartate Amino Transferase (AST) 15 U/L (13-40) Total Bilirubin 0.2 mg/dL (0.2-1.0) Urinalysis Test 10/29/24 12:08 Urine Color Yellow (Yellow) Urine Clarity Clear (Clear) Urine pH 6.0 (5.0-9.0) Urine Specific [place] 1.036 (1.001-1.035) Urine Protein 1+ (Negative) H Urine Ketones Negative (Negative) Urine Blood 1+ /uL (Negative) H Urine Nitrite Negative (Negative) Urine Bilirubin 1+ (Negative) H Urine Urobilinogen 8 mg/dL (Negative) H Urine Leukocyte Esterase 2+ /uL (Negative) Urine RBC 15 /hpf (0 - 4) Urine Microscopic WBC 22 /HPF (0-5) H Urine Squamous Epithelial Cells Few /hpf (<5) Urine Bacteria Few /hpf (None Seen) H Urine Mucus Few (None Seen) Urine Glucose Normal mg/dL (Normal) Microbiology Microbiology Date/Time Source Procedure Growth Status 10/29/24 12:08 Urine - Catheterized Urine Culture - Final Staphylococcus epidermidis Complete Labs and/or images reviewed: Labs reviewed by me, Image(s) reviewed by me Assessment/Plan Assessment/Plan 11/08 - patient minimal tolerance. unclear if pain or nausea. surgery evals, will allow +1 day to assure po tolerance Incarcerated hernia repair with mesh with extensive lysis of adhesions intractable abdominal pain, SBO due to above, resolving Intractable nausea/vomit, resolving hives allergic reaction to TPN Decreased p.o. intake, resolving Intra-abdominal hernia with transition point, rule out SBO and/or partial SBO Leukocytosis Neutrophilia History of colon cancer status post colectomy and colostomy tube History of seizures History of hyperlipidemia Schizophrenia - 2 days worsening abdominal pain on pmhx of colon CA sp colectomy/colostomy bag. decreased po with nausea - CT AB noncon showing postsurgical changes with subtotal colectomy with a Matt's pouch and right lower quadrant ostomy. Ventral hernia containing intra-abdominal fat and multiple small bowel loops. There is a transition point within the hernia with dilated small bowel loops proximally with fecalized appearing contents. Dilated loop measures 3.7 cm in diameter. - small-bowel Gastrografin series shows probable obstruction in left lower quadrant involving in distal jejunum. - CT abdomen repeat 11/02 concerning again for SBO. - OR 11/03 for Incarcerated hernia repair with mesh with extensive lysis of adhesions. NG tube reinserted. - pain control p.r.n. - IV antibiotics postop (Ancef and Flagyl) - NG tube reinserted 11/03 with surgery. NG tube removed 10/30. NG tube inserted 10/25 per surgery was initially on intermittent suction on low pressure - IV fluids . picc lne 10/31 now , allergic reaction to TPN on 11/02 which is stopped and now converted to Clinimix - continue home meds . While NPO any p.o. meds able to be maintained IV we will be changed to IV formulations. - npo - CLD - NG tube removed 11/07 CLD DVT prophylaxis-Lovenox subQ daily GI prophylaxis Protonix IV daily Med surge Full code Plan discussed with: Patient My Orders Orders - CLOVER MOFFETT MD Procedure Category Date Status Time Clear Liq Diet DIET 11/07/24 Transmitted Dinner * Rn Chemical Dependency CONS 11/07/24 Transmitted Consult * Rn Chemical Dependency CONS 11/08/24 Transmitted Consult Amino Acid Infusion PHA 11/08/24 In Process In D10w (Clinimix 4. 22:00 Comprehensive LAB 11/09/24 Verified Metabolic Panel 04:00 Magnesium LAB 11/09/24 Verified 04:00 Phosphorus LAB 11/09/24 Verified 04:00 Clinimix Per Pharmacy WHIT 11/08/24 In Process 22:00 Fluoxetine Capsule PHA 11/08/24 In Process (Prozac Capsule) 13:00 Date of Service: Nov 08, 2024 Billing Provider: CLOVER MOFFETT MD Common Visit Codes: [id number] INP/OBS CARE(HIGH) CLOVER MOFFETT MD Nov 08, 2024 16:57
[2024-11-08 21:00] VITALS: BP 121/52; PULSE 81; RESP 18; TEMP 97.9; O2SAT 97
[2024-11-08] MEDS: AMINO ACID INFUSION IN D10W 2,000 ML IV SCH (22:53)
[2024-11-09 01:00] VITALS: BP 129/57; PULSE 77; RESP 20; TEMP 98; O2SAT 98
[2024-11-09 05:00] VITALS: BP 141/54; PULSE 78; RESP 20; TEMP 97.9; O2SAT 98
[2024-11-09 05:51] LABS: Albumin 3.2 g/dL (3.2-4.8); Anion Gap 8 (5-15); Aspartate Aminotransferase 21 U/L (13-40); BUN/Creatinine Ratio 7.7 (10.0-20.0); Calcium 8.7 mg/dL (8.7-10.4); Carbon Dioxide 28 mmol/L (20-31); Chloride 102 mmol/L (98-107); Glucose 102 mg/dL (74-106); Magnesium 1.7 mg/dL (1.6-2.6); Sodium 138 mmol/L (136-145); Total Protein 6.2 g/dL (5.7-8.2)
[2024-11-09 05:52] LABS: Phosphorus 3.1 mg/dL (2.4-5.1)
[2024-11-09 05:53] LABS: Alanine Aminotransferase < 9 U/L (7-40); Alkaline Phosphatase 140 U/L (46-116); Bilirubin, Total 0.2 mg/dL (0.2-1.0); Blood Urea Nitrogen 5 mg/dL (9-23); Potassium 3.3 mmol/L (3.5-5.1)
[2024-11-09 09:00] VITALS: BP 132/65; PULSE 80; RESP 18; TEMP 98.1; O2SAT 98
--- NOTE | 2024-11-09 11:02 | DVHPN2 ---
Progress Note - Dictate Date Seen: Nov 09, 2024 Has the PT tested + for MRSA If YES, has PT been informed?: No Medical Necessity Reason Pt with a Central, PICC or Fol: No Subjective E: no major events o/n. feeling better. ambulating. katelyn clear liquid diet. vital signs Vital Sign Date Time Temp Pulse Resp B/P (MAP) Pulse Ox O2 Delivery O2 Flow Rate FiO2 11/09/24 09:00 98.1 80 18 132/65 (87) 98 98.1 11/08/24 20:00 Nasal Cannula* 3 32 Total Intake and Output 11/08/24 11/08/24 11/09/24 15:00 23:00 07:00 Intake Total 150 ml 290 ml 1378 ml Output Total 300 ml 140 ml Balance 150 ml -10 ml 1238 ml medications Current Medications Medications Dose Ordered Sig/[place] Route Start Time Stop Time Status Last Admin Dose Admin Acetaminophen 325 mg Q4HP PRN PO 10/23/24 15:00 11/04/24 03:59 325 MG Ondansetron HCl 4 mg Q4HP PRN IV 10/23/24 15:00 11/08/24 22:29 4 MG Pantoprazole Sodium 40 mg DAILY IV 10/25/24 10:15 11/09/24 10:07 40 MG Diagnostic Test (Pha) 1 strip Q6HR 10/27/24 00:00 11/09/24 05:55 1 STRIP Insulin Human Regular FOLLOW SLIDING SCALE Q6HR SC 10/27/24 00:00 11/05/24 12:27 2 UNITS Dextrose 50 ml UD IV 10/27/24 00:00 Prochlorperazine Edisylate 10 mg Q6HP PRN IV 10/29/24 14:45 11/09/24 06:11 10 MG Sodium Chloride 10 ml QSHIFT@10,22 IV 10/31/24 22:00 11/09/24 10:07 10 ML Diphenhydramine HCl 25 mg Q4HP PRN IV 11/02/24 06:00 11/08/24 22:44 25 MG Amino Acids 0 ml @ 0 mls/hr PER PHARMACY IV 11/02/24 10:00 Sodium Chloride 1,000 ml @ 100 mls/hr Q10H IV 11/03/24 12:45 11/09/24 10:06 100 MLS/HR Amino Acids/ Electrolytes/ Dextrose 1,000 ml @ 41 mls/hr ONCE IV 11/03/24 22:00 11/04/24 21:59 Cancel Morphine Sulfate 3 mg Q4HPRN PRN IV 11/03/24 19:00 11/08/24 22:41 3 MG Metronidazole 100 ml @ 100 mls/hr Q8HR IV 11/04/24 14:00 11/09/24 05:59 100 MLS/HR Phenytoin Sodium 200 mg Q12HR IV 11/05/24 10:00 11/09/24 10:09 200 MG Phenobarbital 65 mg BID IV 11/05/24 22:00 11/09/24 10:08 65 MG Cefazolin Sodium/ Dextrose 50 ml @ 50 mls/hr Q8H IV 11/07/24 16:00 11/09/24 10:06 50 MLS/HR Amino Acids/ Electrolytes/ Dextrose 2,000 ml @ 41 mls/hr DAILY@2200 IV 11/08/24 22:00 11/08/24 22:53 41 MLS/HR Fluoxetine HCl 20 mg DAILY PO 11/08/24 13:00 11/09/24 10:06 20 MG objective GEN: NAD ABD: surgical incision clean and dry. colostomy functioning. HITESH 40 mL serosang. laboratory and microbiology Laboratory Tests 11/09/24 05:07 11/07/24 05:52 Test 11/09/24 05:07 Range/Units Serum Glucose 102 74-106 mg/dL Assessment/Plan A: 1. s/p incisional hernia repair with extensive SRI POD #6 improving. P: 1. stable from surgery POV. 2. f/u in clinic next week for wound check. call [phone] for f/u appt. Dietary Evaluation Review Comments: 1) Consider TPN/PN if NPO >7 days 2) Advance diet as medically feasible 3) Continue current plan of care Expected Outcomes/Goals: Pt will meet 75% estimated needs Fu 2-3 days Plan discussed with: Patient MICHELLE SIMMONS MD Nov 09, 2024 11:02
[2024-11-09] MEDS ORDERED: AUG875T PO (11:53)
[2024-11-09] MEDS ORDERED: HYDR-4798 PO (11:53)
[2024-11-09] MEDS ORDERED: ZOFR4T PO (11:53)
--- NOTE | 2024-11-09 11:56 | DVHDS2 ---
Discharge Summary Date of Admission Oct 23, 2024 at 15:00 Date of Discharge: Nov 09, 2024 Labs/Diagnostic Data: Laboratory Results Test 11/09/24 05:56 11/09/24 05:07 11/07/24 05:52 11/06/24 04:15 POC Glucose 112 mg/dl (70-106) Sodium Level 138 mmol/L (136-145) Potassium Level 3.3 mmol/L (3.5-5.1) Chloride Level 102 mmol/L (98-107) Carbon Dioxide Level 28 mmol/L (20-31) Anion Gap 8 (5-15) Blood Urea Nitrogen 5 mg/dL (9-23) Creatinine 0.65 mg/dL (0.550-1.02) Glomerular Filtration Rate Calc 103 mL/min (>90) BUN/Creatinine Ratio 7.7 (10.0-20.0) Serum Glucose 102 mg/dL (74-106) Calcium Level 8.7 mg/dL (8.7-10.4) Phosphorus Level 3.1 mg/dL (2.4-5.1) Magnesium Level 1.7 mg/dL (1.6-2.6) Total Bilirubin 0.2 mg/dL (0.2-1.0) Aspartate Amino Transferase (AST) 21 U/L (13-40) Alanine Aminotransferase (ALT) < 9 U/L (7-40) Alkaline Phosphatase 140 U/L (46-116) Total Protein 6.2 g/dL (5.7-8.2) Albumin 3.2 g/dL (3.2-4.8) White Blood Count 11.0 10^3/uL (4.4-10.8) Red Blood Count 3.31 10^6/uL (4.0-5.20) Hemoglobin 10.1 g/dL (12.2-16.2) Hematocrit 28.7 % (36.0-46.0) Mean Corpuscular Volume 86.6 fL (80.0-100.0) Mean Corpuscular Hemoglobin 30.5 pg (28.0-32.0) Mean Corpuscular Hemoglobin Concent 35.2 g/dL (32.0-36.0) Red Cell Distribution Width 13.6 % (11.8-14.3) Platelet Count 352 10^3/uL (140-450) Mean Platelet Volume 8.4 fL (6.9-10.8) Neutrophils (%) (Auto) 71.9 % (37.0-80.0) Lymphocytes (%) (Auto) 17.4 % (10.0-50.0) Monocytes (%) (Auto) 7.6 % (0.0-12.0) Eosinophils (%) (Auto) 2.5 % (0.0-7.0) Basophils (%) (Auto) 0.6 % (0.0-2.0) Neutrophils # (Auto) 7.9 10 ^3/uL (1.6-8.6) Lymphocytes # (Auto) 1.9 10 ^3/uL (0.4-5.4) Monocytes # (Auto) 0.8 10 ^3/uL (0-1.3) Eosinophils # (Auto) 0.3 10 ^3/uL (0-0.8) Basophils # (Auto) 0.1 10 ^3/uL (0-0.2) Nucleated Red Blood Cells 0.0 % Direct Bilirubin 0.1 mg/dL (<0.3) Triglycerides Level 108 mg/dL (< 150) Test 11/05/24 06:18 10/30/24 06:34 10/29/24 12:08 10/23/24 11:58 Estimated GFR () 130 mL/min Estimated GFR (Non- 108 mL/min Prothrombin Time 10.3 sec (9.3-11.8) Prothrombin Time INR 0.97 (0.9-1.15) Activated Partial Thromboplast Time 29.8 SEC (24.5-34.5) Phenytoin (Dilantin) Level 9.7 ug/mL (10-20) Urine Color Yellow (Yellow) Urine Clarity Clear (Clear) Urine pH 6.0 (5.0-9.0) Urine Specific [place] 1.036 (1.001-1.035) Urine Protein 1+ (Negative) Urine Ketones Negative (Negative) Urine Blood 1+ /uL (Negative) Urine Nitrite Negative (Negative) Urine Bilirubin 1+ (Negative) Urine Urobilinogen 8 mg/dL (Negative) Urine Leukocyte Esterase 2+ /uL (Negative) Urine RBC 15 /hpf (0 - 4) Urine Microscopic WBC 22 /HPF (0-5) Urine Squamous Epithelial Cells Few /hpf (<5) Urine Bacteria Few /hpf (None Seen) Urine Mucus Few (None Seen) Urine Glucose Normal mg/dL (Normal) Lipase 32 U/L (12-53) Other Laboratory Tests 11/09/24 05:07 11/07/24 05:52 Brief Hx & Hospital Course: HPI: 54-year-old female with multiple past medical history including colon cancer, seizures, hyperlipidemia, and schizophrenia who presented to [facility] ED with complaint of abdominal pain x 2 days. Patient reports history of bowel resection with colostomy years ago. for past 2 days shes having 8/10 epigastric pain that radiates to left flank intermittently. so continues to have bilious orange output in colostomy bag. She continues to pass gas. she has poor po intake due to poor appetite and also has nausea. she denies vomit, fever, hematemesis, hematochezia more melena. No aggravating or alleviating factors. Summary: Patient presenting with 2 days worsening abdominal pain on pmhx of colon CA sp colectomy/colostomy bag. decreased po with nausea. CT AB noncon showing postsurgical changes with subtotal colectomy with a Matt's pouch and right lower quadrant ostomy. Ventral hernia containing intra-abdominal fat and multiple small bowel loops. There is a transition point within the hernia with dilated small bowel loops proximally with fecalized appearing contents. Dilated loop measures 3.7 cm in diameter. NG tube inserted a Nixon inserted. Made NPO and admitted for SBO surgery consulted. Patient remains NPO for more than 48 hours and PICC line inserted TPN started. Patient has reaction to TPN and scale back to Clinimix which is tolerated well. Gastrografin small bowel series was done which has good transition. Patient output improves, pain improves, NG tube was removed as tolerating clear liquid diet initially but when plan to discharge on 10/31, patient starts to vomit again. Surgery reconsulted on 11/[address] shows continuing obstruction. NG tube reinserted on 11/03 with surgery. Surgery 11/03 carried out which is incarcerated hernia repair with mesh with extensive lysis of adhesions. NG tube was maintained with intermittent low suction. Antibiotics were started and has white count develops and as a part of intra op/postop recovery. Antibiotics are Ancef and Flagyl. Patient continues to improve thereafter. As patient improves NG tube removed again on 11/07, clear liquid diet tolerated well. Patient is stable for discharge on 11/09 with vital signs stable tolerating p.o. having good colostomy output NG tube removed Nixon removed. Stable for discharge as per plan below. Diagnosis: SBO with Intra-abdominal hernia with transition point, resolved Incarcerated hernia repair with mesh with extensive lysis of adhesions intractable abdominal pain, SBO due to above, resolved Intractable nausea/vomit, resolved hives allergic reaction to TPN Decreased p.o. intake, resolved Leukocytosis Neutrophilia History of colon cancer status post colectomy and colostomy tube History of seizures History of hyperlipidemia Schizophrenia Discharge plan: -Take Augmentin 875mg b.i.d. for x three days -For pain take Tylenol, 2nd line ibuprofen, 3rd line [place] 10 as needed every 6 hours - zofran as needed for nausea - ambulate with a front wheel walker - use abdominal binder when ambulating -Full liquid diet for next one week - follow up with surgery to review and remove phuc end HITESH drain - follow up with the received pcp discharge , and pcp to repeat lab work for wbc resolution - continue other home medications Condition at Discharge: Stable Final Diagnosis/Problems List SBO with Intra-abdominal hernia with transition point, resolved Incarcerated hernia repair with mesh with extensive lysis of adhesions intractable abdominal pain, SBO due to above, resolved Intractable nausea/vomit, resolved hives allergic reaction to TPN Decreased p.o. intake, resolved Leukocytosis Neutrophilia History of colon cancer status post colectomy and colostomy tube History of seizures History of hyperlipidemia Schizophrenia Discharge Disposition: Home Discharge Instruct/Medications Diet: See Comment Diet comment: FLD Activity: No Restrictions, As Tolerated Follow Up/Referral: pcp, surgery Medications: below Discharge Statement: "Patient was advised to return to the ER or call 911 if any headaches, dizziness, shortness of breath, chest pain, abdominal pain, bleeding, fevers, or worsening of medical condition. Patient was counseled about treatment plan, medications, possible side effects, patientverbalized understanding. All questions were answered to the best of my ability. This discharge took greater then 30 minutes in planning, reviewing documentation, counseling the patient, and discussing with other team members." Date of Service: Nov 09, 2024 Billing Provider: CLOVER MOFFETT MD Common Visit Codes: [id number] DISCH DAY >30min CLOVER MOFFETT MD Nov 09, 2024 11:56
[2024-11-09 13:00] VITALS: BP 113/58; PULSE 86; RESP 17; TEMP 98; O2SAT 93
[2024-11-09] MEDS: LIDOCAINE HCL 5 % TOP OINT 35 GM TOP ONE (14:00)
[2024-11-09 17:00] VITALS: BP 125/69; PULSE 83; RESP 20; TEMP 98.1; O2SAT 91
[2024-11-09 17:45] VITALS: TEMP 36.7
== END 2024-11-09 18:30 | disposition home or self-care (01) | DRG 224 ==
LOC: EDBD 11:31 → ER 11:31 → OVERFLOW 15:00 → EAST 10-24 17:19
PROVIDERS: ADMIT Student in an Organized Health Care Education/Training Program; ATTEND Student in an Organized Health Care Education/Training Program
PROC: 0D9670Z Drainage of Stomach with Drainage Device, Via Natural or Artificial Opening (ICD-10-PCS; 2024-10-25)
PROC: 02HV33Z Insertion of Infusion Device into Superior Vena Cava, Percutaneous Approach (ICD-10-PCS; 2024-10-31)
PROC: B548ZZA Ultrasonography of Superior Vena Cava, Guidance (ICD-10-PCS; 2024-10-31)
PROC: 0WUF0JZ Supplement Abdominal Wall with Synthetic Substitute, Open Approach (ICD-10-PCS; 2024-11-03)
PROC: 0DN80ZZ Release Small Intestine, Open Approach (ICD-10-PCS; principal; 2024-11-03 09:58)
DX: K43.0 Incisional hernia with obstruction, without gangrene (principal); J96.01 Acute respiratory failure with hypoxia; K56.51 Intestinal adhesions [bands], with partial obstruction; R65.10 Systemic inflammatory response syndrome (SIRS) of non-infectious origin without acute organ dysfunction; Z68.42 Body mass index [BMI] 45.0-49.9, adult; C18.9 Malignant neoplasm of colon, unspecified; E66.01 Morbid (severe) obesity due to excess calories; D72.829 Elevated white blood cell count, unspecified; E78.5 Hyperlipidemia, unspecified; E87.6 Hypokalemia; K46.0 Unspecified abdominal hernia with obstruction, without gangrene; F20.9 Schizophrenia, unspecified; F32.A Depression, unspecified; Z88.0 Allergy status to penicillin; G40.909 Epilepsy, unspecified, not intractable, without status epilepticus; Z79.899 Other long term (current) drug therapy; Z79.1 Long term (current) use of non-steroidal anti-inflammatories (NSAID); Z90.49 Acquired absence of other specified parts of digestive tract; Z83.3 Family history of diabetes mellitus; Z82.49 Family history of ischemic heart disease and other diseases of the circulatory system; Z85.048 Personal history of other malignant neoplasm of rectum, rectosigmoid junction, and anus; Z82.3 Family history of stroke; T78.1XXA Other adverse food reactions, not elsewhere classified, initial encounter; L50.9 Urticaria, unspecified; J98.11 Atelectasis
CPT/HCPCS: 36415; 36569; 71045; 74018; 74021; 74176; 74250; 76937; 80048; 80053; 80069; 80076; 80185; 81001; 82962; 83690; 83735; 84100; 84478; 85025; 85610; 85730; 86850; 86900; 86901; 87086; 93005; 96374; 96375; 97110; 97116; 97163; G0378; J0690; J1100; J1815; J1885; J2003; J2250; J2405; J2470; J3480; J3490; J7131

== ENCOUNTER 2024-11-12 01:52 | Emergency (ER) | payer MEDICAID ==
[~2024-11-12 01:52] MED LIST changes: +AUG875T PO; +CICL8SOL21 TOP; +HYDR-4798 PO; +ZOFR4T PO
[2024-11-12] MEDS: SODIUM CHLORIDE 0.9% 1,000 ML IV ONE (02:00)
--- NOTE | 2024-11-12 02:52 | ED.PDOC ---
History of Present Illness HPI Comments 54 y/o F is BIBA for c/o bilateral hand blisters, today. Per EMS report, patient endorses on noticing blisters to her hands, this morning, following recent [facility] hospital admission discharge on 11/09/24. She comments suspicion of the Naproxen mediation she was prescribed and has been compliant with until today as being the cause of her current symptoms. She denies any rash, fever, chills, or other associated symptoms at this time. Chief Complaint: Allergic Reaction Time Seen by MD: 01:45 Primary Care Provider: efrain Reviewed Notes: Nurses Notes, Engineering Document Control Clerk Notes, Medications, Allergies Allergies: Coded Allergies: Penicillins (Verified Allergy, Intermediate, hives, 01/12/11) Home Meds Active Scripts Ondansetron Odt 4MG Tab (ZOFRAN PO) 4 Mg Tb, 4 MG PO TIDP PRN for 6 Days, #18 TAB 0 Refills ODT TAB-DISSOLVE IN MOUTH, THEN SWALLOW Prov:CLOVER MOFFETT MD 11/09/24 Hydrocodone-Acetaminophen (Hydrocodone Bitartrate/AC 10-325 mg) 1 Tab Tab, 1 TAB PO TIDP PRN for 6 Days, #18 TAB 0 Refills Prov:CLOVER MOFFETT MD 11/09/24 Amoxicillin & Pot Clavulanate (AUGMENTIN TABLET) 875 Mg Tb, 875 MG PO BID for 4 Days, #8 TAB 0 Refills Prov:CLOVER MOFFETT MD 11/09/24 Ibuprofen Micronized (Ibuprofen) 600 Mg Tab, 600 MG PO Q8HP PRN, #30 TAB Prov:KALIA ANGULO MD 09/12/24 Pantoprazole Sodium Sesquihydr (Protonix) 40 Mg Tab, 40 MG PO DAILY, #30 TAB Prov:KALIA ANGULO MD 09/12/24 Reported Medications Ciclopirox (Ciclopirox Nail Lacquer) 8 % Chanel, 1 APPLIC TOP DAILY, #6.6 ML 1 Refill 10/24/24 Phenobarbital (PHENOBARBITAL) 32.4 Mg Tb, 64.8 MG PO BID 06/06/15 Fluoxetine Hcl (Fluoxetine Hcl) 20 Mg Cap, 20 MG PO DAILY, CAP 06/06/15 Phenytoin Sodium (DILANTIN CAPSULE) 100 Mg Cp, 2 CAP PO BID for DAILY, CP 10/16/15 Information Source: Patient, Emergency Med Personnel Mode of Arrival: EMS Severity: Moderate Timing: Hours Duration: Since onset Prehospital treatment: 12 Lead 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, 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 Past Medical History PAST MEDICAL HISTORY: Cancer (colon cancer s/p colectomy and colostomy tube), Depression, High Lipids, Schizophrenia, Seizures Past Medical History (Other): SBO w/intra-abdominal hernia with transition point Surgical History: BTL, Cholecystectomy, Hernia Repair CALENDER TENDER History: No Pertinent CALENDER TENDER History Family History Family History: Family hx of DM, Family hx of Cancer, Family hx of heart deb, Family hx of HTN Social History Smoker: Non-Smoker, Quit Greater Than 1 Year Alcohol: Denies ETOH Use Drugs: Marijuana Lives In: Home All Other Systems: Reviewed and Negative (Comprehensive systems review obtained and negative except for what is stated in the HPI.) Physical Exam General Appearance: No Apparent Distress, Obese HEENT: Normal ENT Inspection, Pharynx Normal, TMs Normal Neck: Full Range of Motion, Non-Tender, Normal, Normal Inspection Respiratory: Chest Non-Tender, Lungs Clear, No Accessory Muscle Use, No Respiratory Distress, Normal Breath Sounds Cardiovascular: No Edema, No JVD, No Murmur, No Gallop, Normal Peripheral Pulses, Regular Rate/Rhythm Breast Exam: Deferred Gastrointestinal: No Organomegaly, Non Tender, No Pulsatile Mass, Normal Bowel Sounds, Soft Genitalia: Deferred Pelvic: Deferred Rectal: Deferred Extremities: No calf tenderness, Normal capillary refill, Normal inspection, Normal range of motion, Non-tender, No pedal edema Musculoskeletal : Apperance: Normal Neurologic: Alert, neonatal specialist II-XII nml as Tested, No Motor Deficits, Normal Affect, Normal Mood, No Sensory Deficits Cerebellar Function: Normal Reflexes: Normal Skin: Dry, Normal Color, Warm, Other (multiple blisters to bilateral hands ) Lymphatic: No Adenopathy Was a procedure done? Was a procedure done?: No Differential Dx Considerations may include: adverse medication effect, cellulitis, dermatitis, among others X-Ray, Labs, Meds, VS Lab Test 11/12/24 02:12 Range/Units White Blood Count 9.2 4.4-10.8 10^3/uL Red Blood Count 3.74 L 4.0-5.20 10^6/uL Hemoglobin 11.4 L 12.2-16.2 g/dL Hematocrit 32.8 #L 36.0-46.0 % Mean Corpuscular Volume 87.9 80.0-100.0 fL Mean Corpuscular Hemoglobin 30.5 28.0-32.0 pg Mean Corpuscular Hemoglobin Concent 34.7 32.0-36.0 g/dL Red Cell Distribution Width 13.9 11.8-14.3 % Platelet Count 457 H 140-450 10^3/uL Mean Platelet Volume 8.2 6.9-10.8 fL Neutrophils (%) (Auto) 69.9 37.0-80.0 % Lymphocytes (%) (Auto) 22.5 10.0-50.0 % Monocytes (%) (Auto) 5.0 0.0-12.0 % Eosinophils (%) (Auto) 1.8 0.0-7.0 % Basophils (%) (Auto) 0.8 0.0-2.0 % Neutrophils # (Auto) 6.4 1.6-8.6 10 ^3/uL Lymphocytes # (Auto) 2.1 0.4-5.4 10 ^3/uL Monocytes # (Auto) 0.5 0-1.3 10 ^3/uL Eosinophils # (Auto) 0.2 0-0.8 10 ^3/uL Basophils # (Auto) 0.1 0-0.2 10 ^3/uL Nucleated Red Blood Cells 0.2 % Sodium Level 140 136-145 mmol/L Potassium Level 3.7 3.5-5.1 mmol/L Chloride Level 104 98-107 mmol/L Carbon Dioxide Level 26 20-31 mmol/L Anion Gap 10 5-15 Blood Urea Nitrogen < 5 L 9-23 mg/dL Creatinine 0.62 0.550-1.02 mg/dL Glomerular Filtration Rate Calc 104 >90 mL/min BUN/Creatinine Ratio 8.1 L 10.0-20.0 Serum Glucose 74 74-106 mg/dL Calcium Level 8.7 8.7-10.4 mg/dL Time of 1ST Reevaluation: 04:22 Reevaluation 1ST: Improved Patient Education/Counseling: Diagnosis, Treatment Family Education/Counseling: No Family Present Additional Information Previous visit documents reviewed: October 23, 2024 encounter for intractable abdominal pain The following tests were ordered, and results were reviewed by me: CXR, BMP, CBC Additional Information was gathered from interviewing the following independent historians: EMS I reviewed and agreed with the following test results read by other providers: CXR I discussed treatment and results with medical personnel and: Patient Departure 1 Departure Time of Disposition: 04:20 (Patient likely having a drug reaction. We will discharge patient home with steroids and have patient follow up with her regular doctor) Impression: Primary Impression: Drug reaction Qualified Codes: T50.905A - Adverse effect of unspecified drugs, medicaments and biological substances, initial encounter Disposition: HOME / SELF CARE / HOMELESS Condition: Stable Additional Instructions: You may be allergic to ibuprofen. Your prescribed steroids please take as directed. It is important to follow up with the regular doctors this week. e-Prescriptions Prednisone (Prednisone) 20 Mg Tab 40 MG PO DAILY for 5 Days, #10 MG Prov: OSWALDO RENE MD 11/12/24 Discharged With: Self Critical Care Note Critical Care Time?: No Stability Stability form required: No Heart Score Heart Score: Heart Score Response (Comments) Value History N/A 0 EKG N/A 0 Age N/A 0 Risk Factors N/A 0 Troponin N/A 0 Total 0 I personally scribed for OSWALDO RENE MD ([email or web address]) on 11/12/24 at 02:52. Electronically submitted by Lonnie Beltran ([email or web address]). I personally scribed for OSWALDO RENE MD ([email or web address]) on 11/12/24 at 03:24. Electronically submitted by Lonnie Beltran ([email or web address]). OSWALDO RENE MD Nov 12, 2024 02:52
--- NOTE | 2024-11-12 02:59 | DVH ---
CHEST RADIOGRAPH Indication: allergic reaction Technique: Single frontal view of the chest was obtained COMPARISON: XY CHEST XRAY 1 VIEW on DOS: 11/03/24, XY CHEST PORTABLE on DOS: 10/25/24, XY CHEST XRAY 1 V IEW on DOS: 10/25/24, XY CHEST PORTABLE on DOS: 06/12/24, XY CHEST PORTABLE on DOS: 05/15/24 FINDINGS: Lines and Tubes: None Lungs: Mild diffuse prominence of the pulmonary vasculature. No evidence of focal consolidation. Pleura: No effusion. No pneumothorax. Cardiomediastinal contours: Unremarkable Bones: Unremarkable IMPRESSION: 1. No acute disease. Mild diffuse prominence of the pulmonary vasculature noted.
[2024-11-12 03:10] LABS: Basophils # (auto) 0.1 10 ^3/uL (0-0.2); Eosinophils # (auto) 0.2 10 ^3/uL (0-0.8); Eosinophils % (auto) 1.8 % (0.0-7.0)
[2024-11-12 03:11] LABS: Basophils % (auto) 0.8 % (0.0-2.0); Hematocrit 32.8 % (36.0-46.0); Hemoglobin 11.4 g/dL (12.2-16.2); Lymphocytes # (auto) 2.1 10 ^3/uL (0.4-5.4); Lymphocytes % (auto) 22.5 % (10.0-50.0); Mean Corpuscular Hemoglobin 30.5 pg (28.0-32.0); Mean Corpuscular Hgb Conc. 34.7 g/dL (32.0-36.0); Mean Corpuscular Volume 87.9 fL (80.0-100.0); Monocytes # (auto) 0.5 10 ^3/uL (0-1.3); Neutrophils # (auto) 6.4 10 ^3/uL (1.6-8.6); Neutrophils % (auto) 69.9 % (37.0-80.0); Nucleated Red Blood Cells % 0.2 %; Platelet Count (auto) 457 10^3/uL (140-450); Red Blood Cells 3.74 10^6/uL (4.0-5.20); Red Cell Distribution Width 13.9 % (11.8-14.3); White Blood Cell 9.2 10^3/uL (4.4-10.8)
[2024-11-12 03:39] LABS: Chloride 104 mmol/L (98-107); Potassium 3.7 mmol/L (3.5-5.1); Sodium 140 mmol/L (136-145)
[2024-11-12 03:40] LABS: Anion Gap 10 (5-15); Carbon Dioxide 26 mmol/L (20-31)
[2024-11-12 03:45] LABS: Glucose 74 mg/dL (74-106)
[2024-11-12 03:47] LABS: BUN/Creatinine Ratio 8.1 (10.0-20.0); Blood Urea Nitrogen < 5 mg/dL (9-23); Calcium 8.7 mg/dL (8.7-10.4)
[2024-11-12] MEDS: FAMOTIDINE (10MG/ML) 2ML VL IV ONE (04:15)
[2024-11-12] MEDS: diphenhdrAMINE HCL 50 MG/1 ML VL IV ONE (04:16)
[2024-11-12] MEDS: methylPREDNISolone SOD SUCC 125 MG/2 ML VL IV ONE (04:17)
[2024-11-12] MEDS ORDERED: PRED20TA2 PO (04:21)
[2024-11-12] MEDS: HYDROcodone-ACET 5/325MG TAB PO ONE (04:38)
[2024-11-12 05:02] VITALS: RESP 16; O2SAT 95
[2024-11-12 05:04] VITALS: BP 115/69; RESP 20; TEMP 98.3; O2SAT 96
== END 2024-11-12 05:13 | disposition home or self-care (01) ==
LOC: EDBD 01:52 → ER 01:52
DX: R21 Rash and other nonspecific skin eruption (principal); T50.905A Adverse effect of unspecified drugs, medicaments and biological substances, initial encounter; E78.5 Hyperlipidemia, unspecified; F32.A Depression, unspecified; F20.9 Schizophrenia, unspecified; Z85.038 Personal history of other malignant neoplasm of large intestine; Z98.890 Other specified postprocedural states; Z90.49 Acquired absence of other specified parts of digestive tract; Z88.0 Allergy status to penicillin; Z79.899 Other long term (current) drug therapy; Y92.89 Other specified places as the place of occurrence of the external cause
CPT/HCPCS: 36415; 71045; 80048; 85025; 96361; 96374; 96375; 99284; J1200; J2919; J3490; J7030

== ENCOUNTER 2025-01-06 07:02 | Inpatient (IN) | payer MEDICAID ==
[~2025-01-06] VITALS: Ht 154.9 cm; Wt 119.0 kg
[~2025-01-06 07:02] MED LIST changes: +PRED20TA2 PO
[2025-01-06] MEDS: OMNIPAQUE 12mg/ml 500ml ORAL SOLUTION PO ONE (07:47)
[2025-01-06 07:50] VITALS: PULSE 70; RESP 12; O2SAT 95
--- NOTE | 2025-01-06 08:15 | ED.PDOC ---
GI ASSESSMENT HPI Comments 54 year old female presents to the ED via EMS with a chief complaint of abdominal pain onset 1 day. PMHx colon cancer, depression, HLD, schizophrenia, seizures. Patient states she had hernia repair surgery on October 2024, was told she has 2 hernia, only 1 was removed due to second one being "too big." For the past day patient has noticed periumbilical pain, noticed bowel movement has been liquid, is also experiencing nausea. Denies fever, chills, vomiting, cough, congestion, cold, dysuria, hematuria. No other symptoms or modifying factors present at this time. Chief Complaint: Abdominal Pain Time Seen by MD: 07:30 Primary Care Provider: ROXY Ramires Notes: Medications, Allergies Allergies: Coded Allergies: Penicillins (Verified Allergy, Intermediate, hives, 01/12/11) Home Meds Active Scripts Prednisone (Prednisone) 20 Mg Tab, 40 MG PO DAILY for 5 Days, #10 MG Prov:OSWALDO RENE MD 11/12/24 Ondansetron Odt 4MG Tab (ZOFRAN PO) 4 Mg Tb, 4 MG PO TIDP PRN for 6 Days, #18 TAB 0 Refills ODT TAB-DISSOLVE IN MOUTH, THEN SWALLOW Prov:CLOVER MOFFETT MD 11/09/24 Ibuprofen Micronized (Ibuprofen) 600 Mg Tab, 600 MG PO Q8HP PRN, #30 TAB Prov:KALIA ANGULO MD 09/12/24 Pantoprazole Sodium Sesquihydr (Protonix) 40 Mg Tab, 40 MG PO DAILY, #30 TAB Prov:KALIA ANGULO MD 09/12/24 Reported Medications Ciclopirox (Ciclopirox Nail Lacquer) 8 % Chanel, 1 APPLIC TOP DAILY, #6.6 ML 1 Refill 10/24/24 Phenobarbital (PHENOBARBITAL) 32.4 Mg Tb, 64.8 MG PO BID 06/06/15 Fluoxetine Hcl (Fluoxetine Hcl) 20 Mg Cap, 20 MG PO DAILY, CAP 06/06/15 Phenytoin Sodium (DILANTIN CAPSULE) 100 Mg Cp, 2 CAP PO BID for DAILY, CP 06/06/15 Information Source: Patient, Emergency Med Personnel Mode of Arrival: EMS Timing: Days Duration: Since onset Prehospital treatment: None Quality: Sharp Vomitus: None Stool: Loose, Yellow Severity: Moderate Recent: None Recent Hx of: Abdominal Operations (hernia repair October 2024) Pain Location: Periumbilical Modifying Factors: Nothing Associated sign and symptoms: Abdominal Pain Past Medical History PAST MEDICAL HISTORY: Cancer, Depression, High Lipids, Schizophrenia, Seizures Surgical History: BTL, Cholecystectomy, Hernia Repair MACARONI MAKER History: No Pertinent MACARONI MAKER History Family History Family History: Family hx of DM, Family hx of Cancer, Family hx of heart deb, Family hx of HTN Social History Smoker: Non-Smoker, Quit Greater Than 1 Year Alcohol: Denies ETOH Use Drugs: Marijuana Lives In: Home Constitutional: denies: chills, diaphoresis, fatigue, fever, malaise, sweats, weakness, others EENTM: denies: blurred vision, double vision, ear bleeding, ear discharge, ear drainage, ear pain, ear ringing, eye pain, eye redness, hearing loss, mouth pain, mouth swelling, nasal discharge, nose bleeding, nose congestion, nose pain, photophobia, tearing, throat pain, throat swelling, voice changes, others Respiratory: denies: cough, hemoptysis, orthopnea, SOB at rest, shortness of breath, SOB with excertion, stridor, wheezing, others Cardiovascular: denies: chest pain, dizzy spells, diaphoresis, Dyspnea on exertion, edema, irregular heart beat, left arm pain, lightheadedness, palpitations, PND, syncope, others Gastrointestinal: reports: abdominal pain; denies: abdomen distended, blood streaked bowels, constipated, diarrhea, dysphagia, difficulty swallowing, hematemesis, melena, nausea, poor appetite, poor fluid intake, rectal bleeding, rectal pain, vomiting, others Genitourinary: denies: abnormal vagina bleeding, burning, dyspareunia, dysuria, flank pain, frequency, hematuria, incontinence, pain, , vagina discharge, urgency, others Neurological: denies: dizziness, fainting, headache, left sided numbness, left sided weakness, numbness, paresthesia, pre-existing deficit, right sided numbness, right sided weakness, seizure, speech problems, tingling, tremors, weakness, others Musculoskeletal: denies: back pain, gout, joint pain, joint swelling, muscle pain, muscle stiffness, neck pain, others Integumetry: denies: bruises, change in color, change in hair/nails, dryness, laceration, lesions, lumps, rash, wounds, others Allergic/Immunocompromised: denies: Difficulty Healing, Frequent Infections, Hives, Itching, others Hematologic/Lymphatic: denies: anemia, blood clots, easy bleeding, easy bruising, swollen glands, others Endocrine: denies: excessive hunger, excessive sweating, excessive thirst, excessive urination, flushing, intolerance to cold, intolerance to heat, unexplained weight gain, unexplained weight loss, others Psychiatric: denies: anxiety, bipolar disorder, depression, hopeless, panic disorder, schizophrenia, sleepless, suicidal, others All Other Systems: Reviewed and Negative Physical Exam General Appearance: Mild Distress, Normal HEENT: Normal ENT Inspection, Pharynx Normal, TMs Normal Neck: Full Range of Motion, Non-Tender, Normal, Normal Inspection Respiratory: Chest Non-Tender, Lungs Clear, No Accessory Muscle Use, No Respiratory Distress, Normal Breath Sounds Cardiovascular: No Edema, No JVD, No Murmur, No Gallop, Normal Peripheral Pulses, Regular Rate/Rhythm Breast Exam: Deferred Gastrointestinal: Other (colostomy mid RT quadrant with yellow/orange liquid stool. Large well-healed midline abdominal scars. Tenderness to palpation overlying scar site. Difficult to palpate hernia or reduce) Genitalia: Deferred Pelvic: Deferred Rectal: Deferred Extremities: No calf tenderness, Non-tender Musculoskeletal : Apperance: Normal Neurologic: Alert, straw hat brim cutter operator II-XII nml as Tested, Normal Affect, Normal Mood Cerebellar Function: Normal Reflexes: Normal Skin: Dry, Normal Color, Other (Diffused scaring noted midline with multiple previous abdominal surgeries ) Lymphatic: No Adenopathy Was a procedure done? Was a procedure done?: No GI differential Dx Differential Diagnosis: Hernia Other Differential Diagnosis intractable abdominal pain, small-bowel obstruction, bowel strangulation, bowel incarceration, electrolyte disturbance X-Ray, Labs, Meds, VS Vital Signs Date Time Temp Pulse Resp B/P (MAP) Pulse Ox O2 Delivery O2 Flow Rate FiO2 01/06/25 12:00 61 15 121/56 (77) 93 01/06/25 10:01 63 19 133/67 01/06/25 09:59 62 20 133/67 (89) 93 01/06/25 09:34 66 18 132/88 01/06/25 07:50 97.8 70 12 120/37 (64) 95 97.8 01/06/25 07:50 70 12 95 Room Air* 0 21 01/06/25 07:07 98.0 75 24 129/96 (107) 95 98.0 01/06/25 07:04 70 Lab Test 01/06/25 08:07 Range/Units White Blood Count 10.4 4.4-10.8 10^3/uL Red Blood Count 4.89 4.0-5.20 10^6/uL Hemoglobin 14.2 12.2-16.2 g/dL Hematocrit 41.8 36.0-46.0 % Mean Corpuscular Volume 85.4 80.0-100.0 fL Mean Corpuscular Hemoglobin 29.1 28.0-32.0 pg Mean Corpuscular Hemoglobin Concent 34.1 32.0-36.0 g/dL Red Cell Distribution Width 13.4 11.8-14.3 % Platelet Count 337 140-450 10^3/uL Mean Platelet Volume 7.5 6.9-10.8 fL Neutrophils (%) (Auto) 63.8 37.0-80.0 % Lymphocytes (%) (Auto) 29.5 10.0-50.0 % Monocytes (%) (Auto) 5.3 0.0-12.0 % Eosinophils (%) (Auto) 0.6 0.0-7.0 % Basophils (%) (Auto) 0.8 0.0-2.0 % Neutrophils # (Auto) 6.6 1.6-8.6 10 ^3/uL Lymphocytes # (Auto) 3.1 0.4-5.4 10 ^3/uL Monocytes # (Auto) 0.6 0-1.3 10 ^3/uL Eosinophils # (Auto) 0.1 0-0.8 10 ^3/uL Basophils # (Auto) 0.1 0-0.2 10 ^3/uL Nucleated Red Blood Cells 0.4 % Sodium Level 136 136-145 mmol/L Potassium Level 4.2 3.5-5.1 mmol/L Chloride Level 103 98-107 mmol/L Carbon Dioxide Level 25 20-31 mmol/L Anion Gap 8 5-15 Blood Urea Nitrogen 8 L 9-23 mg/dL Creatinine 0.76 0.550-1.02 mg/dL Glomerular Filtration Rate Calc 92 >90 mL/min BUN/Creatinine Ratio 10.5 10.0-20.0 Serum Glucose 96 74-106 mg/dL Calcium Level 9.5 8.7-10.4 mg/dL Total Bilirubin 0.2 0.2-1.0 mg/dL Aspartate Amino Transferase (AST) 17 13-40 U/L Alanine Aminotransferase (ALT) 17 7-40 U/L Alkaline Phosphatase 221 H 46-116 U/L Total Protein 7.3 5.7-8.2 g/dL Albumin 4.1 3.2-4.8 g/dL Thyroid Stimulating Hormone (TSH) 3.90 0.55-4.78 uIU/mL Hepatitis B Surface Antigen Negative Negative Hepatitis C Antibody Negative Negative Current Medications Medications (Trade) Dose Ordered Sig/Catalina Route Start Time Stop Time Status Last Admin Ondansetron HCl (Zofran) 4 mg ONCE ONCE IV 01/06/25 07:45 01/06/25 07:46 DC 01/06/25 09:34 Morphine Sulfate 4 mg ONCE ONCE IV 01/06/25 07:45 01/06/25 07:46 DC 01/06/25 09:34 [place] [address] Ph: [phone] DIAGNOSTIC IMAGING Diagnostic Imaging Report : [id number] Signed PATIENT: PEDRO ROWELL ACCT: [id number] UNIT: [id number] : 1970 LOC: ER ROOM / BED: / AGE / SEX: 54 / F ADM STATUS: REG ER SERVICE 0732 ORDERING PHYSICIAN: MEETA YOUNGER MD PROCEDURE(s): ABPLC - CT ABD PELVIS W CON-ORAL & IV REASON: ro strangulated/incarcerated hernia. sbo ORDER NUMBER(s): [id number], ACCESSION NUMBER(s): [id number] Indication: ro strangulated/incarcerated hernia. sbo Technique: CT axial images of the abdomen and pelvis are obtained with intravenous contrast. Coronal and sagittal reformats were obtained. Radiation Dose Information: CTDI volume is 26.43 mGy. Dose-length product is 1413.87 mGy*cm Comparison: 11/02/2024 FINDINGS: The lung bases demonstrate atelectasis. Adrenal glands, spleen, pancreas unremarkable. Cholecystectomy. No enhancing hepatic lesion. Kidneys demonstrate no hydronephrosis. Stomach is relatively nondistended. Small bowel loops are moderately distended. Hemicolectomy. Right lowerm quadrant ostomy. Parastomal hernia which contains bowel measuring 9.8 x 4.9 cm. No evidence for obstruction. Contrast extends to the ostomy bag. Abdominal aortic atherosclerotic disease. Bladder distended. No free pelvic fluid. No inguinal lymphadenopathy. [id number] thoracolumbar degenerative disc disease. Chronic T11, T12 and L1 compression deformities. Postsurgical changes of the midline abdomen. IMPRESSION: 1. Right parastomal hernia containing bowel measuring 9.8 x 4.9 cm. Contrast ext ends to the stomal bag. Recommend surgical consultation for further management. 2. Hemicolectomy. 3. Of the findings as described. ATED BY: ELADIA GIORDANO MD DICTATED DATE/TIME: 01/06/251054 SIGNED BY: ELADIA GIORDANO MD SIGNED DATE/TIME: 01/06/251054 54-year-old female presents here with abdominal pain. She feels it is her hernia. She states she is having pain over her hernia site. On my examination she has a colostomy in place with yellow orange stool. She states normally it is more formed for the last couple days it has now been liquidy. She has had multiple hernia surgeries and repairs. She has multiple midline lacerations that are well healed from previous surgery sites. She points to the area just lateral to the surgical site and she is tender overlying it. However I am unable to palpate a hernia or attempted reduction. At this time CT abdomen pelvis has been ordered which does demonstrate a right parastomal hernia containing bowel measuring 9.8 x 4.9 cm . Recommends surgical consultation. At this time hospitalist team has been contacted for further evaluation and care. Blood work has been done including a CBC and CMP which are largely unremarkable. Time of 1ST Reevaluation: 08:00 Reevaluation 1ST: Unchanged Patient Education/Counseling: Diagnosis, Treatment, Prognosis, Need For Follow Up Family Education/Counseling: No Family Present Additional Information [address] [address] Ph: [phone] DIAGNOSTIC IMAGING Diagnostic Imaging Report : [id number] Signed PATIENT: PEDRO ROWELL ACCT: [id number] UNIT: [id number] : 1970 LOC: ER ROOM / BED: / AGE / SEX: 54 / F ADM STATUS: REG ER SERVICE 0732 ORDERING PHYSICIAN: MEETA YOUNGER MD PROCEDURE(s): ABPLC - CT ABD PELVIS W CON-ORAL & IV REASON: ro strangulated/incarcerated hernia. sbo ORDER NUMBER(s): [id number], ACCESSION NUMBER(s): [id number] Indication: ro strangulated/incarcerated hernia. sbo Technique: CT axial images of the abdomen and pelvis are obtained with intravenous contrast. Coronal and sagittal reformats were obtained. Radiation Dose Information: CTDI volume is 26.43 mGy. Dose-length product is 1413.87 mGy*cm Comparison: 11/02/2024 FINDINGS: The lung bases demonstrate atelectasis. Adrenal glands, spleen, pancreas unremarkable. Cholecystectomy. No enhancing hepatic lesion. Kidneys demonstrate no hydronephrosis. Stomach is relatively nondistended. Small bowel loops are moderately distended. Hemicolectomy. Right lowerm quadrant ostomy. Parastomal hernia which contains bowel measuring 9.8 x 4.9 cm. No evidence for obstruction. Contrast extends to the ostomy bag. Abdominal aortic atherosclerotic disease. Bladder distended. No free pelvic fluid. No inguinal lymphadenopathy. [id number] thoracolumbar degenerative disc disease. Chronic T11, T12 and L1 compression deformities. Postsurgical changes of the midline abdomen. IMPRESSION: 1. Right parastomal hernia containing bowel measuring 9.8 x 4.9 cm. Contrast extends to the stomal bag. Recommend surgical consultation for further management. 2. Hemicolectomy. 3. Of the findings as described. ATED BY: ELADIA GIORDANO MD DICTATED DATE/TIME: 01/06/251054 SIGNED BY: ELADIA GIORDANO MD SIGNED DATE/TIME: 01/06/251054 CC: Departure 1 Departure Time of Disposition: 11:20 Impression: Primary Impression: Parastomal hernia Qualified Codes: K43.3 - Parastomal hernia with obstruction, without gangrene Disposition: ADMITTED INPATIENT Condition: Fair Critical Care Note Critical Care Time?: No Stability Stability form required: No Heart Score Heart Score: Heart Score Response (Comments) Value History N/A 0 EKG N/A 0 Age N/A 0 Risk Factors N/A 0 Troponin N/A 0 Total 0 I personally scribed for MEETA YOUNGER MD ([email or web address]) on 01/06/25 at 08:15. Electronically submitted by Kate Fermin ([email or web address]). I personally scribed for MEETA YOUNGER MD ([email or web address]) on 01/06/25 at 11:07. Electronically submitted by Kate Fermin ([email or web address]). I personally scribed for MEETA YOUNGER MD ([email or web address]) on 01/06/25 at 11:16. Electronically submitted by Kate Fermin ([email or web address]). MEETA YOUNGER MD January 06, 2025 08:15
[2025-01-06 08:24] LABS: Basophils # (auto) 0.1 10 ^3/uL (0-0.2); Basophils % (auto) 0.8 % (0.0-2.0); Eosinophils # (auto) 0.1 10 ^3/uL (0-0.8); Eosinophils % (auto) 0.6 % (0.0-7.0); Hematocrit 41.8 % (36.0-46.0); Hemoglobin 14.2 g/dL (12.2-16.2); Lymphocytes # (auto) 3.1 10 ^3/uL (0.4-5.4); Lymphocytes % (auto) 29.5 % (10.0-50.0); Mean Corpuscular Hemoglobin 29.1 pg (28.0-32.0); Mean Corpuscular Hgb Conc. 34.1 g/dL (32.0-36.0); Mean Corpuscular Volume 85.4 fL (80.0-100.0); Monocytes # (auto) 0.6 10 ^3/uL (0-1.3); Monocytes % (auto) 5.3 % (0.0-12.0); Neutrophils # (auto) 6.6 10 ^3/uL (1.6-8.6); Neutrophils % (auto) 63.8 % (37.0-80.0); Nucleated Red Blood Cells % 0.4 %; Platelet Count (auto) 337 10^3/uL (140-450); Red Blood Cells 4.89 10^6/uL (4.0-5.20); Red Cell Distribution Width 13.4 % (11.8-14.3); White Blood Cell 10.4 10^3/uL (4.4-10.8)
[2025-01-06 08:33] LABS: Alanine Aminotransferase 17 U/L (7-40); Albumin 4.1 g/dL (3.2-4.8); Anion Gap 8 (5-15); Aspartate Aminotransferase 17 U/L (13-40); BUN/Creatinine Ratio 10.5 (10.0-20.0); Calcium 9.5 mg/dL (8.7-10.4); Carbon Dioxide 25 mmol/L (20-31); Chloride 103 mmol/L (98-107); Glucose 96 mg/dL (74-106); Potassium 4.2 mmol/L (3.5-5.1); Total Protein 7.3 g/dL (5.7-8.2)
[2025-01-06 08:38] LABS: Alkaline Phosphatase 221 U/L (46-116); Bilirubin, Total 0.2 mg/dL (0.2-1.0); Blood Urea Nitrogen 8 mg/dL (9-23); Sodium 136 mmol/L (136-145)
[2025-01-06] MEDS: ONDANSETRON HCL 4 MG/2 ML VIAL IV ONE (09:34)
[2025-01-06] MEDS: MORPHINE SULFATE 4 MG/ML SYR/VIAL IV ONE (09:34)
[2025-01-06] MEDS: IOHEXOL 300 MG/ML 100ML BOTTLE IJ ONE (10:17)
--- NOTE | 2025-01-06 10:58 | DVH ---
Indication: ro strangulated/incarcerated hernia. sbo Technique: CT axial images of the abdomen and pelvis are obtained with intravenous contrast. Coronal and sagittal reformats were obtained. Radiation Dose Information: CTDI volume is 26.43 mGy. Dose-length product is 1413.87 mGy*cm Comparison: 11/02/2024 FINDINGS: The lung bases demonstrate atelectasis. Adrenal glands, spleen, pancreas unremarkable. Cholecystectomy. No enhancing hepatic lesion. Kidneys demonstrate no hydronephrosis. Stomach is relatively nondistended. Small bowel loops are moderately distended. Hemicolectomy. Right lowerm quadrant ostomy. Parastomal hernia which contains bowel measuring 9.8 x 4.9 cm. No evidence for obstruction. Contrast extends to the ostomy bag. Abdominal aortic atherosclerotic disease. Bladder distended. No free pelvic fluid. No inguinal lymph adenopathy. [id number] thoracolumbar degenerative disc disease. Chronic T11, T12 and L1 compression deformi ties. Postsurgical changes of the midline abdomen. IMPRESSION: 1. Right parastomal hernia containing bowel measuring 9.8 x 4.9 cm. Contrast extends to the stomal ba g. Recommend surgical consultation for further management. 2. Hemicolectomy. 3. Of the findings as described.
--- NOTE | 2025-01-06 13:09 | DVHHP2 ---
History of Present Illness Reason for Visit: Abdominal pain History of Present Illness The patient is a 54-year-old female presenting to the emergency room with complaints of abdominal pain. Upon arrival to the hospital the patient reports that his majority of her pain was noted around her stoma area as well as her left lower quadrant. Patient denies having any nausea or vomiting or decreased stool from her colostomy. She also denies having any fevers, chills, change in stool output. Significant history of the patient includes colon cancer, depression, schizophrenia, and dyslipidemia. Cardiovascular: hyperipidemia CLERICAL ASSISTANT: Seizure GI: Other (Colon cancer) Psych: Depression, Schizophrenia Endocrine: Hypothyroidism Past Surgical History: Hernia Repair, Other (Colostomy. Multiple repairs of hernia, small-bowel obstruction with lysis of adhesions) Smoke: No ALCOHOL: none Drugs: None Review of Systems Constitutional: No: Fever, Chills, Sweats, Weakness, Malaise, Other Eyes: No: Pain, Vision change, Conjunctivae inflammation, Eyelid inflammation, Other, Redness ENT: No: Ear pain, Ear discharge, Nose pain, Nose discharge, Nose congestion, Mouth pain, Mouth swelling, Throat pain, Throat swelling, Other Respiratory: No: Cough, Dry, Shortness of breath, SOB with excertion, Wheezing, Hemoptysis, Pleuritic Pain, Sputum, Wheezing, Other Cardiovascular: No: Chest Pain, Palpitations, Orthopnea, Paroxysmal Noc. Dyspnea, Edema, Lt Headedness, Other Gastrointestinal: Abdominal Pain Genitourinary: No Dysuria, No Frequency, No Incontinence, No Hematuria, No Retention, No Other Musculoskeletal: No: other, neck pain, shoulder pain, arm pain, back pain, hand pain, leg pain, foot pain Skin: No: Rash, Lesions, Jaundice, Bruising, Other Neurological: No: Weakness, Numbness, Incoordination, Change in speech, Confusion, Seizures, Other Allergies: Coded Allergies: Penicillins (Verified Allergy, Intermediate, hives, 01/12/11) Exam Vital Signs Vital Signs Date Time Temp Pulse Resp B/P (MAP) Pulse Ox O2 Delivery O2 Flow Rate FiO2 01/06/25 10:01 63 19 133/67 01/06/25 09:59 93 01/06/25 07:50 97.8 97.8 01/06/25 07:50 Room Air* 0 21 General Appearance: Alert, Oriented X3, Cooperative, mild distress HEENT: Atraumatic, PERRLA Respiratory: Clear to auscultation, Normal air movement Cardiovascular: Normal S1, Normal S2 Abdominal: Other (Tenderness around stoma and periumbilical area) Neuro: Normal speech, Sensation intact, Cranial nerves 3-12 NL Psych/Mental Status: Mental status NL, Mood NL Labs/Xrays Labs Test 01/06/25 08:07 Range/Units White Blood Count 10.4 4.4-10.8 10^3/uL Red Blood Count 4.89 4.0-5.20 10^6/uL Hemoglobin 14.2 12.2-16.2 g/dL Hematocrit 41.8 36.0-46.0 % Mean Corpuscular Volume 85.4 80.0-100.0 fL Mean Corpuscular Hemoglobin 29.1 28.0-32.0 pg Mean Corpuscular Hemoglobin Concent 34.1 32.0-36.0 g/dL Red Cell Distribution Width 13.4 11.8-14.3 % Platelet Count 337 140-450 10^3/uL Mean Platelet Volume 7.5 6.9-10.8 fL Neutrophils (%) (Auto) 63.8 37.0-80.0 % Lymphocytes (%) (Auto) 29.5 10.0-50.0 % Monocytes (%) (Auto) 5.3 0.0-12.0 % Eosinophils (%) (Auto) 0.6 0.0-7.0 % Basophils (%) (Auto) 0.8 0.0-2.0 % Neutrophils # (Auto) 6.6 1.6-8.6 10 ^3/uL Lymphocytes # (Auto) 3.1 0.4-5.4 10 ^3/uL Monocytes # (Auto) 0.6 0-1.3 10 ^3/uL Eosinophils # (Auto) 0.1 0-0.8 10 ^3/uL Basophils # (Auto) 0.1 0-0.2 10 ^3/uL Nucleated Red Blood Cells 0.4 % Sodium Level 136 136-145 mmol/L Potassium Level 4.2 3.5-5.1 mmol/L Chloride Level 103 98-107 mmol/L Carbon Dioxide Level 25 20-31 mmol/L Anion Gap 8 5-15 Blood Urea Nitrogen 8 L 9-23 mg/dL Creatinine 0.76 0.550-1.02 mg/dL Glomerular Filtration Rate Calc 92 >90 mL/min BUN/Creatinine Ratio 10.5 10.0-20.0 Serum Glucose 96 74-106 mg/dL Calcium Level 9.5 8.7-10.4 mg/dL Total Bilirubin 0.2 0.2-1.0 mg/dL Aspartate Amino Transferase (AST) 17 13-40 U/L Alanine Aminotransferase (ALT) 17 7-40 U/L Alkaline Phosphatase 221 H 46-116 U/L Total Protein 7.3 5.7-8.2 g/dL Albumin 4.1 3.2-4.8 g/dL Assessment/Plan Assessment/Plan Impression: -questionable incarcerated hernia -obesity -schizophrenia -hypothyroidism -depression -dyslipidemia -history of colon CA with hemicolectomy and colostomy creation -seizure disorder Plan: -admit to Medical/Surgical unit -surgical consultation -start IV hydration -pain management -antiemetics -restart home medications if able to tolerate intake and clearance by surgeon -repeat labs in a.m. -PPI Total time spent with patient discussing and formulating plan of care: 35 minutes. This medical document was created using an electronic medical record system with [employer] dictation system. Although this document has been carefully reviewed, there may still be some phonetic and typographical errors. These areas are purely typographical due to imperfections of the software programs, and do not reflect any compromise in the patient's medical care. Plan discussed with: Patient, Other (RN. Surgeon Dr. Reynolds) My Orders Orders - STEVE LUTZ NP Procedure Category Date Status Time * Surgical Consult CONS 01/06/25 Transmitted Admit ADMIT 01/06/25 Transmitted 12:51 Oxygen By Nasal RT 01/06/25 Transmitted Cannula 12:51 Clear Liq Diet DIET 01/06/25 Transmitted Lunch Thyroid Stimulating LAB 01/06/25 Transmitted Hormone 12:51 Morphine Sulfate PHA 01/06/25 Transmitted Injection 13:00 Ondansetron Hcl PHA 01/06/25 Transmitted (Zofran) 13:00 Pantoprazole PHA 01/07/25 Transmitted (Protonix) 10:00 Sequential WHIT 01/06/25 Transmitted Compression Device 12:51 Basic Metabolic Panel LAB 01/07/25 Verified 04:00 Complete Blood Count LAB 01/07/25 Verified 04:00 Date of Service: January 06, 2025 Billing Provider: STEVE LUTZ NP Common Visit Codes: [id number] INP/OBS CARE (HIGH) STEVE LUTZ NP January 06, 2025 13:09
[2025-01-06] MEDS: ONDANSETRON HCL 4 MG/2 ML VIAL IV PRN (13:28)
[2025-01-06] MEDS: MORPHINE SULFATE INJ 2 MG/ml SYRG IV PRN (13:29)
[2025-01-06 13:49] VITALS: BP 106/65; PULSE 68; RESP 16; TEMP 97.4; O2SAT 93
--- NOTE | 2025-01-06 13:57 | DVHINCON2 ---
Date of service: January 06, 2025 History of Present Illness 54-year-old morbidly obese female with a history of expiratory laparotomy with partial colectomy with ascending colon colostomy and Matt's pouch [place] [address] Gudino for colon cancer with a subsequent incisional hernia that was repaired by myself in October of this year admitted secondary to complaints of peristomal hernia and suprapubic pain. Patient denies any fevers, chills, nausea or vomiting. Past Medical History Morbid obesity. History of colon cancer. Past Surgical History As mentioned in HPI Family History: Cancer Diabetes mellitus G8 MOTHER FH: coronary artery disease FH: diabetes mellitus FH: stroke FHx: alcohol abuse G8 FATHER Family history: Hypertension Hypertension G8 MOTHER Pancreatitis G8 MOTHER Family History Noncontributory Social History Denies alcohol, tobacco, IV drug use Allergies: Coded Allergies: Penicillins (Verified Allergy, Intermediate, hives, 01/12/11) Home Meds Active Scripts Prednisone (Prednisone) 20 Mg Tab, 40 MG PO DAILY for 5 Days, #10 MG Prov:OSWALDO RENE MD 11/12/24 Ondansetron Odt 4MG Tab (ZOFRAN PO) 4 Mg Tb, 4 MG PO TIDP PRN for 6 Days, #18 TAB 0 Refills ODT TAB-DISSOLVE IN MOUTH, THEN SWALLOW Prov:CLOVER MOFFETT MD 11/09/24 Ibuprofen Micronized (Ibuprofen) 600 Mg Tab, 600 MG PO Q8HP PRN, #30 TAB Prov:KALIA ANGULO MD 09/12/24 Pantoprazole Sodium Sesquihydr (Protonix) 40 Mg Tab, 40 MG PO DAILY, #30 TAB Prov:KALIA ANGULO MD 09/12/24 Reported Medications Ciclopirox (Ciclopirox Nail Lacquer) 8 % Chanel, 1 APPLIC TOP DAILY, #6.6 ML 1 Refill 10/24/24 Phenobarbital (PHENOBARBITAL) 32.4 Mg Tb, 64.8 MG PO BID 06/06/15 Fluoxetine Hcl (Fluoxetine Hcl) 20 Mg Cap, 20 MG PO DAILY, CAP 06/06/15 Phenytoin Sodium (DILANTIN CAPSULE) 100 Mg Cp, 2 CAP PO BID for DAILY, CP 06/06/15 Current Medications Current Medications Medications (Trade) Dose Ordered Sig/Catalina Route PRN Reason Start Time Stop Time Status Last Admin Morphine Sulfate 1 mg Q4HPRN PRN IV SEVERE PAIN (7-10 PAIN SCALE) 01/06/25 13:00 01/06/25 13:29 Ondansetron HCl (Zofran) 4 mg Q6HP PRN IV NAUSEA / VOMITING 01/06/25 13:00 01/06/25 13:28 Pantoprazole Sodium (Protonix) 40 mg DAILY IV 01/07/25 10:00 Vital Signs Vital Signs Date Time Temp Pulse Resp B/P (MAP) Pulse Ox O2 Delivery O2 Flow Rate FiO2 01/06/25 13:29 59 16 115/65 01/06/25 12:00 93 01/06/25 07:50 97.8 97.8 01/06/25 07:50 Room Air* 0 21 Physical Exam GEN: Morbidly obese female in no acute distress. Alert. HEENT: Normocephalic atraumatic. Moist mucous membranes. Anicteric sclerae. CV: RRR Respiratory: CTAB ABD: Obese abdomen with well-healed incisional scar without a recurrent midline incisional hernia. Right lower quadrant ileostomy with output. There was also peristomal hernia at this site. Labs/Diagnostic Data Labs Test 01/06/25 08:07 Range/Units White Blood Count 10.4 4.4-10.8 10^3/uL Red Blood Count 4.89 4.0-5.20 10^6/uL Hemoglobin 14.2 12.2-16.2 g/dL Hematocrit 41.8 36.0-46.0 % Mean Corpuscular Volume 85.4 80.0-100.0 fL Mean Corpuscular Hemoglobin 29.1 28.0-32.0 pg Mean Corpuscular Hemoglobin Concent 34.1 32.0-36.0 g/dL Red Cell Distribution Width 13.4 11.8-14.3 % Platelet Count 337 140-450 10^3/uL Mean Platelet Volume 7.5 6.9-10.8 fL Neutrophils (%) (Auto) 63.8 37.0-80.0 % Lymphocytes (%) (Auto) 29.5 10.0-50.0 % Monocytes (%) (Auto) 5.3 0.0-12.0 % Eosinophils (%) (Auto) 0.6 0.0-7.0 % Basophils (%) (Auto) 0.8 0.0-2.0 % Neutrophils # (Auto) 6.6 1.6-8.6 10 ^3/uL Lymphocytes # (Auto) 3.1 0.4-5.4 10 ^3/uL Monocytes # (Auto) 0.6 0-1.3 10 ^3/uL Eosinophils # (Auto) 0.1 0-0.8 10 ^3/uL Basophils # (Auto) 0.1 0-0.2 10 ^3/uL Nucleated Red Blood Cells 0.4 % Sodium Level 136 136-145 mmol/L Potassium Level 4.2 3.5-5.1 mmol/L Chloride Level 103 98-107 mmol/L Carbon Dioxide Level 25 20-31 mmol/L Anion Gap 8 5-15 Blood Urea Nitrogen 8 L 9-23 mg/dL Creatinine 0.76 0.550-1.02 mg/dL Glomerular Filtration Rate Calc 92 >90 mL/min BUN/Creatinine Ratio 10.5 10.0-20.0 Serum Glucose 96 74-106 mg/dL Calcium Level 9.5 8.7-10.4 mg/dL Total Bilirubin 0.2 0.2-1.0 mg/dL Aspartate Amino Transferase (AST) 17 13-40 U/L Alanine Aminotransferase (ALT) 17 7-40 U/L Alkaline Phosphatase 221 H 46-116 U/L Total Protein 7.3 5.7-8.2 g/dL Albumin 4.1 3.2-4.8 g/dL Assessment 1. Peristomal hernia without obstruction. Plan/Recommendation 1. No acute indication for surgical intervention at this time. 2. Clear liquid diet. Plan discussed with: Patient MICHELLE SIMMONS MD January 06, 2025 13:57
[2025-01-06 15:16] LABS: Hepatitis B Surface Antigen Negative (Negative); Hepatitis C Antibody Negative (Negative)
[2025-01-06 17:40] VITALS: BP 104/66; PULSE 68; RESP 16; TEMP 98.6; O2SAT 91
[2025-01-06] MEDS: PHENYTOIN SODIUM 100 MG CAP PO SCH (20:59)
[2025-01-06] MEDS: PHENobarbital 32.4 MG TAB PO SCH (21:00)
[2025-01-07 05:25] VITALS: BP 106/56; PULSE 62; RESP 16; TEMP 98.1; O2SAT 95
[2025-01-07 07:00] LABS: Basophils # (auto) 0 10 ^3/uL (0-0.2); Basophils % (auto) 0.2 % (0.0-2.0); Eosinophils # (auto) 0.1 10 ^3/uL (0-0.8); Eosinophils % (auto) 0.7 % (0.0-7.0); Hematocrit 41.5 % (36.0-46.0); Hemoglobin 14.1 g/dL (12.2-16.2); Lymphocytes # (auto) 1.8 10 ^3/uL (0.4-5.4); Lymphocytes % (auto) 21.6 % (10.0-50.0); Mean Corpuscular Hgb Conc. 34.1 g/dL (32.0-36.0); Mean Corpuscular Volume 85.3 fL (80.0-100.0); Monocytes # (auto) 0.5 10 ^3/uL (0-1.3); Monocytes % (auto) 6.7 % (0.0-12.0); Neutrophils # (auto) 5.8 10 ^3/uL (1.6-8.6); Neutrophils % (auto) 70.8 % (37.0-80.0); Nucleated Red Blood Cells % 0.4 %; Platelet Count (auto) 324 10^3/uL (140-450); Red Blood Cells 4.86 10^6/uL (4.0-5.20); Red Cell Distribution Width 13.2 % (11.8-14.3); White Blood Cell 8.1 10^3/uL (4.4-10.8)
[2025-01-07 07:16] LABS: Anion Gap 7 (5-15); Carbon Dioxide 28 mmol/L (20-31); Chloride 100 mmol/L (98-107); Potassium 4.9 mmol/L (3.5-5.1)
[2025-01-07 07:18] LABS: Calcium 8.8 mg/dL (8.7-10.4)
[2025-01-07 07:20] LABS: Sodium 135 mmol/L (136-145)
[2025-01-07 07:22] LABS: BUN/Creatinine Ratio 11.4 (10.0-20.0); Blood Urea Nitrogen 9 mg/dL (9-23); Glucose 91 mg/dL (74-106)
[2025-01-07] MEDS: FLUoxetine HCL 20 MG CAP PO SCH (08:42)
[2025-01-07] MEDS: PANTOPRAZOLE 40 MG/10 ML VIAL INJ IV SCH (08:42)
[2025-01-07 08:58] VITALS: BP 110/49; PULSE 66; RESP 17; TEMP 98.1; O2SAT 93
--- NOTE | 2025-01-07 12:08 | DVHPN2 ---
Progress Note - Dictate Date Seen: January 07, 2025 Medical Necessity Reason Pt with a Central, PICC or Fol: No Subjective E: no major events o/n. katelyn clear liquid diet but not hungry. vital signs Vital Sign Date Time Temp Pulse Resp B/P (MAP) Pulse Ox O2 Delivery O2 Flow Rate FiO2 01/07/25 08:58 98.1 66 17 110/49 (69) 93 98.1 01/07/25 07:41 Room Air* 0 21 Total Intake and Output 01/06/25 01/06/25 01/07/25 15:00 23:00 07:00 Intake Total 0 ml 300 ml Balance 0 ml 300 ml medications Current Medications Medications Dose Ordered Sig/Catalina Route Start Time Stop Time Status Last Admin Dose Admin Morphine Sulfate 1 mg Q4HPRN PRN IV 01/06/25 13:00 01/07/25 06:44 1 MG Ondansetron HCl 4 mg Q6HP PRN IV 01/06/25 13:00 01/07/25 06:43 4 MG Pantoprazole Sodium 40 mg DAILY IV 01/07/25 10:00 01/07/25 08:42 40 MG Fluoxetine HCl 20 mg DAILY PO 01/07/25 10:00 01/07/25 08:42 20 MG Phenytoin Sodium 200 mg BID PO 01/06/25 22:00 01/07/25 08:43 200 MG Phenobarbital 64.8 mg BID PO 01/06/25 22:00 01/07/25 08:44 64.8 MG objective GEN: NAD ABD: soft. parastomal hernia unchanged but functioning. laboratory and microbiology Laboratory Tests 01/07/25 05:43 Test 01/07/25 05:43 Range/Units Serum Glucose 91 74-106 mg/dL Assessment/Plan A: 1. Parastomal hernia without obstruction. P: 1. advance diet slowly. 2. recommend elective repair. 3. surgery signing off. Plan discussed with: Patient MICHELLE SIMMONS MD January 07, 2025 12:08
[2025-01-07 12:32] VITALS: BP 101/51; PULSE 64; RESP 16; TEMP 98.1; O2SAT 93
--- NOTE | 2025-01-07 15:03 | DVHPN2 ---
Subjective Patient tolerating oral intake without any abdominal pain. Reviewed: Care Plan, H&P, Labs, Medications Changes from previous H/P or p: No Changes General: Per HPI Eyes: No Pain, No Vision change, No Conjunctivae inflammation, No Eyelid inflammation, No Other, No Redness ENT: No Ear pain, No Ear discharge, No Nose pain, No Nose discharge, No Nose congestion, No Mouth pain, No Mouth swelling, No Throat pain, No Throat swelling, No Other Cardiovascular: No Chest Pain, No Palpitations, No Orthopnea, No Paroxysmal Noc. Dyspnea, No Edema, No Lt Headedness, No Other Respiratory: No Cough, No Dry, No Shortness of breath, No SOB with excertion, No Wheezing, No Hemoptysis, No Pleuritic Pain, No Sputum, No Other Gastrointestinal: Abdominal Pain Genitourinary: No Dysuria, No Frequency, No Incontinence, No Hematuria, No Retention, No Other Musculoskeletal: No other, No neck pain, No shoulder pain, No arm pain, No back pain, No hand pain, No leg pain, No foot pain Skin: No Rash, No Lesions, No Jaundice, No Bruising, No Other Objective Vitals Vital Signs Date Time Temp Pulse Resp B/P (MAP) Pulse Ox O2 Delivery O2 Flow Rate FiO2 01/07/25 12:32 98.1 64 16 101/51 (68) 93 98.1 01/07/25 07:41 Room Air* 0 21 Intake/Output Intake and Output 01/07/25 07:00 Intake Total 300 ml Balance 300 ml Intake Oral 300 ml # Voids 1 General Appearance: Alert, Oriented X3, Cooperative, mild distress HEENT: Atraumatic, PERRLA Lungs: Clear to auscultation, Normal air movement Cardiovascular: Normal S1, Normal S2 Abdomen: Normal bowel sounds, Other (Colostomy with positive fecal output.) Musculoskeletal: Normal sensory function, Normal motor function Psych/Mental Status: Mental status NL, Mood NL Medications Current Medications Medications Dose Ordered Sig/Catalina Route Start Time Stop Time Status Last Admin Dose Admin Morphine Sulfate 1 mg Q4HPRN PRN IV 01/06/25 13:00 01/07/25 06:44 1 MG Ondansetron HCl 4 mg Q6HP PRN IV 01/06/25 13:00 01/07/25 06:43 4 MG Pantoprazole Sodium 40 mg DAILY IV 01/07/25 10:00 01/07/25 08:42 40 MG Fluoxetine HCl 20 mg DAILY PO 01/07/25 10:00 01/07/25 08:42 20 MG Phenytoin Sodium 200 mg BID PO 01/06/25 22:00 01/07/25 08:43 200 MG Phenobarbital 64.8 mg BID PO 01/06/25 22:00 01/07/25 08:44 64.8 MG Laboratory Results Laboratory Tests 01/07/25 05:43 Chemistry Test 01/07/25 05:43 Calcium Level 8.8 mg/dL (8.7-10.4) Labs and/or images reviewed: Labs reviewed by me, Image(s) reviewed by me Assessment/Plan Assessment/Plan Impression: -questionable incarcerated hernia -obesity -schizophrenia -hypothyroidism -depression -dyslipidemia -history of colon CA with hemicolectomy and colostomy creation -seizure disorder Plan: Events: No events overnight. Plan of care discussed with surgeon, . We will advance diet as tolerated -pain management -antiemetics -continue home medications -reassess for discharge in a.m. depending on patient's tolerance of medications and mechanical soft diet. Total time spent with patient discussing and formulating plan of care: 35 minutes. This medical document was created using an electronic medical record system with [employer] dictation system. Although this document has been carefully reviewed, there may still be some phonetic and typographical errors. These areas are purely typographical due to imperfections of the software programs, and do not reflect any compromise in the patient's medical care. Plan discussed with: Patient, Other (RN) Date of Service: January 07, 2025 Billing Provider: STEVE LUTZ NP Common Visit Codes: [id number] INP/OBS CARE(HIGH) STEVE LUTZ NP January 07, 2025 15:03
[2025-01-07 16:59] VITALS: BP 105/47; PULSE 67; RESP 17; TEMP 98.4; O2SAT 93
--- NOTE | 2025-01-07 19:00 | ECG ---
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
[2025-01-07 21:00] VITALS: BP 101/57; PULSE 72; RESP 16; TEMP 98.2; O2SAT 91
[2025-01-08] VITALS (7 sets, daily range): BP systolic 93–109; BP diastolic 48–70; PULSE 63–84; RESP 16–19; TEMP 95.9–98.2; O2SAT 91–96
--- NOTE | 2025-01-08 12:34 | DVHPN2 ---
Subjective Patient now complaining of going to her chest and her left arm. Also reports having loose stools from her ostomy Reviewed: Care Plan, H&P, Labs, Medications Changes from previous H/P or p: Changes General: Per HPI Eyes: No Pain, No Vision change, No Conjunctivae inflammation, No Eyelid inflammation, No Other, No Redness ENT: No Ear pain, No Ear discharge, No Nose pain, No Nose discharge, No Nose congestion, No Mouth pain, No Mouth swelling, No Throat pain, No Throat swelling, No Other Cardiovascular: No Chest Pain, No Palpitations, No Orthopnea, No Paroxysmal Noc. Dyspnea, No Edema, No Lt Headedness, No Other Respiratory: No Cough, No Dry, No Shortness of breath, No SOB with excertion, No Wheezing, No Hemoptysis, No Pleuritic Pain, No Sputum, No Other Gastrointestinal: Abdominal Pain Genitourinary: No Dysuria, No Frequency, No Incontinence, No Hematuria, No Retention, No Other Musculoskeletal: No other, No neck pain, No shoulder pain, No arm pain, No back pain, No hand pain, No leg pain, No foot pain Skin: No Rash, No Lesions, No Jaundice, No Bruising, No Other Objective Vitals Vital Signs Date Time Temp Pulse Resp B/P (MAP) Pulse Ox O2 Delivery O2 Flow Rate FiO2 01/08/25 11:54 Room Air* 0 21 01/08/25 09:00 98.0 64 19 96/56 (69) 96 98.0 Intake/Output Intake and Output 01/08/25 07:00 Intake Total 1100 ml Balance 1100 ml Intake Oral 1100 ml # Voids 5 General Appearance: Alert, Oriented X3, Cooperative, mild distress HEENT: Atraumatic, PERRLA Lungs: Clear to auscultation, Normal air movement Cardiovascular: Normal S1, Normal S2 Abdomen: Normal bowel sounds, Other (Colostomy with positive fecal output.) Musculoskeletal: Normal sensory function, Normal motor function Skin: Dry, Intact Psych/Mental Status: Mental status NL, Mood NL Medications Current Medications Medications Dose Ordered Sig/Catalina Route Start Time Stop Time Status Last Admin Dose Admin Morphine Sulfate 1 mg Q4HPRN PRN IV 01/06/25 13:00 01/08/25 03:53 1 MG Ondansetron HCl 4 mg Q6HP PRN IV 01/06/25 13:00 01/08/25 03:46 4 MG Pantoprazole Sodium 40 mg DAILY IV 01/07/25 10:00 01/08/25 09:48 40 MG Fluoxetine HCl 20 mg DAILY PO 01/07/25 10:00 01/08/25 09:46 20 MG Phenytoin Sodium 200 mg BID PO 01/06/25 22:00 01/08/25 09:48 200 MG Phenobarbital 64.8 mg BID PO 01/06/25 22:00 01/08/25 09:48 64.8 MG Laboratory Results Laboratory Tests 01/07/25 05:43 Labs and/or images reviewed: Labs reviewed by me, Image(s) reviewed by me Assessment/Plan Assessment/Plan Impression: -questionable incarcerated hernia -obesity -schizophrenia -hypothyroidism -depression -dyslipidemia -history of colon CA with hemicolectomy and colostomy creation -seizure disorder Plan: Events: Patient is tolerating oral intake without any issues. She now reports having some chest discomfort/paresthesia type symptoms. -serial troponin -EKG -Questran for loose stool -pain management -antiemetics -continue home medications -reassess for discharge in a.m. depending on patient's tolerance of medications and mechanical soft diet. Total time spent with patient discussing and formulating plan of care: 35 minutes. This medical document was created using an electronic medical record system with [employer] dictation system. Although this document has been carefully reviewed, there may still be some phonetic and typographical errors. These areas are purely typographical due to imperfections of the software programs, and do not reflect any compromise in the patient's medical care. Plan discussed with: Patient, Other (RN) My Orders Orders - SETVE LUTZ NP Procedure Category Date Status Time Troponin-I Hs LAB 01/08/25 Transmitted 12:25 Troponin-I Hs LAB 01/08/25 Transmitted 13:25 Troponin-I Hs LAB 01/08/25 Transmitted 15:25 Electrocardigram EKG 01/08/25 Logged 12:25 Electrocardigram EKG 01/08/25 Logged 13:25 Electrocardigram EKG 01/08/25 Logged 15:25 Cholestyramine Powder PHA 01/08/25 Logged (Questran Powder) 12:30 Date of Service: January 08, 2025 Billing Provider: STEVE LUTZ NP Common Visit Codes: [id number] INP/OBS CARE(HIGH) STEVE LUTZ [employer] CLE[employer]ER January 08, 2025 12:34
[2025-01-08] MEDS: CHOLESTYRAMINE 4 GM POWDER PO ONE (14:48)
[2025-01-09 01:00] VITALS: BP 117/65; PULSE 90; RESP 19; TEMP 95.4; O2SAT 91
[2025-01-09] MEDS ORDERED: HYDROcodone-ACET 5/325MG TAB PO ONE (01:30)
[2025-01-09 05:00] VITALS: BP 112/74; PULSE 85; RESP 20; TEMP 95.4; O2SAT 93
[2025-01-09 09:00] VITALS: BP 101/62; PULSE 68; RESP 18; TEMP 97.7; O2SAT 92
[2025-01-09] MEDS ORDERED: FLUO-470 PO (10:10)
[2025-01-09] MEDS ORDERED: QUEtiapine FUMARATE 25 MG TAB PO SCH (10:15)
[2025-01-09] MEDS ORDERED: IBUPROFEN 600 MG TAB PO PRN (10:15)
[2025-01-09] MEDS ORDERED: SODIUM CHLORIDE 0.9% 1,000 ML IV ONE (10:15)
[2025-01-09 11:21] LABS: Basophils # (auto) 0.1 10 ^3/uL (0-0.2); Basophils % (auto) 1.1 % (0.0-2.0); Eosinophils # (auto) 0 10 ^3/uL (0-0.8); Eosinophils % (auto) 0.6 % (0.0-7.0); Hematocrit 39.3 % (36.0-46.0); Hemoglobin 13.3 g/dL (12.2-16.2); Lymphocytes # (auto) 2.4 10 ^3/uL (0.4-5.4); Mean Corpuscular Hemoglobin 28.9 pg (28.0-32.0); Monocytes # (auto) 0.5 10 ^3/uL (0-1.3); Monocytes % (auto) 6.1 % (0.0-12.0); Neutrophils % (auto) 62.2 % (37.0-80.0); Nucleated Red Blood Cells % 0.2 %; Platelet Count (auto) 318 10^3/uL (140-450); Red Blood Cells 4.62 10^6/uL (4.0-5.20); Red Cell Distribution Width 13.1 % (11.8-14.3)
[2025-01-09 11:24] LABS: Chloride 103 mmol/L (98-107); Potassium 3.9 mmol/L (3.5-5.1); Sodium 138 mmol/L (136-145)
[2025-01-09 11:25] LABS: Anion Gap 7 (5-15); Carbon Dioxide 28 mmol/L (20-31)
[2025-01-09 11:26] LABS: Calcium 8.6 mg/dL (8.7-10.4)
[2025-01-09 11:30] LABS: BUN/Creatinine Ratio 13.8 (10.0-20.0); Blood Urea Nitrogen 11 mg/dL (9-23)
[2025-01-09 11:32] LABS: Glucose 126 mg/dL (74-106)
[2025-01-09 13:00] VITALS: BP 90/37; PULSE 66; RESP 19; TEMP 98.4; O2SAT 91
--- NOTE | 2025-01-09 14:13 | DVHDS2 ---
Discharge Summary Date of Admission January 06, 2025 at 12:51 Date of Discharge: January 09, 2025 Admitting Diagnosis Abdominal pain, questionable incarcerated hernia Labs/Diagnostic Data: Laboratory Results Test 01/09/25 10:50 01/08/25 16:29 01/07/25 05:46 01/06/25 08:07 White Blood Count 8.0 10^3/uL (4.4-10.8) Red Blood Count 4.62 10^6/uL (4.0-5.20) Hemoglobin 13.3 g/dL (12.2-16.2) Hematocrit 39.3 % (36.0-46.0) Mean Corpuscular Volume 85.0 fL (80.0-100.0) Mean Corpuscular Hemoglobin 28.9 pg (28.0-32.0) Mean Corpuscular Hemoglobin Concent 34.0 g/dL (32.0-36.0) Red Cell Distribution Width 13.1 % (11.8-14.3) Platelet Count 318 10^3/uL (140-450) Mean Platelet Volume 7.7 fL (6.9-10.8) Neutrophils (%) (Auto) 62.2 % (37.0-80.0) Lymphocytes (%) (Auto) 30.0 % (10.0-50.0) Monocytes (%) (Auto) 6.1 % (0.0-12.0) Eosinophils (%) (Auto) 0.6 % (0.0-7.0) Basophils (%) (Auto) 1.1 % (0.0-2.0) Neutrophils # (Auto) 5.0 10 ^3/uL (1.6-8.6) Lymphocytes # (Auto) 2.4 10 ^3/uL (0.4-5.4) Monocytes # (Auto) 0.5 10 ^3/uL (0-1.3) Eosinophils # (Auto) 0 10 ^3/uL (0-0.8) Basophils # (Auto) 0.1 10 ^3/uL (0-0.2) Nucleated Red Blood Cells 0.2 % Sodium Level 138 mmol/L (136-145) Potassium Level 3.9 mmol/L (3.5-5.1) Chloride Level 103 mmol/L (98-107) Carbon Dioxide Level 28 mmol/L (20-31) Anion Gap 7 (5-15) Blood Urea Nitrogen 11 mg/dL (9-23) Creatinine 0.80 mg/dL (0.550-1.02) Glomerular Filtration Rate Calc 86 mL/min (>90) BUN/Creatinine Ratio 13.8 (10.0-20.0) Serum Glucose 126 mg/dL (74-106) Lactic Acid Level 1.1 mmol/L (0.4-2.0) Calcium Level 8.6 mg/dL (8.7-10.4) Troponin I High Sensitivity 4 ng/L (</=34) Phenytoin (Dilantin) Level 17.6 ug/mL (10-20) Total Bilirubin 0.2 mg/dL (0.2-1.0) Aspartate Amino Transferase (AST) 17 U/L (13-40) Alanine Aminotransferase (ALT) 17 U/L (7-40) Alkaline Phosphatase 221 U/L (46-116) Total Protein 7.3 g/dL (5.7-8.2) Albumin 4.1 g/dL (3.2-4.8) Thyroid Stimulating Hormone (TSH) 3.90 uIU/mL (0.55-4.78) Hepatitis B Surface Antigen Negative (Negative) Hepatitis C Antibody Negative (Negative) Other Laboratory Tests 01/09/25 10:50 Brief Hx & Hospital Course: History of Present Illness The patient is a 54-year-old female presenting to the emergency room with complaints of abdominal pain. Upon arrival to the hospital the patient reports that his majority of her pain was noted around her stoma area as well as her left lower quadrant. Patient denies having any nausea or vomiting or decreased stool from her colostomy. She also denies having any fevers, chills, change in stool output. Significant history of the patient includes colon cancer, depression, schizophrenia, and dyslipidemia. Course of hospitalization: Patient had surgical consultation for which the patient was found to have no need for surgical intervention at this time. Patient's white blood cell count, lactic acid, as well as chemistry are all unremarkable. Patient was started on clear liquid diet, advanced to regular for which he has had no nausea or vomiting, as well as positive stool from her ostomy. Patient then began complaining of arm paresthesia, chest discomfort, for which the patient had EKG as well as troponins that were negative x3. Today, the patient states that her blood pressure is running low, while she she has been ambulating around the nurse's station without any symptoms. Patient has persistent that she needs IV morphine, and was offered [place] for which she has refused. Repeat labs performed today are all unremarkable. Patient will be discharged home and instructed to follow up with her PCP Dr. Gray in 1-2 weeks. Physical examination General: Alert and Oriented x3. No acute distress. Well-nourished. Eyes: EOMI. Anicteric. HENT: Moist mucous membranes. Lungs: Clear to auscultation bilaterally. No accessory muscle use. Cardiovascular: Regular rate and rhythm. No murmur. No JVD. Abdomen: Soft, non-tender and non-distended. No palpable masses. Extremities: No edema. Non-tender. Skin: No rashes or lesions. Warm. Neurologic: No focal neurological deficits. CN II-XII grossly intact, but not individually tested. Psychiatric: Cooperative. Appropriate mood and affect. Total time spent with patient discussing and formulating plan of care: 35 minutes. This medical document was created using an electronic medical record system with [employer] dictation system. Although this document has been carefully reviewed, there may still be some phonetic and typographical errors. These areas are purely typographical due to imperfections of the software programs, and do not reflect any compromise in the patient's medical care. 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 Gray Medications: Continue all home medications 36 Discharge Statement: "Patient was advised to return to the ER or call 911 if any headaches, dizziness, shortness of breath, chest pain, abdominal pain, bleeding, fevers, or worsening of medical condition. Patient was counseled about treatment plan, medications, possible side effects, patientverbalized understanding. All questions were answered to the best of my ability. 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
--- NOTE | 2025-01-09 14:41 | ECG ---
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
[2025-01-09 14:51] VITALS: BP 90/37; PULSE 66; RESP 19; TEMP 98.4; O2SAT 91
== END 2025-01-09 15:40 | disposition home or self-care (01) | DRG 254 ==
LOC: ER 07:02 → EDBD 07:02 → OVERFLOW 12:51 → EAST 16:15
PROVIDERS: ADMIT Nurse Practitioner Acute Care; ATTEND Nurse Practitioner Acute Care
DX: K43.5 Parastomal hernia without obstruction or gangrene (principal); E03.9 Hypothyroidism, unspecified; F20.9 Schizophrenia, unspecified; F32.A Depression, unspecified; E78.5 Hyperlipidemia, unspecified; G40.909 Epilepsy, unspecified, not intractable, without status epilepticus; E66.01 Morbid (severe) obesity due to excess calories; Z93.3 Colostomy status; Z90.49 Acquired absence of other specified parts of digestive tract; Z88.0 Allergy status to penicillin; Z85.038 Personal history of other malignant neoplasm of large intestine; Z83.3 Family history of diabetes mellitus; Z82.49 Family history of ischemic heart disease and other diseases of the circulatory system; Z82.3 Family history of stroke; Z68.41 Body mass index [BMI] 40.0-44.9, adult
CPT/HCPCS: 36415; 74177; 80048; 80053; 80185; 83605; 84443; 84484; 85025; 86803; 87340; 93005; 96374; 96375; G0378; J2405; J2470

== ENCOUNTER 2025-01-14 07:23 | Inpatient (IN) | payer MEDICAID ==
[~2025-01-14] VITALS: Ht 160 cm; Wt 109.0 kg
[~2025-01-14 07:23] MED LIST changes: -AUG875T PO; +FLUO-470 PO; -HYDR-4798 PO
--- NOTE | 2025-01-14 07:54 | ED.PDOC ---
General HPI Comments 54 year old female presents to the ED via EMS with a chief complaint of RT flank pain onset today (01/14/25). PMHx colon cancer, depression, HLD, schizophrenia, seizures. Per EMS, patient has been experiencing RT flank pain as well as nausea/vomiting. Patient states she has hernia repair surgery October 2024, is concerned for another hernia. Denies fever, chills, chest pain, shortness of breath, dizziness, headache. No other symptoms or modifying factors present at this time. Chief Complaint: Flank Pain Time Seen by MD: 07:35 Primary Care Provider: ROXY Reviewed notes: Medications, Allergies Allergies: Coded Allergies: Penicillins (Verified Allergy, Intermediate, hives, 01/12/11) Home Meds Active Scripts Prednisone (Prednisone) 20 Mg Tab, 40 MG PO DAILY for 5 Days, #10 MG Prov:OSWALDO RENE MD 11/12/24 Ondansetron Odt 4MG Tab (ZOFRAN PO) 4 Mg Tb, 4 MG PO TIDP PRN for 6 Days, #18 TAB 0 Refills ODT TAB-DISSOLVE IN MOUTH, THEN SWALLOW Prov:CLOVER MOFFETT MD 11/09/24 Ibuprofen Micronized (Ibuprofen) 600 Mg Tab, 600 MG PO Q8HP PRN, #30 TAB Prov:KALIA ANGULO MD 09/12/24 Pantoprazole Sodium Sesquihydr (Protonix) 40 Mg Tab, 40 MG PO DAILY, #30 TAB Prov:KALIA ANGULO MD 09/12/24 Reported Medications Fluoxetine HCl (Fluoxetine HCl) 20 Mg Cap, 1 CAP PO DAILY 01/09/25 Ciclopirox (Ciclopirox Nail Lacquer) 8 % Chanel, 1 APPLIC TOP DAILY, #6.6 ML 1 Refill 10/24/24 Phenobarbital (PHENOBARBITAL) 32.4 Mg Tb, 64.8 MG PO BID 06/06/15 Fluoxetine Hcl (Fluoxetine Hcl) 20 Mg Cap, 20 MG PO DAILY, CAP 06/06/15 Phenytoin Sodium (DILANTIN CAPSULE) 100 Mg Cp, 2 CAP PO BID for DAILY, CP 06/06/15 Information Source: Patient, Emergency Med Personnel Mode of Arrival: EMS Severity: Moderate Timing: Hours Duration: Since onset Prehospital treatment: Treatment (Zofran 4 mg) Onset: Spontaneous Symptoms: None History of: None Location: (R) Flank associated signs and symptoms: Nausea, Vomiting, Flank Pain Past Medical History PAST MEDICAL HISTORY: Cancer, Depression, High Lipids, Schizophrenia, Seizures Surgical History: BTL, Cholecystectomy, Hernia Repair 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[employer] 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 History: No Pertinent 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S ENGINEER History Family History Family History: Family hx of DM, Family hx of Cancer, Family hx of heart deb, Family hx of HTN Social History Smoker: Non-Smoker, Quit Greater Than 1 Year Alcohol: Denies ETOH Use Drugs: Marijuana Lives In: Home Constitutional: denies: chills, diaphoresis, fatigue, fever, malaise, sweats, weakness, others EENTM: denies: blurred vision, double vision, ear bleeding, ear discharge, ear drainage, ear pain, ear ringing, eye pain, eye redness, hearing loss, mouth pain, mouth swelling, nasal discharge, nose bleeding, nose congestion, nose pain, photophobia, tearing, throat pain, throat swelling, voice changes, others Respiratory: denies: cough, hemoptysis, orthopnea, SOB at rest, shortness of breath, SOB with excertion, stridor, wheezing, others Cardiovascular: denies: chest pain, dizzy spells, diaphoresis, Dyspnea on exertion, edema, irregular heart beat, left arm pain, lightheadedness, palpitations, PND, syncope, others Gastrointestinal: reports: nausea, vomiting; denies: abdomen distended, abdomi nal pain, blood streaked bowels, constipated, diarrhea, dysphagia, difficulty swallowing, hematemesis, melena, poor appetite, poor fluid intake, rectal bleeding, rectal pain, others Genitourinary: reports: flank pain; denies: abnormal vagina bleeding, burning, dyspareunia, dysuria, frequency, hematuria, incontinence, pain, , vagina discharge, urgency, others Neurological: denies: dizziness, fainting, headache, left sided numbness, left sided weakness, numbness, paresthesia, pre-existing deficit, right sided numbness, right sided weakness, seizure, speech problems, tingling, tremors, weakness, others Musculoskeletal: denies: back pain, gout, joint pain, joint swelling, muscle pain, muscle stiffness, neck pain, others Integumetry: denies: bruises, change in color, change in hair/nails, dryness, laceration, lesions, lumps, rash, wounds, others Allergic/Immunocompromised: denies: Difficulty Healing, Frequent Infections, Hives, Itching, others Hematologic/Lymphatic: denies: anemia, blood clots, easy bleeding, easy bruising, swollen glands, others Endocrine: denies: excessive hunger, excessive sweating, excessive thirst, excessive urination, flushing, intolerance to cold, intolerance to heat, unexplained weight gain, unexplained weight loss, others Psychiatric: denies: anxiety, bipolar disorder, depression, hopeless, panic disorder, schizophrenia, sleepless, suicidal, others All Other Systems: Reviewed and Negative Physical Exam General Appearance: Moderate Distress, Normal HEENT: Normal ENT Inspection, Pharynx Normal, TMs Normal Neck: Full Range of Motion, Non-Tender, Normal, Normal Inspection Respiratory: Chest Non-Tender, Lungs Clear, No Accessory Muscle Use, No Respiratory Distress, Normal Breath Sounds Cardiovascular: No Edema, No JVD, No Murmur, No Gallop, Normal Peripheral Pulses, Regular Rate/Rhythm Breast Exam: Deferred Gastrointestinal: Diffuse, No Organomegaly, No Pulsatile Mass, Normal Bowel Sounds, Soft Genitalia: Deferred Pelvic: Deferred Rectal: Deferred Extremities: No calf tenderness, Normal capillary refill, Normal inspection, Normal range of motion, Non-tender, No pedal edema Musculoskeletal : Apperance: Normal Neurologic: Alert, chucker II-XII nml as Tested, No Motor Deficits, Normal Affect, Normal Mood, No Sensory Deficits Cerebellar Function: NOT DONE Reflexes: NOT DONE Skin: Dry, Normal Color, Warm Peripheral Pulses: 3+ Radial (R), 3+ Radial (L) Lymphatic: No Adenopathy Was a procedure done? Was a procedure done?: No Differential Diagnosis Kidney stone (Female): Musculoskeletal pain, Urinary obstruction, Urolithiasis X-Ray, Labs, Meds, VS Vital Signs Date Time Temp Pulse Resp B/P (MAP) Pulse Ox O2 Delivery O2 Flow Rate FiO2 01/14/25 09:55 Room Air* 0 21 01/14/25 07:52 84 17 97 Room Air 01/14/25 07:52 98.7 84 17 137/76 (96) 97 98.7 01/14/25 07:23 98.3 67 22 130/81 (97) 95 98.3 01/14/25 07:23 98.3 67 22 130/81 (97) 95 98.3 Lab Test 01/14/25 08:00 01/14/25 07:43 Range/Units Urine Color Light-yellow Yellow Urine Clarity Clear Clear Urine pH 6.5 5.0-9.0 Urine Specific [place] 1.020 1.001-1.035 Urine Protein Negative Negative Urine Ketones Negative Negative Urine Blood Negative Negative /uL Urine Nitrite Negative Negative Urine Bilirubin Negative Negative Urine Urobilinogen Normal Negative mg/dL Urine Leukocyte Esterase Negative Negative /uL Urine RBC None seen 0 - 4 /hpf Urine Microscopic WBC < 1 0-5 /HPF Urine Squamous Epithelial Cells Few <5 /hpf Urine Bacteria None seen None Seen /hpf Urine Glucose Normal Normal mg/dL White Blood Count 12.0 #H 4.4-10.8 10^3/uL Red Blood Count 5.01 4.0-5.20 10^6/uL Hemoglobin 14.3 12.2-16.2 g/dL Hematocrit 42.6 36.0-46.0 % Mean Corpuscular Volume 85.1 80.0-100.0 fL Mean Corpuscular Hemoglobin 28.5 28.0-32.0 pg Mean Corpuscular Hemoglobin Concent 33.4 32.0-36.0 g/dL Red Cell Distribution Width 13.3 11.8-14.3 % Platelet Count 360 140-450 10^3/uL Mean Platelet Volume 7.3 6.9-10.8 fL Neutrophils (%) (Auto) 76.7 37.0-80.0 % Lymphocytes (%) (Auto) 17.7 10.0-50.0 % Monocytes (%) (Auto) 4.6 0.0-12.0 % Eosinophils (%) (Auto) 0.4 0.0-7.0 % Basophils (%) (Auto) 0.6 0.0-2.0 % Neutrophils # (Auto) 9.2 H 1.6-8.6 10 ^3/uL Lymphocytes # (Auto) 2.1 0.4-5.4 10 ^3/uL Monocytes # (Auto) 0.6 0-1.3 10 ^3/uL Eosinophils # (Auto) 0 0-0.8 10 ^3/uL Basophils # (Auto) 0.1 0-0.2 10 ^3/uL Nucleated Red Blood Cells 0.1 % Sodium Level 138 136-145 mmol/L Potassium Level 4.6 3.5-5.1 mmol/L Chloride Level 107 98-107 mmol/L Carbon Dioxide Level 23 20-31 mmol/L Anion Gap 8 5-15 Blood Urea Nitrogen 13 9-23 mg/dL Creatinine 0.85 0.550-1.02 mg/dL Glomerular Filtration Rate Calc 80 >90 mL/min BUN/Creatinine Ratio 15.3 10.0-20.0 Serum Glucose 104 74-106 mg/dL Calcium Level 9.5 8.7-10.4 mg/dL Patient alert. Complaining of abdominal pain. History of hernia. Vitals stable. Abdomen is soft nonspecific exam. WBC elevated. Hemoglobin within normal limits. Reviewed her previous visit. Explained to the patient. Continue monitoring. [place] [id number] Ph: [phone] DIAGNOSTIC IMAGING Diagnostic Imaging Report : [id number] Signed PATIENT: PEDRO ROWELL ACCT: [id number] UNIT: [id number] : 1970 LOC: ER ROOM / BED: / AGE / SEX: 54 / F ADM STATUS: REG ER SERVICE [id number] ORDERING PHYSICIAN: MARIA ESTHER AREVALO MD PROCEDURE(s): ABPL - CT AB PEL WO CON-NO ORAL OR IV REASON: colitis ORDER NUMBER(s): [id number], ACCESSION NUMBER(s): [id number] CT CT AB PEL WO CON-NO ORAL OR IV INDICATION: colitis EXAM DATE: 01/14/2025 09:03 AM COMPARISON: CT CT AB PEL WITH ORAL CON ONLY on DOS: 11/02/24, CT CT AB PEL WO CON-NO ORAL OR IV on DOS: 10/23/24, CT CT AB PEL WO CON-NO ORAL OR IV on DOS: 05/15/24 RADIATION DOSE: CTDIvol: 26.82 mGy, DLP: 1542.19 mGy*cm PROCEDURE: Helical CT images were obtained of the abdomen and pelvis without IV contrast Sagittal and coronal reconstructions are provided. ORAL CONTRAST: None. ADDITIONAL IMAGES / REFORMATS: None All CT scans at this medical facility are performed using dose modulation techniques as appropriate to a performed exam including the following: Automated exposure control was utilized; adjustment of the MA and/or KV according to patient size; and use of iterative reconstruction technique. FINDINGS: LUNG BASE: Mild bibasilar atelectasis is seen. LIVER: Normal. GALLBLADDER AND BILIARY TREE: Cholecystectomy clips are noted. No intra- or extrahepatic biliary ductal dilation. PANCREAS: Normal. SPLEEN: Normal. BOWEL: A right lower quadrant colostomy appears similar to the prior examination. No dilated loops of bowel are visualized. ADRENALS: Normal. KIDNEYS AND URETER: Normal. BLADDER: Normal. REPRODUCTIVE ORGANS: Normal. LYMPH NODES:No lymphadenopathy. PERITONEUM: No ascites or free air. No other fluid collection. VESSELS: Scattered atherosclerotic calcifications are noted. RETROPERITONEUM: Normal. ABDOMINAL WALL: Normal. BONES: Scattered osseous degenerative changes are noted. Mild compression deformities of the mid thoracic vertebral bodies. IMPRESSION: No acute intraabdominal abnormality. A right lower quadrant colostomy appears similar to the prior examination. No dilated loops of bowel are visualized. Mild bibasilar atelectasis. ATED BY: JOVANNI MUSE MD DICTATED DATE/TIME: 01/14/25932 SIGNED BY: JOVANNI MUSE MD SIGNED DATE/TIME: 01/14/25932 CC: Time of 1ST Reevaluation: 08:05 Reevaluation 1ST: Unchanged Patient Education/Counseling: Diagnosis, Treatment, Prognosis Family Education/Counseling: No Family Present Departure 1 Departure Time of Disposition: 09:00 Impression: Primary Impression: Intractable abdominal pain Disposition: ADMITTED INPATIENT Admit to: Med Surg Condition: Guarded Critical Care Note Critical Care Time?: No Stability Stability form required: No Heart Score Heart Score: Heart Score Response (Comments) Value History N/A 0 EKG N/A 0 Age N/A 0 Risk Factors N/A 0 Troponin N/A 0 Total 0 I personally scribed for MARIA ESTHER AREVALO MD ([email or web address]) on 01/14/25 at 07:54. Electronically submitted by Kate Fermin ([email or web address]). I personally scribed for MARIA ESTHER AREVALO MD ([email or web address]) on 01/14/25 at 10:28. Electronically submitted by Kate Fermin ([email or web address]). MARIA ESTHER AREVALO MD January 14, 2025 07:54
[2025-01-14 07:57] LABS: Basophils # (auto) 0.1 10 ^3/uL (0-0.2); Basophils % (auto) 0.6 % (0.0-2.0); Eosinophils # (auto) 0 10 ^3/uL (0-0.8); Eosinophils % (auto) 0.4 % (0.0-7.0); Hematocrit 42.6 % (36.0-46.0); Hemoglobin 14.3 g/dL (12.2-16.2); Lymphocytes # (auto) 2.1 10 ^3/uL (0.4-5.4); Lymphocytes % (auto) 17.7 % (10.0-50.0); Mean Corpuscular Hemoglobin 28.5 pg (28.0-32.0); Mean Corpuscular Hgb Conc. 33.4 g/dL (32.0-36.0); Mean Corpuscular Volume 85.1 fL (80.0-100.0); Monocytes # (auto) 0.6 10 ^3/uL (0-1.3); Monocytes % (auto) 4.6 % (0.0-12.0); Neutrophils # (auto) 9.2 10 ^3/uL (1.6-8.6); Neutrophils % (auto) 76.7 % (37.0-80.0); Nucleated Red Blood Cells % 0.1 %; Platelet Count (auto) 360 10^3/uL (140-450); Red Blood Cells 5.01 10^6/uL (4.0-5.20); Red Cell Distribution Width 13.3 % (11.8-14.3)
[2025-01-14 08:09] LABS: Chloride 107 mmol/L (98-107); Potassium 4.6 mmol/L (3.5-5.1); Sodium 138 mmol/L (136-145)
[2025-01-14 08:10] LABS: Anion Gap 8 (5-15); Carbon Dioxide 23 mmol/L (20-31)
[2025-01-14 08:11] LABS: Calcium 9.5 mg/dL (8.7-10.4)
[2025-01-14 08:11] LABS: Urine Bacteria None Seen /hpf (None Seen)
[2025-01-14 08:15] LABS: Glucose 104 mg/dL (74-106)
[2025-01-14 08:16] LABS: BUN/Creatinine Ratio 15.3 (10.0-20.0); Blood Urea Nitrogen 13 mg/dL (9-23)
[2025-01-14 08:28] LABS: Urine Blood Negative /uL (Negative); Urine Clarity Clear (Clear); Urine Color Light-Yellow (Yellow); Urine Protein, UAD Negative (Negative); Urine Squamous Epithelial Cell FEW /hpf (<5); Urine Urobilinogen Normal (Negative); Urine WBC < 1 /HPF (0-5); Urine pH 6.5 (5.0-9.0)
--- NOTE | 2025-01-14 09:36 | DVH ---
CT CT AB PEL WO CON-NO ORAL OR IV INDICATION: colitis EXAM DATE: 01/14/2025 09:03 AM COMPARISON: CT CT AB PEL WITH ORAL CON ONLY on DOS: 11/02/24, CT CT AB PEL WO CON-NO ORAL OR IV on DOS : 10/23/24, CT CT AB PEL WO CON-NO ORAL OR IV on DOS: 05/15/24 RADIATION DOSE: CTDIvol: 26.82 mGy, DLP: 1542.19 mGy*cm PROCEDURE: Helical CT images were obtained of the abdomen and pelvis without IV contrast Sagittal and coronal reconstructions are provided. ORAL CONTRAST: None. ADDITIONAL IMAGES / REFORMATS: None All C T scans at this medical facility are performed using dose modulation techniques as appropriate to a p erformed exam including the following: Automated exposure control was utilized; adjustment of the MA and/or KV according to patient size; and use of iterative reconstruction technique. FINDINGS: LUNG BASE: Mild bibasilar atelectasis is seen. LIVER: Normal. GALLBLADDER AND BILIARY TREE: Cholecystectomy clips are noted. No intra- or extrahepatic biliary duct al dilation. PANCREAS: Normal. SPLEEN: Normal. BOWEL: A right lower quadrant colostomy appears similar to the prior examination. No dilated loops of bowel are visualized. ADRENALS: Normal. KIDNEYS AND URETER: Normal. BLADDER: Normal. REPRODUCTIVE ORGANS: Normal. LYMPH NODES:No lymphadenopathy. PERITONEUM: No ascites or free air. No other fluid collection. VESSELS: Scattered atherosclerotic calcifications are noted. RETROPERITONEUM: Normal. ABDOMINAL WALL: Normal. BONES: Scattered osseous degenerative changes are noted. Mild compression deformities of the mid thor acic vertebral bodies. IMPRESSION: No acute intraabdominal abnormality. A right lower quadrant colostomy appears similar to the prior examination. No dilated loops of bowel are visualized. Mild bibasilar atelectasis.
[2025-01-14] MEDS ORDERED: HYDROcodone-ACET 5/325MG TAB PO PRN (10:30)
[2025-01-14] MEDS ORDERED: DOCUSATE SOD 100 MG CAP PO PRN (10:30)
[2025-01-14] MEDS ORDERED: ACETAMINOPHEN 325 MG TAB PO PRN (10:30)
[2025-01-14] MEDS ORDERED: LEVO25CA3 PO (10:34)
[2025-01-14] MEDS: SODIUM CHLORIDE 0.9% 1,000 ML IV ONE ×2 (10:58→12:03)
[2025-01-14] MEDS: cefTRIAXone 1GM/50ML D5W 50 ML IV ONE (11:15)
--- NOTE | 2025-01-14 11:22 | DVHHP2 ---
History of Present Illness Reason for Visit: left flank pain History of Present Illness Sri Coley is a 54-year-old female with past medical history of hypothyroidism, depression, schizophrenia, colon cancer, and seizures, who came in due to left flank pain. Patient states the pain began today. She had surgery to repair a hernia and bowel obstruction with Dr. Reynolds 11/03/2024 and is concerned she has another hernia or damaged the previous repair. 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 Psych: Depression, Schizophrenia Endocrine: Hypothyroidism Past Surgical History: Hernia Repair (11/03/2024), Other (hemicolectomy and colostomy creation), Tubal Ligation Smoke: No ALCOHOL: none Drugs: Marijuana Lives: with Family Domestic Violence: Neg Review of Systems Constitutional: No: Fever, Chills, Sweats, Weakness, Malaise, Other Eyes: No: Pain, Vision change, Conjunctivae inflammation, Eyelid inflammation, Other, Redness ENT: No: Ear pain, Ear discharge, Nose pain, Nose discharge, Nose congestion, Mouth pain, Mouth swelling, Throat pain, Throat swelling, Other Respiratory: No: Cough, Dry, Shortness of breath, SOB with excertion, Wheezing, Hemoptysis, Pleuritic Pain, Sputum, Wheezing, Other Cardiovascular: No: Chest Pain, Palpitations, Orthopnea, Paroxysmal Noc. Dyspnea, Edema, Lt Headedness, Other Gastrointestinal: Nausea, Vomiting, Abdominal Pain; No: Diarrhea, Constipation, Melena, Hematochezia, Other Genitourinary: No Dysuria, No Frequency, No Incontinence, No Hematuria, No Retention, No Other Musculoskeletal: No: other, neck pain, shoulder pain, arm pain, back pain, hand pain, leg pain, foot pain Skin: No: Rash, Lesions, Jaundice, Bruising, Other Neurological: No: Weakness, Numbness, Incoordination, Change in speech, Confusion, Seizures, Other Allergies: Coded Allergies: Penicillins (Verified Allergy, Intermediate, hives, 01/12/11) Exam Vital Signs Vital Signs Date Time Temp Pulse Resp B/P (MAP) Pulse Ox O2 Delivery O2 Flow Rate FiO2 01/14/25 09:55 Room Air* 0 21 01/14/25 07:52 84 17 97 01/14/25 07:52 98.7 137/76 (96) 98.7 General Appearance: Alert, Oriented X3, Cooperative, mild distress HEENT: Atraumatic, PERRLA Respiratory: Clear to auscultation, Normal air movement Cardiovascular: Regular rate, Normal S1, Normal S2, No murmurs Abdominal: Normal bowel sounds, Soft, Other (left flank pain) Extremities: No clubbing, No cyanosis, No edema, Normal pulses Skin: No rashes, No breakdown, No significant lesion Neuro: Normal gait, Normal speech, Strength at 5/5 X4 ext, Normal tone Psych/Mental Status: Mental status NL, Mood NL Labs/Xrays Labs Test 01/14/25 08:00 01/14/25 07:43 Range/Units Urine Color Light-yellow Yellow Urine Clarity Clear Clear Urine pH 6.5 5.0-9.0 Urine Specific [place] 1.020 1.001-1.035 Urine Protein Negative Negative Urine Ketones Negative Negative Urine Blood Negative Negative /uL Urine Nitrite Negative Negative Urine Bilirubin Negative Negative Urine Urobilinogen Normal Negative mg/dL Urine Leukocyte Esterase Negative Negative /uL Urine RBC None seen 0 - 4 /hpf Urine Microscopic WBC < 1 0-5 /HPF Urine Squamous Epithelial Cells Few <5 /hpf Urine Bacteria None seen None Seen /hpf Urine Glucose Normal Normal mg/dL White Blood Count 12.0 #H 4.4-10.8 10^3/uL Red Blood Count 5.01 4.0-5.20 10^6/uL Hemoglobin 14.3 12.2-16.2 g/dL Hematocrit 42.6 36.0-46.0 % Mean Corpuscular Volume 85.1 80.0-100.0 fL Mean Corpuscular Hemoglobin 28.5 28.0-32.0 pg Mean Corpuscular Hemoglobin Concent 33.4 32.0-36.0 g/dL Red Cell Distribution Width 13.3 11.8-14.3 % Platelet Count 360 140-450 10^3/uL Mean Platelet Volume 7.3 6.9-10.8 fL Neutrophils (%) (Auto) 76.7 37.0-80.0 % Lymphocytes (%) (Auto) 17.7 10.0-50.0 % Monocytes (%) (Auto) 4.6 0.0-12.0 % Eosinophils (%) (Auto) 0.4 0.0-7.0 % Basophils (%) (Auto) 0.6 0.0-2.0 % Neutrophils # (Auto) 9.2 H 1.6-8.6 10 ^3/uL Lymphocytes # (Auto) 2.1 0.4-5.4 10 ^3/uL Monocytes # (Auto) 0.6 0-1.3 10 ^3/uL Eosinophils # (Auto) 0 0-0.8 10 ^3/uL Basophils # (Auto) 0.1 0-0.2 10 ^3/uL Nucleated Red Blood Cells 0.1 % Sodium Level 138 136-145 mmol/L Potassium Level 4.6 3.5-5.1 mmol/L Chloride Level 107 98-107 mmol/L Carbon Dioxide Level 23 20-31 mmol/L Anion Gap 8 5-15 Blood Urea Nitrogen 13 9-23 mg/dL Creatinine 0.85 0.550-1.02 mg/dL Glomerular Filtration Rate Calc 80 >90 mL/min BUN/Creatinine Ratio 15.3 10.0-20.0 Serum Glucose 104 74-106 mg/dL Calcium Level 9.5 8.7-10.4 mg/dL CT CT AB PEL WO CON-NO ORAL OR IV FINDINGS: LUNG BASE: Mild bibasilar atelectasis is seen. LIVER: Normal. GALLBLADDER AND BILIARY TREE: Cholecystectomy clips are noted. No intra- or extrahepatic biliary ductal dilation. PANCREAS: Normal. SPLEEN: Normal. BOWEL: A right lower quadrant colostomy appears similar to the prior examinat ion. No dilated loops of bowel are visualized. ADRENALS: Normal. KIDNEYS AND URETER: Normal. BLADDER: Normal. REPRODUCTIVE ORGANS: Normal. LYMPH NODES:No lymphadenopathy. PERITONEUM: No ascites or free air. No other fluid collection. VESSELS: Scattered atherosclerotic calcifications are noted. RETROPERITONEUM: Normal. ABDOMINAL WALL: Normal. BONES: Scattered osseous degenerative changes are noted. Mild compression deformities of the mid thoracic vertebral bodies. IMPRESSION: No acute intraabdominal abnormality. A right lower quadrant colostomy appears similar to the prior examination. No dilated loops of bowel are visualized. Mild bibasilar atelectasis. 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 Procedure Category Date Status Time Admit ADMIT 01/14/25 Transmitted 10:29 Code Status CODE 01/14/25 Transmitted 10:29 Hydrocodone-Acet PHA 01/14/25 Transmitted 5/325mg Tab ([place] 10:30 Ondansetron Hcl PHA 01/14/25 Transmitted (Zofran) 10:30 Docusate Sodium PHA 01/14/25 Transmitted Capsule (Colace 10:30 Complete Blood Count LAB 01/15/25 Verified 04:00 Comprehensive LAB 01/15/25 Verified Metabolic Panel 04:00 Condition: Serious WHIT 01/14/25 Transmitted 10:29 Acetaminophen Tablet PHA 01/14/25 Transmitted (Tylenol Tablet) 10:30 Clear Liq Diet DIET 01/14/25 Transmitted Lunch Morphine Sulfate PHA 01/14/25 Transmitted Injection 10:30 Fluoxetine Capsule PHA 01/15/25 Transmitted (Prozac Capsule) 10:00 Pantoprazole Tablet PHA 01/15/25 Transmitted (Protonix Tablet) 10:00 (Nf) Phenobarbital PHA 01/14/25 Transmitted 22:00 Phenytoin Capsule PHA 01/14/25 Transmitted (Dilantin Capsule) 22:00 (Nf) Levothyroxine PHA 01/15/25 Transmitted Sodium 10:00 Date of Service: January 14, 2025 Billing Provider: BLAYNE ONTIVEROS Common Visit Codes: 40289-ULCNMTV INP/OBS CARE (MOD) BLAYNE ONTIVEROS January 14, 2025 11:22
[2025-01-14] MEDS: MORPHINE SULFATE INJ 2 MG/ml SYRG IV PRN (11:52)
[2025-01-14] MEDS: ONDANSETRON HCL 4 MG/2 ML VIAL IV PRN (11:52)
[2025-01-14 13:13] VITALS: PULSE 70; RESP 18
[2025-01-14] MEDS: metroNIDAZOLE 500MG/100ML 100 ML IV SCH (13:54)
[2025-01-14 16:30] VITALS: BP 150/85; PULSE 63; RESP 19; TEMP 97.5; O2SAT 94
[2025-01-14 20:00] VITALS: PULSE 57; RESP 18
[2025-01-14] MEDS: PHENYTOIN SODIUM 100 MG CAP PO SCH (22:12)
[2025-01-14] MEDS: PHENobarbital 32.4 MG TAB PO SCH (22:12)
[2025-01-15] VITALS (7 sets, daily range): BP systolic 97–110; BP diastolic 46–66; PULSE 59–68; RESP 17–20; TEMP 97.4–97.9; O2SAT 92–98
[2025-01-15] MEDS: LEVOTHYROXINE SODIUM 25 MCG TAB PO SCH (06:19)
[2025-01-15 06:22] LABS: Basophils # (auto) 0 10 ^3/uL (0-0.2); Basophils % (auto) 0.2 % (0.0-2.0); Eosinophils # (auto) 0.1 10 ^3/uL (0-0.8); Eosinophils % (auto) 0.9 % (0.0-7.0); Hematocrit 38.3 % (36.0-46.0); Lymphocytes # (auto) 1.8 10 ^3/uL (0.4-5.4); Lymphocytes % (auto) 24.5 % (10.0-50.0); Mean Corpuscular Hemoglobin 28.9 pg (28.0-32.0); Mean Corpuscular Volume 84.8 fL (80.0-100.0); Monocytes # (auto) 0.4 10 ^3/uL (0-1.3); Monocytes % (auto) 5.1 % (0.0-12.0); Neutrophils # (auto) 5.1 10 ^3/uL (1.6-8.6); Neutrophils % (auto) 69.3 % (37.0-80.0); Nucleated Red Blood Cells % 0.2 %; Platelet Count (auto) 304 10^3/uL (140-450); Red Blood Cells 4.51 10^6/uL (4.0-5.20); Red Cell Distribution Width 13.6 % (11.8-14.3); White Blood Cell 7.3 10^3/uL (4.4-10.8)
[2025-01-15 06:37] LABS: Anion Gap 9 (5-15); BUN/Creatinine Ratio 16.2 (10.0-20.0); Blood Urea Nitrogen 12 mg/dL (9-23); Calcium 9.2 mg/dL (8.7-10.4); Carbon Dioxide 27 mmol/L (20-31); Chloride 104 mmol/L (98-107); Glucose 84 mg/dL (74-106); Potassium 4.6 mmol/L (3.5-5.1); Sodium 140 mmol/L (136-145); Total Protein 6.2 g/dL (5.7-8.2)
[2025-01-15 06:39] LABS: Albumin 3.6 g/dL (3.2-4.8)
[2025-01-15 06:40] LABS: Alanine Aminotransferase 60 U/L (7-40); Alkaline Phosphatase 270 U/L (46-116); Aspartate Aminotransferase 73 U/L (13-40); Bilirubin, Total 0.2 mg/dL (0.2-1.0)
[2025-01-15] MEDS: cefTRIAXone 1GM/50ML D5W 50 ML IV SCH (08:51)
[2025-01-15] MEDS: FLUoxetine HCL 20 MG CAP PO SCH (08:52)
[2025-01-15] MEDS: PANTOPRAZOLE 40 MG TAB PO SCH (08:53)
--- NOTE | 2025-01-15 19:11 | DVHDS2 ---
Discharge Summary Date of Admission January 14, 2025 at 10:29 Date of Discharge: January 15, 2025 Labs/Diagnostic Data: Laboratory Results Test 01/15/25 04:45 01/14/25 08:00 White Blood Count 7.3 10^3/uL (4.4-10.8) Red Blood Count 4.51 10^6/uL (4.0-5.20) Hemoglobin 13.0 g/dL (12.2-16.2) Hematocrit 38.3 % (36.0-46.0) Mean Corpuscular Volume 84.8 fL (80.0-100.0) Mean Corpuscular Hemoglobin 28.9 pg (28.0-32.0) Mean Corpuscular Hemoglobin Concent 34.0 g/dL (32.0-36.0) Red Cell Distribution Width 13.6 % (11.8-14.3) Platelet Count 304 10^3/uL (140-450) Mean Platelet Volume 7.8 fL (6.9-10.8) Neutrophils (%) (Auto) 69.3 % (37.0-80.0) Lymphocytes (%) (Auto) 24.5 % (10.0-50.0) Monocytes (%) (Auto) 5.1 % (0.0-12.0) Eosinophils (%) (Auto) 0.9 % (0.0-7.0) Basophils (%) (Auto) 0.2 % (0.0-2.0) Neutrophils # (Auto) 5.1 10 ^3/uL (1.6-8.6) Lymphocytes # (Auto) 1.8 10 ^3/uL (0.4-5.4) Monocytes # (Auto) 0.4 10 ^3/uL (0-1.3) Eosinophils # (Auto) 0.1 10 ^3/uL (0-0.8) Basophils # (Auto) 0 10 ^3/uL (0-0.2) Nucleated Red Blood Cells 0.2 % Sodium Level 140 mmol/L (136-145) Potassium Level 4.6 mmol/L (3.5-5.1) Chloride Level 104 mmol/L (98-107) Carbon Dioxide Level 27 mmol/L (20-31) Anion Gap 9 (5-15) Blood Urea Nitrogen 12 mg/dL (9-23) Creatinine 0.74 mg/dL (0.550-1.02) Glomerular Filtration Rate Calc 95 mL/min (>90) BUN/Creatinine Ratio 16.2 (10.0-20.0) Serum Glucose 84 mg/dL (74-106) Calcium Level 9.2 mg/dL (8.7-10.4) Total Bilirubin 0.2 mg/dL (0.2-1.0) Aspartate Amino Transferase (AST) 73 U/L (13-40) Alanine Aminotransferase (ALT) 60 U/L (7-40) Alkaline Phosphatase 270 U/L (46-116) Total Protein 6.2 g/dL (5.7-8.2) Albumin 3.6 g/dL (3.2-4.8) Phenytoin (Dilantin) Level 15.6 ug/mL (10-20) Urine Color Light-yellow (Yellow) Urine Clarity Clear (Clear) Urine pH 6.5 (5.0-9.0) Urine Specific [place] 1.020 (1.001-1.035) Urine Protein Negative (Negative) Urine Ketones Negative (Negative) Urine Blood Negative /uL (Negative) Urine Nitrite Negative (Negative) Urine Bilirubin Negative (Negative) Urine Urobilinogen Normal mg/dL (Negative) Urine Leukocyte Esterase Negative /uL (Negative) Urine RBC None seen /hpf (0 - 4) Urine Microscopic WBC < 1 /HPF (0-5) Urine Squamous Epithelial Cells Few /hpf (<5) Urine Bacteria None seen /hpf (None Seen) Urine Glucose Normal mg/dL (Normal) Other Laboratory Tests 01/15/25 04:45 Brief Hx & Hospital Course: Sri Coley is a 54-year-old female with past medical history of hypothyroidism, depression, schizophrenia, colon cancer, and seizures, who came in due to left flank pain. Patient states the pain began today. She had surgery to repair a hernia and bowel obstruction with Dr. Reynolds 11/03/2024 and is concerned she has another hernia or damaged the previous repair. She was able to eat and tolerated diet, colostomy functioning Condition at Discharge: Good Final Diagnosis/Problems List viral enterocolitis Discharge Disposition: Home Discharge Instruct/Medications Diet: Regular Activity: No Restrictions, As Tolerated Follow Up/Referral: PCP in 7 days Medications: same home medications Discharge Statement: "Patient was advised to return to the ER or call 911 if any headaches, dizziness, shortness of breath, chest pain, abdominal pain, bleeding, fevers, or worsening of medical condition. Patient was counseled about treatment plan, medications, possible side effects, patientverbalized understanding. All questions were answered to the best of my ability. This discharge took greater then 30 minutes in planning, reviewing documentation, counseling the patient, and discussing with other team members." ASSESSMENT ASSESSMENT Assessment viral enterocolitis Date of Service: January 15, 2025 Billing Provider: CHI SAGE MD Common Visit Codes: 16512-PKN/OBS DISCH DAY >30min CHI SAGE MD January 15, 2025 19:11
== END 2025-01-15 19:34 | disposition home or self-care (01) | DRG 249 ==
LOC: EDBD 07:23 → ER 07:23 → OVERFLOW 10:29 → WEST WING 16:20
PROVIDERS: ADMIT Hospitalist; ATTEND Hospitalist
DX: A08.4 Viral intestinal infection, unspecified (principal); R56.9 Unspecified convulsions; E03.9 Hypothyroidism, unspecified; F32.A Depression, unspecified; F20.9 Schizophrenia, unspecified; E66.9 Obesity, unspecified; Z85.038 Personal history of other malignant neoplasm of large intestine; Z88.0 Allergy status to penicillin; Z79.1 Long term (current) use of non-steroidal anti-inflammatories (NSAID); Z79.899 Other long term (current) drug therapy; Z83.3 Family history of diabetes mellitus; Z82.49 Family history of ischemic heart disease and other diseases of the circulatory system; Z93.3 Colostomy status; Z68.39 Body mass index [BMI] 39.0-39.9, adult
CPT/HCPCS: 36415; 74176; 80048; 80053; 80185; 81001; 85025; 96365; 96375; G0378; J2405; J3490

== ENCOUNTER 2025-08-07 09:35 | Emergency (ER) | payer MEDICAID ==
[~2025-08-07] VITALS: Ht 154.9 cm; Wt 100.0 kg
[~2025-08-07 09:35] MED LIST changes: -FLUO-470 PO; +LEVO25CA3 PO; -PRED20TA2 PO; -ZOFR4T PO
[2025-08-07 09:39] VITALS: BP 102/58; PULSE 105; RESP 18; TEMP 98.3; O2SAT 98
--- NOTE | 2025-08-07 10:42 | ED.PDOC ---
Musculoskeletal HPI Comments A 55 YEAR OLD FEMALE PRESENTS TO THE ED WITH COMPLAINT OF LEFT GREAT TOE PAIN. PATIENT REPORTS THAT SHE HAS BEEN EXPERIENCING LEFT SIDED GREAT TOE PAIN, SWELLING, AND NUMBNESS AFTER ABDOMINAL SURGERY PERFORMED A MOTH AGO. PATIENT RELAYS THAT SHE HAD AN SCD PLACED ON HER LEFT LEG TO PREVENT BLOOD CLOTS DURING SURGERY, BUT WHEN SHE STARTED TO EXPERIENCE HER SYMPTOMS SHE ASKED FOR IT TO BE REMOVED. PATIENT STATES HER SYMPTOMS PERSISTED AFTER THE REMOVAL OF THE SCD. ALSO, PT C/O LOW BACK PAIN. PATIENT DENIES WEAKNESS, REDNESS, FEVER, CHILLS, SHORTNESS OF BREATH, CHEST PAIN, ABDOMINAL PAIN, NAUSEA, VOMITING, HEADACHE, OR OTHER COMPLAINTS. NO OTHER SYMPTOMS OR MODIFYING FACTORS AT THIS TIME. PATIENT I S ALERT, ORIENTED X 4, AND HAS STEADY GAIT. Chief Complaint: Lower Extremity Time Seen by MD: 10:42 Primary Care Provider: ROXY Ramires Notes: Nurses Notes, Medications, Allergies Allergies: Coded Allergies: Penicillins (Verified Allergy, Intermediate, hives, 01/12/11) Home Meds Active Scripts Prednisone (Prednisone) 20 Mg Tab, 40 MG PO BS, #20 TAB Prov:HAILEY RAHMAN 08/07/25 Tramadol HCl (Tramadol HCl) 50 Mg Tab, 50 MG PO BID, #20 TAB Prov:HAILEY RAHMAN 08/07/25 Ibuprofen Micronized (Ibuprofen) 600 Mg Tab, 600 MG PO Q8HP PRN, #30 TAB Prov:KALIA ANGULO MD 09/12/24 Pantoprazole Sodium Sesquihydr (Protonix) 40 Mg Tab, 40 MG PO DAILY, #30 TAB Prov:KALIA ANGULO MD 09/12/24 Reported Medications Levothyroxine Sodium (Levothyroxine Sodium) 25 Mcg Cap, 25 MCG PO DAILY 01/14/25 Ciclopirox (Ciclopirox Nail Lacquer) 8 % Chanel, 1 APPLIC TOP DAILY, #6.6 ML 1 Refill 10/24/24 Phenobarbital (PHENOBARBITAL) 32.4 Mg Tb, 64.8 MG PO BID 06/06/15 Fluoxetine Hcl (Fluoxetine Hcl) 20 Mg Cap, 20 MG PO DAILY, CAP 06/06/15 Phenytoin Sodium (DILANTIN CAPSULE) 100 Mg Cp, 2 CAP PO BID for DAILY, CP 06/06/15 Information Source: Patient Mode of Arrival: EMS Location: Left Extremity Location: Foot Timing: Months Prehospital treatment: None Severity: Moderate Able to Move Extremity: Yes Bear Weight: Limited Pain: Moderate Mechanism: Spontaneous Circumstances: Spontaneous Onset of Symptoms: Spontaneous Symptoms: Swelling, Pain DVT Risk Factors: Recent surgery Past Medical History PAST MEDICAL HISTORY: Cancer, Depression, High Lipids, Schizophrenia, Seizures Surgical History: BTL, Cholecystectomy, Hernia Repair PRECISION AGRICULTURE TECHNICIAN History: No Pertinent PRECISION AGRICULTURE TECHNICIAN History Family History Family History: Family hx of DM, Family hx of Cancer, Family hx of heart deb, Family hx of HTN Social History Smoker: Non-Smoker, Quit Greater Than 1 Year Alcohol: Denies ETOH Use Drugs: Marijuana Lives In: Home Constitutional: denies: chills, diaphoresis, fatigue, fever, malaise, sweats, weakness, others EENTM: denies: blurred vision, double vision, ear bleeding, ear discharge, ear drainage, ear pain, ear ringing, eye pain, eye redness, hearing loss, mouth pain, mouth swelling, nasal discharge, nose bleeding, nose congestion, nose pain, photophobia, tearing, throat pain, throat swelling, voice changes, others Respiratory: denies: cough, hemoptysis, orthopnea, SOB at rest, shortness of breath, SOB with excertion, stridor, wheezing, others Cardiovascular: denies: chest pain, dizzy spells, diaphoresis, Dyspnea on exertion, edema, irregular heart beat, left arm pain, lightheadedness, palpitations, PND, syncope, others Gastrointestinal: denies: abdomen distended, abdominal pain, blood streaked bowels, constipated, diarrhea, dysphagia, difficulty swallowing, hematemesis, melena, nausea, poor appetite, poor fluid intake, rectal bleeding, rectal pain, vomiting, others Genitourinary: denies: abnormal vagina bleeding, burning, dyspareunia, dysuria, flank pain, frequency, hematuria, incontinence, pain, , vagina dischar ge, urgency, others Neurological: denies: dizziness, fainting, headache, left sided numbness, left sided weakness, numbness, paresthesia, pre-existing deficit, right sided numbness, right sided weakness, seizure, speech problems, tingling, tremors, weakness, others Musculoskeletal: reports: back pain, muscle pain, others (LT FOOT PAIN AND NUMBNESS); denies: gout, joint pain, joint swelling, muscle stiffness, neck pain Integumetry: denies: bruises, change in color, change in hair/nails, dryness, laceration, lesions, lumps, rash, wounds, others Allergic/Immunocompromised: denies: Difficulty Healing, Frequent Infections, Hives, Itching, others Hematologic/Lymphatic: denies: anemia, blood clots, easy bleeding, easy br uising, swollen glands, others Endocrine: denies: excessive hunger, excessive sweating, excessive thirst, excessive urination, flushing, intolerance to cold, intolerance to heat, unexplained weight gain, unexplained weight loss, others Psychiatric: denies: anxiety, bipolar disorder, depression, hopeless, panic disorder, schizophrenia, sleepless, suicidal, others All Other Systems: Reviewed and Negative Physical Exam General Appearance: No Apparent Distress, Obese HEENT: Normal ENT Inspection, Pharynx Normal, TMs Normal Neck: Full Range of Motion, Non-Tender, Normal, Normal Inspection Respiratory: Chest Non-Tender, Lungs Clear, No Accessory Muscle Use, No Respiratory Distress, Normal Breath Sounds Cardiovascular: No Edema, No JVD, No Murmur, No Gallop, Normal Peripheral Pulses, Regular Rate/Rhythm Breast Exam: Deferred Gastrointestinal: No Organomegaly, Non Tender, No Pulsatile Mass, Normal Bowel Sounds, Soft Genitalia: Deferred Pelvic: Deferred Rectal: Deferred Extremities: No calf tenderness, Normal capillary refill, Normal inspection, Normal range of motion, Non-tender, No pedal edema Musculoskeletal : Location: Right Extremity Location: Great Toe (TENDERNESS ON LEFT GREAT TOE, NO REDNESS, SWELLING AND DEFORMITY, NEUROVASCULAR INTACT, NO REDNESS AND SWELLING ON LEFT LOWER LEG, NO DVT SIGNS. ) Apperance: Tenderness (AND MUSCLE SPASM ON LOWER BACK, NO BONY TENDERNESS AND SWELLING. ) Neurologic: Alert, grid molder II-XII nml as Tested, No Motor Deficits, Normal Affect, Normal Mood, No Sensory Deficits Cerebellar Function: Normal Reflexes: Normal Skin: Dry, Normal Color, Warm Peripheral Pulses: 2+ carotid (R), 2+ carotid (L), 2+ dorsalis pedis (R), 2+ dorsalis pedis (L) Lymphatic: No Adenopathy Was a procedure done? Was a procedure done?: No Differential Diagnosis EXT Differential Diagnosis: Fracture, Sprain, Contusion, Strain, Neurovascular injury, Arthritis X-Ray, Labs, Meds, VS Vital Signs Date Time Temp Pulse Resp B/P (MAP) Pulse Ox O2 Delivery O2 Flow Rate FiO2 08/07/25 09:39 98.3 105 18 102/58 98 98.3 [place] [id number] Ph: [phone] DIAGNOSTIC IMAGING Diagnostic Imaging Report : [id number] Signed PATIENT: PEDRO ROWELL ACCT: [id number] UNIT: [id number] : 1970 LOC: ER ROOM / BED: / AGE / SEX: 55 / F ADM STATUS: REG ER SERVICE 103 ORDERING PHYSICIAN: HAILEY RAHMAN PROCEDURE(s): LUMB2 - LUMBAR SPINE 3 VIEW REASON: PAIN TO LEFT GREAT TOE ORDER NUMBER(s): [id number], ACCESSION NUMBER(s): [id number] EXAM: XY LUMBAR SPINE 3 VIEW HISTORY: PAIN TO LEFT GREAT TOE COMPARISON: None TECHNIQUE: AP and lateral views of the lumbar spine and spot lateral of the lumbosacral junction were performed. FINDINGS/IMPRESSION: Age-indeterminate multilevel thoracolumbar fractures, CT or MRI is suggested in further assessment. The alignment is maintained. Degenerative changes of the lumbar spine characterized by mild endplate osteophytosis and intervertebral disc space narrowing. Surgical clips project over the pelvis. ATED BY: FAWAD MUNOZ MD DICTATED DATE/TIME: 08/07/25 110 SIGNED BY: FAWAD MUNOZ MD SIGNED DATE/TIME: 08/07/25 1108 CC: [address] [id number] Ph: [phone] DIAGNOSTIC IMAGING Diagnostic Imaging Report : [id number] Signed PATIENT: PEDRO ROWELL ACCT: [id number] UNIT: [id number] : 1970 LOC: ER ROOM / BED: / AGE / SEX: 55 / F ADM STATUS: REG ER SERVICE 1036 ORDERING PHYSICIAN: HAILEY RAHMAN PROCEDURE(s): LFOT2 - L FOOT 2 VIEW XRAY REASON: PAIN AND NUMBNESS OF LEFT GREAT TOE ORDER NUMBER(s): [id number], ACCESSION NUMBER(s): [id number] EXAM: XY L FOOT 2 VIEW XRAY CLINICAL INDICATION: PAIN AND NUMBNESS OF LEFT GREAT TOE TECHNIQUE: XY L FOOT 2 VIEW XRAY COMPARISON: None FINDINGS/IMPRESSION: There is no evidence of acute fracture or dislocation. The visualized joint space is well maintained. The alignment is anatomical. There is no radiopaque foreign body. ATED BY: TRISTAN XIONG MD DICTATED DATE/TIME: 08/07/251107 SIGNED BY: TRISTAN XIONG MD SIGNED DATE/TIME: 08/07/251107 CC: X-Ray, Labs, Meds, VS Comment EXTERNAL MEDICAL RECORDS REVIEWED: [NONE] INDEPENDENT HISTORIANS: [NONE] SOCIAL DETERMINANTS OF HEALTH: [NONE] LABS ORDERED: NONE REVIEWED AND INTERPRETED RESULTS: L-SPINE XR, LT FOOT XR IMAGING ORDERED: L-SPINE XR, LT FOOT XR TREATMENTS ORDERED: NORCO 10/325MG PO PROCEDURES PERFORMED: NONE CRITICAL CARE TIME: NONE I HAVE DISCUSSED THE PATIENT WITH THE ATTENDING PHYSICIAN DR. RENE AND HE AGREES WITH THE PATIENT'S PLAN OF CARE AND DISPOSITION. BASED ON HISTORY OF PRESENT ILLNESS, AND PHYSICAL EXAM, PATIENT WILL BE DISCHARGED HOME. DISCUSSED PLAN FOR DISCHARGE HOME WITH RX TRAMADOL AND PREDNISONE. MEDICATION WARNINGS GIVEN. SHARED DECISION MAKING: DISCUSSED WITH PATIENT THAT THEIR WORKUP WAS NORMAL. PATIENT INSTRUCTED TO FOLLOW UP WITH PRIMARY CARE PROVIDER IN 1-2 DAYS FOR RE- EVALUATION OF SYMPTOMS. PATIENT VERBALIZES UNDERSTANDING TO RETURN TO ED FOR NEW OR WORSENING SYMPTOMS OR IF FOLLOW UP WITH PCP CANNOT BE OBTAINED. PATIENT FEELS COMFORTABLE GOING HOME AT THIS TIME. ALL QUESTIONS ADDRESSED AT TIME OF DISCHARGE. Time of 1ST Reevaluation: 11:00 Reevaluation 1ST: Unchanged Patient Education/Counseling: Diagnosis, Treatment Family Education/Counseling: No Family Present Departure 1 Departure Time of Disposition: 12:33 Impression: Primary Impression: DDD (degenerative disc disease), lumbar Qualified Codes: M51.362 - Other intervertebral disc degeneration, lumbar region with discogenic back pain and lower extremity pain Additional Impressions: Pathologic lumbar vertebral fracture Qualified Codes: M84.48XA - Pathological fracture, other site, initial encounter for fracture Lumbar radiculopathy Disposition: 01 HOME / SELF CARE / HOMELESS Condition: Stable Additional Instructions: FOLLOW-UP WITH PCP IN 1 TO 2 DAYS. TAKE MEDICATIONS PRESCRIBED. RETURN TO ED FOR ANY NEW OR WORSENING SYMPTOMS. e-Prescriptions Prednisone (Prednisone) 20 Mg Tab 40 MG PO BS, #20 TAB Prov: HAILEY RAHMAN 08/07/25 Tramadol HCl (Tramadol HCl) 50 Mg Tab 50 MG PO BID, #20 TAB Prov: HAILEY RAHMAN 08/07/25 Discharged With: Self, Relative Critical Care Note Critical Care Time?: No Stability Stability form required: No Heart Score Heart Score: Heart Score Response (Comments) Value History N/A 0 EKG N/A 0 Age N/A 0 Risk Factors N/A 0 Troponin N/A 0 Total 0 I personally scribed for HAILEY RAHMAN ([email or web address]) on 08/07/25 at 10:42. Electronically submitted by Hiram Matthews ([email or web address]). I personally scribed for HAILEY RAHMAN ([email or web address]) on 08/07/25 at 11:16. Electronically submitted by Hiram Matthews ([email or web address]). HAILEY RAHMAN Aug 07, 2025 10:42
--- NOTE | 2025-08-07 11:11 | DVH ---
EXAM: XY L FOOT 2 VIEW XRAY CLINICAL INDICATION: PAIN AND NUMBNESS OF LEFT GREAT TOE TECHNIQUE: XY L FOOT 2 VIEW XRAY COMPARISON: None FINDINGS/IMPRESSION: There is no evidence of acute fracture or dislocation. The visualized joint space is well maintained. The alignment is anatomical. There is no radiopaque foreign body.
--- NOTE | 2025-08-07 11:11 | DVH ---
EXAM: XY LUMBAR SPINE 3 VIEW HISTORY: PAIN TO LEFT GREAT TOE COMPARISON: None TECHNIQUE: AP and lateral views of the lumbar spine and spot lateral of the lumbosacral junction were performed. FINDINGS/IMPRESSION: Age-indeterminate multilevel thoracolumbar fractures, CT or MRI is suggested in further assessment. The alignment is maintained. Degenerative changes of the lumbar spine characterized by mild endplate osteophytosis and intervertebral disc space narrowing. Surgical clips project over the pelvis.
[2025-08-07] MEDS: HYDROcodone-ACET 10/325MG TAB PO ONE (11:45)
[2025-08-07] MEDS ORDERED: PRED20TA2 PO (12:04)
[2025-08-07] MEDS ORDERED: TRAM-626 PO (12:04)
== END 2025-08-07 12:28 | disposition home or self-care (01) ==
LOC: ER 09:35 → EDSEX 09:35 → EDBD 09:35 → ER 12:28
DX: M51.16 Intervertebral disc disorders with radiculopathy, lumbar region (principal); M84.48XA Pathological fracture, other site, initial encounter for fracture; F12.90 Cannabis use, unspecified, uncomplicated; F32.A Depression, unspecified; E78.5 Hyperlipidemia, unspecified; F20.9 Schizophrenia, unspecified; Z79.899 Other long term (current) drug therapy; Z98.890 Other specified postprocedural states; Z98.51 Tubal ligation status; Z88.0 Allergy status to penicillin; Z90.49 Acquired absence of other specified parts of digestive tract; Z79.890 Hormone replacement therapy
CPT/HCPCS: 72100; 73620

== ENCOUNTER 2025-08-15 00:16 | Emergency (ER) | payer MEDICAID ==
[~2025-08-15] VITALS: Ht 157.5 cm; Wt 127.3 kg
[~2025-08-15 00:16] MED LIST changes: +PRED20TA2 PO; +TRAM-626 PO
--- NOTE | 2025-08-15 04:49 | ED.PDOC ---
History of Present Illness HPI Comments 49-year-old female is brought in by ambulance for chief complaint of left foot pain. Patient reports 1 month history of pain following initial, unprovoked and atraumatic onset. Patient has been, already, evaluated by her primary care provider for pain and received an MRI, that is still pending report. No relief of pain with [id number] pain medication or with Epsom salt baths. She denies having any shortness of breath, chest pain, or further acute symptoms. REVIEW OF SYSTEMS: General: No fever, no chills, HEENT: No neck pain, no blurred vision Cardiac: No chest pain. No palpitations. Lungs: No shortness of breath, GI: No abdominal pain, no vomiting Musculoskeletal: Left foot pain. No joint pain , no back pain Skin: No rash, no wound Neuro: No headache, no dizziness, no syncope PHYSICAL EXAM: General: Awake, alert and oriented. No acute distress. Skin: Skin in warm, dry and intact without rashes or lesions. HEENT: The head is normocephalic and atraumatic. Conjunctivae are clear without exudates or hemorrhage. Sclera is non-icteric. Neck: Normal range of motion. No JVD. Cardiac: Regular rate Respiratory: No signs of respiratory distress. No Stridor. Extremities: Generalized tenderness to dorsal side of left foot. No erythema, swelling, laceration, or bruising. No calf tenderness. Otherwise, remaining upper and lower extremities are atraumatic in appearance without deformity. Neurological: The patient is awake, alert and oriented to person, place, and time with normal speech. Speech is clear. There is no facial asymmetry. Psychiatric: Appropriate mood and affect. Good judgement and insight. Chief Complaint: Lower Extremity Time Seen by MD: 01:59 Primary Care Provider: ROXY Reviewed Notes: Nurses Notes, Senior Corporate Strategy Manager Notes, Medications, Allergies Allergies: Coded Allergies: Penicillins (Verified Allergy, Intermediate, hives, 01/12/11) Home Meds Active Scripts Prednisone (Prednisone) 20 Mg Tab, 40 MG PO BS, #20 TAB Prov:HAILEY RAHMAN 08/07/25 Tramadol HCl (Tramadol HCl) 50 Mg Tab, 50 MG PO BID, #20 TAB Prov:HAILEY RAHMAN 08/07/25 Ibuprofen Micronized (Ibuprofen) 600 Mg Tab, 600 MG PO Q8HP PRN, #30 TAB Prov:KALIA ANGULO MD 09/12/24 Pantoprazole Sodium Sesquihydr (Protonix) 40 Mg Tab, 40 MG PO DAILY, #30 TAB Prov:KALIA ANGULO MD 09/12/24 Reported Medications Levothyroxine Sodium (Levothyroxine Sodium) 25 Mcg Cap, 25 MCG PO DAILY 01/14/25 Ciclopirox (Ciclopirox Nail Lacquer) 8 % Chanel, 1 APPLIC TOP DAILY, #6.6 ML 1 Refill 10/24/24 Phenobarbital (PHENOBARBITAL) 32.4 Mg Tb, 64.8 MG PO BID 06/06/15 Fluoxetine Hcl (Fluoxetine Hcl) 20 Mg Cap, 20 MG PO DAILY, CAP 06/06/15 Phenytoin Sodium (DILANTIN CAPSULE) 100 Mg Cp, 2 CAP PO BID for DAILY, CP 06/06/15 Information Source: Patient, Emergency Med Personnel Mode of Arrival: EMS Severity: Moderate Timing: Weeks Duration: Since onset Prehospital treatment: 12 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 Was a procedure done?: No Differential Dx Considerations may include: Differentials include but not limited to fractures, contusions, sprain, strain, DVT, among others X-Ray, Labs, Meds, VS Vital Signs Date Time Temp Pulse Resp B/P (MAP) Pulse Ox O2 Delivery O2 Flow Rate FiO2 08/15/25 05:42 98.0 88 20 112/72 (85) 99 98.0 08/15/25 05:42 88 20 99 Room Air 08/15/25 00:20 98.2 98 18 107/69 97 98.2 Current Medications Medications (Trade) Dose Ordered Sig/Catalina Route Start Time Stop Time Status Last Admin Tramadol HCl (Ultram) 50 mg ONCE ONCE PO 08/15/25 05:15 08/15/25 05:16 DC 08/15/25 05:30 Acetaminophen (Tylenol Tablet) 650 mg ONCE ONCE PO 08/15/25 05:15 08/15/25 05:16 DC 08/15/25 05:31 Time of 1ST Reevaluation: 04:48 Reevaluation 1ST: Unchanged Patient Education/Counseling: Need For Follow Up Family Education/Counseling: No Family Present SEPSIS Sepsis Screen Date sepsis recognized/suspect: Aug 15, 2025 Time Sepsis recognized/suspect: 0020 Recent Procedure: No On Antibiotic Therapy: No Respiratory Rate >20: No Heart Rate >90: Yes Temp<36 C (96.8 F) or >38.3 C: No SBP <90 or MAP <65 mmHG: No New Acute Mental Status Change: No Is the patient on CPAP, BIPAP,: No Vital Signs Date Time Temp Pulse Resp B/P (MAP) Pulse Ox O2 Delivery O2 Flow Rate FiO2 08/15/25 05:42 98.0 88 20 112/72 (85) 99 98.0 08/15/25 05:42 88 20 99 Room Air 08/15/25 00:20 98.2 98 18 107/69 97 98.2 Medications Medications Dose Ordered Sig/Catalina Route Start Time Stop Time Status Last Admin Dose Admin Acetaminophen 650 mg ONCE ONCE PO 08/15/25 05:15 08/15/25 05:16 DC 08/15/25 05:31 Ketorolac Tromethamine 60 mg STK-MED ONCE .ROUTE 08/15/25 05:37 08/15/25 05:36 DC 08/15/25 05:38 Tramadol HCl 50 mg ONCE ONCE PO 08/15/25 05:15 08/15/25 05:16 DC 08/15/25 05:30 Departure 1 Departure Time of Disposition: 05:08 Impression: Primary Impression: Foot pain, left Disposition: 01 HOME / SELF CARE / HOMELESS Condition: Stable Additional Instructions: ED DISCHARGE INSTRUCTIONS Instructions: Please read all instructions provided in this packet carefully. Although you have been discharged from the Emergency Department, this does not mean that you have a "clean bill of health". No definitive diagnosis for your symptoms has been made today. It is possible that you are in the process of developing a serious illness. This is why you must return to the ED without fail if any new or worsening symptoms (especially if your symptoms include chest pain, trouble breathing, abdominal pain, fever, headache, confusion, trouble seeing, or trouble walking) It is also very important that you see a primary care provider (PCP) within the next 3-5 days to follow up. If you are unable to get an appointment, return to the ED for re-evaluation. Comments MDM: 55-year-old female who presents to the emergency department with a left foot wilian n for the past month. Patient has previously been evaluated by her primary care provider for this pain, she had an MRI. The results are pending. Patient declined imaging here in the emergency department. She appointment prescription for ibuprofen or Tylenol. She requested to be discharged to follow up with the primary care provider. Extensive evaluation was performed in attempt to identify or rule out: (See differential diagnosis section) The following tests were ordered, and results were reviewed by me and discussed with patient: (See diagnostic results section) The following test were independently interpreted by me: N/A I reviewed and agreed with the following test results read by other providers: N/A I reviewed the following notes from the pt's past medical encounters: August 07, 2025 encounter for left foot pain Additional information was gathered from interviewing the following independent historians: EMS personnel Discussion of management or test interpretation with external physician/other qualified health care information associate: N/A Addressed [ ]one or more chronic illnesses with severe exacerbation, progression, or side effects of treatment: [ ]an acute or chronic illness that poses a threat to life or bodily function: [ ] Decision regarding hospitalization or escalation of hospital level of care: Risk and benefits of admission for further treatment of patient's condition was considered. Due to patient's current clinical condition, high risk of decline and poor outcome if discharged and need for further inpatient management and monitoring, patient will be admitted to the hospital. Drug therapy requiring intensive monitoring for toxicity: N/A Parenteral controlled substances: N/A Decision regarding elective major surgery with identified patient or procedure risk factors: N/A Decision regarding emergency major surgery: N/A Decision not to resuscitate or to de-escalate care because of poor prognosis: N/A Diagnosis or treatment significantly limited by social determinants of health: N/A Decision regarding hospitalization or escalation of hospital level of care: Risks and benefits of admission for further treatment of patient's condition was considered however due to patient's stable condition patient will be discharged to follow up closely or return to care for worsening of condition or inability to follow up. Critical Care Note Critical Care Time?: No Stability Stability form required: No Heart Score Heart Score: Heart Score Response (Comments) Value History N/A 0 EKG N/A 0 Age N/A 0 Risk Factors N/A 0 Troponin N/A 0 Total 0 I personally scribed for JOHN SCHROEDER MD ([email or web address]) on 08/15/25 at 04:49. Electronically submitted by Lonnie Beltran ([email or web address]). I personally scribed for JOHN SCHROEDER MD ([email or web address]) on 08/15/25 at 06:58. Electronically submitted by Lonnie Beltran ([email or web address]). JOHN SCHROEDER MD Aug 15, 2025 04:49
[2025-08-15] MEDS: ACETAMINOPHEN 325 MG TAB PO ONE (05:31)
[2025-08-15] MEDS: KETOROLAC TROMETH 30 MG/ML 1ML VIAL IM ONE (05:32)
[2025-08-15] MEDS: KETOROLAC TROMETH 60MG/2ML VIAL ONE (05:38)
[2025-08-15 05:42] VITALS: BP 112/72; PULSE 88; RESP 20; TEMP 98; O2SAT 99
== END 2025-08-15 05:46 | disposition home or self-care (01) ==
LOC: EDBD 00:16 → ER 00:16
DX: M79.672 Pain in left foot (principal); Z79.899 Other long term (current) drug therapy; F20.9 Schizophrenia, unspecified; F32.A Depression, unspecified; Z90.49 Acquired absence of other specified parts of digestive tract; Z88.0 Allergy status to penicillin; Z98.890 Other specified postprocedural states
CPT/HCPCS: 96372; 99283; J1885